=== PATIENT | female | born 1940 | race Caucasian/White ===

== ENCOUNTER 2017-05-03 16:12 | Emergency (ER) | payer MEDICARE, OTHER ==
--- NOTE | 2017-05-03 16:19 | ER Document Report ---
ED Fall - General Chief Complaint: Fall Stated Complaint: FALL FACE PAIN Time Seen by Provider: 05/03/17 16:17 Notes: The patient is a 76-year-old female, past medical history intermittent A. fib ( not on any blood thinners or rate-control agents), presents after she tripped over a [place] tree root and landed on her face. She has 2 lacerations on her forehead and above her nose with bleeding controlled. Her tetanus is up-to- date. On arrival to the ER, she is noticed to be in A. fib with RVR. She said that she did not drink any water today and that this happens when she becomes dehydrated. She denies LOC, neck pain, blurry vision, nausea, vomiting, palpitations, chest pain, shortness of breath or back pain. Past Medical History - General Information source: Patient - Social History Smoking Status: Unknown if Ever Smoked Family History: Reviewed & Not Pertinent Review of Systems - Review of Systems Notes: REVIEW OF SYSTEMS: CONSTITUTIONAL: -fevers, -chills EENT: +facial pain, -eye pain, -difficulty swallowing, -nasal congestion CARDIOVASCULAR: -chest pain, -syncope. RESPIRATORY: -cough, -SOB GASTROINTESTINAL: -abdominal pain, -nausea, -vomiting, -diarrhea GENITOURINARY: -dysuria, -hematuria MUSCULOSKELETAL: -back pain, -neck pain SKIN: +forehead lacerations HEMATOLOGIC: -easy bruising or bleeding. LYMPHATIC: -swollen, enlarged glands. NEUROLOGICAL: -altered mental status or loss of consciousness, -headache, - neurologic symptoms PSYCHIATRIC: -anxiety, -depression. ALL OTHER SYSTEMS REVIEWED AND NEGATIVE. Physical Exam - Vital signs Vitals: Resp BP Pulse Ox 20 111/88 H 95 05/03/17 16:27 05/03/17 16:27 05/03/17 16:27 - Notes Notes: PHYSICAL EXAMINATION: GENERAL: Well-appearing, well-nourished and in no acute distress EYES: Pupils equal round and reactive to light, extraocular movements intact, sclera anicteric, conjunctiva are normal. ENT: nares patent, oropharynx clear without exudates. Moist mucous membranes. NECK: Normal range of motion, supple without lymphadenopathy LUNGS: Breath sounds clear to auscultation bilaterally and equal. No wheezes rales or rhonchi. HEART: Irregularly irregular rhythm ABDOMEN: Soft, nontender, normoactive bowel sounds. No guarding, no rebound. No masses appreciated. EXTREMITIES: Normal range of motion, no pitting or edema. No cyanosis. NEUROLOGICAL: Cranial nerves grossly intact. Normal speech, normal gait. Normal sensory and motor exams. PSYCH: Normal mood, normal affect. SKIN: 6 cm linear laceration over forehead, 2 cm laceration above nose Course - Re-evaluation Re-evalutation: Patient appears well. Her head CT and facial CT did not show any bleeds or fractures. Wound sutured. Patient was found to be in A. fib with RVR on arrival to the ER. After 2 L normal saline and metoprolol, patient converted back to normal sinus rhythm. She is adamant that she does not want to be admitted for further evaluation and treatment. Instructed her that she must follow-up with the nutter up for further treatment. Gave her strict return precautions and instructions about laceration repair and she understands. - Vital Signs Vital signs: Temp Pulse Resp BP Pulse Ox 17 139/63 H 97 05/03/17 19:02 05/03/17 19:02 05/03/17 19:02 - EKG Interpretation by [place] EKG shows normal: Intervals, QRS Complexes, ST-T Waves Rate: Tachycardia Rhythm: A.Fib Procedures - Laceration/Wound Repair Upper Face Time completed: 19:51 Wound length (cm): 6 Wound's Depth, Shape: Flap Laceration pre-procedure: Sterile PPE donned, Betadine prep applied, Chloraprep applied Anesthetic type: 1% Lidocaine Volume Anesthetic (mLs): 6 Wound explored: Clean Wound Debrided: Extensive Wound Repaired With: Sutures Suture Size/Type: 5:0, Prolene Number of Sutures: 8 Layer Closure?: No Post-procedure wound care: Sterile dressing applied Post-procedure NV exam normal: Yes Complications: No Mid- Face Time completed: 19:52 Wound length (cm): 2 Wound's Depth, Shape: Linear Laceration pre-procedure: Chloraprep applied Anesthetic type: 1% Lidocaine Volume Anesthetic (mLs): 2 Wound explored: Clean Wound Debrided: Extensive Wound Repaired With: Sutures Suture Size/Type: 5:0, Prolene Number of Sutures: 4 Layer Closure?: No Post-procedure wound care: Sterile dressing applied Post-procedure NV exam normal: Yes Complications: No Discharge - Discharge Clinical Impression: Atrial fibrillation with RVR Facial laceration Qualifiers: Encounter type: initial encounter Qualified Code(s): S01.81XA - Laceration without foreign body of other part of head, initial encounter Condition: Stable Disposition: HOME, SELF-CARE Additional Instructions: You must follow-up with your primary care physician and nutter up for further evaluation of your A. fib and to see if medications need to be started. LACERATION CARE: Your laceration has been sutured to keep the skin edges aligned during healing. The time of suture removal depends on the nature and location of your cut. Please follow the care instructions the doctor has outlined for you and return for further care, according to the schedule you've been given. Keep the wound and dressing clean. Unless you were told otherwise, you may shower daily, blotting the wound dry with a clean, unused towel. At other times, If the dressing gets wet or blood soaked, remove it and blot the wound dry, then reapply a new dressing. Unless you were instructed otherwise, dressings should be changed at least daily. If any signs of infection occur (swelling, redness, drainage, increasing tenderness, red streaks, tender lumps in the armpit or groin above the laceration, or fever), see the doctor immediately. SOAP CLEANSING: Gently wash the wound daily using a mild soap (like Ivory, Phisoderm, Neutrogena). Use warm water, rubbing gently until all debris, ooze, and crusting have been washed from the wound. Allow to dry briefly (about 10 minutes) after cleaning. Repeat this cleansing at least three times a day for the first two days and then once or twice a day. ANTIBIOTIC OINTMENT PROTECTION: Your wounds are such that dressing them is not practical or optional. After cleansing, you should apply a thin coating of antibiotic ointment ( Bacitracin, not Neosporin) to the wounds at least three times daily. This lessens infection risk, and may decrease the amount of scarring. Use a q-tip or dull butter knife, not your finger, to apply this ointment. Any debris or ooze which builds up in the ointment should be gently rubbed off with a sterile gauze pad. Harder crusting may need to be gently scrubbed off with a clean wash cloth with soap and warm water, perhaps applying a warm, wet wash cloth to the wound for ten minutes first. Development of redness, severe itching, or blistering may mean allergy to the ointment. See the doctor. FOLLOW-UP CARE: Please return in 2 days for an infection check and dressing change. Your sutures should be removed in 5-7 days. To facilitate a timely removal of your sutures, you may return to the Emergency Department at [facility]. You do not need to call for an appointment, but the best time to come in for suture removal is early in the morning. If you have been referred to another physician for follow-up care, call that physicians office for an appointment as you were instructed. If you experience a significant change in your laceration, or if you are concerned there may be an infection (swelling, redness, drainage, increasing tenderness, red streaks, tender lumps in the armpit or groin above the laceration, or fever) , return to the Emergency Department immediately re-evaluation. Atrial Fibrillation Atrial fibrillation is an abnormal heart rhythm, caused by irregular electrical circuits in the upper heart chamber. It can be caused by heart valve disease, hardening of the arteries, or metabolic problems such as thyroid disease, or may occur without a clear cause. Atrial fibrillation may occur only occasionally, or may be chronic. Atrial fibrillation often results in a very fast heart rate, with palpitations, lightheadedness, and shortness of breath. Treatment is to slow the abnormally fast rate, and to convert the rhythm back to normal, if possible. Many patients stay in atrial fibrillation for years without symptoms or complications. Your doctor will decide whether you can be converted back to a normal heart rhythm. Contact the doctor or emergency medical system at once if you develop chest pain, shortness of breath, or severe lightheadedness, or if you develop any disturbance of consciousness, problems with speech, or localized weakness. Referrals: MONICA KAN MD [ACTIVE STAFF] - Follow up as needed
--- NOTE | 2017-05-03 16:42 | RADIOLOGY REPORT (SQ) ---
EXAM DESCRIPTION: CT HEAD WITHOUT COMPLETED DATE/TIME: 05/03/2017 4:22 pm REASON FOR STUDY: t2 fall COMPARISON: None. TECHNIQUE: Axial images acquired through the brain without intravenous contrast. Images reviewed wi th bone, brain and subdural windows. Images stored on PACS. All CT scanners at this facility use dose modulation, iterative reconstruction, and/or weight based d osing when appropriate to reduce radiation dose to as low as reasonably achievable (ALARA). [facility]: Dose Right [facility]: CareDose [facility]: Dose Right [facility]: Teradose 4D [facility]: [employer] RADIATION DOSE: mGy. LIMITATIONS: None. FINDINGS: VENTRICLES: Prominent. CEREBRUM: No masses. No hemorrhage. No midline shift. Areas of low density in the white matter mos t likely due to chronic micro-vascular ischemic change. No evidence for acute infarction. CEREBELLUM: No masses. No hemorrhage. No alteration of density. No evidence for acute infarction. EXTRAAXIAL SPACES: Mild age-related involutional change. No fluid collections. No masses. ORBITS AND GLOBE: No intra- or extraconal masses. Normal contour of globe without masses. CALVARIUM: No fracture. PARANASAL SINUSES: No fluid or mucosal thickening. SOFT TISSUES: No mass or hematoma. OTHER: No other significant finding. IMPRESSION: MILD CHRONIC CHANGES OF ATROPHY AND MICROVASCULAR ISCHEMIA. NO ACUTE PROCESS. TECHNICAL DOCUMENTATION: JOB ID: [id number] Quality ID # 436: Final reports with documentation of one or more dose reduction techniques (e.g., Au tomated exposure control, adjustment of the mA and/or kV according to patient size, use of iterative reconstruction technique) 2010 [employer]- All Rights Reserved
--- NOTE | 2017-05-03 16:48 | RADIOLOGY REPORT (SQ) ---
EXAM DESCRIPTION: CT FACIAL AREA WITHOUT COMPLETED DATE/TIME: 05/03/2017 4:22 pm REASON FOR STUDY: t2 fall COMPARISON: None. TECHNIQUE: Noncontrasted images through the facial bones and orbits windowed for bone and soft tissu e. Additional coronal and sagittal reconstructed images reviewed. All images stored on PACS. All CT scanners at this facility use dose modulation, iterative reconstruction, and/or weight based d osing when appropriate to reduce radiation dose to as low as reasonably achievable (ALARA). [facility]: Dose Right [facility]: CareDose [facility]: Dose Right [facility]: Teradose 4D [facility]: [employer] RADIATION DOSE: Up-to-date CT equipment and radiation dose reduction techniques were employed. CTDIv ol: 30.4 mGy. DLP: 502 mGy-cm. mGy. LIMITATIONS: None. FINDINGS: FACIAL BONES: No fracture or bone lesion. ORBITS: Intact. No fracture. Symmetric intact globes and retroorbital soft tissues. PARANASAL SINUSES: Mucosal thickening is identified in the right maxillary antra. Remaining paranasa l sinuses are well-aerated. No air-fluid levels are identified. No nasal polyps. Maxillary sinus ou tlets are patent. SOFT TISSUES: There is some minimal superficial soft tissue irregularity in the frontal region and br idge of the nose suggesting soft tissue injury. INFERIOR BRAIN: Limited view. No acute findings. OTHER: No other significant finding. IMPRESSION: No acute fracture dislocation. No air-fluid levels are identified in the paranasal sinu ses. Apparent soft tissue injury in the frontal region and bridge of the nose. Clinical correlation is recommended. Other findings as noted above TECHNICAL DOCUMENTATION: JOB ID: [id number] Quality ID # 436: Final reports with documentation of one or more dose reduction techniques (e.g., Au tomated exposure control, adjustment of the mA and/or kV according to patient size, use of iterative reconstruction technique) 2010 [employer]- All Rights Reserved
[2017-05-03] MEDS ORDERED: METOPROLOL TARTRATE PF/INJ 5 MG/5 ML SDV IV ONE (17:44)
[2017-05-03] MEDS ORDERED: METOPROLOL SUCCINATE 50 MG TAB.SR.24H PO ONE (17:44)
[2017-05-03] MEDS ORDERED: LIDOCAINE 1% INJ-PF (10 MG/ML) 30 ML SDV INJ ONE (18:28)
[2017-05-03 19:22] VITALS: BP 139/63
--- NOTE | 2017-05-03 20:35 | EKG REPORT ---
SEVERITY:- ABNORMAL ECG - SINUS RHYTHM NONSPECIFIC IVCD WITH LAD : Confirmed by: Casper Soto MD 03-May-2017 20:34:51
--- NOTE | 2017-05-03 20:36 | EKG REPORT ---
SEVERITY:- ABNORMAL ECG - ATRIAL FIBRILLATION LBBB AND OLD ANTERIOR MD REPOLARIZATION ABNORMALITY, PROB RATE RELATED BORDERLINE PROLONGED QT INTERVAL : Confirmed by: Casper Soto MD 03-May-2017 20:35:46
== END 2017-05-03 20:02 | disposition home or self-care (01) ==
LOC: ER 16:12
PROC: 0HQ1XZZ Repair Face Skin, External Approach (ICD-10-PCS; principal; 2017-05-03)
DX: I48.91 Unspecified atrial fibrillation (principal); S01.81XA Laceration without foreign body of other part of head, initial encounter; R51 Headache; W01.0XXA Fall on same level from slipping, tripping and stumbling without subsequent striking against object, initial encounter
CPT/HCPCS: 12015; 93005; 99284; 96374; 70450; 70486; 93010; J3490 ×2; A9270

== ENCOUNTER 2017-05-08 18:00 | Emergency (ER) | payer MEDICARE, OTHER ==
--- NOTE | 2017-05-08 18:21 | ER Document Report ---
ED Suture/Wound Recheck - General Chief Complaint: Suture Removal Stated Complaint: SUTURE REMOVAL/FACE Time Seen by Provider: 05/08/17 18:18 Notes: The patient is a 76-year-old female, past medical history A. fib, presents for a wound recheck and possible suture removal. She fell and hit a tree branch 5 days ago and had her forehead and nose lacerations sutured after negative CAT scans of her head and face. Patient denies fevers, discharge other wounds, epistaxis, altered mental status, confusion, neck pain, redness, chest pain or palpitations. TRAVEL OUTSIDE OF THE [place] IN LAST 30 DAYS: No Past Medical History - General Information source: Patient - Social History Smoking Status: Never Smoker Family History: Reviewed & Not Pertinent Patient has suicidal ideation: No Patient has homicidal ideation: No Renal/ Medical History: Denies: Hx Peritoneal Dialysis Review of Systems - Review of Systems Notes: REVIEW OF SYSTEMS: CONSTITUTIONAL: -fevers, -chills EENT: -eye pain, -difficulty swallowing, -nasal congestion CARDIOVASCULAR:-chest pain, -syncope. RESPIRATORY: -cough, -SOB GASTROINTESTINAL: -abdominal pain, - nausea, -vomiting, -diarrhea GENITOURINARY: -dysuria, -hematuria MUSCULOSKELETAL: -back pain, -neck pain SKIN: +facial lacerations, -rash or skin lesions. HEMATOLOGIC: -easy bruising or bleeding. LYMPHATIC: -swollen, enlarged glands. NEUROLOGICAL: -altered mental status or loss of consciousness, -headache, - neurologic symptoms PSYCHIATRIC: -anxiety, -depression. ALL OTHER SYSTEMS REVIEWED AND NEGATIVE. Physical Exam - Notes Notes: PHYSICAL EXAMINATION: GENERAL: Well-appearing, well-nourished and in no acute distress. EYES: Pupils equal round and reactive to light, extraocular movements intact, sclera anicteric, conjunctiva are normal. ENT: nares patent, oropharynx clear without exudates. Moist mucous membranes. NECK: Normal range of motion, supple without lymphadenopathy LUNGS: Breath sounds clear to auscultation bilaterally and equal. No wheezes rales or rhonchi. HEART: Regular rate and rhythm without murmurs ABDOMEN: Soft, nontender, normoactive bowel sounds. No guarding, no rebound. No masses appreciated. EXTREMITIES: Normal range of motion, no pitting or edema. No cyanosis. NEUROLOGICAL: Cranial nerves grossly intact. Normal speech, normal gait. Normal sensory and motor exams. PSYCH: Normal mood, normal affect. SKIN: Ecchymosis under both eyes, well-healed forehead laceration with a small amount of bloody discharge from wound, no surrounding erythema; well-healed nasal bridge laceration without any drainage Course - Re-evaluation Re-evalutation: 2 lacerations appear well-healed. Sutures removed. Small amount of serosanguineous discharge from forehead laceration. Will begin patient on doxycycline. Given strict return precautions and she understands. Discharge - Discharge Clinical Impression: Visit for suture removal Condition: Stable Disposition: HOME, SELF-CARE Additional Instructions: LACERATION CARE: Your laceration has been sutured to keep the skin edges aligned during healing. The time of suture removal depends on the nature and location of your cut. Please follow the care instructions the doctor has outlined for you and return for further care, according to the schedule you've been given. Keep the wound and dressing clean. Unless you were told otherwise, you may shower daily, blotting the wound dry with a clean, unused towel. At other times, If the dressing gets wet or blood soaked, remove it and blot the wound dry, then reapply a new dressing. Unless you were instructed otherwise, dressings should be changed at least daily. If any signs of infection occur (swelling, redness, drainage, increasing tenderness, red streaks, tender lumps in the armpit or groin above the laceration, or fever), see the doctor immediately. SOAP CLEANSING: Gently wash the wound daily using a mild soap (like Ivory, Phisoderm, Neutrogena). Use warm water, rubbing gently until all debris, ooze, and crusting have been washed from the wound. Allow to dry briefly (about 10 minutes) after cleaning. Repeat this cleansing at least three times a day for the first two days and then once or twice a day. ANTIBIOTIC OINTMENT PROTECTION: Your wounds are such that dressing them is not practical or optional. After cleansing, you should apply a thin coating of antibiotic ointment ( Bacitracin, not Neosporin) to the wounds at least three times daily. This lessens infection risk, and may decrease the amount of scarring. Use a q-tip or dull butter knife, not your finger, to apply this ointment. Any debris or ooze which builds up in the ointment should be gently rubbed off with a sterile gauze pad. Harder crusting may need to be gently scrubbed off with a clean wash cloth with soap and warm water, perhaps applying a warm, wet wash cloth to the wound for ten minutes first. Development of redness, severe itching, or blistering may mean allergy to the ointment. See the doctor. Prescriptions: Doxycycline Hyclate 100 mg PO BID #14 capsule
[2017-05-08] MEDS ORDERED: DOXYCYCLINE HYCLATE 100 MG TABLET PO ONE (19:01)
[2017-05-08 19:32] VITALS: BP 146/74
== END 2017-05-08 19:32 | disposition home or self-care (01) ==
LOC: ER 18:00
DX: Z48.02 Encounter for removal of sutures (principal); W19.XXXD Unspecified fall, subsequent encounter

== ENCOUNTER 2017-05-20 09:56 | Emergency (ER) | payer MEDICARE, OTHER ==
--- NOTE | 2017-05-20 10:33 | ER Document Report ---
HPI - HPI Pain Level: Denies Notes: Patient presents to the ED for suture removal or two sutures that did not get pulled out at her f/u on the 08 May. Pt states that she had a steri-strip there and was told to let it fall off on its own, which decided to fall off yesterday. Pt states that she then noticed 3 remaining sutures. Pt states that she did get one out on her own but did not want to do it wrong so came in to get the remaining 2 taken out. Patient states otherwise she has no new concerns or complaints. Patient states that the wounds have healed nicely and she has, streaking, or fever. - ROS Notes: REVIEW OF SYSTEMS: CONSTITUTIONAL : Denies fever, chills, or sweats. Denies recent illness. EENT: Denies eye, ear, throat, or mouth pain or symptoms. Denies nasal or sinus congestion or discharge. Denies throat, tongue, or mouth swelling or difficulty swallowing. CARDIOVASCULAR: Denies chest pain. Denies palpitations or racing or irregular heart beat. Denies ankle edema. RESPIRATORY: Denies cough, cold, or chest congestion. Denies shortness of breath, difficulty breathing, or wheezing. GASTROINTESTINAL: Denies abdominal pain or distention. Denies nausea, vomiting , or diarrhea. Denies blood in vomitus, stools, or per rectum. Denies black, tarry stools. Denies constipation. GENITOURINARY: Denies difficulty urinating, painful urination, burning, frequency, blood in urine, or discharge. MUSCULOSKELETAL: Denies back or neck pain or stiffness. Denies joint pain or swelling. SKIN: see hpi NEUROLOGICAL: Denies confusion or altered mental status. Denies passing out or loss of consciousness. Denies dizziness or lightheadedness. Denies headache. Denies weakness or paralysis or loss of use of either side. Denies problems with gait or speech. Denies sensory loss, numbness, or tingling. ALL OTHER SYSTEMS REVIEWED AND NEGATIVE. Dictation was performed using [employer] voice recognition software - CARDIOVASCULAR Cardiovascular: DENIES: Chest pain - DERM Skin Color: Normal Past Medical History - Social History Smoking Status: Former Smoker Chew tobacco use (# tins/day): No Frequency of alcohol use: Rare Drug Abuse: None Family History: Reviewed & Not Pertinent Patient has suicidal ideation: No Patient has homicidal ideation: No Renal/ Medical History: Denies: Hx Peritoneal Dialysis Vertical Provider Document - CONSTITUTIONAL Agree With Documented VS: Yes Notes: PHYSICAL EXAMINATION: GENERAL: Well-appearing, well-nourished and in no acute distress. EYES: Pupils equal round and reactive to light, extraocular movements intact, sclera anicteric, conjunctiva are normal. ENT: EAC clear b/l. TM's intact b/l without erythema, fluid, or perforation. Nares patent and without discharge. oropharynx clear without exudates. No tonsilar hypertrophy or erythema. Moist mucous membranes. No sinus tenderness. NECK: Normal range of motion, supple without lymphadenopathy LUNGS: Breath sounds clear to auscultation bilaterally and equal. No wheezes rales or rhonchi. HEART: Regular rate and rhythm without murmurs, rubs, gallops. NEUROLOGICAL: Normal speech, normal gait. Normal sensory, motor exams PSYCH: Normal mood, normal affect. SKIN: 2 sutures just superior to the nasal bone, mid face were removed successfully without complication. No signs of infection or wound dehiscence. - INFECTION CONTROL TRAVEL OUTSIDE OF THE [place] IN LAST 30 DAYS: No - RESPIRATORY O2 Sat by Pulse Oximetry: 94 Course - Re-evaluation Re-evalutation: 05/20/17 10:42 Patient is an afebrile, well-hydrated, 76-year-old female presents the ED for suture removal. Vitals are stable. PE otherwise unremarkable. Remaining 2 sutures were removed from the face successfully without complications. Wound instructions reviewed. Monitor for any wound dehiscence or signs of infection and seek medical attention so. Conservative measures otherwise. Recheck with your PCM as directed. Return to ED with any worsening/concerning symptoms otherwise as reviewed in discharge. Patient is in agreement. - Vital Signs Vital signs: Temp Pulse Resp BP Pulse Ox 97.6 F 97 16 145/81 H 94 05/20/17 09:56 05/20/17 09:56 05/20/17 09:56 05/20/17 09:56 05/20/17 09:56 Discharge - Discharge Clinical Impression: Visit for suture removal Condition: Stable Disposition: HOME, SELF-CARE Instructions: Soap Cleansing ([facility]) Additional Instructions: Keep wound clean and dry Soap and water rinses May apply an otc scar cream as needed Return to the ED with any fever, headache, worsening redness, purulent discharge , red streaks, chest pain, shortness of breath, abdominal pain, n/v/d, or any other worsening/concerning symptoms as needed. Forms: Elevated Blood Pressure
[2017-05-20 10:47] VITALS: BP 117/66
== END 2017-05-20 10:48 | disposition home or self-care (01) ==
LOC: ER 09:56
DX: Z48.02 Encounter for removal of sutures (principal); F17.200 Nicotine dependence, unspecified, uncomplicated; R03.0 Elevated blood-pressure reading, without diagnosis of hypertension

== ENCOUNTER 2017-08-18 11:54 | Inpatient (IN) | payer MEDICARE, OTHER ==
[2017-08-18] MEDS ORDERED: DILTIAZEM HCL INJ 25 MG/5 ML VIAL IV ONE (12:04)
[2017-08-18] MEDS ORDERED: NORMAL SALINE 1000 ML 1,000 ML IV ONE (12:41)
[2017-08-18] MEDS ORDERED: DILTIAZEM HCL/D5W 125 MG/125 ML RTUINJ IV PRN (12:41)
[2017-08-18 12:44] LABS: ABSOLUTE BASOPHILS # (AUTO) 0.1 10^3/uL (0.0-0.2); ABSOLUTE EOSINOPHILS # (AUTO) 0.2 10^3/uL (0.0-0.6); ABSOLUTE LYMPHOCYTES (AUTO) 0.9 10^3/uL (0.5-4.7); EOSINOPHILS % (AUTO) 0.9 % (0-6); SEGMENTED NEUTROPHILS % (AUTO) 88.5 % (42-78)
[2017-08-18 12:52] LABS: ABSOLUTE MONOCYTES (AUTO) 0.8 10^3/uL (0.1-1.4); ABSOLUTE NEUT (AUTO) 15.4 10^3/uL (1.7-8.2); BASOPHILS % (AUTO) 0.6 % (0-2); HEMATOCRIT 43.6 % (36.0-47.0); HEMOGLOBIN 14.9 g/dL (12.0-15.5); HGB HCT DIFFERENCE 1.1; LYMPHOCYTES % (AUTO) 5.2 % (13-45); MEAN CORPUSCULAR HEMOGLOBIN 28.2 pg (27.0-33.4); MEAN CORPUSCULAR HGB CONC 34.2 g/dL (32.0-36.0); MEAN CORPUSCULAR VOLUME 83 fl (80-97); MONOCYTES % (AUTO) 4.8 % (3-13); RED BLOOD COUNT 5.29 10^6/uL (3.72-5.28); WHITE BLOOD COUNT 17.4 10^3/uL (4.0-10.5)
[2017-08-18 13:12] LABS: ALANINE AMINOTRANSFERASE 17 U/L (9-52); ALKALINE PHOSPHATASE 119 U/L (38-126); ANION GAP 12 (5-19); ASPARTATE AMINO TRANSFERASE 52 U/L (14-36); BILIRUBIN,DIRECT 0.5 mg/dL (0.0-0.4); BLOOD UREA NITROGEN 12 mg/dL (7-20); CALCIUM 8.1 mg/dL (8.4-10.2); CARBON DIOXIDE 20 mmol/L (22-30); CHLORIDE 100 mmol/L (98-107); CREATININE RESULT 1.02 mg/dL (0.52-1.25); GLUCOSE 103 mg/dL (75-110); POTASSIUM 4.4 mmol/L (3.6-5.0); SODIUM 132.2 mmol/L (137-145); TOTAL PROTEIN 6.3 g/dL (6.3-8.2)
--- NOTE | 2017-08-18 13:53 | ER Document Report ---
ED General - General Chief Complaint: Arrhythmia Stated Complaint: HEART PALPITATIONS Time Seen by Provider: 08/18/17 11:57 Information source: Patient, Emergency Med Personnel Notes: 76-year-old female history of atrial fibrillation for which she is on Eliquis as well as a history of hypothyroidism but was taken off her Synthroid 1 month ago but states she actually took some Synthroid yesterday presents with complaints of rapid heart rate. 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 Swain, when he noted that she was in A. fib RVR and called EMS. Patient denies any complaints at all TRAVEL OUTSIDE OF THE [place] IN LAST 30 DAYS: No - HPI Onset: Just prior to arrival Onset/Duration: Sudden Quality of pain: No pain Severity: Moderate Pain Level: Denies Associated symptoms: Other Exacerbated by: Denies Relieved by: Denies Similar symptoms previously: Yes Recently seen / treated by doctor: Yes - Related Data Allergies/Adverse Reactions: Sulfa (Sulfonamide Antibiotics) Adverse Reaction (Mild, Verified 08/18/17 12:14) Hives Past Medical History - Social History Smoking Status: Never Smoker Cigarette use (# per day): No Chew tobacco use (# tins/day): No Smoking Education Provided: No Family History: Reviewed & Not Pertinent Renal/ Medical History: Denies: Hx Peritoneal Dialysis Review of Systems - Review of Systems Notes: REVIEW OF SYSTEMS: CONSTITUTIONAL : Denies fever, chills, or sweats. Denies recent illness. EENT: Denies eye, ear, throat, or mouth pain or symptoms. Denies nasal or sinus congestion or discharge. Denies throat, tongue, or mouth swelling or difficulty swallowing. CARDIOVASCULAR: Denies chest pain. Denies palpitations or racing or irregular heart beat. Denies ankle edema. RESPIRATORY: Denies cough, cold, or chest congestion. Denies shortness of breath, difficulty breathing, or wheezing. GASTROINTESTINAL: Denies abdominal pain or distention. Denies nausea, vomiting , or diarrhea. Denies blood in vomitus, stools, or per rectum. Denies black, tarry stools. Denies constipation. GENITOURINARY: Denies difficulty urinating, painful urination, burning, frequency, blood in urine, or discharge. FEMALE GENITOURINARY: Denies vaginal bleeding, heavy or abnormal periods, irregular periods. Denies vaginal discharge or odor. MUSCULOSKELETAL: Denies back or neck pain or stiffness. Denies joint pain or swelling. SKIN: Denies rash, lesions or sores. HEMATOLOGIC : Denies easy bruising or bleeding. LYMPHATIC: Denies swollen, enlarged glands. NEUROLOGICAL: Denies confusion or altered mental status. Denies passing out or loss of consciousness. Denies dizziness or lightheadedness. Denies headache. Denies weakness or paralysis or loss of use of either side. Denies problems with gait or speech. Denies sensory loss, numbness, or tingling. Denies seizures. PSYCHIATRIC: Denies anxiety or stress. Denies depression, suicidal ideation, or homicidal ideation. ALL OTHER SYSTEMS REVIEWED AND NEGATIVE. PHYSICAL EXAMINATION: GENERAL: Well-appearing, well-nourished and in no acute distress. HEAD: Atraumatic, normocephalic. EYES: Pupils equal round and reactive to light, extraocular movements intact, conjunctiva are normal. ENT: Nares patent, oropharynx clear without exudates. Moist mucous membranes. NECK: Normal range of motion, supple without lymphadenopathy LUNGS: Breath sounds clear to auscultation bilaterally and equal. No wheezes rales or rhonchi. HEART: A. fib RVR ABDOMEN: Soft, nontender, nondistended abdomen. No guarding, no rebound. No masses appreciated. Female : deferred Musculoskeletal: Normal range of motion, no pitting or edema. No cyanosis. NEUROLOGICAL: Cranial nerves grossly intact. Normal speech, normal gait. Normal sensory, motor exams PSYCH: Normal mood, normal affect. SKIN: Warm, Dry, normal turgor, no rashes or lesions noted. Dictation was performed using [employer] voice recognition software Course - Re-evaluation Re-evalutation: 08/18/17 14:16 Patient's initial heart rate was in the 180s-190s, she was immediately given Cardizem bolus and was placed on a drip. She was noted to be slightly hypotensive and was given IV fluids as well. Her heart rate did improve to the 120s-130s. It is noted that her TSH level is 0.02. Patient will be admitted to the [facility] on Cardizem drip - Laboratory Result Diagrams: 08/18/17 12:35 08/18/17 12:35 Laboratory results interpreted by me: 08/18/17 08/18/17 08/18/17 12:35 12:35 12:35 WBC 17.4 H RBC 5.29 H Plt Count 539 H Seg Neutrophils % 88.5 H Lymphocytes % 5.2 L Absolute Neutrophils 15.4 H Sodium 132.2 L Carbon Dioxide 20 L Est GFR (Non-Af Amer) 53 L Calcium 8.1 L Direct Bilirubin 0.5 H AST 52 H Albumin 3.0 L TSH 0.02 L - Diagnostic Test Radiology reviewed: Image reviewed, Reports reviewed - EKG Interpretation by Me EKG shows normal: Sinus rhythm, [place], Intervals, QRS Complexes Rate: Tachycardia Rhythm: A.Fib Critical Care Note - Critical Care Note Total time excluding time spent on procedures (mins): 34 Comments: 34 minutes of critical care time spent in direct contact evaluating and reevaluating the patient, treating symptoms, reviewing labs and studies and speaking with family and consultants excluding any procedures Discharge - Discharge Clinical Impression: Atrial fibrillation with RVR, Hyperthyroidism Condition: Stable Disposition: ADMITTED INPATIENT Admitting Provider: Hospitalist Unit Admitted: [facility]
[2017-08-18 15:03] LABS: CREATINE KINASE MB 0.83 ng/mL (<4.55); TROPONIN I 0.016 ng/mL
[2017-08-18 15:10] LABS: FREE T3 2.31 pg/mL (2.77-5.27)
[2017-08-18] MEDS ORDERED: ACETAMINOPHEN 325 MG TABLET PO PRN (15:15)
[2017-08-18] MEDS ORDERED: POTASSI CL 20 MEQ/1/2NS 1L 20 MEQ/1,000 ML RTUINJ IV PRN (15:15)
--- NOTE | 2017-08-18 16:39 | RADIOLOGY REPORT (SQ) ---
EXAM DESCRIPTION: CHEST SINGLE VIEW COMPLETED DATE/TIME: 08/18/2017 3:49 pm REASON FOR STUDY: elevated wbc COMPARISON: None. EXAM PARAMETERS: NUMBER OF VIEWS: One view. TECHNIQUE: Single frontal radiographic view of the chest acquired. RADIATION DOSE: NA LIMITATIONS: None. FINDINGS: LUNGS AND PLEURA: No opacities, masses or pneumothorax. No pleural effusion. MEDIASTINUM AND HILAR STRUCTURES: No masses. Contour normal. HEART AND VASCULAR STRUCTURES: Heart normal in size. Normal vasculature. BONES: No acute findings. HARDWARE: None in the chest. OTHER: No other significant finding. IMPRESSION: NO ACUTE RADIOGRAPHIC FINDING IN THE CHEST. TECHNICAL DOCUMENTATION: JOB ID: [id number]
[2017-08-18] MEDS ORDERED: DILTIAZEM HCL 30 MG TABLET PO ONE (16:45)
--- NOTE | 2017-08-18 19:26 | PDOC H&P ---
History of Present Illness Admission Date/PCP: 08/18/17 15:16 History of Present Illness: ALTAGRACIA OLIVIA is a 76 year old white female with a past medical history significant for newly diagnosed A. fib May 03, 2017. The patient is presenting from Dr. Swain's office. The patient was noted to have A. fib back in April and was referred to Dr. Cartagena. Dr. Cartagena had performed a two-week monitoring analyst and discovered arrhythmias according to the patient. She was referred to Dr. Swain's office. The patient states that Dr. Cartagena found 4 second pauses and that he did not believe that A. fib was part of the problem. The patient met with Dr. Swain today in the office and was discovered to have a heart rate of 190. She was sent directly to the emergency room. Of note the patient has a history of overactive thyroid disease. She states that she was not diagnosed with Graves' and that she was told specifically that she did not have Graves'. Nevertheless she had ablation of her thyroid 14 years ago. She has been on hormone replacement until her appointment with Dr. Cartagena back in April. At that time he told her that her levels was too high and that she needed to stop her medication. In the ED the patient received a bolus of fluid for blood pressure that was down in the 90s. Troponins were 0.02. Heart rate came down to 120-130s. Past Medical History Cardiac Medical History: Reports: Atrial Fibrillation Pulmonary Medical History: Reports: Bronchitis Endocrine Medical History: Reports: Hypothyroidism - Patient had her thyroid ablated is now hypothyroid. Musculoskeltal Medical History: Reports: Arthritis Past Surgical History Past Surgical History: Reports: Cholecystectomy, Orthopedic Surgery - right finger, Other - Irradiation of the thyroid. Social History Information Source: Patient Smoking Status: Former Smoker - The patient quit May 27, 2002. Frequency of Alcohol Use: Occasional - The patient drinks wine a few times a year. - Advance Directive Resuscitation Status: Full Code Family History Family History: Hypertension, Malignancy - It is unclear which malignancy her mother had. Parental Family History Reviewed: Yes Children Family History Reviewed: NA Sibling(s) Family History Reviewed.: Yes Medication/Allergy Home Medications: Apixaban [Eliquis 5 mg Tablet] 5 mg PO DAILY 08/18/17 Celecoxib [Celebrex 200 mg Capsule] 200 mg PO Q12HP PRN 08/18/17 Levothyroxine Sodium [Synthroid] 200 mcg PO DAILY 08/18/17 Magnesium Oxide [Magnesium] 400 mg PO DAILY 08/18/17 Potassium Gluconate [Potassium] 99 mg PO DAILY 08/18/17 Vitamin B Complex [B Complex] 1 cap PO DAILY 08/18/17 Allergies/Adverse Reactions: Sulfa (Sulfonamide Antibiotics) Adverse Reaction (Mild, Verified 08/18/17 12:14) Hives Review of Systems Review of Systems: As per the HPI. Otherwise patient denies any chest pain, shortness of breath, blood in the stool, blood in the urine, coughing up blood, throwing up blood, abdominal pain, visual changes. She does admit to arthritic type pains. She has lost 90 pounds intentionally. She expresses a decreased appetite but is able to get through all her meals during the day. She admits to occasional chills but no fevers, nausea, vomiting, constipation or diarrhea. Physical Exam Vital Signs: Temp Pulse Resp BP Pulse Ox 97.7 F 69 18 95/45 L 100 08/18/17 16:04 08/18/17 18:48 08/18/17 16:04 08/18/17 19:01 08/18/17 16:04 Intake & Output 08/17/17 08/18/17 08/19/17 06:59 06:59 06:59 Intake Total 250 Balance 250 Results Impressions: Chest X-Ray 08/18/17 00:00 IMPRESSION: NO ACUTE RADIOGRAPHIC FINDING IN THE CHEST. Assessment & Plan - Diagnosis (1) Atrial fibrillation with RVR Plan: Continue Cardizem drip for now. Patient is currently rate controlled on max dosage. Hopefully she will convert. Patient has a history of hyperthyroidism but is now hypothyroid after having ablation 14 years ago. Her current T3 and T4 are within normal limits. Likely this is not the issue. She does have an elevated white count she could be brewing an infection that may have thrown her into A. fib. Will check chest x-ray and urinalysis. (2) Arthritis Plan: As needed Tylenol. (4) Leukocytosis Plan: Check urinalysis and chest x-ray. At this point I do not have a good reason for an elevated white blood cell count the patient is afebrile. She is tachycardic but she is in A. fib with RVR currently rate controlled on Cardizem drip. She is not tachypneic. Antibiotics will not be started at this point. - Time Time Spent: 50 to 70 Minutes - Inpatient Certification Medical Necessity: Need Close Monitoring Due to Risk of Patient Decompensation
[2017-08-18 20:36] LABS: APPEARANCE,URINE CLEAR; BILIRUBIN,URINE NEGATIVE (NEGATIVE); GLUCOSE, URINE NEGATIVE (NEGATIVE); KETONES,URINE NEGATIVE (NEGATIVE); LEUKOCYTE ESTERASE,URINE NEGATIVE (NEGATIVE); NITRITE,URINE NEGATIVE (NEGATIVE); PROTEIN,URINE NEGATIVE (NEGATIVE); URINE SPECIFIC GRAVITY 1.004; UROBILINOGEN,URINE NEGATIVE mg/dL (<2.0)
[2017-08-18] MEDS: DILTIAZEM HCL 30 MG TABLET PO SCH (23:39)
[2017-08-19] MEDS: DILTIAZEM HCL 30 MG TABLET PO SCH ×2 (05:20→11:16)
[2017-08-19 05:52] LABS: ABSOLUTE BASOPHILS # (AUTO) 0.2 10^3/uL (0.0-0.2); ABSOLUTE EOSINOPHILS # (AUTO) 0.7 10^3/uL (0.0-0.6); ABSOLUTE LYMPHOCYTES (AUTO) 1.3 10^3/uL (0.5-4.7); ABSOLUTE MONOCYTES (AUTO) 0.7 10^3/uL (0.1-1.4); ABSOLUTE NEUT (AUTO) 13.9 10^3/uL (1.7-8.2); BASOPHILS % (AUTO) 1.2 % (0-2); EOSINOPHILS % (AUTO) 4.4 % (0-6); HEMATOCRIT 40.6 % (36.0-47.0); HEMOGLOBIN 13.9 g/dL (12.0-15.5); HGB HCT DIFFERENCE 1.1; LYMPHOCYTES % (AUTO) 7.6 % (13-45); MEAN CORPUSCULAR HEMOGLOBIN 28.6 pg (27.0-33.4); MEAN CORPUSCULAR HGB CONC 34.2 g/dL (32.0-36.0); MEAN CORPUSCULAR VOLUME 84 fl (80-97); RED BLOOD COUNT 4.86 10^6/uL (3.72-5.28); SEGMENTED NEUTROPHILS % (AUTO) 82.8 % (42-78); WHITE BLOOD COUNT 16.8 10^3/uL (4.0-10.5)
[2017-08-19 06:15] LABS: ANION GAP 14 (5-19); BLOOD UREA NITROGEN 11 mg/dL (7-20); CALCIUM 8.1 mg/dL (8.4-10.2); CARBON DIOXIDE 21 mmol/L (22-30); CHLORIDE 101 mmol/L (98-107); CREATININE RESULT 0.87 mg/dL (0.52-1.25); GLUCOSE 82 mg/dL (75-110); POTASSIUM 4.9 mmol/L (3.6-5.0); SODIUM 136.1 mmol/L (137-145)
[2017-08-19 09:17] VITALS: BP 129/68
[2017-08-19] MEDS ORDERED: (PENDING PHARMACY ID) (Magnesium Oxide [Magnesium] 400 MG) PO SCH (10:00)
[2017-08-19] MEDS ORDERED: APIXABAN 5 MG TABLET PO SCH (10:00)
[2017-08-19] MEDS ORDERED: (PENDING PHARMACY ID) (Potassium Gluconate [Potassium] 99 MG) PO SCH (10:00)
[2017-08-19] MEDS ORDERED: MAGNESIUM OXIDE 400 MG TABLET PO SCH (10:00)
--- NOTE | 2017-08-19 10:41 | EKG REPORT ---
SEVERITY:- ABNORMAL ECG - SUPRAVENTRICULAR TACHYCARDIA LEFT ANTERIOR FASCICULAR BLOCK REPOLARIZATION ABNORMALITY, PROB RATE RELATED : Confirmed by: Argenis Sommers MD 19-Aug-2017 10:40:34
[2017-08-19] MEDS ORDERED: DILTIAZEM HCL 120 MG CAP.SR.24H PO ONE (11:15)
--- NOTE | 2017-08-19 12:37 | DISCHARGE SUMMARY E ---
Discharge Summary NAME: ALTGARACIA OLIVIA : 1940 AGE: 76Y ADMITTED: 08/18/2017 DISCHARGED: 08/19/2017 CODE STATUS: FULL CODE. MILK HANDLER: Dr. Swain and Dr. Mcqueen PRIMARY CARE PROVIDER: [facility] DISCHARGE DIAGNOSES: 1. Atrial fibrillation with rapid ventricular response. 2. Osteoarthritis. 3. History of hypothyroidism. DISCHARGE MEDICATIONS: 1. Eliquis 5 mg p.o. daily. 2. Cardizem CD 180 mg p.o. b.i.d. 3. Magnesium 40 mg p.o. daily. 4. Potassium 99 mg p.o. daily. 5. Vitamin B complex 1 capsule p.o. daily. DIET: Heart healthy. ACTIVITY: As tolerated. DIAGNOSTICS: Lab values are as follows: Hematology obtained on 08/19/2017: WBCs are 16,000; hemoglobin is 13.9; hematocrit is 40.6; platelet count is 551,000. Chemistry obtained on 08/19/2017: Sodium is 136, potassium 4.9, chloride is 101, carbon dioxide 21, BUN 11, creatinine is 0.87, glucose 82, calcium is 8.1, magnesium is 2.0, bilirubin is 1, AST 52, ALT 17, alk phos 119, CK 65, CK-MB is 0.83, troponin is 0.016, total protein is 3.3, albumin 3.0, TSH is 0.02, T4 is 1.76. Urinalysis obtained on 08/18/2017: Color yellow, appearance clear, pH 6.0, specific gravity 1.004, protein negative, glucose negative, ketones negative, occult blood small, nitrate negative, bilirubin negative, urobilinogen negative, leukocyte esterase negative, WBC 1, RBC 1, bacteria 1, epithelial squamous cells 2, ascorbic acid negative. Chest x-ray obtained on 08/18/2017 reveals no acute radiographic finding of the chest. EKG obtained on 08/18/2017 reveals atrial fibrillation. HISTORY OF PRESENT ILLNESS: The patient is a 76-year-old female with a past medical history of previous arrhythmias. The patient presented to the emergency department from Dr. Swain's office due to a heart rate in the 160s. According to the patient, she was initially followed by Dr. Mcqueen of Cardiology but was found to have 4-second pauses and did not believe the patient had AFib, therefore, referred to Dr. Swain for further evaluation. However, when the patient went to her appointment, she was found to have a heart rate of 190 and was sent to the emergency department for evaluation. Upon presentation to the emergency department, the patient was found to have normal electrolytes and an EKG that was suggestive of atrial fibrillation. Of note, the patient does have a history of overactive thyroid disease. The patient stated she was not diagnosed officially with Graves and was specifically told she did not have Graves disease; however, she had ablation of her thyroid 14 years ago and has been on hormone replacement since that time. However, when patient saw Dr. Mcqueen back in October, it was found her levels were too high and she needed to stop her medication and therefore the patient has stopped her Synthroid. The patient received a fluid bolus in the emergency department and the patient was referred to the hospitalist for admission and management. HOSPITAL COURSE: The patient was admitted to [facility]. The patient was placed on Cardizem drip and the patient converted upon arrival to the floor. The patient's symptoms of palpitations completely resolved. The patient's T4 was found to be in an acceptable range. The patient was transitioned over to oral Cardizem for which she has tolerated well, especially with her blood pressures has tolerated this well and the patient feels that she is at her baseline. The patient has no evidence of overt failure and is ready for discharge. The patient can follow up with Dr. Swain upon her discharge. PHYSICAL EXAMINATION: GENERAL: On examination, the patient is a well-developed, well-nourished, 76-year-old female who is awake, alert, and oriented to person, place, time, and situation. She is verbal, conversational, ambulatory, and does not appear to be in any acute distress. VITAL SIGNS: Temperature 97.3, pulse 77, respirations 16, blood pressure 129/68, oxygen saturation is 97% on room air. SKIN: Warm and dry. No rash. Not diaphoretic. HEENT: Pupils equal, round, reactive to light and accommodation. Conjunctivae are pink. There is no JVP. CARDIOVASCULAR: Heart is regular with no murmur or rub. CHEST: Clear, symmetrical, unlabored. ABDOMEN: Soft, nontender, nondistended. BACK: No CVA tenderness or sacral edema. EXTREMITIES: No clubbing, cyanosis, or edema. PSYCHIATRIC: Appropriate affect. Pleasant mood. DISCHARGE PLANNIN. The patient is advised to followup with her primary care provider within 1-2 weeks for hospital followup. 2. The patient is advised to followup with Dr. Swain within 2 weeks for hospital followup. Time spent on this discharge including assessment, plan, physical examination, patient education, review of previous and current medical records is 25 minutes. DICTATING PHYSICIAN: BARBARA PELAYO NP [id number] PHY#: [id number] ID: [id number] JOB#: [id number] ACCT: [id number] cc:BARBARA PELAYO NP >
== END 2017-08-19 11:41 | disposition home or self-care (01) | DRG 310 ==
LOC: ER 11:54 → EH 14:27 → UNDOADMIN 14:27 → 3N 15:16 → EH 15:53
DX: I48.91 Unspecified atrial fibrillation (principal); E89.0 Postprocedural hypothyroidism; M19.90 Unspecified osteoarthritis, unspecified site; Z87.891 Personal history of nicotine dependence; Z79.02 Long term (current) use of antithrombotics/antiplatelets; Z88.2 Allergy status to sulfonamides; Z82.49 Family history of ischemic heart disease and other diseases of the circulatory system; Z79.899 Other long term (current) drug therapy; Z90.49 Acquired absence of other specified parts of digestive tract
CPT/HCPCS: 36415; 71010; 80048; 80053; 81001; 82550; 82553; 83735; 84439; 84443; 84481; 84484; 85025; 93005; 93010; 96365; 99291; J3480; J3490; J7030

== ENCOUNTER → 2017-10-06 | Outpatient (CLI) | payer MEDICARE, OTHER ==
--- NOTE | 2017-10-06 15:09 | RADIOLOGY REPORT (SQ) ---
EXAM DESCRIPTION: VENOUS UNILATERAL LOWER COMPLETED DATE/TIME: 10/06/2017 3:01 pm REASON FOR STUDY: PAIN M79.604 PAIN IN RIGHT LEG COMPARISON: None. TECHNIQUE: Dynamic and static bowden scale and color images acquired of the right leg venous system. S elected spectral images acquired with additional compression and augmentation maneuvers. The contrala teral common femoral vein and saphenofemoral junction were also imaged. Images stored on PACS. LIMITATIONS: None. FINDINGS: COMMON FEMORAL: Normal phasicity, compression and augmentation. No visualized echogenic ma terial on bowden scale. No defects on color images. FEMORAL: Normal compression and augmentation. No visualized echogenic material on bowden scale. No defe cts on color images. POPLITEAL: Normal compression, augmentation. No visualized echogenic material on bowden scale. No defec ts on color images. CALF VESSELS: Normal compression, augmentation. No visualized echogenic material on bowden scale. No de fects on color images. GSV and SSV: Normal compression, augmentation. No visualized echogenic material on bowden scale. No def ects on color images. ANY DEEP VENOUS INSUFFICIENCY: Not evaluated. ANY EVIDENCE OF POPLITEAL CYST: No. OTHER: No other significant finding. CONTRALATERAL COMMON FEMORAL VEIN AND SAPHENOFEMORAL JUNCTION: Normal phasicity, compression and augmentation. No visualized echogenic material on bowden scale. No de fects on color images. IMPRESSION: NO EVIDENCE DVT OR SVT IN THE RIGHT LEG. TECHNICAL DOCUMENTATION: JOB ID: [id number] [employer]- All Rights Reserved
== END ==
LOC: SP 14:14
PROVIDERS: ATTEND Internal Medicine Cardiovascular Disease
DX: M79.604 Pain in right leg (principal)
CPT/HCPCS: 93971

== ENCOUNTER → 2017-11-20 | Outpatient (CLI) | payer MEDICARE, OTHER ==
--- NOTE | 2017-11-20 18:12 | RADIOLOGY REPORT (SQ) ---
EXAM DESCRIPTION: ARTERIAL LOWER EXTREM BILAT COMPLETED DATE/TIME: 11/20/2017 3:58 pm REASON FOR STUDY: PAIN M79.604 PAIN IN RIGHT LEG COMPARISON: None. TECHNIQUE: Dynamic and static bowden scale and color images acquired of the lower extremity arteries. Additional selected spectral images recorded. ABIs recorded. LIMITATIONS: None. FINDINGS: RIGHT LEG: ABIS: Normal, over 1.0. INFLOW ARTERIES: Normal, no obstruction evident. FEMORAL ARTERIES:Multiphasic waveforms. Normal, no velocity elevation to suggest focal stenosis. Norm al color Doppler evaluation. No aneurysm. POPLITEAL ARTERY:Multiphasic waveforms. Normal, no velocity elevation to suggest focal stenosis. Norm al color Doppler evaluation. No aneurysm. PATENT TIBIOPERONEAL TRUNK AND 3 VESSEL RUNOFF: Yes, normal vessels. TBI: Not performed. OTHER: No other significant finding. LEFT LEG: ABIS: Normal, over 1.0. INFLOW ARTERIES: Normal, no obstruction evident. FEMORAL ARTERIES:Multiphasic waveforms. Normal, no velocity elevation to suggest focal stenosis. Norm al color Doppler evaluation. No aneurysm. POPLITEAL ARTERY:Multiphasic waveforms. Normal, no velocity elevation to suggest focal stenosis. Norm al color Doppler evaluation. No aneurysm. PATENT TIBIOPERONEAL TRUNK AND 3 VESSEL RUNOFF: Yes, normal vessels. TBI: Not performed. OTHER: No other significant finding. IMPRESSION: NORMAL BILATERAL LOWER EXTREMITY ARTERIAL DOPPLER WITH ABIs. COMMENT: [facility] NORMAL: Greater than 1.0 MINIMAL DISEASE: 0.9 to 1.0 CLAUDICATION: 0.5 to 0.9 SEVERE ARTERIAL DISEASE: Less than 0.5 [facility] NORMAL: Greater than 1.0 (1.2 If Heavy Calcifications) NORMAL TO MILD ISCHEMIA: 0.8 to 1.0 MODERATE ISCHEMIA: 0.4 to 0.8 SEVERE ISCHEMIA: Less than 0.4 TECHNICAL DOCUMENTATION: JOB ID: [id number] [employer]- All Rights Reserved
== END ==
LOC: SP 13:49
PROVIDERS: ATTEND Internal Medicine
DX: M79.604 Pain in right leg (principal)
CPT/HCPCS: 93925

== ENCOUNTER → 2018-04-17 | Outpatient (CLI) | payer MEDICARE, OTHER ==
--- NOTE | 2018-04-19 08:51 | XCELERA REPORT ---
[address] [address] Lower Extremity Venous Evaluation Name: ALTAGRACIA OLIVIA Age: 77 yrs Gender: Female : 1940 Patient Status: Outpatient Patient Location: Study Date: 04/17/2018 02:20 PM Procedure: Color flow and duplex imaging bilaterally of the veins of the lower extremities as well as the Common Femoral veins. Reason For Study: ULCER Ordering Physician: NICKOLAS NOE Performed By: Zak Coello Right Sided Venous Evaluation Common Femoral vein reflux: none. No other deep vein abnormality. Sapheno Femoral junction: no reflux. Femoral vein reflux: no reflux. Greater Saphenous vein, Proximal thigh: reflux: no reflux. Greater Saphenous vein, Distal thigh: reflux: no reflux. Greater Saphenous vein, Proximal below knee: reflux: no reflux. No significant Perforators identified. Left Sided Venous Evaluation Common Femoral vein reflux: none. No other deep vein abnormality. Sapheno Femoral junction: no reflux. Femoral vein reflux: no reflux. Greater Saphenous vein, Proximal thigh: reflux: no reflux. Greater Saphenous vein, Distal thigh: reflux: no reflux. Greater Saphenous vein, Proximal below knee: reflux: no reflux. No significant Perforators identified. Interpretation Summary No duplex evidence of DVT or obstruction in the bilateral lower extremities. No evidence of deep or superficial reflux. Study challenging due to patient movement and pain. : NICKOLAS NOE > Khanh Lora
== END ==
LOC: SP 13:37
PROVIDERS: ATTEND Preventive Medicine Undersea and Hyperbaric Medicine
DX: L97.522 Non-pressure chronic ulcer of other part of left foot with fat layer exposed (principal)
CPT/HCPCS: 93970

== ENCOUNTER 2018-04-24 11:39 | Inpatient (IN) | payer MEDICARE, OTHER ==
--- NOTE | 2018-04-24 12:27 | ER Document Report ---
ED Dizziness/Weakness - General Stated Complaint: WEAKNESS Time Seen by Provider: 04/24/18 12:26 Mode of Arrival: Medic Information source: Patient Notes: 77-year-old female who lives alone with no family available in the area EMS because she could not get up off the floor. She started getting dizzy since last night she states it is due to her heart. She has a history of atrial fib with no pacemaker. The monitor at the bedside shows a sinus bradycardia down into the 40s. She has no chest pain or shortness of breath. She also has chronic wounds on her feet. The home health nurse found her today on the floor. She did not hit her head although she feels like her head is going to explode. She has no abdominal pain. She has had diarrhea recently. EMS reported that her house was filled with cockroaches and she was covered and bedbugs. She states she goes to the wound care clinic every ., And has a home health nurse twice a week. PCP is Dr. Carvajal., Court Commissioner is Dr. Cartagena both of [facility] TRAVEL OUTSIDE OF THE [place] IN LAST 30 DAYS: No - Related Data Allergies/Adverse Reactions: Sulfa (Sulfonamide Antibiotics) Adverse Reaction (Mild, Verified 08/18/17 12:14) Hives Past Medical History - General Information source: Patient - Social History Smoking Status: Unknown if Ever Smoked Frequency of alcohol use: None Drug Abuse: None Lives with: Alone Family History: Hypertension, Malignancy - It is unclear which malignancy her mother had. - Past Medical History Cardiac Medical History: Reports: Hx Atrial Fibrillation Pulmonary Medical History: Reports: Hx Bronchitis Endocrine Medical History: Reports: Hx Hypothyroidism - Patient had her thyroid ablated is now hypothyroid. Renal/ Medical History: Denies: Hx Peritoneal Dialysis Musculoskeltal Medical History: Reports Hx Arthritis Past Surgical History: Reports: Hx Cholecystectomy, Hx Orthopedic Surgery - right finger, Other - Irradiation of the thyroid. Review of Systems - Review of Systems Constitutional: No symptoms reported EENT: No symptoms reported Cardiovascular: No symptoms reported Respiratory: No symptoms reported Gastrointestinal: No symptoms reported Genitourinary: No symptoms reported Female Genitourinary: No symptoms reported Musculoskeletal: No symptoms reported Skin: See HPI Hematologic/Lymphatic: No symptoms reported Neurological/Psychological: See HPI Physical Exam - Vital signs Vitals: Resp 13 04/24/18 12:11 Interpretation: Bradycardic - General General appearance: Alert Notes: chronically ill appearing and covered in scabs - HEENT Head: Normocephalic, Atraumatic Eyes: Normal Conjunctiva: Normal Pupils: PERRL Mucous membranes: Dry Neck: Supple. No: Lymphadenopathy - Respiratory Respiratory status: No respiratory distress Chest status: Nontender Breath sounds: Normal Chest palpation: Normal - Cardiovascular Rhythm: Bradycardia - pt states her normal is in 60's Heart sounds: Normal auscultation Murmur: No - Abdominal Inspection: Normal Distension: No distension Bowel sounds: Normal Tenderness: Nontender. No: Tender Organomegaly: No organomegaly - Rectal Hemorrhoids: None Notes: shallow ulcer left buttocks, dirt, scaps of paper and debris on the buttocks, stool on medial upper thighs - Back Back: Normal, Nontender. No: Tender - Extremities General upper extremity: Normal inspection, Nontender, Normal color, Normal ROM , Normal temperature General lower extremity: Normal inspection, Nontender, Normal color, Normal ROM , Normal temperature, Normal weight bearing. No: Lisandro's sign Foot: Edema - mild with ulcers on toe skin, crawling nypms all over feet after dressings were removed - Neurological Neuro grossly intact: Yes Cognition: Normal Orientation: AAOx4 [place] Coma Scale Eye Opening: Spontaneous Ehsan Coma Scale Verbal: Oriented [place] Coma Scale Motor: Obeys Commands [place] Coma Scale Total: 15 Speech: Normal Motor strength normal: LUE, RUE, LLE, RLE Sensory: Normal - Psychological Associated symptoms: Normal affect, Normal mood - Skin Skin Temperature: Warm Skin Moisture: Dry Skin Color: Normal Skin irregularity: Decubitus ulcer - left buttocks shallow 1.5 cm, Rash - scabs all over lower legs, some on arms Location of irregularity: Extremities Course - Re-evaluation Re-evalutation: 04/24/18 13:45 spoke with wound care clinic: seen at wound care on 04-19 and has hx of maggots and worms in the chronic foot wounds for serveral weeks. adult protective services has seen her in the home and discharges/closes the case. were at the home less than month ago. they sit outside and talk. the dressing changes are done in the neighbors home, not in her own home. Caitie Thornton [phone] 04/24/18 13:47 04/24/18 14:[address] galindo, change in V1,2 t wave inversion. troponin 0.91, cpk and cpk MB are negative. Call to dr Russell. he wants 2nd EKG with V1,2 wants them closer together. 04/24/18 14:56 04/24/18 16:19 Report made to Adult Protective Services at [facility] at this time about the status at the home. 04/24/18 16:42 dr russell called back, he wants the EKG lead V1.2 farther apart. 04/24/18 16:45 04/24/18 16:52 Pierce Mackenzie nurse practitioner will admit the patient to telemetry for inpatient. Rose from Adult Protective Services at [phone] called me back and explained further the situation and she is hoping to get into the house with a neighbor Norberto in the woodwork salvage inspector to come to the home while the patient is admitted to the hospital. Caitie stated that she was in the house last night and this morning to help get her up off the floor and stated that there is piles and piles of covered floor with garbage and bugs and it is an unsafe environment and thinks the house needs to be condemned. 04/24/18 19:12 Second troponin was 0.071, the EKG done with the V1 and V2 farther apart as requested by Dr. Sommers still showed a T-wave inversion. He will be reading the EKGs today. CT shows chronic microvascular changes nothing acute. 04/24/18 19:12 - Vital Signs Vital signs: Temp Pulse Resp BP Pulse Ox 13 121/71 99 04/24/18 16:01 04/24/18 16:01 04/24/18 16:01 - Laboratory Result Diagrams: 04/24/18 12:19 04/24/18 12:19 Laboratory results interpreted by me: 04/24/18 04/24/18 04/24/18 12:19 12:19 12:19 Hgb 11.0 L Hct 33.3 L RDW 15.4 H Plt Count 475 H Seg Neutrophils % 78.6 H Lymphocytes % 10.0 L PT APTT Sodium 135.4 L BUN 22 H Creatinine 1.85 H Est GFR ( Amer) 32 L Est GFR (Non-Af Amer) 27 L Calcium 7.9 L Albumin 2.7 L TSH 53.00 H Free T4 04/24/18 04/24/18 12:19 16:59 Hgb Hct RDW Plt Count Seg Neutrophils % Lymphocytes % PT 18.5 H APTT 39.4 H Sodium BUN Creatinine Est GFR ( Amer) Est GFR (Non-Af Amer) Calcium Albumin TSH Free T4 0.64 L Discharge - Discharge Clinical Impression: acute renal failure, chronic leg wounds, insect/worm infestation Hypothyroid Qualifiers: Hypothyroidism type: unspecified Qualified Code(s): E03.9 - Hypothyroidism, unspecified Condition: Stable Disposition: ADMITTED INPATIENT Admitting Provider: Hospitalist Unit Admitted: Telemetry
[2018-04-24 12:49] LABS: ABSOLUTE LYMPHOCYTES (AUTO) 0.8 10^3/uL (0.5-4.7); ABSOLUTE MONOCYTES (AUTO) 0.4 10^3/uL (0.1-1.4); BASOPHILS % (AUTO) 0.7 % (0-2); EOSINOPHILS % (AUTO) 5.4 % (0-6); HEMATOCRIT 33.3 % (36.0-47.0); MEAN CORPUSCULAR HEMOGLOBIN 27.4 pg (27.0-33.4); MEAN CORPUSCULAR HGB CONC 33.2 g/dL (32.0-36.0); MEAN CORPUSCULAR VOLUME 83 fl (80-97); MONOCYTES % (AUTO) 5.3 % (3-13); PLATELET COUNT 475 10^3/uL (150-450); RED BLOOD COUNT 4.03 10^6/uL (3.72-5.28); RED CELL DISTRIBUTION WIDTH 15.4 % (11.5-14.0); SEGMENTED NEUTROPHILS % (AUTO) 78.6 % (42-78); TOTAL CELLS COUNTED % (AUTO) 100 %; WHITE BLOOD COUNT 7.7 10^3/uL (4.0-10.5)
[2018-04-24 12:50] LABS: ABSOLUTE BASOPHILS # (AUTO) 0.1 10^3/uL (0.0-0.2); ABSOLUTE EOSINOPHILS # (AUTO) 0.4 10^3/uL (0.0-0.6)
[2018-04-24 13:10] LABS: ALANINE AMINOTRANSFERASE 25 U/L (9-52); ALBUMIN 2.7 g/dL (3.5-5.0); ALKALINE PHOSPHATASE 101 U/L (38-126); ANION GAP 7 (5-19); ASPARTATE AMINO TRANSFERASE 30 U/L (14-36); BILIRUBIN,DIRECT 0.4 mg/dL (0.0-0.4); BILIRUBIN,TOTAL 0.6 mg/dL (0.2-1.3); BLOOD UREA NITROGEN 22 mg/dL (7-20); CALCIUM 7.9 mg/dL (8.4-10.2); CARBON DIOXIDE 24 mmol/L (22-30); CHLORIDE 104 mmol/L (98-107); GLUCOSE 91 mg/dL (75-110); POTASSIUM 3.9 mmol/L (3.6-5.0); SODIUM 135.4 mmol/L (137-145); TOTAL PROTEIN 6.5 g/dL (6.3-8.2)
[2018-04-24 13:45] LABS: INTERNATIONAL RATION (INR) 1.46; PROTHROMBIN TIME 18.5 SEC (11.4-15.4)
[2018-04-24 13:55] LABS: PARTIAL THROMBOPLASTIN TIME 39.4 SEC (23.5-35.8)
[2018-04-24] MEDS ORDERED: CEFTRIAXONE 1 GM/D5W RTU 1 GM/50 ML RTUPB IV ONE (13:55)
[2018-04-24 14:50] LABS: APPEARANCE,URINE SLIGHTLY-CLOUDY; BILIRUBIN,URINE NEGATIVE (NEGATIVE); COLOR,URINE YELLOW; GLUCOSE, URINE NEGATIVE (NEGATIVE); KETONES,URINE NEGATIVE (NEGATIVE); LEUKOCYTE ESTERASE,URINE NEGATIVE (NEGATIVE); NITRITE,URINE NEGATIVE (NEGATIVE); PROTEIN,URINE NEGATIVE (NEGATIVE); URINE SPECIFIC GRAVITY 1.012; UROBILINOGEN,URINE NEGATIVE mg/dL (<2.0)
--- NOTE | 2018-04-24 15:04 | RADIOLOGY REPORT (SQ) ---
EXAM DESCRIPTION: CHEST SINGLE VIEW COMPLETED DATE/TIME: 04/24/2018 2:22 pm REASON FOR STUDY: dizzy COMPARISON: July 2017 EXAM PARAMETERS: NUMBER OF VIEWS: One view. TECHNIQUE: Single frontal radiographic view of the chest acquired. RADIATION DOSE: NA LIMITATIONS: None. FINDINGS: LUNGS AND PLEURA: No opacities, masses or pneumothorax. No pleural effusion. MEDIASTINUM AND HILAR STRUCTURES: No masses. Contour normal. HEART AND VASCULAR STRUCTURES: Heart normal in size. Normal vasculature. BONES: No acute findings. HARDWARE: None in the chest. OTHER: No other significant finding. IMPRESSION: NO ACUTE RADIOGRAPHIC FINDING IN THE CHEST. TECHNICAL DOCUMENTATION: JOB ID: [id number] [employer]- All Rights Reserved Reading location - IP/workstation name: [email or web address]
--- NOTE | 2018-04-24 16:58 | RADIOLOGY REPORT (SQ) ---
EXAM DESCRIPTION: CT HEAD WITHOUT COMPLETED DATE/TIME: 04/24/2018 4:37 pm REASON FOR STUDY: headache COMPARISON: April 2017 TECHNIQUE: Axial images acquired through the brain without intravenous contrast. Images reviewed wi th bone, brain and subdural windows. Additional sagittal and coronal reconstructions were generated. Images stored on PACS. All CT scanners at this facility use dose modulation, iterative reconstruction, and/or weight based d osing when appropriate to reduce radiation dose to as low as reasonably achievable (ALARA). [facility]: Dose Right [facility]: CareDose [facility]: Dose Right [facility]: Teradose 4D [facility]: BeneChill RADIATION DOSE: CT Rad equipment meets quality standard of care and radiation dose reduction techniq ues were employed. CTDIvol: 53.2 mGy. DLP: 964 mGy-cm. mGy. LIMITATIONS: None. FINDINGS: VENTRICLES: Prominent. CEREBRUM: No masses. No hemorrhage. No midline shift. Areas of low density in the white matter mos t likely due to chronic micro-vascular ischemic change. No evidence for acute infarction. CEREBELLUM: No masses. No hemorrhage. No alteration of density. No evidence for acute infarction. EXTRAAXIAL SPACES: Mild age-related involutional change. No fluid collections. No masses. ORBITS AND GLOBE: No intra- or extraconal masses. Normal contour of globe without masses. CALVARIUM: No fracture. PARANASAL SINUSES: No fluid or mucosal thickening. SOFT TISSUES: No mass or hematoma. OTHER: No other significant finding. IMPRESSION: MILD CHRONIC CHANGES OF ATROPHY AND MICROVASCULAR ISCHEMIA. NO ACUTE PROCESS. EVIDENCE OF ACUTE STROKE: NO. TECHNICAL DOCUMENTATION: JOB ID: [id number] Quality ID # [id number]: Final reports with documentation of one or more dose reduction techniques (e.g., Au tomated exposure control, adjustment of the mA and/or kV according to patient size, use of iterative reconstruction technique) 2010 [employer]- All Rights Reserved Reading location - IP/workstation name: [email or web address]
[2018-04-24] MEDS ORDERED: ACETAMINOPHEN 325 MG TABLET PO PRN (17:41)
[2018-04-24] MEDS: DOCUSATE SODIUM 100 MG CAPSULE PO SCH (18:28)
[2018-04-24] MEDS ORDERED: LEVOTHYROXINE SODIUM 0.1 MG TABLET PO ONE (18:30)
--- NOTE | 2018-04-24 19:15 | HISTORY AND PHYSICAL E ---
History and Physical NAME: ALTAGRACIA OLIVIA : 1940 AGE: 77Y ADMITTED: 04/24/2018 ROOM: ED05 OUTPATIENT DIRECTOR MBA: Dr. Cartagena OUTPATIENT MECHANICAL APPLICATIONS ENGINEER: Dr. Willams PRIMARY CARE PROVIDER: Dr. Hood CHIEF COMPLAINT: Generalized weakness. HISTORY OF PRESENT ILLNESS: The patient is a 77-year-old female with a past medical history of atrial fibrillation and bilateral lower extremity ulcers. The patient was brought into the Emergency Department via EMS given that the patient could not get off the floor. The patient lives alone. She does not have any family available. According to the patient, she had been having episodes intermittently of dizziness but no chest pain, no shortness of breath. The patient would not provide any more history to myself and was actually very limited in her answers to me, limiting to 1-word answers or avoiding the question altogether. According to ER documentation, the patient was found on the floor today by the home health nurse and the patient had denied hitting her head, denied any abdominal pain, no diarrhea. Apparently the patient's home was found to be full of roaches and insects and home was consistent with that of a hoarder and, therefore, home health nurse notified EMS and the patient was brought to the hospital to be evaluated. The patient does attend her appointments at the Wound Clinic every , which is followed by Dr. Willams. The patient has been making excellent progress with this. While in the Emergency Department these wounds were addressed by the ER provider and "larva of some kind" was found to be in these wounds, therefore, creating the very clean wound bed. The patient denied any pain to this area. Upon presentation to the Emergency Department the patient was found to be in atrial fibrillation but was bradycardic in the 40s to 50s. EKG did reveal a T-wave inversion in V1, V2. The patient also had a troponin of 0.91 with a negative CK MB. The ER provider discussed this with Dr. Sommers. The patient's troponin has since trended down. The patient denies any symptoms of chest pain. Interestingly enough, the patient states that she has not taken her medications, including her metoprolol, in days but has not taken her Synthroid either. The patient had a history of Graves disease and has had radioactive iodine and is supplement dependent. Please see the detailed ED report regarding APS, the patient's neighbor, and the history of maggots that have been in this chronic wound. Any numbers that need to be obtained are in this note. PAST MEDICAL HISTORY: Remarkable for: 1. Chronic atrial fibrillation. 2. Chronic anticoagulation. 3. Chronic venous stasis wounds of the lower extremities. 4. Graves disease with subsequent radioactive thyroid ablation. 5. Suspected congestive heart failure. There is no echo available as the patient is followed by [facility] and is chronically on Lasix. PAST SURGICAL HISTORY: Remarkable for: 1. Cholecystectomy. 2. Right finger repair. 3. Irradiation of the thyroid. ALLERGIES: Include SULFA. HOME MEDICATIONS: Include: 1. Eliquis 5 mg p.o. b.i.d. 2. Lasix 20 mg p.o. daily. 3. Synthroid 200 mcg p.o. every morning. 4. Toprol XL 12.5 mg p.o. daily. SOCIAL HISTORY: The patient currently resides at home. The patient's surrogate decision maker is difficult as the patient does not have a power of employee benefits attorney. The patient stated her care can be addressed with Caitie Thornton who can be reached at [phone]. Again, read the ER note for further insight into the patient's current social situation. The patient does have a history of tobacco use. The patient smoked for a number of years and quit smoking May 27, 2002. The patient admits to occasional alcohol use a few times a year but denies any illicit drug use. FAMILY MEDICAL HISTORY: The patient's mother is ; she did have some form of cancer. The patient's father had hypertension. The patient has outlived her siblings, uncertain of their source of ; however, the patient has no children. REVIEW OF SYSTEMS: The patient would not cooperate for a full review of systems, answering no or none of my business a number of times. PHYSICAL EXAMINATION: GENERAL: On examination, the patient is a frail-appearing 77-year-old female who is awake, alert. She is oriented to person, place, time, but does not appear to have full insight to situation. She is quite evasive. Does not appear to be distressed. VITAL SIGNS: As follows: Temperature is 97.3, pulse 58, respirations 13, blood pressure is 121/78, oxygen saturation is 98% on room air. SKIN: Warm and dry. The patient does appear quite pale. She has numerous areas of what appears to be insect bites over her bilateral lower extremities as well. HEENT: Pupils equal, round, reactive to light and accommodation. Conjunctivae pink. Sclerae are nonicteric. Tongue is midline. NECK: Supple. No JVD. CARDIOVASCULAR: Heart is irregularly irregular. No rub. CHEST: Clear, symmetrical, unlabored. ABDOMEN: Soft, nontender, nondistended. BACK: There is no evidence of CVA tenderness. There is no sacral edema. The patient's back actually does not appear to have a lot of bug bites on it. EXTREMITIES: Currently wrapped in the just applied dressing in the Emergency Department, Kerlix, with Endoform to wound bed. PSYCHIATRIC: The patient is completely paranoid. DIAGNOSTICS: Lab values are as follows. Hematology obtained on 04/24/2018: WBCs are 10.7, hemoglobin is 11.0, hematocrit is 33.3, platelet count is 475,000. Coagulation obtained on 04/24/2018: PT is 18.5, INR is 1.46. Chemistry obtained on 04/24/2018: Sodium is 135, potassium 3.9, chloride 104, carbon dioxide 24, BUN 22, creatinine 0.85, glucose 91, calcium is 7.9, magnesium is 1.8, bili is 0.6, AST 30, ALT is 25, alk phos 101. CK 45, CK MB is 0.071. Total protein 6.5, albumin 2.7. TSH is 53. Urinalysis obtained on 04/24/2018: Color yellow, appearance slightly cloudy, pH 5.0, specific gravity is 1.012, protein negative, glucose negative, ketones negative, occult blood negative, nitrite negative, bili negative, urobilinogen normal, leukocyte esterase is negative, WBCs 3, RBCs 10. Microbiology: Blood cultures obtained on 04/24/2018 are pending. Urine culture obtained on 04/24/[address] obtained on 04/24/2018 reveals mild chronic changes of atrophy and microvascular ischemia, no acute process. Chest x-ray obtained on 04/24/2018 reveals no acute radiographic finding of the chest. Lower extremity ultrasound obtained on 11/20/2017 reveals normal bilateral lower extremity arterial Dopplers with ABIs. IMPRESSION AND PLAN: 1. Acute kidney injury. Most likely the patient has become dehydrated. It appears that she does not have air conditioning in her house. Will gently hydrate the patient at a slow rate as I do feel the patient has underlying CHF, repeat chemistries in the a.m., and follow. 2. Atrial fibrillation with bradycardia. Interestingly, the patient has not had any of her meds in a couple of days. Will obtain T4 and T3 given the TSH is elevated. If this is significantly depressed will supplement IV, if not resume the patient's home medications. Patient's thyroid suppression may be causing this. ED did discuss the case with Dr. Sommers and will defer cardiology consult for now and see how the patient does overnight. 3. Chronic anticoagulation. Will resume the patient's home Eliquis. 4. Bilateral lower extremity wounds. By records from the Wound Care Center as well as ED provider that redressed them today, it appears the patient's wound beds are very clean given to the maggots that are there. Will continue dressing changes in the hospital as per recommendations from the Wound Center and follow. 5. Acute encephalopathy. The patient's behavior, especially paranoia, is not supposed to be her baseline. I did encounter the patient in August and do not remember her being so suspicious, and with this with the patient's excessive reported hoarding behaviors and so forth, will proceed with MRI given the patient does have some AFib. Will also do contrast as well with it given the personality change. Also, will add B12 and ammonia levels. Will also consult Mental Health as the patient will require competence evaluation with APS. DISPOSITION: THE PATIENT IS A FULL CODE. Pending the patient's symptomatology and diagnostic findings, will re-evaluate in the a.m. Will admit the patient to inpatient IMCU as the patient's expected length of stay should surpass 2 midnights. Time spent on this admission, including assessment/plan, physical examination, patient education, and review of previous records, is 60 minutes. DICTATING PHYSICIAN: BARBARA PELAYO NP [id number] PHY#: [id number] ID: [id number] JOB#: [id number] ACCT: [id number] cc:TOMASZ BLOCK M.D. > LEXUS
--- NOTE | 2018-04-24 19:45 | EKG REPORT ---
SEVERITY:- ABNORMAL ECG - NONSPECIFIC IVCD WITH LAD LVH WITH SECONDARY REPOLARIZATION ABNORMALITY CONSIDER ANTERIOR INFARCT BASELINE ARTIFACT.MOST LIKELY SINUS RHYTHM.NS IVCD.REPEAT EKG. : Confirmed by: Argenis Sommers MD 24-Apr-2018 19:45:20
--- NOTE | 2018-04-24 19:46 | EKG REPORT ---
SEVERITY:- ABNORMAL ECG - NONSPECIFIC IVCD WITH LAD LVH WITH SECONDARY REPOLARIZATION ABNORMALITY SINUS BRADYCARDIA NS IVCD : Confirmed by: Argenis Sommers MD 24-Apr-2018 19:46:08
--- NOTE | 2018-04-24 19:46 | EKG REPORT ---
SEVERITY:- ABNORMAL ECG - SINUS BRADYCARDIA NONSPECIFIC IVCD WITH LAD : Confirmed by: Argenis Sommers MD 24-Apr-2018 19:46:16
[2018-04-24] MEDS: APIXABAN 5 MG TABLET PO SCH (23:19)
[2018-04-24] MEDS: NORMAL SALINE 1000 ML 1,000 ML IV PRN (23:20)
[2018-04-25] MEDS: LEVOTHYROXINE SODIUM 0.1 MG TABLET PO SCH (05:17)
[2018-04-25 06:11] LABS: HEMATOCRIT 32.9 % (36.0-47.0); HEMOGLOBIN 10.8 g/dL (12.0-15.5); MEAN CORPUSCULAR HEMOGLOBIN 27.2 pg (27.0-33.4); MEAN CORPUSCULAR HGB CONC 32.9 g/dL (32.0-36.0); MEAN CORPUSCULAR VOLUME 83 fl (80-97); PLATELET COUNT 427 10^3/uL (150-450); RED BLOOD COUNT 3.98 10^6/uL (3.72-5.28); RED CELL DISTRIBUTION WIDTH 15.3 % (11.5-14.0); WHITE BLOOD COUNT 10.7 10^3/uL (4.0-10.5)
[2018-04-25 06:26] LABS: ANION GAP 10 (5-19); BLOOD UREA NITROGEN 24 mg/dL (7-20); CALCIUM 7.8 mg/dL (8.4-10.2); CARBON DIOXIDE 21 mmol/L (22-30); CHLORIDE 105 mmol/L (98-107); GLUCOSE 80 mg/dL (75-110); POTASSIUM 4.1 mmol/L (3.6-5.0); SODIUM 136.4 mmol/L (137-145)
[2018-04-25] MEDS: APIXABAN 5 MG TABLET PO SCH ×2 (09:10→21:32)
[2018-04-25] MEDS: DOCUSATE SODIUM 100 MG CAPSULE PO SCH ×2 (09:16→17:01)
--- NOTE | 2018-04-25 16:27 | PDOC PROGRESS REPORT ---
Subjective Progress Note for:: 04/25/18 Subjective:: No adverse events overnight. No new complaints. No chest pain or shortness of breath. Urine output has improved. No palpitations. Energy level improved. Reason For Visit: AFIB,HYPOTHYROIDISM Physical Exam Vital Signs: Temp Pulse Resp BP Pulse Ox 97.3 F 66 20 100/58 L 100 04/25/18 12:02 04/25/18 14:00 04/25/18 12:02 04/25/18 12:02 04/25/18 12:02 Intake & Output 04/24/18 04/25/18 04/26/18 06:59 06:59 06:59 Intake Total 300 Output Total 0 Balance 300 Weight 88.5 kg General appearance: PRESENT: no acute distress, disheveled, obese, well- developed Respiratory exam: PRESENT: clear to auscultation jayro. ABSENT: rales, rhonchi, wheezes Cardiovascular exam: PRESENT: RRR. ABSENT: diastolic murmur, rubs, systolic murmur GI/Abdominal exam: PRESENT: normal bowel sounds, soft. ABSENT: distended, guarding, mass, organolmegaly, rebound, tenderness Extremities exam: PRESENT: full ROM, other - She had numerous small scabs on the bottoms and tops of both feet. She had one larger area on the dorsum of the left foot just proximal to the tarsal phalangeal joints laterally that was covered with a mesh that had been placed at the wound clinic. There was scant erythema and no exudates.. ABSENT: clubbing, pedal edema Neurological exam: PRESENT: alert, awake, oriented to person, oriented to place , oriented to time Results Laboratory Results: 04/25/18 05:13 04/25/18 05:13 04/24/18 04/24/18 04/25/18 19:50 21:00 05:13 WBC 10.7 H RBC 3.98 Hgb 10.8 L Hct 32.9 L MCV 83 MCH 27.2 MCHC 32.9 RDW 15.3 H Plt Count 427 Sodium Potassium Chloride Carbon Dioxide Anion Gap BUN Creatinine Est GFR ( Amer) Est GFR (Non-Af Amer) Glucose Calcium Magnesium Ammonia Cancelled < 8.7 L 04/25/18 05:13 WBC RBC Hgb Hct MCV MCH MCHC RDW Plt Count Sodium 136.4 L Potassium 4.1 Chloride 105 Carbon Dioxide 21 L Anion Gap 10 BUN 24 H Creatinine 1.78 H Est GFR ( Amer) 34 L Est GFR (Non-Af Amer) 28 L Glucose 80 Calcium 7.8 L Magnesium 1.9 Ammonia Impressions: Chest X-Ray 04/24/18 13:31 IMPRESSION: NO ACUTE RADIOGRAPHIC FINDING IN THE CHEST. Head CT 04/24/18 13:43 IMPRESSION: MILD CHRONIC CHANGES OF ATROPHY AND MICROVASCULAR ISCHEMIA. NO ACUTE PROCESS. EVIDENCE OF ACUTE STROKE: NO. Assessment & Plan - Diagnosis (1) Hypothyroid Qualifiers: Hypothyroidism type: postoperative Qualified Code(s): E89.0 - Postprocedural hypothyroidism Is this a current diagnosis for this admission?: Yes Plan: She has been off of her Synthroid for several days, she says nearly 6 weeks because she says her primary care provider allegedly took her off of her medicine altogether to see what her baseline was. I have not confirmed that this is actually true. Whatever the case, we started her back on some Synthroid and she seems to be feeling better. (2) Paroxysmal atrial fibrillation Is this a current diagnosis for this admission?: Yes Plan: Currently in a sinus rhythm (3) Wound of left foot Is this a current diagnosis for this admission?: Yes Plan: Follow with the wound clinic and apparently has made excellent progress. We got some dressing change recommendations from the wound clinic and will implement those. She will follow up with the wound clinic as an outpatient. (4) Acute kidney injury Is this a current diagnosis for this admission?: Yes Plan: Improving with IV fluids - Time Time Spent with patient: 25-34 minutes Medications reviewed and adjusted accordingly: Yes
[2018-04-26] MEDS: NORMAL SALINE 1000 ML 1,000 ML IV PRN (02:48)
[2018-04-26] MEDS: LEVOTHYROXINE SODIUM 0.1 MG TABLET PO SCH (05:07)
[2018-04-26 08:58] LABS: ANION GAP 8 (5-19); BLOOD UREA NITROGEN 22 mg/dL (7-20); CALCIUM 7.6 mg/dL (8.4-10.2); CARBON DIOXIDE 21 mmol/L (22-30); CHLORIDE 109 mmol/L (98-107); GLUCOSE 88 mg/dL (75-110); POTASSIUM 4.3 mmol/L (3.6-5.0); SODIUM 138.1 mmol/L (137-145)
[2018-04-26] MEDS: APIXABAN 5 MG TABLET PO SCH ×2 (09:41→21:12)
[2018-04-26] MEDS: DOCUSATE SODIUM 100 MG CAPSULE PO SCH ×2 (09:45→17:09)
--- NOTE | 2018-04-26 16:25 | RADIOLOGY REPORT (SQ) ---
EXAM DESCRIPTION: MRI HEAD WITHOUT COMPLETED DATE/TIME: 04/26/2018 4:00 pm REASON FOR STUDY: syncope COMPARISON: Brain CT scan dated 04/26/2018 TECHNIQUE: Multiplanar imaging includes non-contrasted T1, T2, FLAIR, and Diffusion with ADC map seq uences. Images stored on PACS. LIMITATIONS: Study is limited somewhat due to motion artifact on several of the sequences. FINDINGS: ANATOMY: No anomalies. Normal vascular flow voids. Pituitary fossa normal. CSF SPACES: Normal in size and contour. No hemorrhage. CEREBRUM: A few high-signal intensity lesions scattered throughout the white matter on FLAIR imaging with distribution suggesting chronic micro-vascular ischemic change. Sulci and gyri normal in size a nd contour. No evidence of hemorrhage, mass or extraaxial fluid collection. POSTERIOR FOSSA: No signal alteration. No hemorrhage. No edema, masses or mass effect. Internal mabel tory canals, cerebello-pontine angles, mastoids normal. DIFFUSION: Negative for acute or sub-acute infarction. ORBITS: No masses. Globes normal. PARANASAL SINUSES: No fluid levels. Mucosa normal. OTHER: No other significant finding. IMPRESSION: MINIMAL MICROVASCULAR ISCHEMIC CHANGE. OTHERWISE NORMAL STUDY. EVIDENCE OF ACUTE STROKE: NO. TECHNICAL DOCUMENTATION: JOB ID: [id number] [employer]- All Rights Reserved Reading location - IP/workstation name: [email or web address]
--- NOTE | 2018-04-26 17:26 | PDOC PROGRESS REPORT ---
Subjective Progress Note for:: 04/26/18 Subjective:: No adverse events overnight. No new complaints. Vital signs been stable. Urine outputs been excellent. She is moving and drinking without difficulty. She still weak and not able to get out of bed without assistance. Physical therapy said that she is not safe for out of bed activities. Reason For Visit: AFIB,HYPOTHYROIDISM Physical Exam Vital Signs: Temp Pulse Resp BP Pulse Ox 97.1 F 58 L 14 114/57 L 97 04/26/18 16:04 04/26/18 16:04 04/26/18 16:04 04/26/18 16:04 04/26/18 16:04 Intake & Output 04/25/18 04/26/18 04/27/18 06:59 06:59 06:59 Intake Total 300 1722 200 Output Total 0 Balance 300 1722 200 Weight 88.5 kg 91 kg General appearance: PRESENT: no acute distress, disheveled, obese, well- developed Respiratory exam: PRESENT: clear to auscultation jayro. ABSENT: rales, rhonchi, wheezes Cardiovascular exam: PRESENT: RRR. ABSENT: diastolic murmur, rubs, systolic murmur GI/Abdominal exam: PRESENT: normal bowel sounds, soft. ABSENT: distended, guarding, mass, organolmegaly, rebound, tenderness Extremities exam: PRESENT: other - Multiple small healing scabbed areas on both feet, with a large area on the dorsum of the left covered in a clean sterile bandage. ABSENT: clubbing, pedal edema Musculoskeletal exam: PRESENT: normal inspection. ABSENT: deformity Neurological exam: PRESENT: alert, awake, oriented to person, oriented to place , oriented to time Results Laboratory Results: 04/25/18 05:13 04/26/18 08:05 04/26/18 08:05 Sodium 138.1 Potassium 4.3 Chloride 109 H Carbon Dioxide 21 L Anion Gap 8 BUN 22 H Creatinine 1.60 H Est GFR ( Amer) 38 L Est GFR (Non-Af Amer) 31 L Glucose 88 Calcium 7.6 L Impressions: Chest X-Ray 04/24/18 13:31 IMPRESSION: NO ACUTE RADIOGRAPHIC FINDING IN THE CHEST. Head CT 04/24/18 13:43 IMPRESSION: MILD CHRONIC CHANGES OF ATROPHY AND MICROVASCULAR ISCHEMIA. NO ACUTE PROCESS. EVIDENCE OF ACUTE STROKE: NO. Head MRI 04/26/18 00:00 IMPRESSION: MINIMAL MICROVASCULAR ISCHEMIC CHANGE. OTHERWISE NORMAL STUDY. EVIDENCE OF ACUTE STROKE: NO. Assessment & Plan - Diagnosis (1) Hypothyroid Qualifiers: Hypothyroidism type: postoperative Qualified Code(s): E89.0 - Postprocedural hypothyroidism Is this a current diagnosis for this admission?: Yes Plan: She has been off of her Synthroid for several days, she says nearly 6 weeks because she says her primary care provider allegedly took her off of her medicine altogether to see what her baseline was. I have not confirmed that this is actually true. Whatever the case, we started her back on some Synthroid and she seems to be feeling better. (2) Paroxysmal atrial fibrillation Is this a current diagnosis for this admission?: Yes Plan: Currently in a sinus rhythm (3) Wound of left foot Is this a current diagnosis for this admission?: Yes Plan: Follow with the wound clinic and apparently has made excellent progress. We got some dressing change recommendations from the wound clinic and will implement those. She will follow up with the wound clinic as an outpatient. (4) Acute kidney injury Is this a current diagnosis for this admission?: Yes Plan: Improving with IV fluids. Her BUN is down and her creatinine is a little bit elevated, so I think from a fluid standpoint she is euvolemic. She probably has a component of ATN which will just take some time to get better. (5) Ambulatory dysfunction Is this a current diagnosis for this admission?: Yes Plan: Is going to go home but since she is now safe for out of bed activities, we talked about going to a halfway facility for rehab, and she was agreeable to this. - Time Time Spent with patient: 25-34 minutes
[2018-04-27] MEDS: LEVOTHYROXINE SODIUM 0.1 MG TABLET PO SCH (05:23)
[2018-04-27] MEDS: APIXABAN 5 MG TABLET PO SCH ×2 (10:04→21:07)
[2018-04-27] MEDS: DOCUSATE SODIUM 100 MG CAPSULE PO SCH ×2 (10:06→17:23)
[2018-04-27 11:44] LABS: ANION GAP 10 (5-19); BLOOD UREA NITROGEN 20 mg/dL (7-20); CALCIUM 7.9 mg/dL (8.4-10.2); CARBON DIOXIDE 20 mmol/L (22-30); CHLORIDE 108 mmol/L (98-107); GLUCOSE 111 mg/dL (75-110); POTASSIUM 4.3 mmol/L (3.6-5.0); SODIUM 137.9 mmol/L (137-145)
--- NOTE | 2018-04-27 13:59 | PDOC TRANSFER SUMMARY ---
General - Admit/Disc Date/PCP Admission Date/Primary Care Provider: 04/24/18 17:17 NICKOLAS NOE DPM Discharge Date: 04/27/18 - Discharge Diagnosis (1) Hypothyroid Is this a current diagnosis for this admission?: Yes Summary: She said she had been taken off of her Synthroid for at least 6 weeks. She came in her TSH was 53. We put her back on her Synthroid she is feeling better. She will need to have a repeat TSH in 4-6 weeks. (2) Paroxysmal atrial fibrillation Is this a current diagnosis for this admission?: Yes Summary: Resolved. Back in sinus rhythm. On metoprolol and Eliquis. (3) Wound of left foot Is this a current diagnosis for this admission?: Yes Summary: The wound is healing very well. It was present on admission. She is followed at the wound clinic. She has dressing changes every 3 days at their direction. Every 3 days she supposed to remove the old dressing, wash it with saline, use Tona, cover it with a phone dressing and wrap and gauze and fastened with tape. (4) Acute kidney injury Is this a current diagnosis for this admission?: Yes Summary: She probably has a component of ATN. She received IV fluids for couple of days and her creatinine stabilized around 1.6. She will need more time to see if her creatinine normalizes, and in the meantime she should not receive any nephrotoxic medications. (5) Ambulatory dysfunction Is this a current diagnosis for this admission?: Yes Summary: Apparently she was down for her home and could not get up by herself. She was not considered to be safe for out of bed activities by her physical therapist. She is going to a snf facility for rehab. - Additional Information Resuscitation Status: Full Code Discharge Activity: Supervised Activity Home Medications: Apixaban [Eliquis 5 mg Tablet] 5 mg PO Q12 04/24/18 Furosemide [Lasix 20 mg Tablet] 20 mg PO DAILY 04/24/18 Levothyroxine Sodium [Synthroid] 200 mcg PO Q6AM 04/24/18 Metoprolol Succinate [Toprol Xl 25 mg Tab.sr] 12.5 mg PO DAILY 04/24/18 History of Present Illness Admission Date/PCP: 04/24/18 17:17 NICKOLAS NOE DPM History of Present Illness: ALTAGRACIA OLIVIA is a 77 year old female who was admitted after being found down on the floor. She was profoundly hypothyroid and showed signs of an acute kidney injury. Her atrial fibrillation was in RVR for a brief period and then settled down. Hospital Course Hospital Course: The foot wound needed very little from our standpoint as it was healing nicely. The wound clinic called us and gave us wound care recommendations and dressing change recommendations. She will follow-up with them as she is known to them. Her heart rate quickly settled back into a sinus rhythm on its own. She continues her metoprolol and Eliquis. Her TSH was found to be 53 on admission so we restarted her Synthroid which she said she had been taken off of about 6 weeks prior by her primary care doctor. I have not been able to verify that this was in fact case. Her physical therapist saw her and did not think that she was safe for out of bed activities and so bit was obtained at a local snf facility. Her labs and examination are reassuring and she discharged in good condition. Physical Exam Vital Signs: Temp Pulse Resp BP Pulse Ox 97.3 F 64 15 110/51 L 100 04/27/18 12:43 04/27/18 12:43 04/27/18 12:43 04/27/18 12:43 04/27/18 12:43 Intake & Output 04/26/18 04/27/18 04/28/18 06:59 06:59 06:59 Intake Total 1722 747 218 Balance 1722 747 218 Weight 91 kg 92.5 kg General appearance: PRESENT: no acute distress, disheveled, obese, well- developed Respiratory exam: PRESENT: clear to auscultation jayro. ABSENT: rales, rhonchi, wheezes Cardiovascular exam: PRESENT: RRR. ABSENT: diastolic murmur, rubs, systolic murmur Vascular exam: PRESENT: normal capillary refill GI/Abdominal exam: PRESENT: normal bowel sounds, soft. ABSENT: distended, guarding, mass, organolmegaly, rebound, tenderness Extremities exam: PRESENT: other - A wound on the dorsum of her left foot is covered in a bandage. She has several petechial and macular areas on the toes and the plantar surfaces of both feet that appear to have the appearance of a healing old bruise, but most are very small.. ABSENT: clubbing, pedal edema Musculoskeletal exam: PRESENT: normal inspection. ABSENT: deformity Neurological exam: PRESENT: alert, awake, oriented to person, oriented to place , oriented to time Results Laboratory Results: 04/25/18 05:13 04/27/18 10:47 04/27/18 10:47 Sodium 137.9 Potassium 4.3 Chloride 108 H Carbon Dioxide 20 L Anion Gap 10 BUN 20 Creatinine 1.53 H Est GFR ( Amer) 40 L Est GFR (Non-Af Amer) 33 L Glucose 111 H Calcium 7.9 L Impressions: Chest X-Ray 04/24/18 13:31 IMPRESSION: NO ACUTE RADIOGRAPHIC FINDING IN THE CHEST. Head CT 04/24/18 13:43 IMPRESSION: MILD CHRONIC CHANGES OF ATROPHY AND MICROVASCULAR ISCHEMIA. NO ACUTE PROCESS. EVIDENCE OF ACUTE STROKE: NO. Head MRI 04/26/18 00:00 IMPRESSION: MINIMAL MICROVASCULAR ISCHEMIC CHANGE. OTHERWISE NORMAL STUDY. EVIDENCE OF ACUTE STROKE: NO. Transfer Plan - Disposition Transfer Plan: Transfer to [facility] this afternoon. - Time Spent with Patient Time spent with patient: Greater than 30 Minutes Qualifiers - * PATIENT BEING DISCHARGED WITH ANY OF THE FOLLOWING DIAGNOSIS: No
--- NOTE | 2018-04-27 14:40 | PSYCHOLOGICAL NOTE ---
Psych Note - Psych Note Psych Note: Clinician completed a consultation. Patient was alert and orientated to person , place,time and circumstance. Her abstract reasoning was well intact and thought processes were organized and linear. There was no evidenced of delusions and there was no behaviors indicating that she is responding to internal stimuli. Safety awareness was intact. Insight,judgment and impulse control fair. Based on evaluation, capacity is clearly maintained.
[2018-04-28] MEDS ORDERED: METOPROLOL TARTRATE 25 MG TABLET PO ONE (04:45)
[2018-04-28] MEDS: LEVOTHYROXINE SODIUM 0.1 MG TABLET PO SCH (05:37)
[2018-04-28] MEDS: DOCUSATE SODIUM 100 MG CAPSULE PO SCH ×2 (09:48→17:54)
[2018-04-28] MEDS: APIXABAN 5 MG TABLET PO SCH ×2 (09:49→21:48)
[2018-04-28] MEDS ORDERED: METOPROLOL TARTRATE 25 MG TABLET PO SCH (10:00)
--- NOTE | 2018-04-28 10:48 | EKG REPORT ---
SEVERITY:- ABNORMAL ECG - A-FLUTTER W/ PREDOM 2:1 AV BLOCK, A-RATE 254 LEFT ANTERIOR FASCICULAR BLOCK CONSIDER ANTERIOR INFARCT : Confirmed by: Argenis Sommers MD 28-Apr-2018 10:47:05
--- NOTE | 2018-04-28 13:48 | PDOC PROGRESS REPORT ---
Subjective Progress Note for:: 04/28/18 Subjective:: No adverse events overnight. No new complaints. She had an episode this morning where her heart rate got a little fast but it spontaneously corrected. She has no chest pain or shortness of breath. [facility] said [facility] could not [facility] her until Monday. Reason For Visit: AFIB,HYPOTHYROIDISM Physical Exam Vital Signs: Temp Pulse Resp BP Pulse Ox 97.2 F 61 16 94/47 L 100 04/28/18 12:19 04/28/18 12:19 04/28/18 12:19 04/28/18 12:19 04/28/18 12:19 Intake & Output 04/27/18 04/28/18 04/29/18 06:59 06:59 06:59 Intake Total 747 608 Output Total 0 Balance 747 608 Weight 92.5 kg 90.5 kg General appearance: PRESENT: no acute distress, disheveled, obese, well- developed Respiratory exam: PRESENT: clear to auscultation jayro. ABSENT: rales, rhonchi, wheezes Cardiovascular exam: PRESENT: irregular rhythm. ABSENT: diastolic murmur, rubs , systolic murmur GI/Abdominal exam: PRESENT: normal bowel sounds, soft. ABSENT: distended, guarding, mass, organolmegaly, rebound, tenderness Neurological exam: PRESENT: altered - Sedated Skin exam: PRESENT: dry, warm - Left foot has some erythema not present on the right foot, but the skin feels about the same temperature as the left foot. Results Laboratory Results: 04/25/18 05:13 04/27/18 10:47 Impressions: Chest X-Ray 04/24/18 13:31 IMPRESSION: NO ACUTE RADIOGRAPHIC FINDING IN THE CHEST. Head CT 04/24/18 13:43 IMPRESSION: MILD CHRONIC CHANGES OF ATROPHY AND MICROVASCULAR ISCHEMIA. NO ACUTE PROCESS. EVIDENCE OF ACUTE STROKE: NO. Head MRI 04/26/18 00:00 IMPRESSION: MINIMAL MICROVASCULAR ISCHEMIC CHANGE. OTHERWISE NORMAL STUDY. EVIDENCE OF ACUTE STROKE: NO. Assessment & Plan - Diagnosis (1) Hypothyroid Qualifiers: Hypothyroidism type: postoperative Qualified Code(s): E89.0 - Postprocedural hypothyroidism Is this a current diagnosis for this admission?: Yes Plan: She has been off of her Synthroid for several days, she says nearly 6 weeks because she says her primary care provider allegedly took her off of her medicine altogether to see what her baseline was. I have not confirmed that this is actually true. Whatever the case, we started her back on some Synthroid and she seems to be feeling better. (2) Paroxysmal atrial fibrillation Is this a current diagnosis for this admission?: Yes Plan: Currently in a sinus rhythm. At it metoprolol to her regimen this morning. (3) Wound of left foot Is this a current diagnosis for this admission?: Yes Plan: Follow with the wound clinic and apparently has made excellent progress. We got some dressing change recommendations from the wound clinic and will implement those. She will follow up with the wound clinic as an outpatient. (4) Acute kidney injury Is this a current diagnosis for this admission?: Yes Plan: Improving with IV fluids. Her BUN is down and her creatinine is a little bit elevated, so I think from a fluid standpoint she is euvolemic. She probably has a component of ATN which will just take some time to get better. (5) Ambulatory dysfunction Is this a current diagnosis for this admission?: Yes Plan: Is going to go home but since she is now safe for out of bed activities, we talked about going to a jail facility for rehab, and she was agreeable to this.
[2018-04-29] MEDS: LEVOTHYROXINE SODIUM 0.1 MG TABLET PO SCH (06:13)
[2018-04-29] MEDS: DOCUSATE SODIUM 100 MG CAPSULE PO SCH ×2 (09:50→16:55)
[2018-04-29] MEDS: METOPROLOL SUCCINATE 25 MG TAB.SR.24H PO SCH (09:50)
[2018-04-29] MEDS: APIXABAN 5 MG TABLET PO SCH ×2 (09:50→21:12)
--- NOTE | 2018-04-29 16:03 | PDOC PROGRESS REPORT ---
Subjective Progress Note for:: 04/29/18 Subjective:: No adverse events overnight. No new complaints. No change in her clinical condition. No palpitations. Reason For Visit: AFIB,HYPOTHYROIDISM Physical Exam Vital Signs: Temp Pulse Resp BP Pulse Ox 97.5 F 91 14 108/50 L 98 04/29/18 12:29 04/29/18 14:00 04/29/18 12:29 04/29/18 12:29 04/29/18 12:29 Intake & Output 04/28/18 04/29/18 04/30/18 06:59 06:59 06:59 Intake Total 608 879 567 Output Total 0 350 550 Balance 608 529 17 Weight 90.5 kg 80.9 kg General appearance: PRESENT: no acute distress, well-developed, well-nourished Neurological exam: PRESENT: alert, awake, oriented to person, oriented to place , oriented to time, oriented to situation. ABSENT: motor sensory deficit Results Laboratory Results: 04/25/18 05:13 04/27/18 10:47 Impressions: Chest X-Ray 04/24/18 13:31 IMPRESSION: NO ACUTE RADIOGRAPHIC FINDING IN THE CHEST. Head CT 04/24/18 13:43 IMPRESSION: MILD CHRONIC CHANGES OF ATROPHY AND MICROVASCULAR ISCHEMIA. NO ACUTE PROCESS. EVIDENCE OF ACUTE STROKE: NO. Head MRI 04/26/18 00:00 IMPRESSION: MINIMAL MICROVASCULAR ISCHEMIC CHANGE. OTHERWISE NORMAL STUDY. EVIDENCE OF ACUTE STROKE: NO. Assessment & Plan - Diagnosis (1) Hypothyroid Qualifiers: Hypothyroidism type: postoperative Qualified Code(s): E89.0 - Postprocedural hypothyroidism Is this a current diagnosis for this admission?: Yes Plan: She has been off of her Synthroid for several days, she says nearly 6 weeks because she says her primary care provider allegedly took her off of her medicine altogether to see what her baseline was. I have not confirmed that this is actually true. Whatever the case, we started her back on some Synthroid and she seems to be feeling better. (2) Paroxysmal atrial fibrillation Is this a current diagnosis for this admission?: Yes Plan: Currently in a sinus rhythm. At it metoprolol to her regimen this morning. (3) Wound of left foot Is this a current diagnosis for this admission?: Yes Plan: Follow with the wound clinic and apparently has made excellent progress. We got some dressing change recommendations from the wound clinic and will implement those. She will follow up with the wound clinic as an outpatient. (4) Acute kidney injury Is this a current diagnosis for this admission?: Yes Plan: Improving with IV fluids. Her BUN is down and her creatinine is a little bit elevated, so I think from a fluid standpoint she is euvolemic. She probably has a component of ATN which will just take some time to get better. (5) Ambulatory dysfunction Is this a current diagnosis for this admission?: Yes Plan: Is going to go home but since she is now safe for out of bed activities, we talked about going to a correction facility for rehab, and she was agreeable to this. - Time Time Spent with patient: Less than 15 minutes Medications reviewed and adjusted accordingly: Yes
[2018-04-30] MEDS: LEVOTHYROXINE SODIUM 0.1 MG TABLET PO SCH (05:30)
[2018-04-30] MEDS: APIXABAN 5 MG TABLET PO SCH (11:14)
[2018-04-30] MEDS: METOPROLOL SUCCINATE 25 MG TAB.SR.24H PO SCH (11:14)
[2018-04-30] MEDS: DOCUSATE SODIUM 100 MG CAPSULE PO SCH (11:15)
--- NOTE | 2018-04-30 15:03 | Progress Note ---
Provider Note Provider Note: This is an addendum to the discharge summary dated 04/27/2018. There is been no change in this patient's clinical condition since her last discharge summary. There has been no change in her plan. She is stable for transfer to long term facility today.
[2018-04-30 17:09] VITALS: BP 100/67
== END 2018-04-30 17:42 | DRG 308 ==
LOC: ER 11:39 → EH 17:17 → 3W 21:28
PROVIDERS: ADMIT Internal Medicine; ATTEND Internal Medicine
DX: I48.0 Paroxysmal atrial fibrillation (principal); N17.0 Acute kidney failure with tubular necrosis; E86.0 Dehydration; E89.0 Postprocedural hypothyroidism; S90.922A Unspecified superficial injury of left foot, initial encounter; X58.XXXA Exposure to other specified factors, initial encounter; Z60.2 Problems related to living alone; R00.1 Bradycardia, unspecified; M19.90 Unspecified osteoarthritis, unspecified site; L89.329 Pressure ulcer of left buttock, unspecified stage; B83.9 Helminthiasis, unspecified; B88.8 Other specified infestations; I50.9 Heart failure, unspecified; Z79.01 Long term (current) use of anticoagulants; Z90.49 Acquired absence of other specified parts of digestive tract; Z88.2 Allergy status to sulfonamides; Z80.9 Family history of malignant neoplasm, unspecified; Z82.49 Family history of ischemic heart disease and other diseases of the circulatory system
CPT/HCPCS: 36415; 70450; 70551; 71045; 80048; 80053; 81001; 82140; 82550; 82553; 82607; 83735; 84439; 84443; 84484; 85025; 85027; 85610; 85730; 87040; 87086; 93005; 93010; 96365; 99285; G8978-GP; G8979-GP; J0696; J3490; J7030

== ENCOUNTER 2018-05-20 18:17 | Inpatient (IN) | payer MEDICARE, OTHER ==
[2018-05-20] MEDS: NORMAL SALINE 1000 ML 1,000 ML IV PRN (00:12)
[2018-05-20] MEDS ORDERED: PIPERACILLIN/TAZOBACTAM 4.5 GM VIAL IV ONE (18:27)
[2018-05-20] MEDS ORDERED: ACETAMINOPHEN 325 MG TABLET PO ONE ×2 (18:27→19:10)
[2018-05-20 19:04] LABS: INTERNATIONAL RATION (INR) 1.19; PROTHROMBIN TIME 15.7 SEC (11.4-15.4)
[2018-05-20 19:07] LABS: ABSOLUTE BASOPHILS # (AUTO) 0.1 10^3/uL (0.0-0.2); ABSOLUTE EOSINOPHILS # (AUTO) 0.3 10^3/uL (0.0-0.6); ABSOLUTE MONOCYTES (AUTO) 0.7 10^3/uL (0.1-1.4); ABSOLUTE NEUT (AUTO) 11.4 10^3/uL (1.7-8.2); BASOPHILS % (AUTO) 0.6 % (0-2); HEMATOCRIT 33.2 % (36.0-47.0); HEMOGLOBIN 10.9 g/dL (12.0-15.5); LYMPHOCYTES % (AUTO) 7.1 % (13-45); MEAN CORPUSCULAR HEMOGLOBIN 26.9 pg (27.0-33.4); MEAN CORPUSCULAR HGB CONC 32.9 g/dL (32.0-36.0); MEAN CORPUSCULAR VOLUME 82 fl (80-97); MONOCYTES % (AUTO) 5.4 % (3-13); PLATELET COUNT 542 10^3/uL (150-450); RED BLOOD COUNT 4.06 10^6/uL (3.72-5.28); RED CELL DISTRIBUTION WIDTH 16.4 % (11.5-14.0); SEGMENTED NEUTROPHILS % (AUTO) 84.9 % (42-78); TOTAL CELLS COUNTED % (AUTO) 100 %; WHITE BLOOD COUNT 13.5 10^3/uL (4.0-10.5)
[2018-05-20 19:08] LABS: VENOUS BLOOD BASE EXCESS -0.5 mmol/L; VENOUS BLOOD HCO3 24.8 mmol/L (20-32); VENOUS BLOOD PCO2 43.6 mmHg (35-63); VENOUS BLOOD PH 7.37 (7.30-7.42)
[2018-05-20 19:29] LABS: AMORPHOUS SEDIMENT,URINE TRACE /HPF; APPEARANCE,URINE CLOUDY; BILIRUBIN,URINE NEGATIVE (NEGATIVE); COLOR,URINE YELLOW; GLUCOSE, URINE NEGATIVE (NEGATIVE); KETONES,URINE NEGATIVE (NEGATIVE); LEUKOCYTE ESTERASE,URINE LARGE (NEGATIVE); NITRITE,URINE POSITIVE (NEGATIVE); PROTEIN,URINE 30 mg/dL (NEGATIVE); URINE SPECIFIC GRAVITY 1.014
--- NOTE | 2018-05-20 19:34 | ER Document Report ---
ED General - General Chief Complaint: Fever Stated Complaint: FEVER Time Seen by Provider: 05/20/18 18:27 Information source: Emergency Med Personnel Cannot obtain history due to: Dementia Notes: 77-year-old female presents emergency department via EMS from [place] for a fever onset today. They also state that she has a large amount of serous fluid discharging from her left foot for which she is followed by Dr. Keith Willams DPM, they gave 650 of Tylenol at 1750 today otherwise no history is provided and patient cannot provide any history. TRAVEL OUTSIDE OF THE [place] IN LAST 30 DAYS: No - Related Data Allergies/Adverse Reactions: Sulfa (Sulfonamide Antibiotics) Adverse Reaction (Mild, Verified 08/18/17 12:14) Hives Past Medical History - General Information source: Emergency Med Personnel, Outside Facility Records Cannot obtain history due to: Dementia - Social History Smoking Status: Unknown if Ever Smoked Lives with: Prison Family History: Hypertension, Malignancy - It is unclear which malignancy her mother had. - Past Medical History Cardiac Medical History: Reports: Hx Atrial Fibrillation Pulmonary Medical History: Reports: Hx Bronchitis Endocrine Medical History: Reports: Hx Hypothyroidism - Patient had her thyroid ablated is now hypothyroid. Renal/ Medical History: Denies: Hx Peritoneal Dialysis Musculoskeletal Medical History: Reports Hx Arthritis Psychiatric Medical History: Reports: Hx Depression Past Surgical History: Reports: Hx Cholecystectomy, Hx Orthopedic Surgery - right finger, Other - Irradiation of the thyroid. Review of Systems - Review of Systems -: Yes ROS unobtainable due to patient's medical condition Physical Exam - Vital signs Vitals: Temp Resp 103.7 F H 24 H 05/20/18 18:35 05/20/18 18:35 Interpretation: Tachycardic, Tachypneic, Febrile - Notes Notes: GENERAL: Confused, lying in bed, mildly agitated, picking at the blankets. HEAD: Normocephalic, atraumatic EYES: Pupils equal, round and reactive to light, extraocular movements intact. ENT: Oral mucosa moist, tongue midline. NECK: Full range of motion, supple, trachea midline. LUNGS: Clear to auscultation bilaterally, no wheezes, rales or rhonchi, no respiratory distress. HEART: tachycardic rate and regular rhythm, no murmurs, gallops, rubs. ABDOMEN: Soft, nontender, nondistended, bowel sounds present in all 4 quadrants. EXTREMITIES: Moves all 4 extremities spontaneously, no edema, radial and dorsalis pedis pulses 2/4 bilaterally. No cyanosis. NEUROLOGICAL: Moves all 4 extremities equally, does not answer questions, picks at the blanket and picks at her IV, consistent with her baseline of dementia. patellar DTRs 2+ bilaterally. PSYCH: Demented at baseline. SKIN: Hot, flushed, breakdown of the skin to the dorsal aspect of her bilateral feet worse on the left than on the right, serous discharge seeping from the left foot. Feet are erythematous. Course - Re-evaluation Re-evalutation: 05/20/18 21:11 CBC shows leukocytosis of 13.5, hemoglobin is low with anemia 10.9, platelets slightly elevated at 542, INR prolonged at 1.19, chemistries show renal failure with a BUN of 25 and creatinine 1.66, this is very close to her baseline, lactic acid elevated at 3.2 this will be repeated, urinalysis shows small blood , positive nitrates, large leukocyte esterase, this has been sent for culture it was catheterized. Chest x-ray shows no acute process. EKG shows A. fib RVR , rate is quite labile. Patient is not hypotensive, she is being given Rocephin , blood cultures have been obtained, patient is intermittently hypoxic, when a good waveform is obtained she is between 89 and 92% on room air, she was placed on 2 L via nasal cannula and she improved. - Vital Signs Vital signs: Temp Pulse Resp BP Pulse Ox 103.7 F H 23 H 119/82 05/20/18 18:35 05/20/18 19:03 05/20/18 19:03 - Laboratory Result Diagrams: 05/20/18 18:36 05/20/18 19:31 Laboratory results interpreted by me: 05/20/18 05/20/18 05/20/18 18:36 18:36 18:36 WBC 13.5 H Hgb 10.9 L Hct 33.2 L MCH 26.9 L RDW 16.4 H Plt Count 542 H Seg Neutrophils % 84.9 H Lymphocytes % 7.1 L Absolute Neutrophils 11.4 H PT 15.7 H Carbon Dioxide BUN Creatinine Est GFR ( Amer) Est GFR (Non-Af Amer) Lactic Acid 3.2 H AST Alkaline Phosphatase Albumin Urine Protein Urine Blood Urine Nitrite Urine Urobilinogen Ur Leukocyte Esterase 05/20/18 05/20/18 19:00 19:31 WBC Hgb Hct MCH RDW Plt Count Seg Neutrophils % Lymphocytes % Absolute Neutrophils PT Carbon Dioxide 20 L BUN 25 H Creatinine 1.66 H Est GFR ( Amer) 36 L Est GFR (Non-Af Amer) 30 L Lactic Acid AST 39 H Alkaline Phosphatase 171 H Albumin 3.0 L Urine Protein 30 H Urine Blood SMALL H Urine Nitrite POSITIVE H Urine Urobilinogen 2.0 H Ur Leukocyte Esterase LARGE H - EKG Interpretation by Me Additional EKG results interpreted by me: 05/20/18 21:11 EKG shows A. fib RVR at a rate of 113, left bundle branch, ST segment elevations in V2 appear more consistent with the LBBB and the motion artifact then to actual ischemia or infarction, there are no reciprocal changes per my interpretation. Discharge - Discharge Clinical Impression: Atrial fibrillation with RVR, Wound of left foot Sepsis Qualifiers: Sepsis type: sepsis due to unspecified organism Qualified Code(s): A41.9 - Sepsis, unspecified organism Urinary tract infection Qualifiers: Urinary tract infection type: acute cystitis Hematuria presence: with hematuria Qualified Code(s): N30.01 - Acute cystitis with hematuria Condition: Serious Disposition: ADMITTED INPATIENT Admitting Provider: Hospitalist - [facility] Admitted: [facility] Referrals: EVELIO CLAUDIO DO [Primary Care Provider] - Follow up as needed
--- NOTE | 2018-05-20 19:45 | RADIOLOGY REPORT (SQ) ---
EXAM DESCRIPTION: CHEST SINGLE VIEW COMPLETED DATE/TIME: 05/20/2018 7:20 pm REASON FOR STUDY: fever, sepsis COMPARISON: 04/24/2018. EXAM PARAMETERS: NUMBER OF VIEWS: One view. TECHNIQUE: Single frontal radiographic view of the chest acquired. RADIATION DOSE: NA LIMITATIONS: None. FINDINGS: LUNGS AND PLEURA: No opacities, masses or pneumothorax. No pleural effusion. MEDIASTINUM AND HILAR STRUCTURES: No masses. Contour normal. HEART AND VASCULAR STRUCTURES: Heart normal in size. Normal vasculature. BONES: No acute findings. HARDWARE: None in the chest. OTHER: No other significant finding. IMPRESSION: NO ACUTE RADIOGRAPHIC FINDING IN THE CHEST. TECHNICAL DOCUMENTATION: JOB ID: [id number] [employer]- All Rights Reserved Reading location - IP/workstation name: [email or web address]
[2018-05-20 20:05] LABS: ALANINE AMINOTRANSFERASE 20 U/L (9-52); ALKALINE PHOSPHATASE 171 U/L (38-126); ANION GAP 14 (5-19); ASPARTATE AMINO TRANSFERASE 39 U/L (14-36); BILIRUBIN,DIRECT 0.4 mg/dL (0.0-0.4); BILIRUBIN,TOTAL 0.4 mg/dL (0.2-1.3); BLOOD UREA NITROGEN 25 mg/dL (7-20); CALCIUM 8.5 mg/dL (8.4-10.2); CARBON DIOXIDE 20 mmol/L (22-30); CHLORIDE 106 mmol/L (98-107); GLUCOSE 109 mg/dL (75-110); POTASSIUM 4.4 mmol/L (3.6-5.0); SODIUM 140.2 mmol/L (137-145); TOTAL PROTEIN 7.3 g/dL (6.3-8.2)
[2018-05-20] MEDS ORDERED: ALBUTEROL SULFATE 0.083% NEB 2.5 MG/3 ML AMPUL NEB ONE (21:19)
[2018-05-20] MEDS ORDERED: GLUCAGON,HUMAN RECOMB 1 MG INJ SUBCUT PRN (21:45)
[2018-05-20] MEDS ORDERED: PROMETHAZINE HCL INJ 25 MG/1 ML VIAL IV PRN (21:45)
[2018-05-20] MEDS ORDERED: MAG HYDROX/AL HYDROX/SIMETH SUSP 30 ML UDCUP PO PRN (21:45)
[2018-05-20] MEDS ORDERED: DEXTROSE 50%-WATER 25 GM/50 ML DISP.SYRIN IV PRN ×2 (21:45)
[2018-05-20] MEDS ORDERED: LEVALBUTEROL HCL NEB 0.63 MG/3 ML AMPUL NEB PRN (21:45)
[2018-05-20] MEDS ORDERED: DEXTROSE 40% GEL 15 GM TUBE PO PRN ×2 (21:45)
[2018-05-20] MEDS ORDERED: VANCOMYCIN HCL 0 MG in DEXTROSE 5%-WATER 250 ML IV NR (22:00)
[2018-05-20] MEDS ORDERED: ACETAMINOPHEN 325 MG TABLET PO PRN (22:00)
[2018-05-20] MEDS ORDERED: VANCOMYCIN HCL INJ 1000 MG VIAL IV PRN (22:27)
[2018-05-20] MEDS ORDERED: VANCOMYCIN HCL INJ 500 MG VIAL IV PRN (22:27)
--- NOTE | 2018-05-20 22:35 | PDOC H&P ---
History of Present Illness Admission Date/PCP: 05/20/18 21:36 Patient complains of: Altered Mental status History of Present Illness: ALTAGRACIA OLIVIA is a 77 year old female from [facility] after caregivers found her acting different. In the halfway facility in [facility] a large amount of serous fluid discharging from her left foot, patient has chronic bilateral lower extremities ulcers and she follows with Dr. Keith Willams patient is unable to provide any information at this point she is nonverbal. In the emergency department with the patient was noted hypoxic and was essentially nebulizer treatments. T 103.7 WBC 13.5 LA 3.2. Patient tachycardic in the ED between 110 and 114, the patient has history of chronic atrial fibrillation on anticoagulation with Eliquis. Laboratory came back positive for UTI. Patient meets criteria for sepsis. Chest x-ray negative. Patient was discharged from our facility last month to permit a halfway facility for rehabilitation, I suspect the patient is bedbound. Unfortunately no further information could be obtained at this time. Past Medical History Cardiac Medical History: Reports: Atrial Fibrillation - Chronic on Eliquis, Congestive Heart Failure - Possible CHF as she is on Lasix Pulmonary Medical History: Reports: Bronchitis Endocrine Medical History: Reports: Hypothyroidism - Patient had her thyroid ablated is now hypothyroid. 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 Social History Information Source: Emergency Med Personnel Lives with: Assisted Smoking Status: Unknown if Ever Smoked Frequency of Alcohol Use: Rare Past Social History Note: Patient transferred from [facility], nonverbal at this time. Family History Family History: Hypertension, Malignancy - It is unclear which malignancy her mother had. Parental Family History Reviewed: Yes - Mother from cancer, 5 with history of hypertension as per records Children Family History Reviewed: NA Sibling(s) Family History Reviewed.: NA Medication/Allergy Home Medications: Apixaban [Eliquis 5 mg Tablet] 5 mg PO Q12 04/24/18 Furosemide [Lasix 20 mg Tablet] 20 mg PO DAILY 04/24/18 Levothyroxine Sodium [Synthroid] 200 mcg PO Q6AM 04/24/18 Metoprolol Succinate [Toprol Xl 25 mg Tab.sr] 12.5 mg PO DAILY 04/24/18 Allergies/Adverse Reactions: Sulfa (Sulfonamide Antibiotics) Adverse Reaction (Mild, Verified 08/18/17 12:14) Hives Review of Systems Review of Systems: Unable to obtain as the patient is nonverbal Physical Exam Vital Signs: Temp Pulse Resp BP Pulse Ox 103.7 F H 28 H 112/67 93 05/20/18 18:35 05/20/18 21:01 05/20/18 21:01 05/20/18 21:01 Additional comments: General appearance: Appears to be in acute distress illness, wearing a nebulize mask, looks very ill. Head: Normocephalic Eyes: PEERL, rest unable to evaluate, patient with close eyes ears: External auditory canal and tympanic membranes clear, hearing unknown, does not follow commands. Nose: No nasal discharge. Throat: Oral cavity and pharynx normal. No inflammation, swelling, exudate or lesions. Dry oral mucosa Neck: Neck supple, nontender without lymphadenopathy, masses or thyromegaly. Cardiac: Normal S1 and S2. No S3, S4 or murmurs. Rhythm is irregular and tachycardic. There is 3+ peripheral edema, pallor. Extremities are warm and well perfused. Capillary refill is less than 2 seconds. No carotid bruits. Lungs: Very poor inspiratory effort, mild expiratory wheezing, diffused fine crackles. D not appreciate rhonchi. Not using accessory muscles at the time of my evaluation. Abdomen: Positive bowel sounds. Soft. Nondistended, nontender. No guarding or rebound. No masses. No hepatosplenomegaly Extremities: Very edematous, with erythema below knees and multiple ulcerations , malodorous, clear secretion from the left lower extremity. Neurological: Unable to evaluate Skin: Lower extremities as per above, warm and dry. Psychiatric: Unable to evaluate Results Laboratory Results: 05/20/18 05/20/18 05/20/18 18:36 18:36 18:36 WBC 13.5 H RBC 4.06 Hgb 10.9 L Hct 33.2 L MCV 82 MCH 26.9 L MCHC 32.9 RDW 16.4 H Plt Count 542 H Seg Neutrophils % 84.9 H Lymphocytes % 7.1 L Monocytes % 5.4 Eosinophils % 2.0 Basophils % 0.6 Absolute Neutrophils 11.4 H Absolute Lymphocytes 1.0 Absolute Monocytes 0.7 Absolute Eosinophils 0.3 Absolute Basophils 0.1 PT 15.7 H INR 1.19 VBG pH 7.37 VBG pCO2 43.6 VBG HCO3 24.8 Sodium Potassium Chloride Carbon Dioxide Anion Gap BUN Creatinine Est GFR ( Amer) Est GFR (Non-Af Amer) Glucose Calcium Total Bilirubin Direct Bilirubin AST ALT Alkaline Phosphatase Total Protein Albumin Urine Color Urine Appearance Urine pH Ur Specific [place] Urine Protein Urine Glucose (UA) Urine Ketones Urine Blood Urine Nitrite Urine Bilirubin Urine Urobilinogen Ur Leukocyte Esterase Urine WBC (Auto) Urine RBC (Auto) U Hyaline Cast (Auto) Urine WBC Clumps Squamous Epi Cells Auto Amorphous Sediment Auto Urine Mucus (Auto) Urine Ascorbic Acid 05/20/18 05/20/18 19:00 19:31 WBC RBC Hgb Hct MCV MCH MCHC RDW Plt Count Seg Neutrophils % Lymphocytes % Monocytes % Eosinophils % Basophils % Absolute Neutrophils Absolute Lymphocytes Absolute Monocytes Absolute Eosinophils Absolute Basophils PT INR VBG pH VBG pCO2 VBG HCO3 Sodium 140.2 Potassium 4.4 Chloride 106 Carbon Dioxide 20 L Anion Gap 14 BUN 25 H Creatinine 1.66 H Est GFR ( Amer) 36 L Est GFR (Non-Af Amer) 30 L Glucose 109 Calcium 8.5 Total Bilirubin 0.4 Direct Bilirubin 0.4 AST 39 H ALT 20 Alkaline Phosphatase 171 H Total Protein 7.3 Albumin 3.0 L Urine Color YELLOW Urine Appearance CLOUDY Urine pH 6.0 Ur Specific [place] 1.014 Urine Protein 30 H Urine Glucose (UA) NEGATIVE Urine Ketones NEGATIVE Urine Blood SMALL H Urine Nitrite POSITIVE H Urine Bilirubin NEGATIVE Urine Urobilinogen 2.0 H Ur Leukocyte Esterase LARGE H Urine WBC (Auto) >182 Urine RBC (Auto) 3 U Hyaline Cast (Auto) 4 Urine WBC Clumps OCC Squamous Epi Cells Auto 2 Amorphous Sediment Auto TRACE Urine Mucus (Auto) RARE Urine Ascorbic Acid NEGATIVE Impressions: Chest X-Ray 05/20/18 18:28 IMPRESSION: NO ACUTE RADIOGRAPHIC FINDING IN THE CHEST. Assessment & Plan - Diagnosis (1) Sepsis Qualifiers: Sepsis type: sepsis due to unspecified organism Qualified Code(s): A41.9 - Sepsis, unspecified organism Is this a current diagnosis for this admission?: Yes Plan: Sepsis likely secondary to urinary tract infection, I cannot rule out pneumonia as per patient has respiratory symptoms, probably dehydration do not let us see that in the chest x-ray. Criteria with fever, leukocytosis, focus of infection (2) Urinary tract infection Qualifiers: Urinary tract infection type: acute cystitis Hematuria presence: with hematuria Qualified Code(s): N30.01 - Acute cystitis with hematuria Is this a current diagnosis for this admission?: Yes Plan: Septic with urinary tract infection, however I cannot rule out other focus of infection as pneumonia or lower extremities source. I will give the patient on broad-spectrum antibiotics with IV Zosyn, IV Levaquin and IV vancomycin. Please follow blood cultures and urine cultures. I am also requesting a sputum culture if positive bowel. IV fluids. (3) Atrial fibrillation with RVR Is this a current diagnosis for this admission?: Yes Plan: As per because chronic atrial fibrillation, patient is on Eliquis. Heart rate has been up to the 115, likely secondary to her sepsis. Resume her home medications, on Eliquis and Toprol, if blood pressure allow us. (4) Wound of left foot Is this a current diagnosis for this admission?: Yes Plan: Patient has chronic lower extremities venous hesitancies with multiple ulcerations, apparently worsening on the left lower extremity with clear secretions, malodorous. Suspect another focus of infection. I will place a culture from that secretion and she is already covered with broad-spectrum antibiotics. Wound care consult when available, unfortunately we don't have it tomorrow. (5) Lactic acidosis Is this a current diagnosis for this admission?: Yes Plan: Lactic acid 2.2. I will place an order for every 4 hours until normalized. (6) CKD (chronic kidney disease), stage III Is this a current diagnosis for this admission?: Yes Plan: Stable, BUN 25 and creatinine 1.66 (7) Reactive airway disease Is this a current diagnosis for this admission?: Yes Plan: Patient noted hypoxic with high expiratory wheezing in the ED, given 1 dose of albuterol, due to her tachycardia I will switch it for levalbuterol as needed. Will continue closely monitoring her respiratory status. Improvement will initiate her on CPAP. VBG 7.37/43.6 hco3 24.8 - Time Time Spent: 50 to 70 Minutes Critical Time spent with patient: 35 or more minutes - Inpatient Certification Based on my medical assessment, after consideration of the patient's comorbidities, presenting symptoms, or acuity I expect that the services needed warrant INPATIENT care.: Yes I certify that my determination is in accordance with my understanding of Medicare's requirements for reasonable and necessary INPATIENT services [42 CFR 412.3e].: Yes Medical Necessity: Need For IV Fluids, Need For Continuous Telemetry Monitoring , Risk of Complication if Not Cared For in Hospital
[2018-05-20] MEDS ORDERED: VANCOMYCIN HCL 1,500 MG in DEXTROSE 5%-WATER 250 ML IV ONE (23:00)
--- NOTE | 2018-05-20 23:16 | EKG REPORT ---
SEVERITY:- ABNORMAL ECG - SINUS TACHYCARDIA LEFT AXIS DEVIATION CONSIDER ANTEROSEPTAL INFARCT NONSPECIFIC T ABNORMALITIES, LATERAL LEADS : Confirmed by: Marivel Sainz 20-May-2018 23:16:20
[2018-05-21] MEDS ORDERED: PIPERACILLIN SODIUM/TAZOBACTAM 3.375 GM in NORMAL SALINE 100 ML IV SCH ×2
[2018-05-21] MEDS ORDERED: NORMAL SALINE 1000 ML 1,000 ML IV ONE (00:11)
[2018-05-21] MEDS ORDERED: AMIODARONE HCL 150 MG in DEXTROSE 5%-WATER 100 ML IV ONE ×2 (00:37→03:06)
[2018-05-21] MEDS ORDERED: AMIODARONE HCL INJ 150 MG/3 ML VIAL IV ONE ×2 (00:46→03:21)
[2018-05-21] MEDS ORDERED: NORMAL SALINE 1000 ML 1,000 ML IV PRN (02:11)
[2018-05-21] MEDS ORDERED: DEXTROSE 5%-WATER 500 ML with AMIODARONE HCL 900 MG IV PRN ×2 (03:06)
[2018-05-21 03:46] LABS: HEMATOCRIT 27.8 % (36.0-47.0); HEMOGLOBIN 9.1 g/dL (12.0-15.5); MEAN CORPUSCULAR HEMOGLOBIN 26.8 pg (27.0-33.4); MEAN CORPUSCULAR HGB CONC 32.8 g/dL (32.0-36.0); MEAN CORPUSCULAR VOLUME 82 fl (80-97); PLATELET COUNT 420 10^3/uL (150-450); RED BLOOD COUNT 3.41 10^6/uL (3.72-5.28); RED CELL DISTRIBUTION WIDTH 16.2 % (11.5-14.0)
[2018-05-21 03:47] LABS: INTERNATIONAL RATION (INR) 1.42; PROTHROMBIN TIME 18.1 SEC (11.4-15.4)
[2018-05-21 04:08] LABS: ABSOLUTE LYMPHOCYTES# (MANUAL) 0.6 10^3/uL (0.5-4.7); ABSOLUTE MONOCYTES # (MANUAL) 0.6 10^3/uL (0.1-1.4); ABSOLUTE NEUTROPHILS# (MANUAL) 27.6 10^3/uL (1.7-8.2); BAND NEUTROPHILS % (MANUAL) 5 % (3-5); BASOPHILS % (MANUAL) 0 % (0-2); EOSINOPHILS % (MANUAL) 0 % (0-6); LYMPHOCYTES % (MANUAL) 2 % (13-45); MONOCYTES % (MANUAL) 2 % (3-13); SEGMENTED NEUTROPHILS % (MAN) 91 % (42-78); TOTAL CELLS COUNTED 100
[2018-05-21 04:12] LABS: ANISOCYTOSIS 1+; HYPOCHROMASIA 1+; POLYCHROMASIA 1+
[2018-05-21 04:13] LABS: PLATELET COMMENT ADEQUATE
[2018-05-21 04:55] LABS: WHITE BLOOD COUNT 28.8 10^3/uL (4.0-10.5)
[2018-05-21 05:05] LABS: ALANINE AMINOTRANSFERASE 30 U/L (9-52); ALBUMIN 2.3 g/dL (3.5-5.0); ALKALINE PHOSPHATASE 145 U/L (38-126); ANION GAP 14 (5-19); ASPARTATE AMINO TRANSFERASE 78 U/L (14-36); BILIRUBIN,DIRECT 0.6 mg/dL (0.0-0.4); BILIRUBIN,TOTAL 0.7 mg/dL (0.2-1.3); BLOOD UREA NITROGEN 27 mg/dL (7-20); CALCIUM 7.8 mg/dL (8.4-10.2); CARBON DIOXIDE 16 mmol/L (22-30); CHLORIDE 111 mmol/L (98-107); GLUCOSE 123 mg/dL (75-110); PHOSPHORUS 4.1 mg/dL (2.5-4.5); POTASSIUM 3.7 mmol/L (3.6-5.0); SODIUM 140.6 mmol/L (137-145); TOTAL PROTEIN 5.9 g/dL (6.3-8.2)
[2018-05-21] MEDS ORDERED: PIPERACILLIN/TAZOBACTAM 3.375 GM VIAL IV PRN (05:22)
[2018-05-21] MEDS: PIPERACILLIN SODIUM/TAZOBACTAM 3.375 GM in NORMAL SALINE 100 ML IV SCH ×3 (05:38→20:19)
[2018-05-21 06:09] LABS: ARTERIAL BLOOD BASE EXCESS -7.2 mmol/L; ARTERIAL BLOOD H2CO3 0.79 mmol/L (1.05-1.35); ARTERIAL BLOOD HCO3 16.2 mmol/L (20-26); ARTERIAL BLOOD PCO2 26.1 mmHg (35-45); ARTERIAL BLOOD PH 7.41 (7.35-7.45); ARTERIAL BLOOD PO2 88.5 mmHg (80-100)
[2018-05-21 06:13] LABS: ARTERIAL BLOOD FIO2 3L
--- NOTE | 2018-05-21 06:52 | EKG REPORT ---
SEVERITY:- ABNORMAL ECG - A FIB RVR VENTRICULAR PREMATURE COMPLEX IVCD WITH LAD PROBABLE INFERIOR INFARCT, OLD ANTERIOR INFARCT, OLD : Confirmed by: Marivel Sainz 21-May-2018 06:52:11
[2018-05-21] MEDS: LEVOFLOXACIN 500 MG/D5W RTU 500 MG/100 ML RTUPB IV SCH (09:20)
[2018-05-21 19:33] LABS: HEMATOCRIT 33.8 % (36.0-47.0); HEMOGLOBIN 10.8 g/dL (12.0-15.5); MEAN CORPUSCULAR HEMOGLOBIN 26.1 pg (27.0-33.4); MEAN CORPUSCULAR HGB CONC 31.8 g/dL (32.0-36.0); MEAN CORPUSCULAR VOLUME 82 fl (80-97); PLATELET COUNT 439 10^3/uL (150-450); RED BLOOD COUNT 4.12 10^6/uL (3.72-5.28); WHITE BLOOD COUNT 17.9 10^3/uL (4.0-10.5)
--- NOTE | 2018-05-21 19:33 | Progress Note ---
Provider Note Provider Note: This is 77 years old female patient transferred from [facility] for altered mental status. At ER patient found to be in A. fib with RVR. Patient has been started on Cardizem drip and later put on amiodarone. Patient also found to have fever of 103 and has been started on triple antibiotics. The first set of troponin which is markedly elevated at 8.43 which is not reported as panic result to on-call physician at night. This afternoon I reconsulted Dr. Sainz about the case. Patient has been started on Lovenox, metoprolol, aspirin and Plavix. Accept this patient will be her primary attending.
[2018-05-21 19:55] LABS: ABSOLUTE LYMPHOCYTES# (MANUAL) 1.1 10^3/uL (0.5-4.7); ABSOLUTE MONOCYTES # (MANUAL) 0.7 10^3/uL (0.1-1.4); ABSOLUTE NEUTROPHILS# (MANUAL) 15.9 10^3/uL (1.7-8.2); BASOPHILS % (MANUAL) 1 % (0-2); EOSINOPHILS % (MANUAL) 0 % (0-6); LYMPHOCYTES % (MANUAL) 6 % (13-45); MONOCYTES % (MANUAL) 4 % (3-13); SEGMENTED NEUTROPHILS % (MAN) 89 % (42-78); TOTAL CELLS COUNTED 100
[2018-05-21 19:56] LABS: ANISOCYTOSIS 1+; OVALOCYTES 1+; POIKILOCYTOSIS 1+; TOXIC VACUOLATION PRESENT
[2018-05-21 19:57] LABS: HYPOCHROMASIA SLIGHT; PLATELET COMMENT ADEQUATE
[2018-05-21 20:08] LABS: ANION GAP 12 (5-19); BLOOD UREA NITROGEN 30 mg/dL (7-20); CALCIUM 8.5 mg/dL (8.4-10.2); CARBON DIOXIDE 18 mmol/L (22-30); CHLORIDE 110 mmol/L (98-107); CREATINE KINASE 1053 U/L (30-135); GLUCOSE 95 mg/dL (75-110); POTASSIUM 3.9 mmol/L (3.6-5.0); SODIUM 139.6 mmol/L (137-145)
--- NOTE | 2018-05-21 20:18 | PDOC CONSULTATION ---
Consultation Consult Date: 05/21/18 Attending physician:: LAKESHA BOONE Consult reason:: Atrial fibrillation with RVR and elevated troponin I History of Present Illness Admission Date/PCP: 05/20/18 21:36 Patient complains of: Shortness of breath, fever and chills History of Present Illness: ALTAGRACIA OLIVIA is a 77 year old female from [facility] after caregivers found her acting different. In the detention facility in [facility] a large amount of serous fluid discharging from her left foot, patient has chronic bilateral lower extremities ulcers and she follows with Dr. Keith Willams patient is unable to provide any information at this point she is nonverbal. In the emergency department with the patient was noted hypoxic and was essentially nebulizer treatments. T 103.7 WBC 13.5 LA 3.2. Patient tachycardic in the ED between 110 and 114, the patient has history of chronic atrial fibrillation on anticoagulation with Eliquis. Laboratory came back positive for UTI. Patient meets criteria for sepsis. Chest x-ray negative. Patient was discharged from our facility last month to permit a detention facility for rehabilitation, I suspect the patient is bedbound. Unfortunately no further information could be obtained at this time. This afternoon, patient was noted to have significant elevation in troponin I. It was also later on reported by the nurse that amiodarone had to infiltrate to some extent in her right forearm. Patient also noted to be short of breath. Patient cannot elaborate much on the history. Patient lab work was reviewed. EKGs were reviewed. Past Medical History Cardiac Medical History: Reports: Atrial Fibrillation - Chronic on Eliquis, Congestive Heart Failure - Possible CHF as she is on Lasix Pulmonary Medical History: Reports: Bronchitis Endocrine Medical History: Reports: Hypothyroidism - Patient had her thyroid ablated is now hypothyroid. 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 Social History Information Source: [facility] Records Lives with: [facility] Smoking Status: Unknown if Ever Smoked Frequency of Alcohol Use: Rare - Advance Directive Resuscitation Status: Full Code Surrogate healthcare decision maker:: Currently in process of being deciding. doorperson or luggage porter is Caitie Thornton, phone number is [phone] Family History Family History: Hypertension, Malignancy - It is unclear which malignancy her mother had. Parental Family History Reviewed: Yes Children Family History Reviewed: Yes Sibling(s) Family History Reviewed.: Yes Medication/Allergy Home Medications: Apixaban [Eliquis] 5 mg PO Q12 05/21/18 Celecoxib [Celebrex 200 mg Capsule] 200 mg PO Q12HP PRN 05/21/18 Levothyroxine Sodium [Synthroid] 200 mcg PO Q6AM 05/21/18 Metoprolol Succinate [Toprol Xl 25 mg Tab.sr] 12.5 mg PO DAILY 05/21/18 Allergies/Adverse Reactions: Sulfa (Sulfonamide Antibiotics) Adverse Reaction (Mild, Verified 08/18/17 12:14) Hives Review of Systems ROS unobtainable: Due to mental status Physical Exam Vital Signs: Temp Pulse Resp BP Pulse Ox 97.5 F 22 H 107/73 99 05/21/18 09:24 05/21/18 17:41 05/21/18 17:41 05/21/18 17:41 Intake & Output 05/20/18 05/21/18 05/22/18 06:59 06:59 06:59 Intake Total 1000 Balance 1000 Weight 90.8 kg Exam: GENERAL: well-nourished and in no acute distress. Patient is alert but not oriented to place time or person. HEAD: Atraumatic, normocephalic. EYES: Pupils equal round and reactive to light, extraocular movements intact, sclera anicteric, conjunctiva are normal. ENT: TMs normal, nares patent, oropharynx clear without exudates. Moist mucous membranes. No oral ulcerations or bleeding gums noted NECK: supple without lymphadenopathy or JVD. Trachea is central. No cervical or axillary lymphadenopathy noted. Carotids are 2+ LUNGS: Breath sounds bibasilar fine crackles at bases. No significant dullness noted. CHEST: Palpation of chest wall shows no significant chest wall tenderness. HEART: [employer], No PSH, 2/6 TITA aortic area, 1/6 gonzalez systolic murmur mitral area, rubs or gallops. ABDOMEN: Soft, no significant tenderness appreciated, normoactive bowel sounds. No guarding, no rebound. No rigidity noted . No masses appreciated. EXTREMITIES: Pedal pulses are 1-2+, no calf tenderness noted, 1-2+ pedal edema noted. No clubbing or cyanosis. oozing of fluid noted from the left feet especially NEUROLOGICAL: Patient is alert but is not able to participate in neurological exam because of patient's current mental status PSYCH: Patient cannot participate in a neurologic and psych exam because of the patient's current mental status SKIN: No significant ecchymosis, rash, ulcerations or signs of pruritus noted. MUSCULOSKELETAL EXAM: No significant joint swelling noted. Results Laboratory Results: 05/20/18 05/21/18 05/21/18 23:11 03:15 03:15 WBC 28.8 H D RBC 3.41 L Hgb 9.1 L Hct 27.8 L MCV 82 MCH 26.8 L MCHC 32.8 RDW 16.2 H Plt Count 420 Seg Neutrophils % Not Reportable Lymphocytes % Not Reportable Monocytes % Not Reportable Eosinophils % Not Reportable Basophils % Not Reportable Absolute Neutrophils Not Reportable Absolute Lymphocytes Not Reportable Absolute Monocytes Not Reportable Absolute Eosinophils Not Reportable Absolute Basophils Not Reportable Carbonic Acid HCO3/H2CO3 Ratio ABG pH ABG pCO2 ABG pO2 ABG HCO3 ABG O2 Saturation ABG Base Excess FiO2 Sodium 140.6 Potassium 3.7 Chloride 111 H Carbon Dioxide 16 L Anion Gap 14 BUN 27 H Creatinine 1.90 H Est GFR ( Amer) 31 L Est GFR (Non-Af Amer) 26 L Glucose 123 H Lactic Acid 3.5 H Calcium 7.8 L Phosphorus 4.1 Magnesium 1.5 L Total Bilirubin 0.7 AST 78 H ALT 30 Alkaline Phosphatase 145 H Total Protein 5.9 L Albumin 2.3 L TSH 05/21/18 05/21/18 05/21/18 03:15 03:15 05:45 WBC RBC Hgb Hct MCV MCH MCHC RDW Plt Count Seg Neutrophils % Lymphocytes % Monocytes % Eosinophils % Basophils % Absolute Neutrophils Absolute Lymphocytes Absolute Monocytes Absolute Eosinophils Absolute Basophils Carbonic Acid 0.79 L HCO3/H2CO3 Ratio 20:1 ABG pH 7.41 ABG pCO2 26.1 L ABG pO2 88.5 ABG HCO3 16.2 L ABG O2 Saturation 97.0 ABG Base Excess -7.2 FiO2 3L Sodium Potassium Chloride Carbon Dioxide Anion Gap BUN Creatinine Est GFR ( Amer) Est GFR (Non-Af Amer) Glucose Lactic Acid 3.0 H Calcium Phosphorus Magnesium Total Bilirubin AST ALT Alkaline Phosphatase Total Protein Albumin TSH 5.93 H 05/21/18 05/21/18 05/21/18 07:15 11:49 16:00 WBC RBC Hgb Hct MCV MCH MCHC RDW Plt Count Seg Neutrophils % Lymphocytes % Monocytes % Eosinophils % Basophils % Absolute Neutrophils Absolute Lymphocytes Absolute Monocytes Absolute Eosinophils Absolute Basophils Carbonic Acid HCO3/H2CO3 Ratio ABG pH ABG pCO2 ABG pO2 ABG HCO3 ABG O2 Saturation ABG Base Excess FiO2 Sodium Potassium Chloride Carbon Dioxide Anion Gap BUN Creatinine Est GFR ( Amer) Est GFR (Non-Af Amer) Glucose Lactic Acid 2.6 H 2.6 H 2.5 H Calcium Phosphorus Magnesium Total Bilirubin AST ALT Alkaline Phosphatase Total Protein Albumin TSH 05/21/18 18:58 WBC RBC Hgb Hct MCV MCH MCHC RDW Plt Count Seg Neutrophils % Not Reportable Lymphocytes % Not Reportable Monocytes % Not Reportable Eosinophils % Not Reportable Basophils % Not Reportable Absolute Neutrophils Not Reportable Absolute Lymphocytes Not Reportable Absolute Monocytes Not Reportable Absolute Eosinophils Not Reportable Absolute Basophils Not Reportable Carbonic Acid HCO3/H2CO3 Ratio ABG pH ABG pCO2 ABG pO2 ABG HCO3 ABG O2 Saturation ABG Base Excess FiO2 Sodium Potassium Chloride Carbon Dioxide Anion Gap BUN Creatinine Est GFR ( Amer) Est GFR (Non-Af Amer) Glucose Lactic Acid Calcium Phosphorus Magnesium Total Bilirubin AST ALT Alkaline Phosphatase Total Protein Albumin TSH 05/21/18 03:15 Troponin I 8.470 EKG Comments: Admission EKG shows sinus tachycardia but subsequent EKG shows atrial fibrillation. There is now incomplete left bundle branch block pattern. Could be rate related. Impressions: Chest X-Ray 05/20/18 18:28 IMPRESSION: NO ACUTE RADIOGRAPHIC FINDING IN THE CHEST. Assessment & Plan - Diagnosis (1) Atrial fibrillation with RVR Is this a current diagnosis for this admission?: Yes (2) CKD (chronic kidney disease), stage III Is this a current diagnosis for this admission?: Yes (3) Complicated UTI (urinary tract infection) Is this a current diagnosis for this admission?: Yes (4) Lactic acidosis Is this a current diagnosis for this admission?: Yes (5) Non-STEMI (non-ST elevated myocardial infarction) Is this a current diagnosis for this admission?: Yes (6) Ambulatory dysfunction Is this a current diagnosis for this admission?: Yes (7) CKD (chronic kidney disease) Qualifiers: Chronic kidney disease stage: unspecified stage Qualified Code(s): N18.9 - Chronic kidney disease, unspecified Is this a current diagnosis for this admission?: Yes - Notes Notes: Non-STEMI: Treat with anticoagulation, aspirin, Plavix, beta-blockers, statins, Ranexa. Will obtain 2D echo. Patient has poor baseline status and also noted to have significant renal dysfunction therefore a suboptimal candidate for heart catheterization. Further risk stratification with a 2D echo will be important. Atrial fibrillation with RVR: Continue with amiodarone therapy. Chronic kidney disease: May have been aggravated by UTI. Chronic UTI, complicated per hospitalist. Continue antibiotic therapy. Ambulatory dysfunction and general debility: Patient currently in a correction /rehab facility. Have asked nurse to obtain previous cardiac evaluation. Discussed with hospitalist. Case discussed with hospitalist. - Time Time Spent: 50 to 70 Minutes - CODE STATUS was discussed, patient remains full code. Surrogate decision-maker unchanged. Multiple medical problems were addressed. More than 50% of the time spent coordinating care, discussing management plans with involved caregivers. Management plans discussed with involved personnels. Medical decision making was of moderate to high complexity , patient's has multiple comorbidities. Medications reviewed and adjusted accordingly: Yes
[2018-05-21] MEDS: NORMAL SALINE 1000 ML 1,000 ML IV PRN (20:19)
[2018-05-21 20:20] LABS: CREATINE KINASE MB 13.7 ng/mL (<4.55)
[2018-05-21 20:23] LABS: TROPONIN I 5.02 ng/mL
[2018-05-21] MEDS ORDERED: VANCOMYCIN HCL 750 MG in DEXTROSE 5%-WATER 250 ML IV SCH (22:00)
[2018-05-21] MEDS ORDERED: ATORVASTATIN CALCIUM 40 MG TABLET PO SCH (22:00)
[2018-05-21] MEDS: RANOLAZINE 500 MG TAB.SR.12H PO SCH (22:36)
[2018-05-21] MEDS: METOPROLOL TARTRATE 25 MG TABLET PO SCH (22:36)
[2018-05-21] MEDS: CLOPIDOGREL BISULFATE 75 MG TABLET PO SCH (22:36)
[2018-05-21] MEDS: ASPIRIN 325 MG TABLET PO SCH (22:36)
[2018-05-21] MEDS: ATORVASTATIN CALCIUM 80 MG TABLET PO SCH (22:36)
[2018-05-21] MEDS: ENOXAPARIN SODIUM INJ 100 MG/1 ML DISP.SYRIN SUBCUT SCH (22:37)
[2018-05-22] MEDS: PIPERACILLIN SODIUM/TAZOBACTAM 3.375 GM in NORMAL SALINE 100 ML IV SCH ×4 (01:44→17:31)
[2018-05-22 01:52] LABS: CREATINE KINASE MB 9.78 ng/mL (<4.55)
[2018-05-22 02:05] LABS: TROPONIN I 4.72 ng/mL
[2018-05-22] MEDS ORDERED: AMIODARONE HCL INJ 150 MG/3 ML VIAL IV ONE (04:40)
[2018-05-22 07:46] LABS: CREATINE KINASE MB 8.25 ng/mL (<4.55); TROPONIN I 3.35 ng/mL
[2018-05-22 08:28] LABS: ARTERIAL BLOOD H2CO3 0.75 mmol/L (1.05-1.35); ARTERIAL BLOOD HCO3 16.1 mmol/L (20-26); ARTERIAL BLOOD O2 SATURATION 98.7 % (94-98); ARTERIAL BLOOD PCO2 24.8 mmHg (35-45); ARTERIAL BLOOD PH 7.43 (7.35-7.45); ARTERIAL BLOOD PO2 128.3 mmHg (80-100); ARTERIAL BLOOD TOTAL CO2 16.9 mmol/L (21-25)
[2018-05-22 08:29] LABS: ARTERIAL BLOOD FIO2 5L
[2018-05-22] MEDS: CLOPIDOGREL BISULFATE 75 MG TABLET PO SCH (10:33)
[2018-05-22] MEDS: ASPIRIN 325 MG TABLET PO SCH (10:33)
[2018-05-22] MEDS: ENOXAPARIN SODIUM INJ 100 MG/1 ML DISP.SYRIN SUBCUT SCH ×2 (10:33→22:38)
[2018-05-22] MEDS: METOPROLOL TARTRATE 25 MG TABLET PO SCH ×2 (10:33→22:36)
[2018-05-22] MEDS: LEVOFLOXACIN 500 MG/D5W RTU 500 MG/100 ML RTUPB IV SCH (10:37)
[2018-05-22] MEDS: NORMAL SALINE 1000 ML 1,000 ML IV PRN ×2 (10:46→17:31)
[2018-05-22] MEDS: RANOLAZINE 500 MG TAB.SR.12H PO SCH ×2 (11:40→22:37)
[2018-05-22] MEDS ORDERED: NITROGLYCERIN 0.4 MG/TAB 25 TAB/BOTTLE ONE (12:11)
[2018-05-22] MEDS ORDERED: NITROGLYCERIN 0.4 MG/TAB 25 TAB/BOTTLE SL PRN (12:18)
--- NOTE | 2018-05-22 13:18 | PDOC PROGRESS REPORT ---
Subjective Progress Note for:: 05/22/18 Subjective:: This is 77 years old female patient transferred from [facility] for altered mental status. At ER patient found to be in A. fib with RVR, febrile with T-max of 103 and markedly leukocytosis. Currently patient is in ICU her A. fib is rate controlled. By admitting physician patient was started on triple anti-antibiotics including vancomycin Zosyn and Levaquin. Her white cell count is trending down and her lactic acid has normalized. Her urine culture grew Proteus mirabilis which is pansensitive. This morning she has ABG and it is relatively normal. Reason For Visit: SEPSIS/UTI Physical Exam Vital Signs: Temp Pulse Resp BP Pulse Ox 96.5 F L 60 14 88/60 L 100 05/22/18 12:00 05/22/18 12:00 05/22/18 12:00 05/22/18 12:00 05/22/18 12:00 Intake & Output 05/21/18 05/22/18 05/23/18 06:59 06:59 06:59 Intake Total 2550 Output Total 100 Balance 2450 Weight 90.8 kg 95.2 kg Results Laboratory Results: 05/21/18 18:58 05/21/18 18:58 05/21/18 05/21/18 05/21/18 16:00 18:58 18:58 WBC 17.9 H RBC 4.12 Hgb 10.8 L Hct 33.8 L MCV 82 MCH 26.1 L MCHC 31.8 L RDW 16.0 H Plt Count 439 Seg Neutrophils % Not Reportable Lymphocytes % Not Reportable Monocytes % Not Reportable Eosinophils % Not Reportable Basophils % Not Reportable Absolute Neutrophils Not Reportable Absolute Lymphocytes Not Reportable Absolute Monocytes Not Reportable Absolute Eosinophils Not Reportable Absolute Basophils Not Reportable Carbonic Acid HCO3/H2CO3 Ratio ABG pH ABG pCO2 ABG pO2 ABG HCO3 ABG O2 Saturation ABG Base Excess FiO2 Sodium Potassium Chloride Carbon Dioxide Anion Gap BUN Creatinine Est GFR ( Amer) Est GFR (Non-Af Amer) Glucose Lactic Acid 2.5 H 2.3 H Calcium 05/21/18 05/21/18 05/22/18 18:58 23:21 08:10 WBC RBC Hgb Hct MCV MCH MCHC RDW Plt Count Seg Neutrophils % Lymphocytes % Monocytes % Eosinophils % Basophils % Absolute Neutrophils Absolute Lymphocytes Absolute Monocytes Absolute Eosinophils Absolute Basophils Carbonic Acid 0.75 L HCO3/H2CO3 Ratio 21:1 ABG pH 7.43 ABG pCO2 24.8 L ABG pO2 128.3 H ABG HCO3 16.1 L ABG O2 Saturation 98.7 H ABG Base Excess -7.0 FiO2 5L Sodium 139.6 Potassium 3.9 Chloride 110 H Carbon Dioxide 18 L Anion Gap 12 BUN 30 H Creatinine 1.90 H Est GFR ( Amer) 31 L Est GFR (Non-Af Amer) 26 L Glucose 95 Lactic Acid 1.7 Calcium 8.5 05/21/18 05/21/18 05/21/18 03:15 18:58 18:58 Creatine Kinase 1053 H CK-MB (CK-2) 13.70 H Troponin I 8.470 5.020 05/22/18 05/22/18 05/22/18 01:00 01:00 07:00 Creatine Kinase 758 H 656 H CK-MB (CK-2) 9.78 H Troponin I 4.720 05/22/18 07:00 Creatine Kinase CK-MB (CK-2) 8.25 H Troponin I 3.350 Impressions: Chest X-Ray 05/20/18 18:28 IMPRESSION: NO ACUTE RADIOGRAPHIC FINDING IN THE CHEST. Assessment & Plan - Diagnosis (1) Sepsis Is this a current diagnosis for this admission?: Yes Plan: Sepsis as evidenced by leukocytosis, lactic acidosis, high-grade fever, source of infection her left foot or urinary tract. Urine culture positive for Proteus mirabilis which is pansensitive Patient has been on Levaquin. (2) Complicated UTI (urinary tract infection) Is this a current diagnosis for this admission?: Yes Plan: Urine culture positive for Proteus mirabilis. Continue Levaquin (3) Non-STEMI (non-ST elevated myocardial infarction) Is this a current diagnosis for this admission?: Yes Plan: Her initial troponin was 8.547 which is trending down. CK-MB was also 9.7. Dr. Sainz consulted on this patient and he evaluated the patient he states she is not a candidate for cardiac catheterization so he recommended medical management. Patient has been on Lovenox, aspirin, Plavix, statin, beta-pb. (4) Atrial fibrillation with RVR Is this a current diagnosis for this admission?: Yes Plan: Currently rate is controlled. (5) Hypothyroidism Qualifiers: Hypothyroidism type: acquired Qualified Code(s): E03.9 - Hypothyroidism, unspecified Is this a current diagnosis for this admission?: Yes Plan: Continue Synthroid - Time Time Spent with patient: 35 or more minutes
[2018-05-22] MEDS: ISOSORBIDE MONONITRATE 30 MG TAB.ER.24H PO SCH (14:01)
[2018-05-22] MEDS ORDERED: NORMAL SALINE 500 ML IV ONE (16:15)
--- NOTE | 2018-05-22 17:19 | XCELERA REPORT ---
[address] [address] Transthoracic Echocardiogram Report Name: ALTAGRACIA OLIVIA Age: 77 yrs Gender: Female : 1940 Patient Status: Inpatient Patient Location: ICU^605^A Study Date: 05/22/2018 09:07 AM Procedure: A complete two-dimensional transthoracic echocardiogram was performed (2D, M-mode, spectral and color flow Doppler). The study was technically difficult with many images being suboptimal in quality. Reason For Study: NSVT Ordering Physician: MARIVEL CARLSON Performed By: Quynh Lagos Interpretation Summary LV EF is 45-50% Left ventricular systolic function is mild to moderately reduced. There is borderline concentric left ventricular hypertrophy. The left ventricle is borderline dilated. Doppler measurements suggest pseudonormalized left ventricular relaxation, which is associated with grade II/IV or mild to moderate diastolic dysfunction There is distal septal wall mild hypokinesis There is distal anterior wall mild hypokinesis Borderline right ventricular enlargement. The right ventricular systolic function is normal. The right atrium is normal in size The left atrium is mildly dilated. There is a trace amount of mitral regurgitation There is no mitral valve stenosis. There is no aortic valve stenosis No aortic regurgitation is present. There is a trace or physiologic amount of tricuspid regurgitation Tricuspid regurgitation jet envelope not well defined to measure RV systolic pressure accurately. The aortic root is not well visualized. The inferior vena cava appeared normal and decreased > 50% with respiration (RAP 5-10 mmHg) There is no pericardial effusion. MMode/2D Measurements & Calculations RVDd: 3.2 cm LVIDd: 5.5 cmFS: 28.1 % Ao root diam: 2.9 cm IVSd: 1.0 cm LVIDs: 4.0 cmEDV(Teich): 148.3 ml Ao root area: 6.5 cm2 LVPWd: 1.0 cmESV(Teich): 68.5 ml EF(Teich): 53.8 % LVOT diam: 1.6 cm LVOT area: 2.0 cm2 Doppler Measurements & Calculations MV E max belinda: MV dec slope: Ao V2 max: LV V1 max P.6 cm/sec 100.8 cm/sec 1.9 mmHg MV A max belinda: 152.0 cm/sec2 Ao max P.4 mmHgLV V1 mean P.8 cm/sec MV dec time: Ao V2 mean: 0.96 mmHg MV E/A: 0.62 0.25 sec 88.8 cm/sec LV V1 max: Ao mean P.8 cm/sec 3.6 mmHg LV V1 mean: Ao V2 VTI: 25.0 cm 44.9 cm/sec LV V1 VTI: ANNA(I,D): 1.1 cm2 13.8 cm ANNA(V,D): 1.4 cm2 SV(LVOT): 28.2 ml PA V2 max: PI max belinda: TR max belinda: 105.8 cm/sec 158.5 cm/sec 209.3 cm/sec PA max P.5 mmHg PI max PG: TR max P.0 mmHg 17.5 mmHg PI dec slope: 109.3 cm/sec2 Left Ventricle The left ventricle is borderline dilated. There is borderline concentric left ventricular hypertrophy. Left ventricular systolic function is mild to moderately reduced. LV EF is 45-50%. Doppler measurements suggest pseudonormalized left ventricular relaxation, which is associated with grade II/IV or mild to moderate diastolic dysfunction. There is distal septal wall mild hypokinesis. There is distal anterior wall mild hypokinesis. Right Ventricle Borderline right ventricular enlargement. There is normal right ventricular wall thickness. The right ventricular systolic function is normal. Atria The right atrium is normal in size. The left atrium is mildly dilated. Interarterial septum not well visualized and not well dopplered. Cannot comment on ASD/PFO presence. Mitral Valve There is mild mitral annular calcification. There is no mitral valve stenosis. There is a trace amount of mitral regurgitation. Aortic Valve The aortic valve is mildly calcified. There is no aortic valve stenosis. No aortic regurgitation is present. Tricuspid Valve There is no tricuspid stenosis. There is a trace or physiologic amount of tricuspid regurgitation. Tricuspid regurgitation jet envelope not well defined to measure RV systolic pressure accurately. Pulmonic Valve The pulmonic valve is not well visualized. Great Vessels The aortic root is not well visualized. The inferior vena cava appeared normal and decreased > 50% with respiration (RAP 5-10 mmHg). Effusions There is no pericardial effusion. : MARIVEL CARLSON > Marivel Carlson
[2018-05-22] MEDS: PANTOPRAZOLE SODIUM 40 MG VIAL IV SCH (17:31)
--- NOTE | 2018-05-22 17:37 | PDOC PROGRESS REPORT ---
Subjective Progress Note for:: 05/22/18 Subjective:: Patient seen on morning rounds. Seems to be doing well. She had converted to sinus rhythm and was noted to be maintaining sinus rhythm. Patient was admitted with possible sepsis with fever, chills. She is also noted to have significant renal dysfunction. Troponin I were noted to be positive and trended down. Reason For Visit: SEPSIS/UTI Physical Exam Vital Signs: Temp Pulse Resp BP Pulse Ox 96.2 F L 59 L 13 84/60 L 100 05/22/18 16:00 05/22/18 16:00 05/22/18 16:00 05/22/18 16:00 05/22/18 16:00 Intake & Output 05/21/18 05/22/18 05/23/18 06:59 06:59 06:59 Intake Total 2550 200 Output Total 100 Balance 2450 200 Weight 90.8 kg 95.2 kg 95.2 kg Exam: GENERAL: well-nourished and in no acute distress. Alert and oriented x2 HEAD: Atraumatic, normocephalic. EYES: Pupils equal round and reactive to light, extraocular movements intact, sclera anicteric, conjunctiva are normal. ENT: TMs normal, nares patent, oropharynx clear without exudates. Moist mucous membranes. No oral ulcerations or bleeding gums noted NECK: supple without lymphadenopathy. Trachea is central. No cervical or axillary lymphadenopathy noted. Carotids are 2+, JVD WNL LUNGS: Respiration seems nonlabored, no significant accessory muscle action noted. Breath sounds clear to auscultation bilaterally and equal noted. No wheezes rales or rhonchi noted. No significant dullness noted on percussion. CHEST: Palpation of the chest wall shows no significant chest wall tenderness. 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 ABDOMEN: Soft, no significant tenderness appreciated, normoactive bowel sounds. No guarding, no rebound. No rigidity noted . No masses appreciated. EXTREMITIES: Pedal pulses are 1-2+, no calf tenderness noted. No clubbing or cyanosis. 1-2+ pedal edema noted, with some oozing from the feet especially left side. NEUROLOGICAL: Focused neurological exam showed no significant neurologic deficit. Normal speech, no focal weakness appreciated. PSYCH: Normal mood, normal affect. Judgment and insight not checked today. SKIN: No significant ecchymosis, skin is noted to be warm. MUSCULOSKELETAL EXAM: No significant acute joint swelling noted. Results Laboratory Results: 05/21/18 18:58 05/21/18 18:58 05/21/18 05/21/18 05/21/18 18:58 18:58 18:58 WBC 17.9 H RBC 4.12 Hgb 10.8 L Hct 33.8 L MCV 82 MCH 26.1 L MCHC 31.8 L RDW 16.0 H Plt Count 439 Seg Neutrophils % Not Reportable Lymphocytes % Not Reportable Monocytes % Not Reportable Eosinophils % Not Reportable Basophils % Not Reportable Absolute Neutrophils Not Reportable Absolute Lymphocytes Not Reportable Absolute Monocytes Not Reportable Absolute Eosinophils Not Reportable Absolute Basophils Not Reportable Carbonic Acid HCO3/H2CO3 Ratio ABG pH ABG pCO2 ABG pO2 ABG HCO3 ABG O2 Saturation ABG Base Excess FiO2 Sodium 139.6 Potassium 3.9 Chloride 110 H Carbon Dioxide 18 L Anion Gap 12 BUN 30 H Creatinine 1.90 H Est GFR ( Amer) 31 L Est GFR (Non-Af Amer) 26 L Glucose 95 Lactic Acid 2.3 H Calcium 8.5 05/21/18 05/22/18 23:21 08:10 WBC RBC Hgb Hct MCV MCH MCHC RDW Plt Count Seg Neutrophils % Lymphocytes % Monocytes % Eosinophils % Basophils % Absolute Neutrophils Absolute Lymphocytes Absolute Monocytes Absolute Eosinophils Absolute Basophils Carbonic Acid 0.75 L HCO3/H2CO3 Ratio 21:1 ABG pH 7.43 ABG pCO2 24.8 L ABG pO2 128.3 H ABG HCO3 16.1 L ABG O2 Saturation 98.7 H ABG Base Excess -7.0 FiO2 5L Sodium Potassium Chloride Carbon Dioxide Anion Gap BUN Creatinine Est GFR ( Amer) Est GFR (Non-Af Amer) Glucose Lactic Acid 1.7 Calcium 05/21/18 05/21/18 05/21/18 03:15 18:58 18:58 Creatine Kinase 1053 H CK-MB (CK-2) 13.70 H Troponin I 8.470 5.020 05/22/18 05/22/18 05/22/18 01:00 01:00 07:00 Creatine Kinase 758 H 656 H CK-MB (CK-2) 9.78 H Troponin I 4.720 05/22/18 07:00 Creatine Kinase CK-MB (CK-2) 8.25 H Troponin I 3.350 EKG Comments: Telemetry shows patient in sinus rhythm. Impressions: Chest X-Ray 05/20/18 18:28 IMPRESSION: NO ACUTE RADIOGRAPHIC FINDING IN THE CHEST. Assessment & Plan - Diagnosis (1) Non-STEMI (non-ST elevated myocardial infarction) Is this a current diagnosis for this admission?: Yes (2) Atrial fibrillation with RVR Is this a current diagnosis for this admission?: Yes (3) CKD (chronic kidney disease), stage III Is this a current diagnosis for this admission?: Yes (4) Complicated UTI (urinary tract infection) Is this a current diagnosis for this admission?: Yes (5) Ambulatory dysfunction Is this a current diagnosis for this admission?: Yes - Notes Notes: Non-STEMI: Exact etiology not clear, possible supply demand mismatch since patient came in tachycardic and secondarily had atrial fibrillation with RVR and also fever up to 103. Patient being treated with Lovenox aspirin Plavix, statins, beta blockers. Patient had some transient chest pain. Patient has significant comorbid diagnosis and that has been gradual deterioration in her general status over the last several weeks. Feel that patient not an optimal candidate at this point for heart catheterization but this could change. It seems also that patient had a heart catheterization in October of this year. But she could not give us in detail. This was performed in . Atrial fibrillation with RVR: Continue with amiodarone therapy. Chronic kidney disease: May have been aggravated by UTI. Chronic UTI, complicated per hospitalist. Continue antibiotic therapy. Ambulatory dysfunction and general debility: Patient currently in a rehab facility. I am told by patient's friend that there has been deterioration, gradual in her general status. Have asked nurse to obtain previous cardiac evaluation. Discussed with hospitalist. - Time Time with patient: Greater than 35 minutes - CODE STATUS was discussed, patient remains full code. Surrogate decision-maker unchanged. Multiple medical problems were addressed. More than 50% of the time spent coordinating care, discussing management plans with involved caregivers. Management plans discussed with involved personnels. Medical decision making was of moderate to high complexity, patient's has multiple comorbidities. Medications reviewed and adjusted accordingly: Yes
[2018-05-22] MEDS: ATORVASTATIN CALCIUM 80 MG TABLET PO SCH (22:36)
[2018-05-23 05:07] LABS: HEMATOCRIT 26.7 % (36.0-47.0); HEMOGLOBIN 9.1 g/dL (12.0-15.5); MEAN CORPUSCULAR HEMOGLOBIN 27.4 pg (27.0-33.4); MEAN CORPUSCULAR VOLUME 80 fl (80-97); PLATELET COUNT 324 10^3/uL (150-450); RED BLOOD COUNT 3.32 10^6/uL (3.72-5.28); RED CELL DISTRIBUTION WIDTH 16.2 % (11.5-14.0); WHITE BLOOD COUNT 7.9 10^3/uL (4.0-10.5)
[2018-05-23 05:33] LABS: ALANINE AMINOTRANSFERASE 40 U/L (9-52); ALBUMIN 2.1 g/dL (3.5-5.0); ALKALINE PHOSPHATASE 99 U/L (38-126); ANION GAP 9 (5-19); ASPARTATE AMINO TRANSFERASE 83 U/L (14-36); BILIRUBIN,DIRECT 0.3 mg/dL (0.0-0.4); BILIRUBIN,TOTAL 0.3 mg/dL (0.2-1.3); BLOOD UREA NITROGEN 30 mg/dL (7-20); CALCIUM 7.7 mg/dL (8.4-10.2); CARBON DIOXIDE 15 mmol/L (22-30); CHLORIDE 115 mmol/L (98-107); GLUCOSE 76 mg/dL (75-110); POTASSIUM 3.8 mmol/L (3.6-5.0); SODIUM 138.7 mmol/L (137-145); TOTAL PROTEIN 5.4 g/dL (6.3-8.2)
[2018-05-23 05:43] LABS: FREE T4 (FREE THYROXINE) 1.51 ng/dL (0.78-2.19)
[2018-05-23 05:57] LABS: THYROID STIMULATING HORMONE 7.04 uIU/mL (0.47-4.68)
[2018-05-23] MEDS: PIPERACILLIN SODIUM/TAZOBACTAM 3.375 GM in NORMAL SALINE 100 ML IV SCH ×2 (06:07→06:11)
[2018-05-23] MEDS: NORMAL SALINE 1000 ML 1,000 ML IV PRN ×2 (06:08→21:24)
[2018-05-23] MEDS: PANTOPRAZOLE SODIUM 40 MG VIAL IV SCH ×2 (06:08→18:37)
[2018-05-23] MEDS: LEVOFLOXACIN 500 MG/D5W RTU 500 MG/100 ML RTUPB IV SCH (10:16)
[2018-05-23] MEDS: ASPIRIN 325 MG TABLET PO SCH (10:16)
[2018-05-23] MEDS: ISOSORBIDE MONONITRATE 30 MG TAB.ER.24H PO SCH (10:16)
[2018-05-23] MEDS: RANOLAZINE 500 MG TAB.SR.12H PO SCH ×2 (10:17→21:23)
[2018-05-23] MEDS: CLOPIDOGREL BISULFATE 75 MG TABLET PO SCH (10:17)
[2018-05-23] MEDS: METOPROLOL TARTRATE 25 MG TABLET PO SCH ×2 (10:17→21:23)
[2018-05-23] MEDS: ENOXAPARIN SODIUM INJ 100 MG/1 ML DISP.SYRIN SUBCUT SCH (10:19)
[2018-05-23] MEDS ORDERED: ASPIRIN 325 MG TABLET PO SCH (11:09)
[2018-05-23] MEDS: PIPERACILLIN SODIUM/TAZOBACTAM 2.25 GM in NORMAL SALINE 50 ML IV SCH ×3 (12:42→23:57)
[2018-05-23] MEDS: HEPARIN SOD (PORCINE) 5,000 UNIT/ML 1 ML SYRINGE SUBCUT SCH ×2 (14:38→21:22)
--- NOTE | 2018-05-23 15:22 | PDOC PROGRESS REPORT ---
Subjective Progress Note for:: 05/23/18 Subjective:: No significant change overnight. Patient is resting in bed comfortably. She is awake alert not in pain or distress. Her white cell count has been normalized at at that admission it was 28,000 now 7.9. Her kidney function is also improving from creatinine of 1.9-1.63. As per Dr. Sainz patient does not appropriate candidate for heart catheterization. Reason For Visit: SEPSIS/UTI Physical Exam Vital Signs: Temp Pulse Resp BP Pulse Ox 96.2 F L 56 L 14 95/67 L 100 05/23/18 14:00 05/23/18 14:00 05/23/18 14:00 05/23/18 14:00 05/23/18 14:00 Intake & Output 05/22/18 05/23/18 05/24/18 06:59 06:59 06:59 Intake Total 2550 2675 250 Output Total 100 500 Balance 2450 2175 250 Weight 95.2 kg 99.1 kg General appearance: PRESENT: no acute distress Head exam: PRESENT: atraumatic Eye exam: PRESENT: conjunctiva pink Mouth exam: PRESENT: moist Neck exam: ABSENT: carotid bruit, JVD, lymphadenopathy, thyromegaly Respiratory exam: PRESENT: clear to auscultation jayro. ABSENT: rales, rhonchi, wheezes Cardiovascular exam: PRESENT: RRR. ABSENT: diastolic murmur, rubs, systolic murmur GI/Abdominal exam: PRESENT: normal bowel sounds, soft. ABSENT: distended, guarding, mass, organolmegaly, rebound, tenderness Neurological exam: PRESENT: alert, awake Results Laboratory Results: 05/23/18 04:40 05/23/18 04:40 05/23/18 05/23/18 05/23/18 04:40 04:40 04:40 WBC 7.9 RBC 3.32 L Hgb 9.1 L Hct 26.7 L MCV 80 MCH 27.4 MCHC 34.0 RDW 16.2 H Plt Count 324 Sodium 138.7 Potassium 3.8 Chloride 115 H Carbon Dioxide 15 L Anion Gap 9 BUN 30 H Creatinine 1.63 H Est GFR ( Amer) 37 L Est GFR (Non-Af Amer) 31 L Glucose 76 Calcium 7.7 L Total Bilirubin 0.3 AST 83 H ALT 40 Alkaline Phosphatase 99 Total Protein 5.4 L Albumin 2.1 L TSH 7.04 H Free T4 1.51 05/21/18 05/21/18 05/21/18 03:15 18:58 18:58 Creatine Kinase 1053 H CK-MB (CK-2) 13.70 H Troponin I 8.470 5.020 05/22/18 05/22/18 05/22/18 01:00 01:00 07:00 Creatine Kinase 758 H 656 H CK-MB (CK-2) 9.78 H Troponin I 4.720 05/22/18 07:00 Creatine Kinase CK-MB (CK-2) 8.25 H Troponin I 3.350 Impressions: Chest X-Ray 05/20/18 18:28 IMPRESSION: NO ACUTE RADIOGRAPHIC FINDING IN THE CHEST. Assessment & Plan - Diagnosis (1) Sepsis Is this a current diagnosis for this admission?: Yes Plan: Has been improving (2) Complicated UTI (urinary tract infection) Is this a current diagnosis for this admission?: Yes Plan: Continue current regimen (3) Non-STEMI (non-ST elevated myocardial infarction) Is this a current diagnosis for this admission?: Yes Plan: Not appropriate candidate for cardiac catheterization. We will continue aspirin , Plavix, Lipitor and beta-pb. DC Lovenox (4) Atrial fibrillation with RVR Is this a current diagnosis for this admission?: Yes Plan: Now patient is in sinus and the rate is controlled. (5) Hypothyroidism Qualifiers: Hypothyroidism type: acquired Qualified Code(s): E03.9 - Hypothyroidism, unspecified Is this a current diagnosis for this admission?: Yes Plan: Continue Synthroid
[2018-05-23] MEDS: ATORVASTATIN CALCIUM 80 MG TABLET PO SCH (21:22)
[2018-05-23 22:30] LABS: APPEARANCE,URINE SLIGHTLY-CLOUDY; BILIRUBIN,URINE NEGATIVE (NEGATIVE); COLOR,URINE YELLOW; GLUCOSE, URINE NEGATIVE (NEGATIVE); KETONES,URINE NEGATIVE (NEGATIVE); LEUKOCYTE ESTERASE,URINE NEGATIVE (NEGATIVE); NITRITE,URINE NEGATIVE (NEGATIVE); PROTEIN,URINE NEGATIVE (NEGATIVE); URINE SPECIFIC GRAVITY 1.017; UROBILINOGEN,URINE NEGATIVE mg/dL (<2.0)
[2018-05-24] MEDS: HEPARIN SOD (PORCINE) 5,000 UNIT/ML 1 ML SYRINGE SUBCUT SCH ×3 (05:32→21:59)
[2018-05-24] MEDS: PANTOPRAZOLE SODIUM 40 MG VIAL IV SCH ×2 (05:33→17:30)
[2018-05-24] MEDS: PIPERACILLIN SODIUM/TAZOBACTAM 2.25 GM in NORMAL SALINE 50 ML IV SCH ×3 (05:34→17:30)
[2018-05-24] MEDS: ASPIRIN 81 MG TABLET, CHEWABLE PO SCH (10:20)
[2018-05-24] MEDS: LEVOFLOXACIN 500 MG/D5W RTU 500 MG/100 ML RTUPB IV SCH (10:21)
[2018-05-24] MEDS: ISOSORBIDE MONONITRATE 30 MG TAB.ER.24H PO SCH (10:21)
[2018-05-24] MEDS: METOPROLOL TARTRATE 25 MG TABLET PO SCH ×2 (10:23→21:58)
[2018-05-24] MEDS: CLOPIDOGREL BISULFATE 75 MG TABLET PO SCH (10:24)
[2018-05-24] MEDS: RANOLAZINE 500 MG TAB.SR.12H PO SCH ×2 (10:24→21:58)
--- NOTE | 2018-05-24 15:04 | PDOC PROGRESS REPORT ---
Subjective Subjective:: I seen patient propped up in bed. She she is awake alert and oriented. Except mild shortness of breath patient is doing clinically well. Her wound culture grew garden-variety organisms including Serratia pseudomonas enterococcus and group C beta-hemolytic Streptococcus. Patient has been on IV Levaquin and ceftriaxone Reason For Visit: SEPSIS/UTI Physical Exam Vital Signs: Temp Pulse Resp BP Pulse Ox 97.4 F 63 18 104/58 L 99 05/24/18 11:28 05/24/18 14:00 05/24/18 11:28 05/24/18 11:28 05/24/18 11:28 Intake & Output 05/23/18 05/24/18 05/25/18 06:59 06:59 06:59 Intake Total 2675 1078 268 Output Total 500 900 Balance 2175 178 268 Weight 99.1 kg 100.5 kg General appearance: PRESENT: no acute distress Head exam: PRESENT: atraumatic Eye exam: PRESENT: conjunctiva pink Mouth exam: PRESENT: moist Neck exam: ABSENT: carotid bruit, JVD, lymphadenopathy, thyromegaly Respiratory exam: PRESENT: decreased breath sounds Cardiovascular exam: PRESENT: RRR. ABSENT: diastolic murmur, rubs, systolic murmur GI/Abdominal exam: PRESENT: normal bowel sounds, soft. ABSENT: distended, guarding, mass, organolmegaly, rebound, tenderness Extremities exam: PRESENT: other - 0 wound on the dorsum of her left foot is healing Neurological exam: PRESENT: alert, awake, oriented to time, oriented to situation Psychiatric exam: PRESENT: normal mood Results Laboratory Results: 05/23/18 04:40 05/23/18 04:40 05/23/18 22:05 Urine Color YELLOW Urine Appearance SLIGHTLY-CLOUDY Urine pH 5.0 Ur Specific [place] 1.017 Urine Protein NEGATIVE Urine Glucose (UA) NEGATIVE Urine Ketones NEGATIVE Urine Blood NEGATIVE Urine Nitrite NEGATIVE Ur Leukocyte Esterase NEGATIVE Urine WBC (Auto) 5 Urine RBC (Auto) 3 05/21/18 14:00 Foot - Left Gram Stain - Final 05/21/18 14:00 Foot - Left Wound Culture - Final Serratia Marcescens Pseudomonas Aeruginosa Enterococcus Faecalis(Group D) Group C Beta Streptococcus 05/21/18 05/21/18 05/21/18 03:15 18:58 18:58 Creatine Kinase 1053 H CK-MB (CK-2) 13.70 H Troponin I 8.470 5.020 05/22/18 05/22/18 05/22/18 01:00 01:00 07:00 Creatine Kinase 758 H 656 H CK-MB (CK-2) 9.78 H Troponin I 4.720 05/22/18 07:00 Creatine Kinase CK-MB (CK-2) 8.25 H Troponin I 3.350 Impressions: Chest X-Ray 05/20/18 18:28 IMPRESSION: NO ACUTE RADIOGRAPHIC FINDING IN THE CHEST. Assessment & Plan - Diagnosis (1) Sepsis Is this a current diagnosis for this admission?: Yes Plan: Continue current regimen (2) Complicated UTI (urinary tract infection) Is this a current diagnosis for this admission?: Yes Plan: Continue current regimen (3) Non-STEMI (non-ST elevated myocardial infarction) Is this a current diagnosis for this admission?: Yes Plan: Her troponin has been trending down. (4) Atrial fibrillation with RVR Is this a current diagnosis for this admission?: Yes Plan: Rate controlled. (5) Hypothyroidism Qualifiers: Hypothyroidism type: acquired Qualified Code(s): E03.9 - Hypothyroidism, unspecified Is this a current diagnosis for this admission?: Yes Plan: Continue Synthroid (6) Debility and deconditioning Is this a current diagnosis for this admission?: Yes Plan: Physical and Occupational Therapy
[2018-05-24] MEDS: NORMAL SALINE 1000 ML 1,000 ML IV PRN (18:30)
--- NOTE | 2018-05-24 20:14 | PDOC PROGRESS REPORT ---
Subjective Progress Note for:: 05/23/18 Subjective:: Patient was seen on May 23 but somehow progress report got missed. She was seen on morning rounds still while in the ICU. Patient's friend in the room. Patient seen on morning rounds. Seems to be doing well. She had converted to sinus rhythm and was noted to be maintaining sinus rhythm. Patient was admitted with possible sepsis with fever, chills. She is also noted to have significant renal dysfunction. Troponin I were noted to be positive and trended down. Reason For Visit: SEPSIS/UTI Physical Exam Vital Signs: Temp Pulse Resp BP Pulse Ox 97.3 F 66 18 107/69 100 05/24/18 15:37 05/24/18 15:37 05/24/18 15:37 05/24/18 15:37 05/24/18 15:37 Intake & Output 05/23/18 05/24/18 05/25/18 06:59 06:59 06:59 Intake Total 2675 1078 1318 Output Total 500 900 Balance 2175 178 1318 Weight 99.1 kg 100.5 kg Exam: GENERAL: well-nourished and in no acute distress. Alert and oriented x 2 HEAD: Atraumatic, normocephalic. EYES: Pupils equal round and reactive to light, extraocular movements intact, sclera anicteric, conjunctiva are normal. ENT: TMs normal, nares patent, oropharynx clear without exudates. Moist mucous membranes. No oral ulcerations or bleeding gums noted NECK: supple without lymphadenopathy. Trachea is central. No cervical or axillary lymphadenopathy noted. Carotids are 2+, JVD WNL LUNGS: Respiration seems nonlabored, no significant accessory muscle action noted. Breath sounds clear to auscultation bilaterally and equal noted. No wheezes rales or rhonchi noted. No significant dullness noted on percussion. CHEST: Palpation of the chest wall shows no significant chest wall tenderness. 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 ABDOMEN: Soft, no significant tenderness appreciated, normoactive bowel sounds. No guarding, no rebound. No rigidity noted . No masses appreciated. EXTREMITIES: Pedal pulses are 1-2+, no calf tenderness noted. No clubbing or cyanosis. 1+ pedal edema noted NEUROLOGICAL: Focused neurological exam showed no significant neurologic deficit. Normal speech, no focal weakness appreciated. PSYCH: Normal mood, normal affect. Judgment and insight within normal limits. SKIN: No significant ecchymosis, skin is noted to be warm. MUSCULOSKELETAL EXAM: No significant acute joint swelling noted. Results Laboratory Results: 05/23/18 04:40 05/23/18 04:40 05/23/18 22:05 Urine Color YELLOW Urine Appearance SLIGHTLY-CLOUDY Urine pH 5.0 Ur Specific [place] 1.017 Urine Protein NEGATIVE Urine Glucose (UA) NEGATIVE Urine Ketones NEGATIVE Urine Blood NEGATIVE Urine Nitrite NEGATIVE Ur Leukocyte Esterase NEGATIVE Urine WBC (Auto) 5 Urine RBC (Auto) 3 05/21/18 14:00 Foot - Left Gram Stain - Final 05/21/18 14:00 Foot - Left Wound Culture - Final Serratia Marcescens Pseudomonas Aeruginosa Enterococcus Faecalis(Group D) Group C Beta Streptococcus 05/21/18 05/21/18 05/21/18 03:15 18:58 18:58 Creatine Kinase 1053 H CK-MB (CK-2) 13.70 H Troponin I 8.470 5.020 05/22/18 05/22/18 05/22/18 01:00 01:00 07:00 Creatine Kinase 758 H 656 H CK-MB (CK-2) 9.78 H Troponin I 4.720 05/22/18 07:00 Creatine Kinase CK-MB (CK-2) 8.25 H Troponin I 3.350 EKG Comments: Telemetry shows patient maintaining sinus rhythm. Impressions: Chest X-Ray 05/20/18 18:28 IMPRESSION: NO ACUTE RADIOGRAPHIC FINDING IN THE CHEST. Assessment & Plan - Diagnosis (1) Atrial fibrillation with RVR Is this a current diagnosis for this admission?: Yes (2) CKD (chronic kidney disease), stage III Is this a current diagnosis for this admission?: Yes (3) Complicated UTI (urinary tract infection) Is this a current diagnosis for this admission?: Yes (4) Lactic acidosis Is this a current diagnosis for this admission?: Yes (5) Non-STEMI (non-ST elevated myocardial infarction) Is this a current diagnosis for this admission?: Yes (6) Ambulatory dysfunction Is this a current diagnosis for this admission?: Yes (7) CKD (chronic kidney disease) Qualifiers: Chronic kidney disease stage: unspecified stage Qualified Code(s): N18.9 - Chronic kidney disease, unspecified Is this a current diagnosis for this admission?: Yes - Notes Notes: Patient generally stable from cardiac standpoint. There has been no recurrence of chest pain. Patient prefers medical management of first CAD and non-STEMI. Patient medical regimen reviewed. Continue with current medical regimen. Patient safe for transfer to floor. This was related to the nurses. No no medication changes were performed. - Time Time with patient: 15-25 minutes - CODE STATUS was discussed, patient remains full code. Surrogate decision-maker unchanged. Multiple medical problems were addressed. More than 50% of the time spent coordinating care, discussing management plans with involved caregivers. Management plans discussed with involved personnels. Medical decision making was of moderate to high complexity , patient's has multiple comorbidities. Medications reviewed and adjusted accordingly: Yes
--- NOTE | 2018-05-24 20:18 | PDOC PROGRESS REPORT ---
Subjective Progress Note for:: 05/24/18 Subjective:: Patient seen on morning rounds. Patient has made significant improvement and seems to be doing well. She had converted to sinus rhythm and was noted to be maintaining sinus rhythm for last several days. Patient was admitted with possible sepsis with fever, chills. She is also noted to have significant renal dysfunction. Troponin I were noted to be positive and trended down. Patient was noted to have chest pain few days ago but none yesterday or today. Reason For Visit: SEPSIS/UTI Physical Exam Vital Signs: Temp Pulse Resp BP Pulse Ox 97.3 F 66 18 107/69 100 05/24/18 15:37 05/24/18 15:37 05/24/18 15:37 05/24/18 15:37 05/24/18 15:37 Intake & Output 05/23/18 05/24/18 05/25/18 06:59 06:59 06:59 Intake Total 2675 1078 1318 Output Total 500 900 Balance 2175 178 1318 Weight 99.1 kg 100.5 kg Exam: GENERAL: well-nourished and in no acute distress. Alert and oriented x2. Patient describes memory problem. HEAD: Atraumatic, normocephalic. EYES: Pupils equal round and reactive to light, extraocular movements intact, sclera anicteric, conjunctiva are normal. ENT: TMs normal, nares patent, oropharynx clear without exudates. Moist mucous membranes. No oral ulcerations or bleeding gums noted NECK: supple without lymphadenopathy. Trachea is central. No cervical or axillary lymphadenopathy noted. Carotids are 2+, JVD WNL LUNGS: Respiration seems nonlabored, no significant accessory muscle action noted. Breath sounds clear to auscultation bilaterally and equal noted. No wheezes rales or rhonchi noted. No significant dullness noted on percussion. CHEST: Palpation of the chest wall shows no significant chest wall tenderness. 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 ABDOMEN: Soft, no significant tenderness appreciated, normoactive bowel sounds. No guarding, no rebound. No rigidity noted . No masses appreciated. EXTREMITIES: Pedal pulses are 1-2+, no calf tenderness noted. No clubbing or cyanosis. 1+ pedal edema noted NEUROLOGICAL: Focused neurological exam showed no significant neurologic deficit. Normal speech, no focal weakness appreciated. PSYCH: Normal mood, normal affect. Judgment and insight not checked. SKIN: No significant ecchymosis, skin is noted to be warm. MUSCULOSKELETAL EXAM: No significant acute joint swelling noted. Results Laboratory Results: 05/23/18 04:40 05/23/18 04:40 05/23/18 22:05 Urine Color YELLOW Urine Appearance SLIGHTLY-CLOUDY Urine pH 5.0 Ur Specific [place] 1.017 Urine Protein NEGATIVE Urine Glucose (UA) NEGATIVE Urine Ketones NEGATIVE Urine Blood NEGATIVE Urine Nitrite NEGATIVE Ur Leukocyte Esterase NEGATIVE Urine WBC (Auto) 5 Urine RBC (Auto) 3 05/21/18 14:00 Foot - Left Gram Stain - Final 05/21/18 14:00 Foot - Left Wound Culture - Final Serratia Marcescens Pseudomonas Aeruginosa Enterococcus Faecalis(Group D) Group C Beta Streptococcus 05/21/18 05/21/18 05/21/18 03:15 18:58 18:58 Creatine Kinase 1053 H CK-MB (CK-2) 13.70 H Troponin I 8.470 5.020 05/22/18 05/22/18 05/22/18 01:00 01:00 07:00 Creatine Kinase 758 H 656 H CK-MB (CK-2) 9.78 H Troponin I 4.720 05/22/18 07:00 Creatine Kinase CK-MB (CK-2) 8.25 H Troponin I 3.350 EKG Comments: Telemetry shows sinus rhythm. No sustained tachycardia or bradycardia noted. Impressions: Chest X-Ray 05/20/18 18:28 IMPRESSION: NO ACUTE RADIOGRAPHIC FINDING IN THE CHEST. Assessment & Plan - Diagnosis (1) Atrial fibrillation with RVR Is this a current diagnosis for this admission?: Yes (2) CKD (chronic kidney disease), stage III Is this a current diagnosis for this admission?: Yes (3) Complicated UTI (urinary tract infection) Is this a current diagnosis for this admission?: Yes (4) Lactic acidosis Is this a current diagnosis for this admission?: Yes (5) Non-STEMI (non-ST elevated myocardial infarction) Is this a current diagnosis for this admission?: Yes (6) Ambulatory dysfunction Is this a current diagnosis for this admission?: Yes (7) CKD (chronic kidney disease) Qualifiers: Chronic kidney disease stage: unspecified stage Qualified Code(s): N18.9 - Chronic kidney disease, unspecified Is this a current diagnosis for this admission?: Yes - Notes Notes: Non-STEMI: Exact etiology not clear, possible supply demand mismatch since patient came in tachycardic and secondarily had atrial fibrillation with RVR and also fever up to 103. Patient being treated with Lovenox aspirin Plavix, statins, beta blockers. Has been chest pain-free for last 48 hours. Patient has significant comorbid diagnosis and that has been gradual deterioration in her general status over the last several months. Feel that patient not an optimal candidate at this point for heart catheterization but this could change. Atrial fibrillation with RVR: Continue with amiodarone therapy. Recommend p.o. amiodarone at 200 mg p.o. twice daily for at least a month if not long-term. Chronic kidney disease: May have been aggravated by UTI. Chronic UTI, complicated per hospitalist. Continue antibiotic therapy. Ambulatory dysfunction and general debility: Patient currently in a rehab facility. I am told by patient's friend that there has been deterioration, gradual in her general status. Patient will benefit from institution of physical therapy. - Time Time with patient: Greater than 35 minutes - CODE STATUS was discussed, patient remains full code. Surrogate decision-maker unchanged. Multiple medical problems were addressed. More than 50% of the time spent coordinating care, discussing management plans with involved caregivers. Management plans discussed with involved personnels. Medical decision making was of moderate to high complexity, patient's has multiple comorbidities. Medications reviewed and adjusted accordingly: Yes
[2018-05-24] MEDS: ATORVASTATIN CALCIUM 80 MG TABLET PO SCH (21:58)
[2018-05-25] MEDS: PIPERACILLIN SODIUM/TAZOBACTAM 2.25 GM in NORMAL SALINE 50 ML IV SCH ×4 (00:55→17:04)
[2018-05-25] MEDS: PANTOPRAZOLE SODIUM 40 MG VIAL IV SCH (05:40)
[2018-05-25] MEDS: HEPARIN SOD (PORCINE) 5,000 UNIT/ML 1 ML SYRINGE SUBCUT SCH ×3 (05:40→21:55)
[2018-05-25 05:53] LABS: MEAN CORPUSCULAR HGB CONC 33.2 g/dL (32.0-36.0); MEAN CORPUSCULAR VOLUME 82 fl (80-97); PLATELET COUNT 320 10^3/uL (150-450); RED BLOOD COUNT 3.32 10^6/uL (3.72-5.28); RED CELL DISTRIBUTION WIDTH 16.3 % (11.5-14.0); WHITE BLOOD COUNT 6.4 10^3/uL (4.0-10.5)
[2018-05-25] MEDS: CLOPIDOGREL BISULFATE 75 MG TABLET PO SCH (10:40)
[2018-05-25] MEDS: RANOLAZINE 500 MG TAB.SR.12H PO SCH ×2 (10:40→21:55)
[2018-05-25] MEDS: ISOSORBIDE MONONITRATE 30 MG TAB.ER.24H PO SCH (10:41)
[2018-05-25] MEDS: LEVOFLOXACIN 500 MG/D5W RTU 500 MG/100 ML RTUPB IV SCH (10:41)
[2018-05-25] MEDS: METOPROLOL TARTRATE 25 MG TABLET PO SCH ×3 (10:41→21:57)
[2018-05-25] MEDS: ASPIRIN 81 MG TABLET, CHEWABLE PO SCH (10:41)
[2018-05-25] MEDS: CHOLECALCIFEROL (D3) 1,000 UNIT TABLET PO SCH (12:41)
--- NOTE | 2018-05-25 15:30 | PDOC PROGRESS REPORT ---
Subjective Progress Note for:: 05/25/18 Subjective:: No significant change overnight. No new complaints. Reason For Visit: SEPSIS/UTI Physical Exam Vital Signs: Temp Pulse Resp BP Pulse Ox 97.4 F 64 18 100/60 100 05/25/18 07:40 05/25/18 13:01 05/25/18 13:01 05/25/18 11:14 05/25/18 13:01 Intake & Output 05/24/18 05/25/18 05/26/18 06:59 06:59 06:59 Intake Total 1078 1840 218 Output Total 900 Balance 178 1840 218 Weight 100.5 kg 101.7 kg General appearance: PRESENT: no acute distress Eye exam: PRESENT: conjunctiva pink Mouth exam: PRESENT: moist Neck exam: ABSENT: carotid bruit, JVD, lymphadenopathy, thyromegaly Respiratory exam: PRESENT: clear to auscultation jayro. ABSENT: rales, rhonchi, wheezes Cardiovascular exam: PRESENT: RRR. ABSENT: diastolic murmur, rubs, systolic murmur Neurological exam: PRESENT: alert, awake Results Laboratory Results: 05/25/18 05:14 05/23/18 04:40 05/25/18 05:14 WBC 6.4 RBC 3.32 L Hgb 9.0 L Hct 27.0 L MCV 82 MCH 27.0 MCHC 33.2 RDW 16.3 H Plt Count 320 05/21/18 14:00 Foot - Left Gram Stain - Final 05/21/18 14:00 Foot - Left Wound Culture - Final Serratia Marcescens Pseudomonas Aeruginosa Enterococcus Faecalis(Group D) Group C Beta Streptococcus 05/21/18 05/21/18 05/21/18 03:15 18:58 18:58 Creatine Kinase 1053 H CK-MB (CK-2) 13.70 H Troponin I 8.470 5.020 05/22/18 05/22/18 05/22/18 01:00 01:00 07:00 Creatine Kinase 758 H 656 H CK-MB (CK-2) 9.78 H Troponin I 4.720 05/22/18 07:00 Creatine Kinase CK-MB (CK-2) 8.25 H Troponin I 3.350 Impressions: Chest X-Ray 05/20/18 18:28 IMPRESSION: NO ACUTE RADIOGRAPHIC FINDING IN THE CHEST. Assessment & Plan - Diagnosis (1) Sepsis Is this a current diagnosis for this admission?: Yes Plan: Continue current regimen (2) Complicated UTI (urinary tract infection) Is this a current diagnosis for this admission?: Yes Plan: Continue current regimen (3) Non-STEMI (non-ST elevated myocardial infarction) Is this a current diagnosis for this admission?: Yes Plan: Her troponin has been trending down. (4) Atrial fibrillation with RVR Is this a current diagnosis for this admission?: Yes Plan: Rate controlled. (5) Hypothyroidism Qualifiers: Hypothyroidism type: acquired Qualified Code(s): E03.9 - Hypothyroidism, unspecified Is this a current diagnosis for this admission?: Yes Plan: Continue Synthroid (6) Debility and deconditioning Is this a current diagnosis for this admission?: Yes Plan: Physical and Occupational Therapy
[2018-05-25] MEDS: NORMAL SALINE 1000 ML 1,000 ML IV PRN (17:04)
--- NOTE | 2018-05-25 19:43 | PDOC PROGRESS REPORT ---
Subjective Progress Note for:: 05/25/18 Subjective:: Patient seen on morning rounds. She is being helped by the nurses to sit on the bedpan while in bed. Patient seems quite debilitated. Patient has been noted to have some memory loss. Patient noted to be maintaining sinus rhythm. No recent recurrence of atrial flutter fibrillation. Patient was admitted with possible sepsis with fever, chills. Sustained a non- STEMI but being managed medically due to other significant comorbid diagnosis. Reason For Visit: SEPSIS/UTI Physical Exam Vital Signs: Temp Pulse Resp BP Pulse Ox 97.4 F 72 17 97/64 L 98 05/25/18 15:41 05/25/18 19:00 05/25/18 15:41 05/25/18 15:41 05/25/18 15:41 Intake & Output 05/24/18 05/25/18 05/26/18 06:59 06:59 06:59 Intake Total 1078 1840 1618 Output Total 900 Balance 178 1840 1618 Weight 100.5 kg 101.7 kg Exam: GENERAL: well-nourished and in no acute distress. Alert and oriented x2 HEAD: Atraumatic, normocephalic. EYES: Pupils equal round and reactive to light, extraocular movements intact, sclera anicteric, conjunctiva are normal. ENT: TMs normal, nares patent, oropharynx clear without exudates. Moist mucous membranes. No oral ulcerations or bleeding gums noted NECK: supple without lymphadenopathy. Trachea is central. No cervical or axillary lymphadenopathy noted. Carotids are 2+, JVD WNL LUNGS: Respiration seems nonlabored, no significant accessory muscle action noted. Breath sounds clear to auscultation bilaterally and equal noted. No wheezes rales or rhonchi noted. No significant dullness noted on percussion. CHEST: Palpation of the chest wall shows no significant chest wall tenderness. 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 ABDOMEN: Soft, no significant tenderness appreciated, normoactive bowel sounds. No guarding, no rebound. No rigidity noted . No masses appreciated. EXTREMITIES: Pedal pulses are 1-2+, no calf tenderness noted. No clubbing or cyanosis. 1+ pedal edema noted NEUROLOGICAL: Focused neurological exam showed no significant neurologic deficit. Normal speech, no focal weakness appreciated. PSYCH: Normal mood, normal affect. Judgment and insight not checked. SKIN: No significant ecchymosis, skin is noted to be warm. MUSCULOSKELETAL EXAM: No significant acute joint swelling noted. Results Laboratory Results: 05/25/18 05:14 05/23/18 04:40 05/25/18 05:14 WBC 6.4 RBC 3.32 L Hgb 9.0 L Hct 27.0 L MCV 82 MCH 27.0 MCHC 33.2 RDW 16.3 H Plt Count 320 05/21/18 05/21/18 05/21/18 03:15 18:58 18:58 Creatine Kinase 1053 H CK-MB (CK-2) 13.70 H Troponin I 8.470 5.020 05/22/18 05/22/18 05/22/18 01:00 01:00 07:00 Creatine Kinase 758 H 656 H CK-MB (CK-2) 9.78 H Troponin I 4.720 05/22/18 07:00 Creatine Kinase CK-MB (CK-2) 8.25 H Troponin I 3.350 Impressions: Chest X-Ray 05/20/18 18:28 IMPRESSION: NO ACUTE RADIOGRAPHIC FINDING IN THE CHEST. Assessment & Plan - Diagnosis (1) Atrial fibrillation with RVR Is this a current diagnosis for this admission?: Yes (2) CKD (chronic kidney disease), stage III Is this a current diagnosis for this admission?: Yes (3) Complicated UTI (urinary tract infection) Is this a current diagnosis for this admission?: Yes (4) Non-STEMI (non-ST elevated myocardial infarction) Is this a current diagnosis for this admission?: Yes (5) Ambulatory dysfunction Is this a current diagnosis for this admission?: Yes (6) CKD (chronic kidney disease) Qualifiers: Chronic kidney disease stage: unspecified stage Qualified Code(s): N18.9 - Chronic kidney disease, unspecified Is this a current diagnosis for this admission?: Yes - Notes Notes: Non-STEMI: Continue to treat with anticoagulation, aspirin, Plavix, beta- blockers, statins, Ranexa. 2D echo results showed mildly depressed LVEF. Patient has poor baseline status and also noted to have significant renal dysfunction therefore a suboptimal candidate for heart catheterization. Atrial fibrillation with RVR: Continue with amiodarone therapy. Patient has been maintaining sinus rhythm since conversion to it. Recommend continuing amiodarone for at least one month if not longer. Chronic kidney disease: May have been aggravated by UTI. Patient now felt to have chronic kidney disease stage III. Chronic UTI/sepsis, complicated per hospitalist. Continue antibiotic therapy. Ambulatory dysfunction and general debility: Patient currently in a [facility] /rehab facility. Patient's friends tell me that patient has also lost some memory and is having some ongoing memory problems. Overall prognosis is guarded due to multiple ongoing medical issues. - Time Time with patient: 15-25 minutes - CODE STATUS was discussed, patient remains full code. Surrogate decision-maker unchanged. Multiple medical problems were addressed. More than 50% of the time spent coordinating care, discussing management plans with involved caregivers. Management plans discussed with involved personnels. Medical decision making was of moderate to high complexity , patient's has multiple comorbidities. Medications reviewed and adjusted accordingly: Yes
[2018-05-25] MEDS: ATORVASTATIN CALCIUM 80 MG TABLET PO SCH (21:55)
[2018-05-25] MEDS ORDERED: HYDROMORPHONE HCL INJ/PF 2 MG/ML AMPULE ONE (22:33)
[2018-05-25] MEDS ORDERED: AMIODARONE HCL INJ 150 MG/3 ML VIAL IV ONE ×2 (22:43→23:00)
[2018-05-25] MEDS ORDERED: HYDROMORPHONE HCL INJ/PF 2 MG/ML AMPULE IV ONE (22:45)
[2018-05-25] MEDS ORDERED: HYDROMORPHONE HCL INJ 2 MG/ML 20 ML MDV IV ONE (23:00)
[2018-05-25] MEDS ORDERED: NORMAL SALINE 500 ML IV ONE (23:45)
[2018-05-26] MEDS: PIPERACILLIN SODIUM/TAZOBACTAM 2.25 GM in NORMAL SALINE 50 ML IV SCH ×2 (00:56→05:14)
[2018-05-26] MEDS: NORMAL SALINE 1000 ML 1,000 ML IV PRN ×2 (00:59→21:58)
[2018-05-26] MEDS: HEPARIN SOD (PORCINE) 5,000 UNIT/ML 1 ML SYRINGE SUBCUT SCH ×3 (05:15→21:58)
[2018-05-26] MEDS: CHOLECALCIFEROL (D3) 1,000 UNIT TABLET PO SCH (10:05)
[2018-05-26] MEDS: RANOLAZINE 500 MG TAB.SR.12H PO SCH ×2 (10:05→21:58)
[2018-05-26] MEDS: ISOSORBIDE MONONITRATE 30 MG TAB.ER.24H PO SCH (10:06)
[2018-05-26] MEDS: METOPROLOL TARTRATE 25 MG TABLET PO SCH (10:06)
[2018-05-26] MEDS: CLOPIDOGREL BISULFATE 75 MG TABLET PO SCH (10:06)
[2018-05-26] MEDS: ASPIRIN 81 MG TABLET, CHEWABLE PO SCH (10:06)
[2018-05-26] MEDS: LEVOFLOXACIN 500 MG/D5W RTU 500 MG/100 ML RTUPB IV SCH (10:06)
--- NOTE | 2018-05-26 10:54 | PDOC PROGRESS REPORT ---
Subjective Progress Note for:: 05/26/18 Subjective:: I seen the patient propped up in bed and sleeping quietly. Reportedly patient had no sustained V. tach yesterday night. This morning also patient complains of chest pain stat EKG and troponin requested. Reason For Visit: SEPSIS/UTI Physical Exam Vital Signs: Temp Pulse Resp BP Pulse Ox 97.9 F 71 21 H 93/60 L 100 05/26/18 07:37 05/26/18 10:28 05/26/18 10:28 05/26/18 07:37 05/26/18 10:28 Intake & Output 05/25/18 05/26/18 05/27/18 06:59 06:59 06:59 Intake Total 1840 2612 Output Total 0 Balance 1840 2612 Weight 101.7 kg 101.7 kg General appearance: PRESENT: no acute distress Head exam: PRESENT: atraumatic Mouth exam: PRESENT: moist Neck exam: ABSENT: carotid bruit, JVD, lymphadenopathy, thyromegaly Cardiovascular exam: PRESENT: irregular rhythm GI/Abdominal exam: PRESENT: normal bowel sounds, soft. ABSENT: distended, guarding, mass, organolmegaly, rebound, tenderness Results Laboratory Results: 05/25/18 05:14 05/23/18 04:40 05/21/18 05/21/18 05/21/18 03:15 18:58 18:58 Creatine Kinase 1053 H CK-MB (CK-2) 13.70 H Troponin I 8.470 5.020 05/22/18 05/22/18 05/22/18 01:00 01:00 07:00 Creatine Kinase 758 H 656 H CK-MB (CK-2) 9.78 H Troponin I 4.720 05/22/18 07:00 Creatine Kinase CK-MB (CK-2) 8.25 H Troponin I 3.350 Impressions: Chest X-Ray 05/20/18 18:28 IMPRESSION: NO ACUTE RADIOGRAPHIC FINDING IN THE CHEST. Assessment & Plan - Diagnosis (1) Sepsis Is this a current diagnosis for this admission?: Yes Plan: I discontinued Zosyn and will continue Levaquin and added ampicillin which is appropriate antibiotic for Enterococcus faecalis based on the culture and sensitivity results (2) Complicated UTI (urinary tract infection) Is this a current diagnosis for this admission?: Yes Plan: Continue Levaquin (3) Non-STEMI (non-ST elevated myocardial infarction) Is this a current diagnosis for this admission?: Yes Plan: Patient has no associated chest pain. She has been on Imdur and Ranexa. Stat EKG and troponin requested. Currently patient is being treated as an STEMI medically as recommended by Dr. Sainz. (4) Atrial fibrillation with RVR Is this a current diagnosis for this admission?: Yes Plan: Rate controlled. (5) Hypothyroidism Qualifiers: Hypothyroidism type: acquired Qualified Code(s): E03.9 - Hypothyroidism, unspecified Is this a current diagnosis for this admission?: Yes Plan: Continue Synthroid (6) Debility and deconditioning Is this a current diagnosis for this admission?: Yes Plan: Physical and Occupational Therapy
[2018-05-26] MEDS: AMPICILLIN TRIHYD 500 MG CAPSULE PO SCH ×3 (12:56→23:16)
--- NOTE | 2018-05-26 18:50 | PDOC PROGRESS REPORT ---
Subjective Progress Note for:: 05/26/18 Subjective:: Patient seen on morning rounds. 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 Review of medicines shows that beta-blockers are being held. Also amiodarone has not been continued. Patient was admitted with possible sepsis with fever, chills. Sustained a non- STEMI but being managed medically due to other significant comorbid diagnosis. Reason For Visit: SEPSIS/UTI Physical Exam Vital Signs: Temp Pulse Resp BP Pulse Ox 97.7 F 75 22 H 94/58 L 100 05/26/18 11:52 05/26/18 14:00 05/26/18 11:52 05/26/18 11:52 05/26/18 11:52 Intake & Output 05/25/18 05/26/18 05/27/18 06:59 06:59 06:59 Intake Total 1840 2612 240 Output Total 0 Balance 1840 2612 240 Weight 101.7 kg 101.7 kg Exam: GENERAL: well-nourished and in no acute distress. Alert and oriented x3, patient however has noted recent memory loss. Remains quite debilitated. HEAD: Atraumatic, normocephalic. EYES: Pupils equal round and reactive to light, extraocular movements intact, sclera anicteric, conjunctiva are normal. ENT: TMs normal, nares patent, oropharynx clear without exudates. Moist mucous membranes. No oral ulcerations or bleeding gums noted NECK: supple without lymphadenopathy. Trachea is central. No cervical or axillary lymphadenopathy noted. Carotids are 2+, JVD WNL LUNGS: Respiration seems nonlabored, no significant accessory muscle action noted. Bibasilar fine crackles are noted.. No wheezes rales or rhonchi noted. No significant dullness noted on percussion. CHEST: Palpation of the chest wall shows no significant chest wall tenderness. HEART: [employer], No PSH, 1/6 TITA aortic area, 1/6 gonzalez systolic murmur mitral area, no rubs, no gallops. ABDOMEN: Soft, no significant tenderness appreciated, normoactive bowel sounds. No guarding, no rebound. No rigidity noted . No masses appreciated. EXTREMITIES: Pedal pulses are 1-2+, no calf tenderness noted. No clubbing or cyanosis. 1-2+ pedal edema noted, with mild excoriation. NEUROLOGICAL: Focused neurological exam showed no significant neurologic deficit. Normal speech, no focal weakness appreciated. PSYCH: Normal mood, normal affect. Judgment and insight within normal limits. SKIN: No significant ecchymosis, skin is noted to be warm. MUSCULOSKELETAL EXAM: No significant acute joint swelling noted. Results Laboratory Results: 05/25/18 05:14 05/23/18 04:40 05/21/18 05/21/18 05/21/18 03:15 18:58 18:58 Creatine Kinase 1053 H CK-MB (CK-2) 13.70 H Troponin I 8.470 5.020 05/22/18 05/22/18 05/22/18 01:00 01:00 07:00 Creatine Kinase 758 H 656 H CK-MB (CK-2) 9.78 H Troponin I 4.720 05/22/18 05/26/18 05/26/18 07:00 10:36 16:01 Creatine Kinase CK-MB (CK-2) 8.25 H Troponin I 3.350 0.270 0.230 EKG Comments: Twelve-lead EKG obtained is relatively unchanged. Cardiac enzymes noted to be showing downward trend. Impressions: Chest X-Ray 05/20/18 18:28 IMPRESSION: NO ACUTE RADIOGRAPHIC FINDING IN THE CHEST. Assessment & Plan - Diagnosis (1) Atrial fibrillation with RVR Is this a current diagnosis for this admission?: Yes (2) CKD (chronic kidney disease), stage III Is this a current diagnosis for this admission?: Yes (3) Complicated UTI (urinary tract infection) Is this a current diagnosis for this admission?: Yes (4) Non-STEMI (non-ST elevated myocardial infarction) Is this a current diagnosis for this admission?: Yes (5) Ambulatory dysfunction Is this a current diagnosis for this admission?: Yes (6) CKD (chronic kidney disease) Qualifiers: Chronic kidney disease stage: unspecified stage Qualified Code(s): N18.9 - Chronic kidney disease, unspecified Is this a current diagnosis for this admission?: Yes - Notes Notes: Non-STEMI: Continue to treat with anticoagulation, aspirin, Plavix, beta- blockers, statins, Ranexa. 2D echo results showed mildly depressed LVEF. Patient has poor baseline status and also noted to have significant renal dysfunction therefore a suboptimal candidate for heart catheterization. Atrial fibrillation with RVR: Continue with amiodarone therapy. Patient has been maintaining sinus rhythm since conversion to it. Recommend continuing amiodarone for at least one month if not longer. However he has started patient on amiodarone. Have also switched patient to metoprolol succinate for longer and more prolonged action. Have increased Imdur to 60 mg a day. If patient cannot be managed on medical management, then cardiac catheterization with the view for revascularization with percutaneous technique should be considered. Chronic kidney disease: May have been aggravated by UTI. Patient now felt to have chronic kidney disease stage III. Chronic UTI/sepsis, complicated per hospitalist. Continue antibiotic therapy. Ambulatory dysfunction and general debility: Patient currently in a [place] [facility]hab facility. Patient's friends had told me me that patient has also lost some memory and is having some ongoing memory problems. Overall prognosis is guarded due to multiple ongoing medical issues. - Time Time with patient: Greater than 35 minutes - CODE STATUS was discussed, patient remains full code. Surrogate decision-maker unchanged. Multiple medical problems were addressed. More than 50% of the time spent coordinating care, discussing management plans with involved caregivers. Management plans discussed with involved personnels. Medical decision making was of moderate to high complexity, patient's has multiple comorbidities. Medications reviewed and adjusted accordingly: Yes
[2018-05-26] MEDS ORDERED: ISOSORBIDE MONONITRATE 30 MG TAB.ER.24H PO ONE (19:30)
[2018-05-26] MEDS ORDERED: AMIODARONE HCL 200 MG TABLET PO ONE (19:30)
[2018-05-26] MEDS: ATORVASTATIN CALCIUM 80 MG TABLET PO SCH (21:58)
[2018-05-26] MEDS: METOPROLOL SUCCINATE 25 MG TAB.SR.24H PO SCH (21:58)
[2018-05-27] MEDS ORDERED: NORMAL SALINE 250 ML IV PRN (00:03)
[2018-05-27 01:31] LABS: ANION GAP 9 (5-19); BLOOD UREA NITROGEN 15 mg/dL (7-20); CALCIUM 7.7 mg/dL (8.4-10.2); CARBON DIOXIDE 17 mmol/L (22-30); CHLORIDE 111 mmol/L (98-107); GLUCOSE 85 mg/dL (75-110); POTASSIUM 3.4 mmol/L (3.6-5.0); SODIUM 137.2 mmol/L (137-145)
[2018-05-27] MEDS: POTASSI CL 20 MEQ/50 ML RIDER 20 MEQ/50 ML RTUPB IV SCH ×2 (02:33→04:43)
[2018-05-27] MEDS: MAGNESIUM SULFATE/D5W 1 GM/100 ML RTUPB IV SCH ×2 (02:34→03:29)
--- NOTE | 2018-05-27 03:08 | EKG REPORT ---
SEVERITY:- ABNORMAL ECG - SINUS RHYTHM NONSPECIFIC IVCD WITH LAD LEFT VENTRICULAR HYPERTROPHY : Confirmed by: Argenis Sommers MD 27-May-2018 03:07:47
--- NOTE | 2018-05-27 03:08 | EKG REPORT ---
SEVERITY:- ABNORMAL ECG - SINUS RHYTHM NONSPECIFIC IVCD WITH LAD ABNRM R PROG, CONSIDER ASMI OR LEAD PLACEMENT : Confirmed by: Argenis Sommers MD 27-May-2018 03:07:41
[2018-05-27 05:29] LABS: CREATINE KINASE MB 1.66 ng/mL (<4.55); TROPONIN I 0.21 ng/mL
[2018-05-27] MEDS: AMPICILLIN TRIHYD 500 MG CAPSULE PO SCH ×4 (05:30→23:05)
[2018-05-27] MEDS: HEPARIN SOD (PORCINE) 5,000 UNIT/ML 1 ML SYRINGE SUBCUT SCH ×3 (05:30→22:06)
[2018-05-27] MEDS: NORMAL SALINE 1000 ML 1,000 ML IV PRN (07:02)
[2018-05-27] MEDS ORDERED: POTASSIUM CHLORIDE 10 MEQ CAPSULE.ER PO ONE (08:33)
[2018-05-27] MEDS ORDERED: ISOSORBIDE MONONITRATE 30 MG TAB.ER.24H PO SCH (10:00)
[2018-05-27 10:45] LABS: ANION GAP 11 (5-19); BLOOD UREA NITROGEN 13 mg/dL (7-20); CALCIUM 7.7 mg/dL (8.4-10.2); CARBON DIOXIDE 15 mmol/L (22-30); CHLORIDE 112 mmol/L (98-107); CREATINE KINASE 49 U/L (30-135); GLUCOSE 81 mg/dL (75-110); SODIUM 137.7 mmol/L (137-145)
[2018-05-27] MEDS: ASPIRIN 81 MG TABLET, CHEWABLE PO SCH (10:58)
[2018-05-27] MEDS: CLOPIDOGREL BISULFATE 75 MG TABLET PO SCH (10:58)
[2018-05-27] MEDS: RANOLAZINE 500 MG TAB.SR.12H PO SCH ×2 (10:58→22:05)
[2018-05-27] MEDS: AMIODARONE HCL 200 MG TABLET PO SCH ×2 (10:58→22:06)
[2018-05-27] MEDS: METOPROLOL SUCCINATE 25 MG TAB.SR.24H PO SCH ×2 (10:59→22:05)
[2018-05-27] MEDS: CHOLECALCIFEROL (D3) 1,000 UNIT TABLET PO SCH (10:59)
[2018-05-27] MEDS: ISOSORBIDE MONONITRATE 30 MG TAB.ER.24H PO SCH (10:59)
[2018-05-27] MEDS: LEVOFLOXACIN 500 MG/D5W RTU 500 MG/100 ML RTUPB IV SCH (11:00)
[2018-05-27 11:01] LABS: CREATINE KINASE MB 1.93 ng/mL (<4.55); TROPONIN I 0.166 ng/mL
--- NOTE | 2018-05-27 17:10 | PDOC PROGRESS REPORT ---
Subjective Progress Note for:: 05/27/18 Subjective:: Patient seen on morning rounds. Troponin I are trending down. EKG yesterday was relatively unchanged. Review of medicines shows that beta-blockers are being given on a consistent basis. Also amiodarone had not been continued. Orders for metoprolol succinate and p.o. amiodarone was written last night. Patient has been chest pain-free since yesterday. Patient was admitted with possible sepsis with fever, chills. Sustained a non- STEMI but being managed medically due to other significant comorbid diagnosis. Reason For Visit: SEPSIS/UTI Physical Exam Vital Signs: Temp Pulse Resp BP Pulse Ox 97.6 F 70 20 91/61 L 99 05/27/18 07:39 05/27/18 07:39 05/27/18 07:39 05/27/18 07:39 05/27/18 07:39 Intake & Output 05/26/18 05/27/18 05/28/18 06:59 06:59 06:59 Intake Total 2612 1832 503 Output Total 0 500 Balance 2612 1332 503 Weight 101.7 kg 104.9 kg Exam: GENERAL: well-nourished and in no acute distress. Alert and oriented x 2 HEAD: Atraumatic, normocephalic. EYES: Pupils equal round and reactive to light, extraocular movements intact, sclera anicteric, conjunctiva are normal. ENT: TMs normal, nares patent, oropharynx clear without exudates. Moist mucous membranes. No oral ulcerations or bleeding gums noted NECK: supple without lymphadenopathy. Trachea is central. No cervical or axillary lymphadenopathy noted. Carotids are 2+, JVD WNL LUNGS: Respiration seems nonlabored, no significant accessory muscle action noted. Few bibasilar crackles are noted. No wheezes rales or rhonchi noted. No significant dullness noted on percussion. CHEST: Palpation of the chest wall shows no significant chest wall tenderness. HEART: [employer], No PSH, 1/6 TITA aortic area, 1/6 gonzalez systolic murmur mitral area, no rubs, no gallops. ABDOMEN: Soft, no significant tenderness appreciated, normoactive bowel sounds. No guarding, no rebound. No rigidity noted . No masses appreciated. EXTREMITIES: Pedal pulses are 1-2+, no calf tenderness noted. No clubbing or cyanosis. 1+ pedal edema noted, superficial excoriation noted on both foot area. NEUROLOGICAL: Focused neurological exam showed no significant neurologic deficit. Normal speech, no focal weakness appreciated. PSYCH: Normal mood, normal affect. Judgment and insight not checked. SKIN: No significant ecchymosis, skin is noted to be warm. MUSCULOSKELETAL EXAM: No significant acute joint swelling noted. Results Laboratory Results: 05/25/18 05:14 05/27/18 00:55 Sodium 137.2 Potassium 3.4 L Chloride 111 H Carbon Dioxide 17 L Anion Gap 9 BUN 15 Creatinine 1.28 H Est GFR ( Amer) 49 L Est GFR (Non-Af Amer) 41 L Glucose 85 Calcium 7.7 L Magnesium 1.7 05/21/18 05/21/18 05/21/18 03:15 18:58 18:58 Creatine Kinase 1053 H CK-MB (CK-2) 13.70 H Troponin I 8.470 5.020 05/22/18 05/22/18 05/22/18 01:00 01:00 07:00 Creatine Kinase 758 H 656 H CK-MB (CK-2) 9.78 H Troponin I 4.720 05/22/18 05/26/18 05/26/18 07:00 10:36 16:01 Creatine Kinase CK-MB (CK-2) 8.25 H Troponin I 3.350 0.270 0.230 05/26/18 05/26/18 05/26/18 22:40 22:40 22:40 Creatine Kinase 60 CK-MB (CK-2) 1.90 Troponin I 0.231 Cancelled 05/27/18 05/27/18 04:32 04:32 Creatine Kinase 47 CK-MB (CK-2) 1.66 Troponin I 0.210 EKG Comments: Telemetry shows patient in sinus rhythm. No sustained tachyarrhythmia or bradyarrhythmias noted Impressions: Chest X-Ray 05/20/18 18:28 IMPRESSION: NO ACUTE RADIOGRAPHIC FINDING IN THE CHEST. Assessment & Plan - Diagnosis (1) Atrial fibrillation with RVR Is this a current diagnosis for this admission?: Yes (2) CKD (chronic kidney disease), stage III Is this a current diagnosis for this admission?: Yes (3) Complicated UTI (urinary tract infection) Is this a current diagnosis for this admission?: Yes (4) Non-STEMI (non-ST elevated myocardial infarction) Is this a current diagnosis for this admission?: Yes (5) Ambulatory dysfunction Is this a current diagnosis for this admission?: Yes (6) CKD (chronic kidney disease) Qualifiers: Chronic kidney disease stage: unspecified stage Qualified Code(s): N18.9 - Chronic kidney disease, unspecified Is this a current diagnosis for this admission?: Yes - Notes Notes: Will order an EKG for tomorrow morning for look for any evolving changes. Non-STEMI: Continue to treat with anticoagulation, aspirin, Plavix, beta- blockers, statins, Ranexa. 2D echo results showed mildly depressed LVEF. Nurses advised try not to hold medications especially beta-pb and amiodarone. Patient has poor baseline status and also noted to have significant renal dysfunction therefore a suboptimal candidate for heart catheterization. However this condition might change. If patient fails medical management then heart catheterization may become ultimately necessary. Atrial fibrillation with RVR: Patient maintaining sinus rhythm. Continue with amiodarone therapy. Patient has been maintaining sinus rhythm since conversion to it. Recommend continuing amiodarone for at least one month if not longer. However he has started patient on amiodarone. Have also switched patient to metoprolol succinate for longer and more prolonged action. Have increased Imdur to 60 mg a day. If patient cannot be managed on medical management, then cardiac catheterization with the view for revascularization with percutaneous technique should be considered. Chronic kidney disease: May have been aggravated by UTI. Patient now felt to have chronic kidney disease stage III. Chronic UTI/sepsis, complicated per hospitalist. Continue antibiotic therapy. Ambulatory dysfunction and general debility: Patient currently in a custodial /rehab facility. Patient's friends had told me me that patient has also lost some memory and is having some ongoing memory problems. Overall prognosis is guarded due to multiple ongoing medical issues. - Time Time with patient: 15-25 minutes - CODE STATUS was discussed, patient remains full code. Surrogate decision-maker unchanged. Multiple medical problems were addressed. More than 50% of the time spent coordinating care, discussing management plans with involved caregivers. Management plans discussed with involved personnels. Medical decision making was of moderate to high complexity , patient's has multiple comorbidities. Medications reviewed and adjusted accordingly: Yes
[2018-05-27] MEDS: ATORVASTATIN CALCIUM 80 MG TABLET PO SCH (22:05)
[2018-05-28] MEDS: HEPARIN SOD (PORCINE) 5,000 UNIT/ML 1 ML SYRINGE SUBCUT SCH ×3 (06:09→22:02)
[2018-05-28] MEDS: AMPICILLIN TRIHYD 500 MG CAPSULE PO SCH ×3 (06:10→17:29)
[2018-05-28 06:34] LABS: HEMATOCRIT 27.5 % (36.0-47.0); HEMOGLOBIN 9.2 g/dL (12.0-15.5); MEAN CORPUSCULAR HEMOGLOBIN 27.4 pg (27.0-33.4); MEAN CORPUSCULAR HGB CONC 33.5 g/dL (32.0-36.0); MEAN CORPUSCULAR VOLUME 82 fl (80-97); PLATELET COUNT 299 10^3/uL (150-450); RED BLOOD COUNT 3.35 10^6/uL (3.72-5.28); RED CELL DISTRIBUTION WIDTH 16.5 % (11.5-14.0); WHITE BLOOD COUNT 7.9 10^3/uL (4.0-10.5)
[2018-05-28 06:54] LABS: ANION GAP 8 (5-19); BLOOD UREA NITROGEN 13 mg/dL (7-20); CALCIUM 7.9 mg/dL (8.4-10.2); CARBON DIOXIDE 19 mmol/L (22-30); CHLORIDE 113 mmol/L (98-107); GLUCOSE 75 mg/dL (75-110); POTASSIUM 4.1 mmol/L (3.6-5.0); SODIUM 139.8 mmol/L (137-145)
--- NOTE | 2018-05-28 09:07 | EKG REPORT ---
SEVERITY:- ABNORMAL ECG - SINUS RHYTHM NONSPECIFIC INTRAVENTRICULAR CONDUCTION DELAY BORDERLINE R WAVE PROGRESSION, ANTERIOR LEADS : Confirmed by: Marivel Sainz 28-May-2018 09:06:25
[2018-05-28] MEDS: CLOPIDOGREL BISULFATE 75 MG TABLET PO SCH (11:39)
[2018-05-28] MEDS: AMIODARONE HCL 200 MG TABLET PO SCH ×2 (11:40→22:02)
[2018-05-28] MEDS: ASPIRIN 81 MG TABLET, CHEWABLE PO SCH (11:40)
[2018-05-28] MEDS: CHOLECALCIFEROL (D3) 1,000 UNIT TABLET PO SCH (11:40)
[2018-05-28] MEDS: ISOSORBIDE MONONITRATE 30 MG TAB.ER.24H PO SCH (11:41)
[2018-05-28] MEDS: RANOLAZINE 500 MG TAB.SR.12H PO SCH ×2 (11:41→22:01)
[2018-05-28] MEDS: METOPROLOL SUCCINATE 25 MG TAB.SR.24H PO SCH ×2 (11:41→22:01)
--- NOTE | 2018-05-28 12:36 | PDOC PROGRESS REPORT ---
Subjective Progress Note for:: 05/28/18 Subjective:: No significant event overnight. Patient is eating well and she tolerates well. Her blood pressure remained low but stable she has been on Lopressor 25 mg twice a day and amiodarone 200 mg twice daily. This morning I discussed the case with Dr. Sommers will plan to stress her in the coming 2 days. Reason For Visit: SEPSIS/UTI Physical Exam Vital Signs: Temp Pulse Resp BP Pulse Ox 97.6 F 62 10 L 101/63 100 05/28/18 07:49 05/28/18 07:49 05/28/18 07:49 05/28/18 07:49 05/28/18 07:49 Intake & Output 05/27/18 05/28/18 05/29/18 06:59 06:59 06:59 Intake Total 1832 1538 Output Total 500 200 Balance 1332 1338 Weight 104.9 kg 103.4 kg Results Laboratory Results: 05/28/18 05:08 05/28/18 05:08 05/28/18 05/28/18 05:08 05:08 WBC 7.9 RBC 3.35 L Hgb 9.2 L Hct 27.5 L MCV 82 MCH 27.4 MCHC 33.5 RDW 16.5 H Plt Count 299 Sodium 139.8 Potassium 4.1 Chloride 113 H Carbon Dioxide 19 L Anion Gap 8 BUN 13 Creatinine 1.34 H Est GFR ( Amer) 47 L Est GFR (Non-Af Amer) 39 L Glucose 75 Calcium 7.9 L Magnesium 2.1 05/21/18 05/21/18 05/21/18 03:15 18:58 18:58 Creatine Kinase 1053 H CK-MB (CK-2) 13.70 H Troponin I 8.470 5.020 05/22/18 05/22/18 05/22/18 01:00 01:00 07:00 Creatine Kinase 758 H 656 H CK-MB (CK-2) 9.78 H Troponin I 4.720 05/22/18 05/26/18 05/26/18 07:00 10:36 16:01 Creatine Kinase CK-MB (CK-2) 8.25 H Troponin I 3.350 0.270 0.230 05/26/18 05/26/18 05/26/18 22:40 22:40 22:40 Creatine Kinase 60 CK-MB (CK-2) 1.90 Troponin I 0.231 Cancelled 05/27/18 05/27/18 05/27/18 04:32 04:32 09:55 Creatine Kinase 47 49 CK-MB (CK-2) 1.66 Troponin I 0.210 05/27/18 09:55 Creatine Kinase CK-MB (CK-2) 1.93 Troponin I 0.166 Impressions: Chest X-Ray 05/20/18 18:28 IMPRESSION: NO ACUTE RADIOGRAPHIC FINDING IN THE CHEST. Assessment & Plan - Diagnosis (1) Sepsis Is this a current diagnosis for this admission?: Yes Plan: Has resolved (2) Complicated UTI (urinary tract infection) Is this a current diagnosis for this admission?: Yes Plan: Continue Levaquin (3) Non-STEMI (non-ST elevated myocardial infarction) Is this a current diagnosis for this admission?: Yes Plan: Is going to have stress test in the coming [address] Sommers (4) Atrial fibrillation with RVR Is this a current diagnosis for this admission?: Yes Plan: Continue amiodarone (5) Hypothyroidism Qualifiers: Hypothyroidism type: acquired Qualified Code(s): E03.9 - Hypothyroidism, unspecified Is this a current diagnosis for this admission?: Yes Plan: Continue Synthroid (6) Debility and deconditioning Is this a current diagnosis for this admission?: Yes Plan: Physical and Occupational Therapy
--- NOTE | 2018-05-28 13:09 | Progress Note ---
Provider Note Provider Note: PROGRESS NOTE by Dr. Argenis Sommers for 05/28/2018. SUBJECTIVE: The patient denies any chest pain or discomfort, she remains in sinus rhythm. There is no PND orthopnea or shortness of breath. There is no palpitations. There is no leg edema. There is no dizziness syncope or near syncope. There are no TIA or CVA symptoms. Her medications have been reviewed. Selected Entries 05/28/18 05/28/18 07:49 11:40 Temperature 97.6 F 97.4 F Pulse Rate 62 66 Respiratory 10 L 12 Rate Blood Pressure 101/63 105/66 Blood Pressure 79 Mean O2 Sat by Pulse 100 100 Oximetry Oxygen Flow 3.00 3.00 Rate Oxygen Delivery Nasal Cannula Nasal Cannula Method 05/27/18 05/28/18 05/28/18 09:55 05:08 05:08 WBC 7.9 Hgb 9.2 L Hct 27.5 L Plt Count 299 Sodium 139.8 Potassium 4.1 Chloride 113 H Carbon Dioxide 19 L BUN 13 Creatinine 1.34 H Est GFR (Non-Af Amer) 39 L Glucose 75 Calcium 7.9 L Magnesium 2.1 CK-MB (CK-2) 1.93 Troponin I 0.166 The patient is a frail build, although well-groomed she looks chronically ill. HEAD: Head is atraumatic and normocephalic. EYES: Pupils are equal round regular reactive to light accommodation. Extraocular movements are normal, there is no conjunctival pallor, and no scleral icterus. EARS: Tympanic membranes are intact external auditory canals are clear. NOSE: There is no inflammation of the nasal mucous membrane there is no deviated nasal septum. MOUTH: Mucous membranes of mouth and tongue are moist, there is no ulcers in the mouth or tongue, and no bleeding from the gums. THROAT: There is no redness of the oropharynx, no exudate seen. SKIN: There is no petechia or ecchymosis. There is no rashes or lesions. NECK: Supple. There is no JVD. Carotids are equal there is no bruit. There is no lymphadenopathy. There is no goiter. Trachea central LUNGS: Clear to auscultation bilaterally, no wheezes, rales or rhonchi. There is no chest wall tenderness HEART: S1 and S2 are normal. There is no S3 or S4 gallops. There is a systolic murmur the left sternal border and the apex. There is no rub. ABDOMEN: Normoactive bowel sounds, soft, nontender, no masses, no rebound, no guarding. There is no hepatosplenomegaly. EXTREMITIES: Femorals are slightly diminished. There is no femoral bruits. Leg pulses are diminished. There is no pedal edema. There is no DVT or cellulitis. There is no cyanosis or clubbing. There is no calf tenderness. NEUROLOGICAL the patient is awake alert oriented 3 with no focal deficits. PSYCHIATRIC: The patient judgment and insight are intact his affect is normal. IMPRESSION :1. Paroxysmal atrial fibrillation: Remains in sinus rhythm on amiodarone and beta-pb. Note that the patient is high risk for anti-coagulation chronically. 2. NON-ST elevation PA [NON-STEMI]; the patient has no chest pain, and the troponins are trending down. The patient is not very anxious to have a stress test or any aggressive cardiac workup. We will talk to the patient about this again and discuss again in detail. 3. Coronary artery disease: The patient is free of angina, and the patient is on beta blockers Plavix and statin, and nitrates. Continue Ranexa 4. Chronic kidney disease stage III: Remained stable 5. Complicated urinary tract infection. Patient was on antibiotics, seems to have resolved. 6. AMBULATORY DYSFUNCTION: We will see if rehab can help remedy this situation. Note 40 minutes spent on the patient with more than 50% of the time spent on direct patient care. Medical decision making is of moderate complexity in view of the multiple comorbidities. Her medications have been reviewed. We will rediscuss with the patient regarding a stress test. Discussed with the hospitalist attending the patient. Will follow with you.
[2018-05-28] MEDS: ATORVASTATIN CALCIUM 80 MG TABLET PO SCH (22:01)
[2018-05-29] MEDS: AMPICILLIN TRIHYD 500 MG CAPSULE PO SCH ×3 (00:19→12:47)
[2018-05-29] MEDS: HEPARIN SOD (PORCINE) 5,000 UNIT/ML 1 ML SYRINGE SUBCUT SCH ×2 (05:21→16:37)
[2018-05-29 06:03] LABS: APPEARANCE,URINE CLEAR; BILIRUBIN,URINE NEGATIVE (NEGATIVE); COLOR,URINE YELLOW; GLUCOSE, URINE NEGATIVE (NEGATIVE); KETONES,URINE NEGATIVE (NEGATIVE); LEUKOCYTE ESTERASE,URINE NEGATIVE (NEGATIVE); NITRITE,URINE NEGATIVE (NEGATIVE); PROTEIN,URINE NEGATIVE (NEGATIVE); URINE SPECIFIC GRAVITY 1.011; UROBILINOGEN,URINE NEGATIVE mg/dL (<2.0)
[2018-05-29 08:54] VITALS: BP 104/64
[2018-05-29] MEDS: RANOLAZINE 500 MG TAB.SR.12H PO SCH (09:13)
[2018-05-29] MEDS: ISOSORBIDE MONONITRATE 30 MG TAB.ER.24H PO SCH (09:13)
[2018-05-29] MEDS: CLOPIDOGREL BISULFATE 75 MG TABLET PO SCH (09:13)
[2018-05-29] MEDS: CHOLECALCIFEROL (D3) 1,000 UNIT TABLET PO SCH (09:13)
[2018-05-29] MEDS: AMIODARONE HCL 200 MG TABLET PO SCH (09:14)
[2018-05-29] MEDS: ASPIRIN 81 MG TABLET, CHEWABLE PO SCH (09:14)
[2018-05-29] MEDS: METOPROLOL SUCCINATE 25 MG TAB.SR.24H PO SCH (09:14)
--- NOTE | 2018-05-29 13:29 | PDOC TRANSFER SUMMARY ---
General - Admit/Disc Date/PCP Admission Date/Primary Care Provider: 05/20/18 21:36 Discharge Date: 05/29/18 - Discharge Diagnosis (1) Sepsis Is this a current diagnosis for this admission?: Yes (2) Complicated UTI (urinary tract infection) Is this a current diagnosis for this admission?: Yes (3) Non-STEMI (non-ST elevated myocardial infarction) Is this a current diagnosis for this admission?: Yes (4) Atrial fibrillation with RVR Is this a current diagnosis for this admission?: Yes (5) Hypothyroidism Is this a current diagnosis for this admission?: Yes (6) Debility and deconditioning Is this a current diagnosis for this admission?: Yes - Additional Information Resuscitation Status: Full Code Prescriptions: Amiodarone HCl [Cordarone 200 mg Tablet] 200 mg PO Q12 #60 tablet Atorvastatin Calcium [Lipitor 80 mg Tablet] 40 mg PO QHS #30 tablet Cholecalciferol (Vitamin D3) [Vitamin D3 1000 Unit Tablet] 2,000 unit PO DAILY # 30 tablet Isosorbide Mononitrate [Imdur 30 mg Tablet.er] 30 mg PO DAILY #30 tab.er.24h Ranolazine [Ranexa 500 mg Tab.sr] 500 mg PO Q12 #60 tab.sr.12h Home Medications: Apixaban [Eliquis] 5 mg PO Q12 05/21/18 Celecoxib [Celebrex 200 mg Capsule] 200 mg PO Q12HP PRN 05/21/18 Levothyroxine Sodium [Synthroid] 200 mcg PO Q6AM 05/21/18 Metoprolol Succinate [Toprol Xl 25 mg Tab.sr] 12.5 mg PO DAILY 05/21/18 Amiodarone HCl [Cordarone 200 mg Tablet] 200 mg PO Q12 #60 tablet 05/29/18 Atorvastatin Calcium [Lipitor 80 mg Tablet] 40 mg PO QHS #30 tablet 05/29/18 Cholecalciferol (Vitamin D3) [Vitamin D3 1000 Unit Tablet] 2,000 unit PO DAILY # 30 tablet 05/29/18 Isosorbide Mononitrate [Imdur 30 mg Tablet.er] 30 mg PO DAILY #30 tab.er.24h Ranolazine [Ranexa 500 mg Tab.sr] 500 mg PO Q12 #60 tab.sr.12h 05/29/18 History of Present Illness Admission Date/PCP: 05/20/18 21:36 History of Present Illness: ALTAGRACIA OLIVIA is a 77 year old female from [facility] after caregivers found her acting different. In the prison facility in [facility] a large amount of serous fluid discharging from her left foot, patient has chronic bilateral lower extremities ulcers and she follows with Dr. Keith Willams patient is unable to provide any information at this point she is nonverbal. In the emergency department with the patient was noted hypoxic and was essentially nebulizer treatments. T 103.7 WBC 13.5 LA 3.2. Patient tachycardic in the ED between 110 and 114, the patient has history of chronic atrial fibrillation on anticoagulation with Eliquis. Laboratory came back positive for UTI. Patient meets criteria for sepsis. Chest x-ray negative. Patient was discharged from our facility last month to permit a prison facility for rehabilitation, I suspect the patient is bedbound. Unfortunately no further information could be obtained at this time. Hospital Course Hospital Course: This is 77 years old female patient transferred from [facility] for altered mental status. At ER patient found to be in A. fib with RVR. Patient has been started on Cardizem drip and later put on amiodarone. Patient found to have fever of 103 and has been started on triple antibiotics. On the second day of admission patient become severe respiratory distress and A. fib with RVR so for this reason patient transferred from [facility] to ICU. The first set of troponin which is markedly elevated at 8.43 which has trended down. This afternoon I reconsulted Dr. Sainz who felt patient is poor candidate for cardiac cath so he recommended to optimize her medical management. Patient has been managed with aspirin, Plavix, Lipitor, and metoprolol. For her chest pain patient has been treated with with Nitrostat, Imdur, Ranexa and amiodarone for her A. fib with RVR. Patient noticed to have sepsis evidenced by leukocytosis, fever, tachycardia, hypotension, dyspnea and source of infection, most probably the urinary tract or left foot ulcer. Her urine culture grew Proteus mirabilis. Patient has been managed with Levaquin and Zosyn. The wound on the dorsum of her left foot also agree with multiple organisms including Enterococcus faecalis, Pseudomonas aeruginosa and Serratia marcescens. Patient also treated with ampicillin since the effect that he is sensitive to it. patient evaluated by Dr. Sommers who offered her cardiac catheterization but the patient declined. This morning I seen patient resting in bed comfortably she is not in pain or any form of distress her vital signs are relatively stable patient's also awake and alert. Patient is ready for discharge. I will continue all her home medication and I will send her with Ranexa 500 mg twice daily, Imdur 30 mg p.o. daily, cholecalciferol 2000 units per day, Lipitor 40 mg p.o. nightly. Physical Exam Vital Signs: Temp Pulse Resp BP Pulse Ox 97.4 F 67 16 104/64 100 05/29/18 08:08 05/29/18 08:08 05/29/18 08:08 05/29/18 08:08 05/29/18 08:08 Intake & Output 05/28/18 05/29/18 05/30/18 06:59 06:59 06:59 Intake Total 1538 636 Output Total 200 100 Balance 1338 536 Weight 103.4 kg 103.1 kg General appearance: PRESENT: no acute distress Head exam: PRESENT: atraumatic Mouth exam: PRESENT: moist Respiratory exam: PRESENT: clear to auscultation jayro. ABSENT: rales, rhonchi, wheezes Cardiovascular exam: PRESENT: RRR. ABSENT: diastolic murmur, rubs, systolic murmur GI/Abdominal exam: PRESENT: normal bowel sounds, soft. ABSENT: distended, guarding, mass, organolmegaly, rebound, tenderness Neurological exam: PRESENT: alert, awake Results Laboratory Results: 05/28/18 05:08 05/28/18 05:08 05/28/18 05:21 Urine Color YELLOW Urine Appearance CLEAR Urine pH 6.0 Ur Specific [place] 1.011 Urine Protein NEGATIVE Urine Glucose (UA) NEGATIVE Urine Ketones NEGATIVE Urine Blood NEGATIVE Urine Nitrite NEGATIVE Ur Leukocyte Esterase NEGATIVE Urine WBC (Auto) 16 Urine RBC (Auto) 1 05/21/18 05/21/18 05/21/18 03:15 18:58 18:58 Creatine Kinase 1053 H CK-MB (CK-2) 13.70 H Troponin I 8.470 5.020 05/22/18 05/22/18 05/22/18 01:00 01:00 07:00 Creatine Kinase 758 H 656 H CK-MB (CK-2) 9.78 H Troponin I 4.720 05/22/18 05/26/18 05/26/18 07:00 10:36 16:01 Creatine Kinase CK-MB (CK-2) 8.25 H Troponin I 3.350 0.270 0.230 05/26/18 05/26/18 05/26/18 22:40 22:40 22:40 Creatine Kinase 60 CK-MB (CK-2) 1.90 Troponin I 0.231 Cancelled 05/27/18 05/27/18 05/27/18 04:32 04:32 09:55 Creatine Kinase 47 49 CK-MB (CK-2) 1.66 Troponin I 0.210 05/27/18 09:55 Creatine Kinase CK-MB (CK-2) 1.93 Troponin I 0.166 Impressions: Chest X-Ray 05/20/18 18:28 IMPRESSION: NO ACUTE RADIOGRAPHIC FINDING IN THE CHEST. Qualifiers - * PATIENT BEING DISCHARGED WITH ANY OF THE FOLLOWING DIAGNOSIS: DE VTE patient discharged on overlapping Therapy?: No Reason(s) for not prescribing Overlap Therapy:: Not indicated Stroke Pt being discharged on Anti-thrombolytic therapy?: No Reason(s) for not prescribing Anti-thrombolytic therapy:: Not indicated Stroke Pt being discharged on Anti-coagulation therapy?: No Reason(s) for not prescribing Anti-coagulation therapy:: Not indicated Stroke Pt being discharged on Statins?: No Reason(s) for not prescribing Statins therapy:: Not indicated DE Pt being discharged on Aspirin therapy?: Yes DE Pt being discharged on Statins?: Yes DE Pt discharged ACEI/ARBS?: Yes HF Pt being discharged on ACEI for LVEF less than 40%?: No Reason(s) for not prescribing ACEI:: Not indicated HF Pt being discharged on ARBS for LVEF less than 40%?: No Reason(s) for not prescribing ARBS:: Not indicated HF Pt with Afib discharged with Warfarin?: No Reason(s) for not prescribing Warfarin:: Not indicated HF Pt discharged on evidence-based Beta Frandy:: No Reason(s) for not prescribing evidence-based Beta Frandy:: Not indicated
--- NOTE | 2018-05-30 20:50 | Progress Note ---
Provider Note Provider Note: PROGRESS NOTE by Dr. rAgenis Sommers for 05/29/2018 05/29/18 12:42 Troponin I 0.084 05/29/2018. SUBJECTIVE: The patient denies any chest pain or discomfort, she remains in sinus rhythm. There is no PND orthopnea or shortness of breath. There is no palpitations. There is no leg edema. There is no dizziness syncope or near syncope. There are no TIA or CVA symptoms. Her medications have been reviewed. Selected Entries 05/29/18 08:08 Temperature 97.4 F Pulse Rate 67 Respiratory 16 Rate Blood Pressure 104/64 Blood Pressure 77 Mean O2 Sat by Pulse 100 Oximetry Oxygen Flow 3.00 Rate The patient is a frail build, although well-groomed she looks chronically ill. HEAD: Head is atraumatic and normocephalic. EYES: Pupils are equal round regular reactive to light accommodation. Extraocular movements are normal, there is no conjunctival pallor, and no scleral icterus. EARS: Tympanic membranes are intact external auditory canals are clear. NOSE: There is no inflammation of the nasal mucous membrane there is no deviated nasal septum. MOUTH: Mucous membranes of mouth and tongue are moist, there is no ulcers in the mouth or tongue, and no bleeding from the gums. THROAT: There is no redness of the oropharynx, no exudate seen. SKIN: There is no petechia or ecchymosis. There is no rashes or lesions. NECK: Supple. There is no JVD. Carotids are equal there is no bruit. There is no lymphadenopathy. There is no goiter. Trachea central LUNGS: Clear to auscultation bilaterally, no wheezes, rales or rhonchi. There is no chest wall tenderness HEART: S1 and S2 are normal. There is no S3 or S4 gallops. There is a systolic murmur the left sternal border and the apex. There is no rub. ABDOMEN: Normoactive bowel sounds, soft, nontender, no masses, no rebound, no guarding. There is no hepatosplenomegaly. EXTREMITIES: Femorals are slightly diminished. There is no femoral bruits. Leg pulses are diminished. There is no pedal edema. There is no DVT or cellulitis. There is no cyanosis or clubbing. There is no calf tenderness. NEUROLOGICAL the patient is awake alert oriented 3 with no focal deficits. PSYCHIATRIC: The patient judgment and insight are intact his affect is normal. IMPRESSION :1. Paroxysmal atrial fibrillation: Remains in sinus rhythm on amiodarone and beta-pb. Note that the patient is high risk for anti-coagulation chronically. 2. NON-ST elevation NC [NON-STEMI]; the patient has no chest pain, and the troponins are trending down. The patient is not very anxious to have a stress test or any aggressive cardiac workup. We will talk to the patient about this again and discuss again in detail. 3. Coronary artery disease: The patient is free of angina, and the patient is on beta blockers Plavix and statin, and nitrates. Continue Ranexa 4. Chronic kidney disease stage III: Remained stable 5. Complicated urinary tract infection. Patient was on antibiotics, seems to have resolved. 6. AMBULATORY DYSFUNCTION: We will see if rehab can help remedy this situation. Note 40 minutes spent on the patient with more than 50% of the time spent on direct patient care. Medical decision making is of moderate complexity in view of the multiple comorbidities. Her medications have been reviewed. I did rediscuss with the patient regarding a stress test. She does not want a stress test, and does not want any aggressive treatment of her coronary artery disease. She wants to be treated medically. Discussed with the hospitalist attending the patient. Will sign off. Patient states she would like to follow-up with me in the office. My cell phone number given to the patient to call me if she continues to hold the notion to follow-up with me in the office, in which case I will make arrangements for him to be seen by me. At present the patient is being transferred to detention facility.
== END 2018-05-29 17:55 | DRG 871 ==
LOC: ER 18:17 → EH 21:36 → 3W 05-21 18:38 → ICU 05-21 23:04 → 3W 05-24 01:11
PROVIDERS: ADMIT Internal Medicine; ATTEND Internal Medicine
DX: A41.9 Sepsis, unspecified organism (principal); I21.4 Non-ST elevation (NSTEMI) myocardial infarction; N30.01 Acute cystitis with hematuria; L97.529 Non-pressure chronic ulcer of other part of left foot with unspecified severity; I48.0 Paroxysmal atrial fibrillation; E89.0 Postprocedural hypothyroidism; M19.90 Unspecified osteoarthritis, unspecified site; F32.9 Major depressive disorder, single episode, unspecified; N18.3 Chronic kidney disease, stage 3 (moderate); B96.4 Proteus (mirabilis) (morganii) as the cause of diseases classified elsewhere; B95.2 Enterococcus as the cause of diseases classified elsewhere; B96.5 Pseudomonas (aeruginosa) (mallei) (pseudomallei) as the cause of diseases classified elsewhere; B95.4 Other streptococcus as the cause of diseases classified elsewhere; Z79.02 Long term (current) use of antithrombotics/antiplatelets; Z90.49 Acquired absence of other specified parts of digestive tract; Z80.9 Family history of malignant neoplasm, unspecified; Z82.49 Family history of ischemic heart disease and other diseases of the circulatory system; Z88.2 Allergy status to sulfonamides; Z79.899 Other long term (current) drug therapy
CPT/HCPCS: 36415; 71045; 80048; 80053; 81001; 82550; 82553; 82803; 82962; 83605; 83735; 84100; 84439; 84443; 84484; 85025; 85027; 85610; 87040; 87070; 87077; 87086; 87088; 87186; 87205; 93005; 93010; 93306; 94640; 94660; 96365; 99285; G8978-GP; G8979-GP; J0282; J1170; J1644; J1650; J1956; J2543; J3370; J3475; J3480; J3490; J7030; J7040; J7050; J7060; S0164

== ENCOUNTER 2018-06-08 20:59 | Emergency (ER) | payer MEDICARE, OTHER ==
--- NOTE | 2018-06-08 22:01 | ER Document Report ---
ED General - General Mode of Arrival: Medic Information source: Patient, Emergency Med Personnel, [facility] Records TRAVEL OUTSIDE OF THE [place] IN LAST 30 DAYS: No <ANDERS QUACH - Last Filed: 06/08/18 22:50> <MYFARIHA - Last Filed: 06/09/18 04:25> <JEFFADOLFO Goodwin - Last Filed: 06/15/18 14:38> - General Chief Complaint: Other Stated Complaint: ALTERED MENTAL STATUS Time Seen by Provider: 06/08/18 21:45 Notes: Patient is a 77-year-old female with a history of dementia was sent to the emergency department from [facility] via EMS complaining of altered mental status. According to nursing staff at [place], patient was behaving abnormally and was attempting to eat her nasal cannula. They state the patient is normally alert and oriented x4, although it is waxing and waning with her history of dementia. At bedside patient does appear somewhat confused, patient does not complain of any pain. Patient is currently on Eliquis and nursing staff reports patient recently had pneumonia and finished her last dose of Levaquin today. (ANDERS QUACH) - Related Data Allergies/Adverse Reactions: Sulfa (Sulfonamide Antibiotics) Adverse Reaction (Mild, Verified 08/18/17 12:14) Hives Past Medical History - General Information source: Patient, Emergency Med Personnel, [facility] Records - Social History Smoking Status: Unknown if Ever Smoked Family History: Hypertension, Malignancy - It is unclear which malignancy her mother had. Patient has suicidal ideation: No Patient has homicidal ideation: No - Past Medical History Cardiac Medical History: Reports: Hx Atrial Fibrillation - Chronic on Eliquis, Hx Congestive Heart Failure - Possible CHF as she is on Lasix Pulmonary Medical History: Reports: Hx Bronchitis Endocrine Medical History: Reports: Hx Hypothyroidism - Patient had her thyroid ablated is now hypothyroid. Musculoskeletal Medical History: Reports Hx Arthritis Psychiatric Medical History: Reports: Hx Depression Past Surgical History: Reports: Hx Cholecystectomy, Hx Orthopedic Surgery - right finger repair, Other - Irradiation of the thyroid. <ANDERS QUACH - Last Filed: 06/08/18 22:50> Review of Systems - Review of Systems Constitutional: No symptoms reported EENT: No symptoms reported Cardiovascular: No symptoms reported Respiratory: No symptoms reported Gastrointestinal: No symptoms reported Genitourinary: No symptoms reported Female Genitourinary: No symptoms reported Musculoskeletal: No symptoms reported Skin: No symptoms reported Hematologic/Lymphatic: No symptoms reported Neurological/Psychological: See HPI -: Yes All other systems reviewed and negative <ANDERS QUACH - Last Filed: 06/08/18 22:50> Physical Exam <ANDERS QUACH - Last Filed: 06/08/18 22:50> <MYFARIHA - Last Filed: 06/09/18 04:25> <ADOLFO AGUILAR - Last Filed: 06/15/18 14:38> - Vital signs Vitals: Resp Pulse Ox 12 97 06/08/18 22:15 06/08/18 22:15 - Notes Notes: GENERAL: Confused, pleasant, follows commands. HEAD: Normocephalic, atraumatic EYES: Pupils equal, round and reactive to light, extraocular movements intact. ENT: Oral mucosa moist, tongue midline. NECK: Full range of motion, supple, trachea midline. LUNGS: Clear to auscultation bilaterally, no wheezes, rales or rhonchi, no respiratory distress. HEART: Tachycardic. No murmurs, gallops, rubs. ABDOMEN: Soft, nontender, nondistended, bowel sounds present in all 4 quadrants. EXTREMITIES: Moves all 4 extremities spontaneously, No cyanosis. Left foot is covered in bandages. 2+ pitting edema bilaterally. NEUROLOGICAL: Moves all 4 extremities equally, alert to person, states she is confused. Does not answer other questions. PSYCH: Demented at baseline. SKIN: Stasis dermatitis over BLE. (ANDERS QUACH) Course <ANDERS QUACH - Last Filed: 06/08/18 22:50> - Laboratory Result Diagrams: 06/08/18 23:19 06/08/18 23:19 <MYFARIHA - Last Filed: 06/09/18 04:25> - Laboratory Result Diagrams: 06/08/18 23:19 06/08/18 23:19 - Diagnostic Test Radiology reviewed: Reports reviewed - Transfer of Care Care transferred to following provider: My <ADOLFO AGUILAR - Last Filed: 06/15/18 14:38> - Re-evaluation Re-evalutation: 06/09/18 05:19 Patient was seen and evaluated here in the ER for possible altered mental status. Patient's vital signs have been normal. Patient's laboratory studies did not show any signs of significant infection no leukocytosis no signs of sepsis. Patient does have significant elevation of her TSH. Please make sure the patient is taking her thyroid medication appropriately. Patient examination is revealed redness of the legs however there is no warmth this could be possibly healing cellulitis venous stasis changes or early cellulitis. Urinalysis does show leukocyte esterase positive with a few WBCs we will send this for culture and will start the patient on Keflex this should cover any early cellulitis and urinary tract infection. Patient otherwise has been stable here to discuss with the hospitalist does not think patient requires admission at this time. I agree with this assessment and plan to send patient back to nursing care facility. Please make sure that the patient follows up with her primary care physician in the next 24-48 hours. Return to the ER if any symptoms worsen. (FARIHA PRESTON) 06/08/18 23:22 Patient chest x-ray and CT scan showed no acute abnormalities per radiologist. Pending lab work at this time and urine. (ADOLFO AGUILAR) - Vital Signs Vital signs: Temp Pulse Resp BP Pulse Ox 98.9 F 16 99/58 L 95 06/09/18 08:04 06/09/18 08:09 06/09/18 08:09 06/09/18 08:09 - Laboratory Laboratory results interpreted by me: 06/08/18 06/08/18 06/08/18 23:19 23:19 23:19 RBC 3.64 L Hgb 9.7 L Hct 29.6 L MCH 26.7 L RDW 18.5 H Lymphocytes % 11.2 L Eosinophils % 6.9 H Creatinine 1.65 H Est GFR ( Amer) 37 L Est GFR (Non-Af Amer) 30 L Calcium 8.3 L AST 48 H Alkaline Phosphatase 147 H Ammonia < 8.7 L Albumin 2.9 L TSH Ur Leukocyte Esterase 06/08/18 06/09/18 23:19 00:06 RBC Hgb Hct MCH RDW Lymphocytes % Eosinophils % Creatinine Est GFR ( Amer) Est GFR (Non-Af Amer) Calcium AST Alkaline Phosphatase Ammonia Albumin TSH 45.70 H Ur Leukocyte Esterase TRACE H Discharge <ANDERS QUACH - Last Filed: 06/08/18 22:50> <FARIHA PRESTON - Last Filed: 06/09/18 04:25> <ADOLFO AGUILAR - Last Filed: 06/15/18 14:38> - Discharge Clinical Impression: Bilateral leg swelling and edema, Possible early cellulitis Dementia Qualifiers: Dementia type: unspecified type Dementia behavioral disturbance: without behavioral disturbance Qualified Code(s): F03.90 - Unspecified dementia without behavioral disturbance Hypothyroidism Qualifiers: Hypothyroidism type: unspecified Qualified Code(s): E03.9 - Hypothyroidism, unspecified UTI (urinary tract infection) Qualifiers: Urinary tract infection type: site unspecified Hematuria presence: without hematuria Qualified Code(s): N39.0 - Urinary tract infection, site not specified Disposition: HOME-SNF (ED ONLY) Additional Instructions: Patient was seen and evaluated here in the ER for possible altered mental status. Patient's vital signs have been normal. Patient's laboratory studies did not show any signs of significant infection no leukocytosis no signs of sepsis. Patient does have significant elevation of her TSH. Please make sure the patient is taking her thyroid medication appropriately. Patient examination is revealed redness of the legs however there is no warmth this could be possibly healing cellulitis venous stasis changes or early cellulitis. Urinalysis does show leukocyte esterase positive with a few WBCs we will send this for culture and will start the patient on Keflex this should cover any early cellulitis and urinary tract infection. Patient otherwise has been stable here to discuss with the hospitalist does not think patient requires admission at this time. I agree with this assessment and plan to send patient back to nursing care facility. Please make sure that the patient follows up with her primary care physician in the next 24-48 hours. Return to the ER if any symptoms worsen. Prescriptions: Cephalexin Monohydrate [Keflex 500 mg Capsule] 500 mg PO Q6H 7 Days capsule Forms: Return to Work Scribe Attestation: 06/15/18 14:38 I personally performed the services described in the documentation, reviewed and edited the documentation which was dictated to the scribe in my presence, and it accurately records my words and actions. (ADOLFO AGUILAR) Scribe Documentation - Scribe Written by King:: King Lynch, 06/08/2018 22:06 acting as scribe for :: Jeff <ANDERS QUACH - Last Filed: 06/08/18 22:50>
--- NOTE | 2018-06-08 23:12 | RADIOLOGY REPORT (SQ) ---
EXAM DESCRIPTION: XR CHEST 1 VIEW COMPLETED DATE/TME: 06/08/2018 22:06 CLINICAL HISTORY: 77 years Female, hx of PNA COMPARISON: None. NUMBER OF VIEWS/TECHNIQUE: 1/AP FINDINGS: Adequate lung volume, prominent interstitium, normal cardiac silhouette, atherosclerosis, and grossly intact bony thorax. IMPRESSION: No acute cardiopulmonary findings.
--- NOTE | 2018-06-08 23:17 | RADIOLOGY REPORT (SQ) ---
EXAM DESCRIPTION: CT HEAD WITHOUT IV CONTRAST COMPLETED DATE/TME: 06/08/2018 22:05 CLINICAL HISTORY: 77 years, Female, AMS COMPARISON: 04/24/2018 TECHNIQUE: Contiguous axial images of the brain were obtained without the administration of intravenous contrast. This exam was performed according to our departmental dose-optimization program which includes use of Automated Exposure Control, adjustment of the mA and/or kV according to patient size and/or use of iterative reconstruction technique. Images stored on PACS. All CT scanners at this facility use dose modulation, iterative reconstruction, and/or weight based dosing when appropriate to reduce radiation dose to as low as reasonably achievable (ALARA). [facility]: Dose Right [facility]: CareDose [facility]: Dose Right [facility]: Teradose 4D [facility]: [employer] LIMITATIONS: None. Findings: Brain: No acute intracranial hemorrhage. No territorial infarct. No mass effect. Mild cerebral atrophy. Mild periventricular and subcortical white matter hypodensities most suggestive of small vessel disease. Ventricles: Accounting for underlying cerebral atrophy, ventricular size appears within normal limits. Bones: No acute osseous finding. Paranasal sinuses: Well aerated. Mastoid air cells: Well aerated. Soft tissues: Within normal limits [employer] Supervisor view shows no additional significant finding. IMPRESSION: Stable intracranial appearance without acute intracranial finding TECHNICAL DOCUMENTATION: Quality ID # [id number]: Final reports with documentation of one or more dose reduction techniques (e.g., Automated exposure control, adjustment of the mA and/or kV according to patient size, use of iterative reconstruction technique) 2010 [employer]- All Rights Reserved
[2018-06-08 23:32] LABS: ABSOLUTE EOSINOPHILS # (AUTO) 0.4 10^3/uL (0.0-0.6); ABSOLUTE LYMPHOCYTES (AUTO) 0.6 10^3/uL (0.5-4.7); ABSOLUTE MONOCYTES (AUTO) 0.4 10^3/uL (0.1-1.4); ABSOLUTE NEUT (AUTO) 4.2 10^3/uL (1.7-8.2); BASOPHILS % (AUTO) 0.4 % (0-2); EOSINOPHILS % (AUTO) 6.9 % (0-6); HEMATOCRIT 29.6 % (36.0-47.0); HEMOGLOBIN 9.7 g/dL (12.0-15.5); LYMPHOCYTES % (AUTO) 11.2 % (13-45); MEAN CORPUSCULAR HEMOGLOBIN 26.7 pg (27.0-33.4); MEAN CORPUSCULAR HGB CONC 32.8 g/dL (32.0-36.0); MEAN CORPUSCULAR VOLUME 81 fl (80-97); MONOCYTES % (AUTO) 7.1 % (3-13); PLATELET COUNT 301 10^3/uL (150-450); RED BLOOD COUNT 3.64 10^6/uL (3.72-5.28); RED CELL DISTRIBUTION WIDTH 18.5 % (11.5-14.0); SEGMENTED NEUTROPHILS % (AUTO) 74.4 % (42-78); TOTAL CELLS COUNTED % (AUTO) 100 %; WHITE BLOOD COUNT 5.6 10^3/uL (4.0-10.5)
[2018-06-08 23:49] LABS: ALANINE AMINOTRANSFERASE 29 U/L (9-52); ALBUMIN 2.9 g/dL (3.5-5.0); ALKALINE PHOSPHATASE 147 U/L (38-126); ANION GAP 13 (5-19); ASPARTATE AMINO TRANSFERASE 48 U/L (14-36); BILIRUBIN,DIRECT 0.3 mg/dL (0.0-0.4); BILIRUBIN,TOTAL 0.5 mg/dL (0.2-1.3); BLOOD UREA NITROGEN 18 mg/dL (7-20); CALCIUM 8.3 mg/dL (8.4-10.2); CARBON DIOXIDE 26 mmol/L (22-30); CHLORIDE 100 mmol/L (98-107); GLUCOSE 85 mg/dL (75-110); POTASSIUM 3.6 mmol/L (3.6-5.0); SODIUM 139.1 mmol/L (137-145); TOTAL PROTEIN 6.7 g/dL (6.3-8.2)
--- NOTE | 2018-06-09 00:10 | EKG REPORT ---
SEVERITY:- ABNORMAL ECG - SINUS RHYTHM IVCD, CONSIDER ATYPICAL LBBB : Confirmed by: Argenis Sommers MD 09-Jun-2018 00:09:47
[2018-06-09 00:28] LABS: APPEARANCE,URINE CLEAR; BILIRUBIN,URINE NEGATIVE (NEGATIVE); COLOR,URINE YELLOW; GLUCOSE, URINE NEGATIVE (NEGATIVE); KETONES,URINE NEGATIVE (NEGATIVE); LEUKOCYTE ESTERASE,URINE TRACE (NEGATIVE); NITRITE,URINE NEGATIVE (NEGATIVE); PROTEIN,URINE NEGATIVE (NEGATIVE); URINE SPECIFIC GRAVITY 1.009; UROBILINOGEN,URINE NEGATIVE mg/dL (<2.0)
[2018-06-09] MEDS ORDERED: CEPHALEXIN 500 MG CAPSULE PO ONE (04:02)
[2018-06-09 08:16] VITALS: BP 99/58
== END 2018-06-09 08:15 ==
LOC: ER 20:59
DX: F03.90 Unspecified dementia, unspecified severity, without behavioral disturbance, psychotic disturbance, mood disturbance, and anxiety (principal); N39.0 Urinary tract infection, site not specified; I87.2 Venous insufficiency (chronic) (peripheral); R60.0 Localized edema; E89.0 Postprocedural hypothyroidism; Z92.3 Personal history of irradiation; R00.0 Tachycardia, unspecified; I48.2 Chronic atrial fibrillation; Z79.01 Long term (current) use of anticoagulants; Z87.01 Personal history of pneumonia (recurrent); Z88.2 Allergy status to sulfonamides
CPT/HCPCS: 93005; 99285; 51701; 36415; 82140; 83735; 84443; 85025; 80053; 81001; 71045; 70450; 93010; A9270

== ENCOUNTER 2018-06-15 09:59 | Emergency (ER) | payer MEDICARE, OTHER ==
--- NOTE | 2018-06-15 10:24 | ER Document Report ---
ED Fall - General Chief Complaint: Fall Injury Stated Complaint: HEAD INJURY Time Seen by Provider: 06/15/18 10:11 Mode of Arrival: Medic Information source: Patient, Outside Facility Records TRAVEL OUTSIDE OF THE [place] IN LAST 30 DAYS: No - HPI Patient complains to provider of: 77-year-old female Occurred: Just prior to arrival - 77-year-old female presents for evaluation of a fall out of her wheelchair today while at her rehab facility. Notes that she does stop subsequently fell out of her wheelchair bumping the top of her head. Workup had bleeding. Was unable to get to her feet normally as she is wheelchair bound at baseline. Since that time she is continued to feel normally , denies any focal numbness or weakness denies any palpitations shortness of breath recent illnesses. Notes that she is trying to learn to walk again does have a little bit more swelling in her legs and previously. She is currently taking Eliquis for atrial fibrillation and is on a rate controller medication. - Related data Allergies/Adverse Reactions: Sulfa (Sulfonamide Antibiotics) Adverse Reaction (Mild, Verified 08/18/17 12:14) Augustin Past Medical History - General Information source: Patient - Social History Smoking Status: Unknown if Ever Smoked Family History: Hypertension, Malignancy - It is unclear which malignancy her mother had. Patient has suicidal ideation: No Patient has homicidal ideation: No - Past Medical History Cardiac Medical History: Reports: Hx Atrial Fibrillation - Chronic on Eliquis, Hx Congestive Heart Failure - Possible CHF as she is on Lasix Pulmonary Medical History: Reports: Hx Bronchitis Endocrine Medical History: Reports: Hx Hypothyroidism - Patient had her thyroid ablated is now hypothyroid. Renal/ Medical History: Denies: Hx Peritoneal Dialysis Musculoskeletal Medical History: Reports Hx Arthritis Psychiatric Medical History: Reports: Hx Depression Past Surgical History: Reports: Hx Cholecystectomy, Hx Orthopedic Surgery - right finger repair, Other - Irradiation of the thyroid. Review of Systems - Review of Systems -: Yes All other systems reviewed and negative Physical Exam - Vital signs Vitals: Temp Pulse Resp BP Pulse Ox 97.4 F 64 16 105/61 93 06/15/18 10:06 06/15/18 10:06 06/15/18 10:06 06/15/18 10:06 06/15/18 10:06 - General General appearance: Appears well In distress: None - HEENT Head: Other - Small 2 cm laceration on the scalp just superior to the occiput Eyes: Normal Conjunctiva: Normal Cornea: Normal Extraocular movements intact: Yes - Respiratory Respiratory status: No respiratory distress Chest status: Nontender Breath sounds: Normal Chest palpation: Normal - Cardiovascular Heart sounds: Normal auscultation Murmur: No - Abdominal Inspection: Normal Distension: No distension Bowel sounds: Normal - Back Back: Normal - Extremities General upper extremity: Normal inspection General lower extremity: Normal inspection Shoulder: Normal Arm: Normal Elbow: Normal Forearm: Normal Wrist: Normal Hand: Normal Hip: Normal Thigh: Normal Knee: Normal Calf: Normal Ankle: Normal Foot: Normal - Neurological Neuro grossly intact: Yes Orientation: AAOx4 Ehsan Coma Scale Eye Opening: Spontaneous Norman Coma Scale Verbal: Oriented Norman Coma Scale Motor: Obeys Commands Norman Coma Scale Total: 15 Speech: Normal Cranial nerves: Normal Course - Re-evaluation Re-evalutation: 06/15/18 20:01 This 77-year-old female presents for evaluation after a mechanical fall out of a wheelchair while falling asleep and bumping her head. She denies any loss of consciousness, any focal numbness or weakness or other symptoms. On examination she is neurologically intact, she is a stable chest wall stable pelvis strong pulses in all extremities. GCS of 15. She is anticoagulated on Eliquis at this time for atrial fibrillation. As she is anticoagulated will proceed with CT imaging of the head and cervical spine. Also plan for repair utilizing Dermabond this patient's scalp. Repaired patient's scalp wound, good hemostasis was achieved, tetanus was updated, she had negative CT of her head and cervical spine she remained neurologically intact as such I believe she is safe for discharge to her assisted living facility. We will plan for return precautions. - Vital Signs Vital signs: Temp Pulse Resp BP Pulse Ox 97.4 F 64 16 105/61 93 06/15/18 10:06 06/15/18 10:06 06/15/18 10:06 06/15/18 10:06 06/15/18 10:06 - Laboratory Result Diagrams: 06/15/18 10:13 Laboratory results interpreted by me: 06/15/18 06/15/18 10:13 10:13 Hgb 10.2 L Hct 30.4 L RDW 19.2 H Eosinophils % 8.4 H PT 18.3 H Procedures - Laceration/Wound Repair Head Time completed: 11:15 Wound length (cm): 2 Wound's Depth, Shape: Superficial Laceration pre-procedure: Chloraprep applied Wound explored: Clean Wound Debrided: Minimal Wound Repaired With: Dermabond Post-procedure wound care: Other Adult Head Front/Back picture: 1 - scalp laceration Discharge - Discharge Clinical Impression: Fall Qualifiers: Encounter type: initial encounter Qualified Code(s): W19.XXXA - Unspecified fall, initial encounter Scalp laceration Qualifiers: Encounter type: initial encounter Qualified Code(s): S01.01XA - Laceration without foreign body of scalp, initial encounter Condition: Good Disposition: HOME, SELF-CARE Instructions: Contusion ([facility]) Additional Instructions: You were seen today in the emergency department for your fall. You had an evaluation including a physical exam and CT scans of your head and neck. There is no obvious bleeding inside of your brain. If you have worsening weakness, chills, new numbness or inability to move like he previously have returned to the emergency room. Referrals: EVELIO CLAUDIO, DO [Primary Care Provider] - Follow up as needed
[2018-06-15 10:29] VITALS: BP 105/61
[2018-06-15 10:37] LABS: ABSOLUTE BASOPHILS # (AUTO) 0.1 10^3/uL (0.0-0.2); ABSOLUTE EOSINOPHILS # (AUTO) 0.4 10^3/uL (0.0-0.6); ABSOLUTE LYMPHOCYTES (AUTO) 0.7 10^3/uL (0.5-4.7); ABSOLUTE MONOCYTES (AUTO) 0.5 10^3/uL (0.1-1.4); ABSOLUTE NEUT (AUTO) 3.3 10^3/uL (1.7-8.2); BASOPHILS % (AUTO) 1.3 % (0-2); EOSINOPHILS % (AUTO) 8.4 % (0-6); HEMATOCRIT 30.4 % (36.0-47.0); HEMOGLOBIN 10.2 g/dL (12.0-15.5); LYMPHOCYTES % (AUTO) 13.5 % (13-45); MEAN CORPUSCULAR HEMOGLOBIN 27.2 pg (27.0-33.4); MEAN CORPUSCULAR HGB CONC 33.4 g/dL (32.0-36.0); MEAN CORPUSCULAR VOLUME 81 fl (80-97); MONOCYTES % (AUTO) 10.4 % (3-13); PLATELET COUNT 250 10^3/uL (150-450); RED BLOOD COUNT 3.74 10^6/uL (3.72-5.28); RED CELL DISTRIBUTION WIDTH 19.2 % (11.5-14.0); SEGMENTED NEUTROPHILS % (AUTO) 66.4 % (42-78); TOTAL CELLS COUNTED % (AUTO) 100 %
[2018-06-15 10:42] LABS: INTERNATIONAL RATION (INR) 1.44; PROTHROMBIN TIME 18.3 SEC (11.4-15.4)
[2018-06-15] MEDS ORDERED: DIPH/PERTUSS(ACELL)/TETANUS VAC/PF 0.5 ML SYR (>=10YO) IM ONE (10:42)
--- NOTE | 2018-06-15 10:48 | RADIOLOGY REPORT (SQ) ---
EXAM DESCRIPTION: CT HEAD WITHOUT COMPLETED DATE/TIME: 06/15/2018 10:36 am REASON FOR STUDY: fall and contusion on eliquis COMPARISON: CT brain 06/08/2018, 04/24/2018, 05/03/2017 MRI brain 04/26/2018 TECHNIQUE: Axial images acquired through the brain without intravenous contrast. Images reviewed wi th bone, brain and subdural windows. Additional sagittal and coronal reconstructions were generated. Images stored on PACS. All CT scanners at this facility use dose modulation, iterative reconstruction, and/or weight based d osing when appropriate to reduce radiation dose to as low as reasonably achievable (ALARA). [facility]: Dose Right [facility]: CareDose [facility]: Dose Right [facility]: Teradose 4D [facility]: Alerts RADIATION DOSE: CT Rad equipment meets quality standard of care and radiation dose reduction techniq ues were employed. CTDIvol: 53.2 mGy. DLP: 1097 mGy-cm. mGy. LIMITATIONS: None. FINDINGS: VENTRICLES: Normal size and contour. CEREBRUM: No masses. No hemorrhage. No midline shift. No evidence for acute infarction. Minimal sm all vessel ischemic change in the hemispheric white matter, chronic CEREBELLUM: No masses. No hemorrhage. No alteration of density. No evidence for acute infarction. EXTRAAXIAL SPACES: No fluid collections. No masses. ORBITS AND GLOBE: No intra- or extraconal masses. Normal contour of globe without masses. CALVARIUM: No fracture. PARANASAL SINUSES: No fluid or mucosal thickening. SOFT TISSUES: No mass or hematoma. OTHER: No other significant finding. IMPRESSION: No acute findings EVIDENCE OF ACUTE STROKE: NO. COMMENT: Quality ID # [id number]: Final reports with documentation of one or more dose reduction techniques (e.g., Automated exposure control, adjustment of the mA and/or kV according to patient size, use of iterative reconstruction technique) TECHNICAL DOCUMENTATION: JOB ID: [id number] [email or web address]- All Rights Reserved Reading location - IP/workstation name: [email or web address]
--- NOTE | 2018-06-15 10:54 | RADIOLOGY REPORT (SQ) ---
EXAM DESCRIPTION: CT CERVICAL SPINE WITHOUT COMPLETED DATE/TIME: 06/15/2018 10:36 am REASON FOR STUDY: jasmin darshan neck post fall COMPARISON: None. TECHNIQUE: Axial images acquired through the cervical spine without intravenous contrast. Images re viewed with lung, soft tissue and bone windows. Reconstructed coronal and sagittal MPR images review ed. Images stored on PACS. All CT scanners at this facility use dose modulation, iterative reconstruction, and/or weight based d osing when appropriate to reduce radiation dose to as low as reasonably achievable (ALARA). [facility]: Dose Right [facility]: CareDose [facility]: Dose Right [facility]: Teradose 4D [facility]: TiqIQ RADIATION DOSE: CT Rad equipment meets quality standard of care and radiation dose reduction techniq ues were employed. CTDIvol: 20.9 mGy. DLP: 401 mGy-cm. mGy. LIMITATIONS: None. FINDINGS: ALIGNMENT: No worrisome malalignment. There is bilateral facet arthropathy at C4-5 with m inimal anterolisthesis of C4 over C5, degenerative in nature. MINERALIZATION: Normal. VERTEBRAL BODIES: No fractures or dislocation. DISCS: At C4-5, there is bulky bilateral facet hypertrophy without significant central or foraminal e ncroachment. FACETS, LATERAL MASSES, POSTERIOR ELEMENTS: No fractures. No dislocation. No acute findings. HARDWARE: None in the spine. VISUALIZED RIBS: No fractures. LUNG APICES AND SOFT TISSUES: No significant or acute findings. OTHER: No other significant finding. IMPRESSION: No acute fracture or malalignment TECHNICAL DOCUMENTATION: JOB ID: [id number] Quality ID # [id number]: Final reports with documentation of one or more dose reduction techniques (e.g., Au tomated exposure control, adjustment of the mA and/or kV according to patient size, use of iterative reconstruction technique) 2010 [employer]- All Rights Reserved Reading location - IP/workstation name: [email or web address]
[2018-06-15 11:26] LABS: APPEARANCE,URINE CLEAR; BILIRUBIN,URINE NEGATIVE (NEGATIVE); COLOR,URINE YELLOW; GLUCOSE, URINE NEGATIVE (NEGATIVE); KETONES,URINE NEGATIVE (NEGATIVE); LEUKOCYTE ESTERASE,URINE NEGATIVE (NEGATIVE); NITRITE,URINE NEGATIVE (NEGATIVE); PROTEIN,URINE NEGATIVE (NEGATIVE); URINE SPECIFIC GRAVITY 1.011; UROBILINOGEN,URINE NEGATIVE mg/dL (<2.0)
== END 2018-06-15 13:06 | disposition home or self-care (01) ==
LOC: ER 09:59
DX: S01.01XA Laceration without foreign body of scalp, initial encounter (principal); W05.0XXA Fall from non-moving wheelchair, initial encounter; Y93.84 Activity, sleeping; Y92.199 Unspecified place in other specified residential institution as the place of occurrence of the external cause; I48.2 Chronic atrial fibrillation; Z79.01 Long term (current) use of anticoagulants; Z79.899 Other long term (current) drug therapy; Z99.3 Dependence on wheelchair; Z88.2 Allergy status to sulfonamides
CPT/HCPCS: 36415; 70450; 72125; 81001; 85025; 85610; 90471; 90715; 99284

== ENCOUNTER → 2018-12-04 | Outpatient (CLI) | payer MEDICARE, OTHER ==
--- NOTE | 2018-12-04 15:58 | RADIOLOGY REPORT (SQ) ---
EXAM DESCRIPTION: SMALL BOWEL SERIES COMPLETED DATE/TIME: 12/04/2018 1:01 pm REASON FOR STUDY: ANEMIA (D64.9) D64.9 ANEMIA, UNSPECIFIED COMPARISON: None. FLUOROSCOPY TIME: 10 seconds of fluoroscopy was used. 6 images saved to PACS. LIMITATIONS: None. 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 Se rial radiographic images acquired. Fluoroscopic images recorded of the terminal ileum and other mickie cated areas. All images stored on PACS. FINDINGS: STORE LEAD KUB: Non-obstructive bowel pattern. Large amount of fecal material throughout the c olon. Surgical clips are seen in the right upper quadrant. STOMACH: No significant reflux. Normal distention without abnormality. DUODENUM: Large duodenal diverticulum projecting medially off the 2nd portion of the duodenum. JEJUNUM: Normal mucosal pattern. No dilatation, segmentation, strictures or masses. ILEUM: Normal mucosal pattern. No dilatation, segmentation, strictures or masses. TERMINAL ILEUM AND ILEO-CECAL VALVE: Normal mucosal pattern without "cobble-stoning" or stricture. N ormal compression. PROXIMAL COLON: Incompletely imaged. No abnormality. OTHER: Transit time is normal with filling of the colon seen 2.5 hours. IMPRESSION: LARGE DUODENAL DIVERTICULUM OTHERWISE NORMAL SMALL BOWEL EXAM. COMMENT: Quality ID [id number]: Final reports for procedures using fluoroscopy that document radiation exp osure indices, or exposure time and number of fluorographic images (if radiation exposure indices are not available) TECHNICAL DOCUMENTATION: JOB ID: [id number] [employer]- All Rights Reserved Reading location - IP/workstation name: [email or web address] [id number]
== END ==
LOC: RAD 09:15
PROVIDERS: ATTEND Internal Medicine Gastroenterology
DX: D64.9 Anemia, unspecified (principal); K57.10 Diverticulosis of small intestine without perforation or abscess without bleeding
CPT/HCPCS: 74250

== ENCOUNTER 2018-12-12 12:35 | Inpatient (IN) | payer MEDICARE, OTHER ==
--- NOTE | 2018-12-12 12:52 | ER Document Report ---
ED Neuro Symptoms/Deficit - General Stated Complaint: POSSIBLE STROKE Time Seen by Provider: 12/12/18 12:46 Primary Care Provider: FLORECITA ARGUELLO MD [Primary Care Provider] - Follow up as needed TRAVEL OUTSIDE OF THE [place] IN LAST 30 DAYS: No - HPI Notes: Patient is a 78-year-old female that presents to the emergency department for chief complaint of stroke symptoms. Patient reportedly has a normal mentation at baseline. At 1140 she made a phone call and was normal. Patient was talking to her physician at around noon and had acute change in mental status. Patient was not responsive to verbal or painful stimuli. When she woke up she had slurred speech and was not moving her left side as well. She was transferred to the ED for concern of strokelike symptoms. Patient denies any current complaints other than pelvic pain. She had reportedly 2 unwitnessed falls at her senior care facility on Monday. They told EMS that she did not hit her head but the falls were not witnessed. She is on Eliquis for atrial fibrillation. EMS states her initial blood pressure was 70/50 for them and [id number]-[id number] glucose was normal. Past Medical History: A. fib, CKD Past Surgical History: Reviewed in chart Social History: Reviewed in chart Family History: Reviewed and noncontributory for presenting illness Allergies: Reviewed, see documented allergy list. REVIEW OF SYSTEMS: CONSTITUTIONAL : No fever No chills No diaphoresis No recent illness EENT: No vision changes No congestion No sore throat CARDIOVASCULAR: No chest pain No palpitations RESPIRATORY: No shortness of breath No cough No difficulty breathing GASTROINTESTINAL: abdominal pain No nausea No vomiting No diarrhea GENITOURINARY: No dysuria No hematuria No difficulty urinating MUSCULOSKELETAL: No back pain No leg pain No arm pain SKIN: No rashes No lesions LYMPHATIC: No swollen, enlarged glands. NEUROLOGICAL: No lightheadedness No headache No weakness No paresthesias PSYCHIATRIC: No anxiety No depression PHYSICAL EXAMINATION: Vital signs reviewed, nursing noted reviewed. GENERAL: Well-appearing, well-nourished and in no acute distress. HEAD: Atraumatic, normocephalic. EYES: Eyes appear normal, extraocular movements intact, sclera anicteric, conjunctiva are normal. ENT: nares patent, oropharynx clear without exudates. Dry mucous membranes. NECK: Normal range of motion, supple without lymphadenopathy LUNGS: Breath sounds clear to auscultation bilaterally and equal. No wheezes rales or rhonchi. HEART: Regular rate and rhythm without murmurs ABDOMEN: Soft, nontender, normoactive bowel sounds. No rebound, guarding, or rigidity. No masses appreciated. EXTREMITIES: Right hip and lateral thigh tenderness. Pain with range of motion of right hip, decreased range of motion of right hip. Abrasion over anterior right knee with good granulation tissue. Normal range of motion of right knee with no tenderness or effusion. NEUROLOGICAL: NIH equals 9, no effort against gravity of movement of either lower extremity, subjective paresthesias to left upper and lower extremity, mildly slurred speech, mildly somnolent, disoriented to place and situation PSYCH: Normal mood, normal affect. SKIN: Warm, Dry, normal turgor. Petechial nonblanching erythematous rash to bilateral lower extremities with no [place] or induration, nontender. - Related Data Allergies/Adverse Reactions: Sulfa (Sulfonamide Antibiotics) Adverse Reaction (Mild, Verified 08/18/17 12:14) Hives Past Medical History - Social History Smoking Status: Unknown if Ever Smoked Family History: Hypertension, Malignancy - Past Medical History Cardiac Medical History: Reports: Hx Atrial Fibrillation - Chronic on Eliquis, Hx Congestive Heart Failure - Possible CHF as she is on Lasix Pulmonary Medical History: Reports: Hx Bronchitis Endocrine Medical History: Reports: Hx Hypothyroidism - Patient had her thyroid ablated is now hypothyroid. Renal/ Medical History: Denies: Hx Peritoneal Dialysis Musculoskeletal Medical History: Reports Hx Arthritis Psychiatric Medical History: Reports: Hx Depression Past Surgical History: Reports: Hx Cholecystectomy, Hx Orthopedic Surgery - right finger repair, Other - Irradiation of the thyroid. Course - Re-evaluation Re-evalutation: 12/12/18 13:27 Vitals reviewed. Nursing notes reviewed. Patient presented to the ER with an NIH of 9. Her initial CT brain without contrast showed no acute intracranial process. CTA of the head and neck were ordered to evaluate for acute thrombosis. Patient was hypotensive at presentation and started on IV hydration. On reevaluation after CT her NIH has improved to 6. She is receiving a 6 because of bilateral lower extremity weakness which is chronic in nature for her. The left-sided numbness, disorientation, and slurred speech have completely resolved. Since patient's acute symptoms are resolving and she currently does not have focal neurologic deficit that is new she is not a candidate for TPA. Patient is also hypotensive which was likely a cause of her altered mentation. Patient also had recent falls and is on anticoagulation and it is not clear whether or not she had a head injury. I am not pushing TPA for these reasons. 1325: NIH=6 12/12/18 14:47 Patient reevaluated. She has continued to improve with her mentation. She is now very conversational and laughing in the room. She does not appear to be in any acute distress. She did get some pain relief with fentanyl for her right hip pain. X-ray shows no acute fracture however she does have a lot of osteoporosis and arthritis of the right hip and knee. Because of the reports of recent trauma and her difficulty moving her right lower extremity CT scan will be ordered to evaluate for occult right hip fracture. Patient's lab work shows no leukocytosis or lactic acidosis. Her blood pressure has continued to improve with IV hydration. She does have a slight increase in her creatinine to suggest she may be dehydrated likely from poor oral intake. Straight catheter was performed and there was not enough urine produced to obtain a urine sample. Randall catheter will be placed to evaluate strict I's and O's in the setting of her hypotension and poor urine output. Patient given a dose of Rocephin for suspected urinary tract infection. Patient's NIH is now 5 bilateral lower extremity weakness, her left leg is now able to be held briefly against gravity. She is still not moving the right leg possibly related to her hip injury and pain. She is still not a TPA candidate because her symptoms are improving, her NIH is low, she has history of possible recent head injury and is on anticoagulation. Also I do not clinically suspect ischemic stroke as a cause of her symptoms currently. Laboratory 12/12/18 12/12/18 12/12/18 12:58 13:05 13:05 WBC 5.1 RBC 3.93 Hgb 10.7 L Hct 31.8 L MCV 81 MCH 27.3 MCHC 33.8 RDW 16.3 H Plt Count 237 Seg Neutrophils % 74.1 Lymphocytes % 10.4 L Monocytes % 12.0 Eosinophils % 2.9 Basophils % 0.6 Absolute Neutrophils 3.7 Absolute Lymphocytes 0.5 Absolute Monocytes 0.6 Absolute Eosinophils 0.1 Absolute Basophils 0.0 PT 16.8 H INR 1.30 APTT 37.2 H Sodium Potassium Chloride Carbon Dioxide Anion Gap BUN Creatinine Est GFR ( Amer) Est GFR (Non-Af Amer) Glucose POC Glucose 107 Lactic Acid Calcium Total Bilirubin Direct Bilirubin Neonat Total Bilirubin Neonat Direct Bilirubin Neonat Indirect Bili AST ALT Alkaline Phosphatase Troponin I Total Protein Albumin Urine Color Urine Appearance Urine pH Ur Specific Nettie Urine Protein Urine Glucose (UA) Urine Ketones Urine Blood Urine Nitrite Urine Bilirubin Urine Urobilinogen Ur Leukocyte Esterase Urine WBC (Auto) Urine RBC (Auto) U Hyaline Cast (Auto) Urine Bacteria (Auto) Urine Red Cell Clumps Urine WBC Clumps Squamous Epi Cells Auto U Non-Squamous Epis Auto Calcium Carbonate Cryst Calcium Phosphate Cryst Calcium Oxalate Cr Auto Leucine Crystals Cystine Crystals Uric Acid Cryst (Auto) Triple Phos Cryst (Auto) Tyrosine Crystals Amorphous Sediment Auto Cellular Casts Epithelial Casts (Auto) Fatty Casts Granular Casts (Auto) Waxy Casts (Auto) Broad Casts RBC Casts (Auto) WBC Casts (Auto) Urine Mucus (Auto) U Trichomonas (Auto) Ur Yeast w Hyphae Urine Yeast (Budding) Urine Ascorbic Acid 12/12/18 12/12/18 12/12/18 13:05 13:05 13:05 WBC RBC Hgb Hct MCV MCH MCHC RDW Plt Count Seg Neutrophils % Lymphocytes % Monocytes % Eosinophils % Basophils % Absolute Neutrophils Absolute Lymphocytes Absolute Monocytes Absolute Eosinophils Absolute Basophils PT INR APTT Sodium 131.1 L Potassium 4.8 Chloride 99 Carbon Dioxide 23 Anion Gap 9 BUN 36 H Creatinine 1.46 H Est GFR ( Amer) 42 L Est GFR (Non-Af Amer) 35 L Glucose 96 POC Glucose Lactic Acid 1.4 Calcium 8.6 Total Bilirubin 0.5 Direct Bilirubin 0.4 Neonat Total Bilirubin Not Reportable Neonat Direct Bilirubin Not Reportable Neonat Indirect Bili Not Reportable AST 100 H ALT 36 Alkaline Phosphatase 103 Troponin I 0.014 Total Protein 6.5 Albumin 3.3 L Urine Color Urine Appearance Urine pH Ur Specific Nettie Urine Protein Urine Glucose (UA) Urine Ketones Urine Blood Urine Nitrite Urine Bilirubin Urine Urobilinogen Ur Leukocyte Esterase Urine WBC (Auto) Urine RBC (Auto) U Hyaline Cast (Auto) Urine Bacteria (Auto) Urine Red Cell Clumps Urine WBC Clumps Squamous Epi Cells Auto U Non-Squamous Epis Auto Calcium Carbonate Cryst Calcium Phosphate Cryst Calcium Oxalate Cr Auto Leucine Crystals Cystine Crystals Uric Acid Cryst (Auto) Triple Phos Cryst (Auto) Tyrosine Crystals Amorphous Sediment Auto Cellular Casts Epithelial Casts (Auto) Fatty Casts Granular Casts (Auto) Waxy Casts (Auto) Broad Casts RBC Casts (Auto) WBC Casts (Auto) Urine Mucus (Auto) U Trichomonas (Auto) Ur Yeast w Hyphae Urine Yeast (Budding) Urine Ascorbic Acid 12/12/18 13:30 WBC RBC Hgb Hct MCV MCH MCHC RDW Plt Count Seg Neutrophils % Lymphocytes % Monocytes % Eosinophils % Basophils % Absolute Neutrophils Absolute Lymphocytes Absolute Monocytes Absolute Eosinophils Absolute Basophils PT INR APTT Sodium Potassium Chloride Carbon Dioxide Anion Gap BUN Creatinine Est GFR ( Amer) Est GFR (Non-Af Amer) Glucose POC Glucose Lactic Acid Calcium Total Bilirubin Direct Bilirubin Neonat Total Bilirubin Neonat Direct Bilirubin Neonat Indirect Bili AST ALT Alkaline Phosphatase Troponin I Total Protein Albumin Urine Color Cancelled Urine Appearance Cancelled Urine pH Cancelled Ur Specific Nettie Cancelled Urine Protein Cancelled Urine Glucose (UA) Cancelled Urine Ketones Cancelled Urine Blood Cancelled Urine Nitrite Cancelled Urine Bilirubin Cancelled Urine Urobilinogen Cancelled Ur Leukocyte Esterase Cancelled Urine WBC (Auto) Cancelled Urine RBC (Auto) Cancelled U Hyaline Cast (Auto) Cancelled Urine Bacteria (Auto) Cancelled Urine Red Cell Clumps Cancelled Urine WBC Clumps Cancelled Squamous Epi Cells Auto Cancelled U Non-Squamous Epis Auto Cancelled Calcium Carbonate Cryst Cancelled Calcium Phosphate Cryst Cancelled Calcium Oxalate Cr Auto Cancelled Leucine Crystals Cancelled Cystine Crystals Cancelled Uric Acid Cryst (Auto) Cancelled Triple Phos Cryst (Auto) Cancelled Tyrosine Crystals Cancelled Amorphous Sediment Auto Cancelled Cellular Casts Cancelled Epithelial Casts (Auto) Cancelled Fatty Casts Cancelled Granular Casts (Auto) Cancelled Waxy Casts (Auto) Cancelled Broad Casts Cancelled RBC Casts (Auto) Cancelled WBC Casts (Auto) Cancelled Urine Mucus (Auto) Cancelled U Trichomonas (Auto) Cancelled Ur Yeast w Hyphae Cancelled Urine Yeast (Budding) Cancelled Urine Ascorbic Acid Cancelled Chest X-Ray 12/12/18 12:37 IMPRESSION: Rotated AP examination without acute abnormality of the lungs. Head CT 12/12/18 12:37 IMPRESSION: No acute findings. 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 EVIDENCE OF ACUTE STROKE: NO. Head CTA 12/12/18 12:46 IMPRESSION: No intracranial CTA evidence of focal large vessel occlusion, high- grade stenosis or aneurysm. Neck CTA 12/12/18 12:46 IMPRESSION: The internal carotid arteries are tortuous. There is no significant stenosis. Femur X-Ray 12/12/18 13:29 IMPRESSION: 1. No displaced fracture or dislocation of the right hip or right femur. Please note that plain radiographs may be insensitive for hip or pelvic fracture, particular in the setting of osteopenia. Consider CT or MRI to more sensitively evaluate for fracture if suspected. 2. Severe arthrosis of the right hip with medial joint space loss, markedly asymmetric to the left. 3. Very severe tricompartmental arthrosis of the right knee, evaluation limited by flexion on these non dedicated radiographs. Hip/Pelvis X-Ray 12/12/18 13:29 IMPRESSION: 1. No displaced fracture or dislocation of the right hip or right femur. Please note that plain radiographs may be insensitive for hip or pelvic fracture, particular in the setting of osteopenia. Consider CT or MRI to more sensitively evaluate for fracture if suspected. 2. Severe arthrosis of the right hip with medial joint space loss, markedly asymmetric to the left. 3. Very severe tricompartmental arthrosis of the right knee, evaluation limited by flexion on these non dedicated radiographs. 12/12/18 14:51 Patient has continued to improve. After 2 L of IV hydration she is no longer hypotensive. Patient will be admitted to the hospital for further management. Case discussed with admitting physician Dr. Brown. Patient in agreement with plan of care. - Laboratory Result Diagrams: 12/12/18 13:05 12/12/18 13:05 - EKG Interpretation by Me Additional EKG results interpreted by me: 12/12/18 13:30 Interpreted by myself 1300: Normal sinus rhythm, rate 62, normal axis, left bundle branch block Critical Care Note - Critical Care Note Total time excluding time spent on procedures (mins): 35 Comments: 35 Minutes of critical care time spent in direct contact evaluating and reevalua ting the patient, treating symptoms, reviewing labs and studies and speaking with family and consultants excluding any procedures ED NIH Stroke Scale - NIH Stroke Scale When completed:: Before Alteplase - 1245 *: 1. NIH scale should be completed with appropriate accompanying assessment tools. *: 2. The NIH should reflect what the patient is capable of doing and should not be coached by the clinician. 1a. Level of Consciousness: 0=Alert;keenly responsive -: 1=Drowsy -: 2=Obtunded -: 3=Coma/unresponsive or reflex to noxious stimuli. 1a. Responses: 1 1b. Orientation Questions: a. What month is it? -: b. How old are you? -: 0=Answers both questions correctly. -: 1=Answers one question correctly or patient is intubated or has orotracheal trauma. -: 2=Answers neither question correctly. 1b. Responses: 1 1c. Response to commands: a. Open and close eyes? -: b. Herbarium Worker and release hand? -: Credit is given despite weakness. Demonstration of task is permitted. Substitute command if hands cannot be used. -: 0=Performs both tasks correctly -: 1=Performs one task correctly -: 2=Performs neither task correctly 1c. Responses: 0 2. Gaze: Establish eye contact and instruct patient to "Follow my finger" -: 0=Normal -: 1=Partial gaze palsy. Gaze is abnormal in one or both eyes, but where forced deviation or total gaze paresis is not present. -: 2=Forced deviation or total gaze paresis. 2. Responses: 0 3. Visual Shipman: Sees fingers in all four quadrants. -: 0=No visual loss. -: 1=Partial hemianopsia. -: 2=Complete hemianopsia. -: 3=Bilateral hemianopsia (including Cortical blindness) 3. Responses: 0 4. Facial Movement: Instruct patient to: -: a. Show me your teeth -: b. Raise your eyebrows -: c. Close your eyes -: d. Smile -: 0=Normal symmetrical movement -: 1=Minor paralysis (flattened nasolabial fold, asymmetry on smiling). -: 2=Partial paralysis (total or near total paralysis of lower face). -: 3=Complete paralysis of upper and lower face 4. Responses: 0 5. Motor functions (left arm): Alternate sides and extend each arm with palms down (90 degrees if sitting or 45 degrees for supine). -: 0=No drift;limb holds for full 10 seconds. -: 1=Drift; limb holds but drifts down before full 10 seconds, but does not hit bed. -: 2=Some effort against gravity; limb cannot get to or maintain position. -: 3=No effort against gravity; limb falls. -: 4=No movement. -: UN=Amputation, joint fusion, explain in comments. 5. Responses (left arm): 0 5. Motor Functions (right arm): Alternate sides and extend each arm with palms down (90 degrees if sitting or 45 degrees for supine). -: 0=No drift;limb holds for full 10 seconds. -: 1=Drift; limb holds but drifts down before full 10 seconds, but does not hit bed. -: 2=Some effort against gravity; limb cannot get to or maintain position. -: 3=No effort against gravity; limb falls. -: 4=No movement. -: UN=Amputation, joint fusion, explain in comments. 5. Responses (right arm): 0 6. Motor Functions (left leg): With patient lying supine, alternate sides and extend each leg (30 degrees always while supine). -: 0=No drift, leg holds position for full 5 seconds -: 1=Drift; leg falls before full 5 seconds but does not hit bed. -: 2=Some effort against gravity, leg falls to bed but some effort against gravity. -: 3=No effort against gravity, leg falls to bed immediately. -: 4=No movement. -: UN=Amputation, joint fusion; explain in comments. 6. Responses (left leg): 3 6. Motor Functions (right leg): With patient lying supine, alternate sides and extend each leg (30 degrees always while supine). -: 0=No drift, leg holds position for full 5 seconds -: 1=Drift; leg falls before full 5 seconds but does not hit bed. -: 2=Some effort against gravity, leg falls to bed but some effort against gravity. -: 3=No effort against gravity, leg falls to bed immediately. -: 4=No movement. -: UN=Amputation, joint fusion; explain in comments. 6. Responses (right leg): 3 7. Limb Ataxia: With eyes open instruct patient to: -: a. "Touch your finger to your nose". -: b. "Touch your heel to your milelr" -: 0=Absent -: 1=Present in one limb. -: 2=Present in two limbs. -: UN=Amputation or joint fusion; explain in comments. 7. Responses: 0 8. Sensory: Test sensation using pinprick or noxious stimuli. Test as many body parts as possible. -: 0=Normal;no sensory loss -: 1=Mile to moderate sensory loss (patient feels pin prick but is less sharp on affected side). -: 2=Severe or total sensory loss. 8. Responses: 0 9. Best Language: Instruct patient to: -: a. "Describe what you see in this picture." -: b. "Name the items in this picture." -: c. "Read these sentences." -: 0=No aphasia, normal -: 1=Mild to moderate aphasia. -: 2=Severe aphasia -: 3=Mute, global aphasia, no usable speech or auditory comprehension. 9. Responses: 0 10. Articulation, Dysarthia: Instruct patient to: -: "Read these words" or "Repeat these words" -: 0=Normal -: 1=Mild to moderate; patient may slur some words but can be understood without difficulty. -: 2=Severe; patients speech so slurred as to be unintelligible in the absence of dysphasia. -: UN=Intubated or other physical barrier, explain in comments. 10. Responses: 1 11. Extinction or inattention: 0=No abnormality -: 1= Visual, tactile, auditory, spatial, or personal inattention or extinction to bilateral simulation in one or the sensory modalities. -: 2=Profound qi-inattention or qi-inattention to more than one modality; does not recognize own hand. 11. Responses: 0 Total Score: 9 Discharge - Discharge Clinical Impression: Dehydration, Anuria, Hyponatremia Hypotension Qualifiers: Hypotension type: unspecified hypotension type Qualified Code(s): I95.9 - Hypotension, unspecified Altered mental status Qualifiers: Altered mental status type: unspecified Qualified Code(s): R41.82 - Altered mental status, unspecified Condition: Stable Disposition: ADMITTED INPATIENT Admitting Provider: Hospitalist Unit Admitted: [facility] Referrals: FLORECITA ARGUELLO MD [Primary Care Provider] - Follow up as needed
--- NOTE | 2018-12-12 12:58 | RADIOLOGY REPORT (SQ) ---
EXAM DESCRIPTION: CT HEAD WITHOUT COMPLETED DATE/TIME: 12/12/2018 12:47 pm REASON FOR STUDY: t1 stroke alert left-sided weakness, numbness, slurred speech, NIH stroke scale 9 COMPARISON: 06/15/2018, 05/03/2017 MRI brain 04/26/2018 TECHNIQUE: Axial images acquired through the brain without intravenous contrast. Images reviewed wi th bone, brain and subdural windows. Additional sagittal and coronal reconstructions were generated. Images stored on PACS. All CT scanners at this facility use dose modulation, iterative reconstruction, and/or weight based d osing when appropriate to reduce radiation dose to as low as reasonably achievable (ALARA). [facility]: Dose Right [facility]: CareDose [facility]: Dose Right [facility]: Teradose 4D [facility]: Let's Jock RADIATION DOSE: CT Rad equipment meets quality standard of care and radiation dose reduction techniq ues were employed. CTDIvol: 53.2 mGy. DLP: 1044 mGy-cm. mGy. LIMITATIONS: Mild motion artifact FINDINGS: VENTRICLES: Normal size and contour. CEREBRUM: No masses. No hemorrhage. No midline shift. No evidence for acute infarction. Minimal sp otty low attenuation in the right basal ganglia and left posterior limb internal capsule from small v essel ischemic change CEREBELLUM: No masses. No hemorrhage. No alteration of density. No evidence for acute infarction. EXTRAAXIAL SPACES: No fluid collections. No masses. ORBITS AND GLOBE: No intra- or extraconal masses. Normal contour of globe without masses. CALVARIUM: No fracture. PARANASAL SINUSES: No fluid or mucosal thickening. SOFT TISSUES: No mass or hematoma. OTHER: No other significant finding. IMPRESSION: No acute findings. 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 EVIDENCE OF ACUTE STROKE: NO. COMMENT: Pertinent findings on the imaging study reported as a CRITICAL RESULT to JEFFREY CARD DO at1 2:45 on 12/12/2018. Category of Critical Result: CT code stroke Quality ID # [id number]: Final reports with documentation of one or more dose reduction techniques (e.g., Au tomated exposure control, adjustment of the mA and/or kV according to patient size, use of iterative reconstruction technique) TECHNICAL DOCUMENTATION: JOB ID: [id number] [employer]- All Rights Reserved Reading location - IP/workstation name: [email or web address]
[2018-12-12 13:25] LABS: PROTHROMBIN TIME 16.8 SEC (11.4-15.4)
[2018-12-12 13:26] LABS: PARTIAL THROMBOPLASTIN TIME 37.2 SEC (23.5-35.8)
--- NOTE | 2018-12-12 13:26 | RADIOLOGY REPORT (SQ) ---
EXAM DESCRIPTION: CTA HEAD COMPLETED DATE/TIME: 12/12/2018 1:01 pm REASON FOR STUDY: stroke COMPARISON: None. TECHNIQUE: Post IV contrast scanning, thin section axial imaging through the brain to evaluate the a rterial structures. Source and MIP images are saved and reviewed on PACS. Advanced 3D imaging as volume-rendering, MIPs, SSD performed? yes All CT scanners at this facility use dose modulation, iterative reconstruction, and/or weight based d osing when appropriate to reduce radiation dose to as low as reasonably achievable (ALARA). [facility]: Dose Right [facility]: CareDose [facility]: Dose Right [facility]: Teradose 4D [facility]: [employer] CONTRAST TYPE AND DOSE: contrast/concentration: Isovue 350.00 mg/ml; Total Contrast Delivered: 70.0 ml; Total Saline Delivered: 70.0 ml RENAL FUNCTION: Not performed secondary to urgent status. LIMITATIONS: None. FINDINGS: VENETIE IRA OF CASTRO: The anterior, middle, posterior cerebral arteries are all patent. No ev idence of aneurysm or focal occlusion or high-grade stenosis stenosis. POSTERIOR CIRCULATION: The distal vertebral arteries are patent as is the basilar artery. No aneurysm . BRAIN: No gross enhancing lesions as visualized. BONES: Intact as visualized. SINUSES: Mucosal thickening within the ethmoid air cells. Fluid within sphenoid sinus. The remainin g visualized paranasal sinuses and mastoid air cells are clear. OTHER: Small amount of gas within venous branches at that the level of the left mandible, likely iatr ogenic. IMPRESSION: No intracranial CTA evidence of focal large vessel occlusion, high-grade stenosis or ane urysm. TECHNICAL DOCUMENTATION: JOB ID: [id number] Quality ID # [id number]: Final reports with documentation of one or more dose reduction techniques (e.g., Au tomated exposure control, adjustment of the mA and/or kV according to patient size, use of iterative reconstruction technique) 2010 [employer]- All Rights Reserved Reading location - IP/workstation name: [email or web address]
[2018-12-12] MEDS ORDERED: FENTANYL CITRATE INJ/PF 100 MCG/2 ML AMPUL IV ONE (13:29)
--- NOTE | 2018-12-12 13:29 | RADIOLOGY REPORT (SQ) ---
EXAM DESCRIPTION: CTA NECK COMPLETED DATE/TIME: 12/12/2018 1:01 pm REASON FOR STUDY: stroke COMPARISON: None. TECHNIQUE: Axial dynamic scanning technique with dynamic contrast enhancement through the extra-aircraft technician nial carotid and vertebral arteries. Multiplanar reconstruction. 3-D MIPS and Volume-rendered imag es acquired at the workstation and saved to PACS. Images are reviewed in soft tissue, bone, lung w indows. All CT scanners at this facility use dose modulation, iterative reconstruction, and/or weight based d osing when appropriate to reduce radiation dose to as low as reasonably achievable (ALARA). [facility]: Dose Right [facility]: CareDose [facility]: Dose Right [facility]: Teradose 4D [facility]: [employer] CONTRAST TYPE AND DOSE: 70 mL Omnipaque 350- low osmolar. RENAL FUNCTION: Testing waived by the emergency room physician. LIMITATIONS: None. FINDINGS: AORTIC ARCH: Normal three-vessel origin. Bilateral subclavian arteries are patent. No d issection. RIGHT CAROTIDS: Patent common, internal and external carotid arteries without suggestion of significa nt stenosis or irregular plaque. Tortuous ICA. No dissection. RIGHT VERTEBRAL: Patent. No dissection. LEFT CAROTIDS: Patent common, internal and external carotid arteries without suggestion of significan t stenosis or irregular plaque. Tortuous ICA. No dissection. LEFT VERTEBRAL: Patent. No dissection. OTHER: No other significant finding. OTHER: 3-D reconstructions confirm findings. IMPRESSION: The internal carotid arteries are tortuous. There is no significant stenosis. COMMENT: Quality ID #[id number]: Measurements of distal internal carotid diameter were used as the denomina tor for stenosis measurement. TECHNICAL DOCUMENTATION: JOB ID: [id number] Quality ID # 436: Final reports with documentation of one or more dose reduction techniques (e.g., Au tomated exposure control, adjustment of the mA and/or kV according to patient size, use of iterative reconstruction technique) 2010 [employer]- All Rights Reserved Reading location - IP/workstation name: [email or web address]
[2018-12-12 13:37] LABS: ABSOLUTE EOSINOPHILS # (AUTO) 0.1 10^3/uL (0.0-0.6); ABSOLUTE LYMPHOCYTES (AUTO) 0.5 10^3/uL (0.5-4.7); ABSOLUTE MONOCYTES (AUTO) 0.6 10^3/uL (0.1-1.4); ABSOLUTE NEUT (AUTO) 3.7 10^3/uL (1.7-8.2); BASOPHILS % (AUTO) 0.6 % (0-2); EOSINOPHILS % (AUTO) 2.9 % (0-6); HEMATOCRIT 31.8 % (36.0-47.0); HEMOGLOBIN 10.7 g/dL (12.0-15.5); LYMPHOCYTES % (AUTO) 10.4 % (13-45); MEAN CORPUSCULAR HEMOGLOBIN 27.3 pg (27.0-33.4); MEAN CORPUSCULAR HGB CONC 33.8 g/dL (32.0-36.0); MEAN CORPUSCULAR VOLUME 81 fl (80-97); PLATELET COUNT 237 10^3/uL (150-450); RED BLOOD COUNT 3.93 10^6/uL (3.72-5.28); RED CELL DISTRIBUTION WIDTH 16.3 % (11.5-14.0); SEGMENTED NEUTROPHILS % (AUTO) 74.1 % (42-78); TOTAL CELLS COUNTED % (AUTO) 100 %; WHITE BLOOD COUNT 5.1 10^3/uL (4.0-10.5)
[2018-12-12] MEDS ORDERED: NORMAL SALINE 1000 ML 1,000 ML IV ONE (13:41)
[2018-12-12 14:02] LABS: ALANINE AMINOTRANSFERASE 36 U/L (9-52); ALBUMIN 3.3 g/dL (3.5-5.0); ALKALINE PHOSPHATASE 103 U/L (38-126); ANION GAP 9 (5-19); ASPARTATE AMINO TRANSFERASE 100 U/L (14-36); BILIRUBIN,DIRECT 0.4 mg/dL (0.0-0.4); BILIRUBIN,TOTAL 0.5 mg/dL (0.2-1.3); BLOOD UREA NITROGEN 36 mg/dL (7-20); CALCIUM 8.6 mg/dL (8.4-10.2); CARBON DIOXIDE 23 mmol/L (22-30); CHLORIDE 99 mmol/L (98-107); GLUCOSE 96 mg/dL (75-110); POTASSIUM 4.8 mmol/L (3.6-5.0); SODIUM 131.1 mmol/L (137-145); TOTAL PROTEIN 6.5 g/dL (6.3-8.2)
[2018-12-12] MEDS ORDERED: CEFTRIAXONE INJ 1000 MG VIAL IV ONE (14:18)
--- NOTE | 2018-12-12 14:18 | RADIOLOGY REPORT (SQ) ---
EXAM DESCRIPTION: CHEST SINGLE VIEW COMPLETED DATE/TIME: 12/12/2018 2:08 pm REASON FOR STUDY: t1 stroke alert COMPARISON: None. EXAM PARAMETERS: NUMBER OF VIEWS: One view. TECHNIQUE: Single frontal radiographic view of the chest acquired. RADIATION DOSE: NA LIMITATIONS: Rotated examination. FINDINGS: LUNGS AND PLEURA: No opacities, masses or pneumothorax. No pleural effusion. MEDIASTINUM AND HILAR STRUCTURES: No masses. Contour normal. HEART AND VASCULAR STRUCTURES: Heart normal in size. Normal vasculature. BONES: No acute findings. HARDWARE: None in the chest. OTHER: No other significant finding. IMPRESSION: Rotated AP examination without acute abnormality of the lungs. TECHNICAL DOCUMENTATION: JOB ID: [id number] [employer]- All Rights Reserved Reading location - IP/workstation name: [email or web address]
--- NOTE | 2018-12-12 14:23 | RADIOLOGY REPORT (SQ) ---
EXAM DESCRIPTION: FEMUR RIGHT; HIP RIGHT AP/LATERAL COMPLETED DATE/TIME: 12/12/2018 2:08 pm REASON FOR STUDY: trauma COMPARISON: None. NUMBER OF VIEWS: Two views. TECHNIQUE: Two radiographic images acquired of the right hip and right femur to include hip and knee in at least one projection. LIMITATIONS: None. FINDINGS: MINERALIZATION: Osteopenia. BONES: No acute fracture. No worrisome bone lesions. There is severe arthrosis of the right hip wit h medial joint space loss. Very severe tricompartmental arthrosis of the right knee, evaluation limi danyell by flexion. SOFT TISSUES: No obvious swelling or foreign body. OTHER: Ingested contrast in the distal colon and rectum, with evidence of diverticulosis. IMPRESSION: 1. No displaced fracture or dislocation of the right hip or right femur. Please note t hat plain radiographs may be insensitive for hip or pelvic fracture, particular in the setting of ost eopenia. Consider CT or MRI to more sensitively evaluate for fracture if suspected. 2. Severe arthrosis of the right hip with medial joint space loss, markedly asymmetric to the left. 3. Very severe tricompartmental arthrosis of the right knee, evaluation limited by flexion on these non dedicated radiographs. TECHNICAL DOCUMENTATION: JOB ID: [id number] [employer]- All Rights Reserved Reading location - IP/workstation name: [email or web address]
--- NOTE | 2018-12-12 14:23 | RADIOLOGY REPORT (SQ) ---
EXAM DESCRIPTION: FEMUR RIGHT; HIP RIGHT AP/LATERAL COMPLETED DATE/TIME: 12/12/2018 2:08 pm REASON FOR STUDY: trauma COMPARISON: None. NUMBER OF VIEWS: Two views. TECHNIQUE: Two radiographic images acquired of the right hip and right femur to include hip and knee in at least one projection. LIMITATIONS: None. FINDINGS: MINERALIZATION: Osteopenia. BONES: No acute fracture. No worrisome bone lesions. There is severe arthrosis of the right hip wit h medial joint space loss. Very severe tricompartmental arthrosis of the right knee, evaluation limi danyell by flexion. SOFT TISSUES: No obvious swelling or foreign body. OTHER: Ingested contrast in the distal colon and rectum, with evidence of diverticulosis. IMPRESSION: 1. No displaced fracture or dislocation of the right hip or right femur. Please note t hat plain radiographs may be insensitive for hip or pelvic fracture, particular in the setting of ost eopenia. Consider CT or MRI to more sensitively evaluate for fracture if suspected. 2. Severe arthrosis of the right hip with medial joint space loss, markedly asymmetric to the left. 3. Very severe tricompartmental arthrosis of the right knee, evaluation limited by flexion on these non dedicated radiographs. TECHNICAL DOCUMENTATION: JOB ID: [id number] [employer]- All Rights Reserved Reading location - IP/workstation name: [email or web address]
[2018-12-12 15:41] LABS: APPEARANCE,URINE CLEAR; BILIRUBIN,URINE NEGATIVE (NEGATIVE); COLOR,URINE YELLOW; GLUCOSE, URINE NEGATIVE (NEGATIVE); KETONES,URINE NEGATIVE (NEGATIVE); LEUKOCYTE ESTERASE,URINE NEGATIVE (NEGATIVE); NITRITE,URINE NEGATIVE (NEGATIVE); PROTEIN,URINE NEGATIVE (NEGATIVE); UROBILINOGEN,URINE NEGATIVE mg/dL (<2.0)
--- NOTE | 2018-12-12 16:01 | RADIOLOGY REPORT (SQ) ---
EXAM DESCRIPTION: CT RT LOWER EXTREMITY WITHOUT COMPLETED DATE/TIME: 12/12/2018 3:45 pm REASON FOR STUDY: right hip pain COMPARISON: Right hip radiographs 12/12/2018 TECHNIQUE: CT scan of the right hip performed without intravenous contrast. There is small amount o f residual oral contrast in the sigmoid and rectum. Images reviewed with soft tissue and bone window s. Reconstructed coronal and sagittal MPR images reviewed. All images stored on PACS. All CT scanners at this facility use dose modulation, iterative reconstruction, and/or weight based d osing when appropriate to reduce radiation dose to as low as reasonably achievable (ALARA). [facility]: Dose Right [facility]: CareDose [facility]: Dose Right [facility]: Teradose 4D [facility]: [employer] RADIATION DOSE: CT Rad equipment meets quality standard of care and radiation dose reduction techniq ues were employed. CTDIvol: 4.1 mGy. DLP: 138 mGy-cm. mGy. LIMITATIONS: None. FINDINGS: PELVIC BONES: No acute fracture. No worrisome bone lesions. VISUALIZED SPINE: Not included. SYMPTOMATIC HIP: Joint space narrowing with subchondral cysts in the acetabulum and femoral head. Ma rginal osteophytes on the femoral head. No fracture. No dislocation. OPPOSITE HIP: Not included. PELVIC SOFT TISSUES: Diverticulosis coli. Detail in the pelvis is poor. EXTRAPELVIC SOFT TISSUES: No significant findings. OTHER: No other significant finding. IMPRESSION: Degenerative joint disease in the right hip. TECHNICAL DOCUMENTATION: JOB ID: [id number] Quality ID # [id number]: Final reports with documentation of one or more dose reduction techniques (e.g., Au tomated exposure control, adjustment of the mA and/or kV according to patient size, use of iterative reconstruction technique) 2010 [employer]- All Rights Reserved Reading location - IP/workstation name: [email or web address]
[2018-12-12] MEDS ORDERED: NORMAL SALINE 1000 ML 1,000 ML IV PRN (16:58)
[2018-12-12] MEDS ORDERED: ACETAMINOPHEN 325 MG TABLET PO PRN (17:19)
--- NOTE | 2018-12-12 18:08 | RADIOLOGY REPORT (SQ) ---
EXAM DESCRIPTION: CT ABD/PELVIS NO ORAL OR IV COMPLETED DATE/TIME: 12/12/2018 5:44 pm REASON FOR STUDY: left lower abdominal tenderness COMPARISON: None. TECHNIQUE: CT scan of the abdomen and pelvis performed without intravenous or oral contrast. Images reviewed with lung, soft tissue, and bone windows. Reconstructed coronal and sagittal MPR images revi ewed. All images stored on PACS. All CT scanners at this facility use dose modulation, iterative reconstruction, and/or weight based d osing when appropriate to reduce radiation dose to as low as reasonably achievable (ALARA). [facility]: Dose Right [facility]: CareDose [facility]: Dose Right [facility]: Teradose 4D [facility]: Smart [employer] RADIATION DOSE: CT Rad equipment meets quality standard of care and radiation dose reduction techniq ues were employed. CTDIvol: 26.4 mGy. DLP: 1449 mGy-cm.mGy. LIMITATIONS: None. FINDINGS: LOWER CHEST: No significant findings. No nodules or infiltrates. NON-CONTRASTED LIVER, SPLEEN, ADRENALS: Evaluation limited by lack of IV contrast. No identified sign ificant masses. PANCREAS: No masses. No peripancreatic inflammatory changes. GALLBLADDER: Surgically absent. RIGHT KIDNEY AND URETER: No suspicious masses. Assessment limited by lack of IV contrast. No signif icant calcifications. No hydronephrosis or hydroureter. LEFT KIDNEY AND URETER: No suspicious masses. Assessment limited by lack of IV contrast. No signifi cant calcifications. No hydronephrosis or hydroureter. AORTA AND RETROPERITONEUM: There is mild aneurysmal dilatation of the distal abdominal aorta with a m aximum diameter of 31 mm. BOWEL AND PERITONEAL CAVITY: Mild diverticulosis. Mild stranding around the upper sigmoid colon. APPENDIX: Not identified. PELVIS, BLADDER, AND ABDOMINAL WALL:No abnormal masses. No free fluid. Bladder normal. BONES: No significant findings. OTHER: No other significant finding. IMPRESSION: 1. Mild sigmoid diverticulitis. 2. Mild aneurysmal dilatation of the distal abdominal aorta. COMMENT: Quality ID # [id number]: Final reports with documentation of one or more dose reduction techniques (e.g., Automated exposure control, adjustment of the mA and/or kV according to patient size, use of iterative reconstruction technique) TECHNICAL DOCUMENTATION: JOB ID: [id number]- All Rights Reserved Reading location - IP/workstation name: [email or web address]
--- NOTE | 2018-12-12 19:49 | PDOC H&P ---
History of Present Illness Admission Date/PCP: 12/12/18 15:25 FLORECITA ARGUELLO MD Patient complains of: confusion, aphasia History of Present Illness: ALTAGRACIA OLIVIA is a 78 year old female with a PMH of atrial fibrillation on Eliquis, history of prior CVAs (patient and DPOA denies prior hx of CVA, CT does show old CVAs, CHF (last known Ef of 45%), severe multiple joint arthritis and debility who was brought in from [facility] due to altered mental status. DPOA is on bedside. Patient reportedly had mild episodes of confusion starting the other day when DPOA was called by patient. Patient reportedly was confused and did not think she is staying at [facility] and was living somewhere else. Patient that time also reported of having some chills with no reported fever. She denies dysuria but says she has urinary frequency. No documented fever. She also has been having poor oral intake at the SNF. This morning, around 11 AM, patient was seen by her PCP and was not responsive. She finally woke up and was noted to have slurred speech and reportedly had left sided weakness. She had a reported BP initially of 70/50 by EMS. In the ER, BP was 79/41. She was given 2L of fluid bolus which resolved the hypotension. Patient also had resolution of symptoms in the ER and was back to being AO x 4 after a few minutes when she got back form the CT scan. She was not a TPA candidate due to rapid resolution of neurologic symptoms and the fact that she is on Eliquis. Past Medical History Cardiac Medical History: Reports: Atrial Fibrillation - Chronic on Eliquis, Congestive Heart Failure - Possible CHF as she is on Lasix, Hypertension Pulmonary Medical History: Reports: Bronchitis Endocrine Medical History: Reports: Hypothyroidism - Patient had her thyroid ablated is now hypothyroid. Musculoskeltal Medical History: Reports: Arthritis Psychiatric Medical History: Reports: Depression Past Surgical History Past Surgical History: Reports: Cholecystectomy, Orthopedic Surgery - right finger repair, Other - Irradiation of the thyroid. Social History Smoking Status: Unknown if Ever Smoked Frequency of Alcohol Use: Rare Hx Recreational Drug Use: No Drugs: None Hx Prescription Drug Abuse: No Family History Family History: Hypertension, Malignancy Parental Family History Reviewed: Yes - no premature CAD Children Family History Reviewed: No Sibling(s) Family History Reviewed.: No Medication/Allergy Home Medications: Apixaban [Eliquis] 5 mg PO Q12 05/21/18 Levothyroxine Sodium [Synthroid] 200 mcg PO Q6AM 05/21/18 Metoprolol Succinate [Toprol Xl 25 mg Tab.sr] 12.5 mg PO DAILY 05/21/18 Amiodarone HCl [Cordarone 200 mg Tablet] 200 mg PO Q12 #60 tablet 05/29/18 Cholecalciferol (Vitamin D3) [Vitamin D3 1000 Unit Tablet] 2,000 unit PO DAILY #30 tablet 05/29/18 Isosorbide Mononitrate [Imdur 30 mg Tablet.er] 30 mg PO DAILY #30 tab.er.24h 05/29/18 Lisinopril [Prinivil 2.5 mg Tablet] 2.5 mg PO DAILY #30 tablet 05/29/18 Ranolazine [Ranexa 500 mg Tab.sr] 500 mg PO Q12 #60 tab.sr.12h 05/29/18 Ascorbic Acid [Vitamin C] 500 mg PO DAILY 12/12/18 Atorvastatin Calcium [Lipitor 40 mg Tablet] 40 mg PO DAILY 12/12/18 Calcium Carbonate/Vitamin D3 [Calcium 600-Vit D3 400 Tablet] 1 tab PO DAILY 12/12/18 Ferrous Sulfate [Feosol] 325 mg PO DAILY 12/12/18 Furosemide [Lasix 20 mg Tablet] 20 mg PO DAILY 12/12/18 Levothyroxine Sodium 25 mcg PO DAILY 12/12/18 Multivitamin/Iron/Folic Acid [Centrum Adults Tablet] 1 tab PO DAILY 12/12/18 Potassium Chloride 20 meq PO DAILY 12/12/18 Allergies/Adverse Reactions: Sulfa (Sulfonamide Antibiotics) Adverse Reaction (Mild, Verified 08/18/17 12:14) Hives Review of Systems All systems: reviewed and no additional remarkable complaints except as stated - as mentioned above Physical Exam Vital Signs: Temp Pulse Resp BP Pulse Ox 97.3 F 62 14 104/51 L 99 12/12/18 13:12 12/12/18 12:40 12/12/18 15:01 12/12/18 15:01 12/12/18 15:01 Intake & Output 12/11/18 12/12/18 12/13/18 06:59 06:59 06:59 Intake Total 1000 Balance 1000 Weight 222 lb 14.197 oz General appearance: PRESENT: no acute distress, well-developed, well-nourished Head exam: PRESENT: atraumatic, normocephalic Eye exam: PRESENT: conjunctiva pink, EOMI, PERRLA. ABSENT: scleral icterus Ear exam: PRESENT: normal external ear exam Mouth exam: PRESENT: moist, tongue midline Neck exam: ABSENT: carotid bruit, JVD, lymphadenopathy, thyromegaly Respiratory exam: PRESENT: clear to auscultation jayro. ABSENT: rales, rhonchi, wheezes Cardiovascular exam: PRESENT: RRR. ABSENT: diastolic murmur, rubs, systolic murmur GI/Abdominal exam: PRESENT: normal bowel sounds, soft, tenderness - mild direct tenderness on the LLQ, negative rebound. ABSENT: distended, guarding, mass, organolmegaly, rebound Rectal exam: PRESENT: deferred Neurological exam: PRESENT: alert, awake, oriented to person, oriented to place, oriented to time, oriented to situation, CN II-XII grossly intact, motor sensory deficit - chronic reduced sensation on both legs (60-70%) from neuropathy refuse to cooperate with motor testing due to pain on knees and hips Results Laboratory Results: 12/12/18 13:05 12/12/18 13:05 12/12/18 12/12/18 12/12/18 13:05 13:05 13:05 WBC 5.1 RBC 3.93 Hgb 10.7 L Hct 31.8 L MCV 81 MCH 27.3 MCHC 33.8 RDW 16.3 H Plt Count 237 Seg Neutrophils % 74.1 Lymphocytes % 10.4 L Monocytes % 12.0 Eosinophils % 2.9 Basophils % 0.6 Absolute Neutrophils 3.7 Absolute Lymphocytes 0.5 Absolute Monocytes 0.6 Absolute Eosinophils 0.1 Absolute Basophils 0.0 Sodium 131.1 L Potassium 4.8 Chloride 99 Carbon Dioxide 23 Anion Gap 9 BUN 36 H Creatinine 1.46 H Est GFR ( Amer) 42 L Est GFR (Non-Af Amer) 35 L Glucose 96 Lactic Acid 1.4 Calcium 8.6 Total Bilirubin 0.5 AST 100 H ALT 36 Alkaline Phosphatase 103 Total Protein 6.5 Albumin 3.3 L Urine Color Urine Appearance Urine pH Ur Specific Sterling Urine Protein Urine Glucose (UA) Urine Ketones Urine Blood Urine Nitrite Ur Leukocyte Esterase Urine WBC (Auto) Urine RBC (Auto) 12/12/18 12/12/18 13:30 15:08 WBC RBC Hgb Hct MCV MCH MCHC RDW Plt Count Seg Neutrophils % Lymphocytes % Monocytes % Eosinophils % Basophils % Absolute Neutrophils Absolute Lymphocytes Absolute Monocytes Absolute Eosinophils Absolute Basophils Sodium Potassium Chloride Carbon Dioxide Anion Gap BUN Creatinine Est GFR ( Amer) Est GFR (Non-Af Amer) Glucose Lactic Acid Calcium Total Bilirubin AST ALT Alkaline Phosphatase Total Protein Albumin Urine Color Cancelled YELLOW Urine Appearance Cancelled CLEAR Urine pH Cancelled 6.0 Ur Specific Sterling Cancelled 1.010 Urine Protein Cancelled NEGATIVE Urine Glucose (UA) Cancelled NEGATIVE Urine Ketones Cancelled NEGATIVE Urine Blood Cancelled MODERATE H Urine Nitrite Cancelled NEGATIVE Ur Leukocyte Esterase Cancelled NEGATIVE Urine WBC (Auto) Cancelled 5 Urine RBC (Auto) Cancelled 21 12/12/18 13:05 Troponin I 0.014 Impressions: Chest X-Ray 12/12/18 12:37 IMPRESSION: Rotated AP examination without acute abnormality of the lungs. Head CT 12/12/18 12:37 IMPRESSION: No acute findings. 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 EVIDENCE OF ACUTE STROKE: NO. Head CTA 12/12/18 12:46 IMPRESSION: No intracranial CTA evidence of focal large vessel occlusion, high- grade stenosis or aneurysm. Neck CTA 12/12/18 12:46 IMPRESSION: The internal carotid arteries are tortuous. There is no significant stenosis. Femur X-Ray 12/12/18 13:29 IMPRESSION: 1. No displaced fracture or dislocation of the right hip or right femur. Please note that plain radiographs may be insensitive for hip or pelvic fracture, particular in the setting of osteopenia. Consider CT or MRI to more sensitively evaluate for fracture if suspected. 2. Severe arthrosis of the right hip with medial joint space loss, markedly asymmetric to the left. 3. Very severe tricompartmental arthrosis of the right knee, evaluation limited by flexion on these non dedicated radiographs. Hip/Pelvis X-Ray 12/12/18 13:29 IMPRESSION: 1. No displaced fracture or dislocation of the right hip or right femur. Please note that plain radiographs may be insensitive for hip or pelvic fracture, particular in the setting of osteopenia. Consider CT or MRI to more sensitively evaluate for fracture if suspected. 2. Severe arthrosis of the right hip with medial joint space loss, markedly asymmetric to the left. 3. Very severe tricompartmental arthrosis of the right knee, evaluation limited by flexion on these non dedicated radiographs. Lower Extremity CT 12/12/18 14:56 IMPRESSION: Degenerative joint disease in the right hip. Assessment & Plan - Diagnosis (1) Hypotension Qualifiers: Hypotension type: unspecified hypotension type Qualified Code(s): I95.9 - Hypotension, unspecified Is this a current diagnosis for this admission?: Yes Plan: Possible secondary to a combination of volume depletion from poor oral intake vs possible sepsis. Readily resolved with 2L of fluid bolus. Continue IV at 50 cc/hr. (2) Altered mental status Qualifiers: Altered mental status type: unspecified Qualified Code(s): R41.82 - Altered mental status, unspecified Is this a current diagnosis for this admission?: Yes Plan: Transient confusion possible from acute hypotension vs possible TIA. She is now back to her baseline mental status. (3) TIA (transient ischemic attack) Is this a current diagnosis for this admission?: Yes Plan: TIA work up including CT head, CTA head and neck in the ER was negative so far. Will add Plavix. Resume atorvastatin. (4) Paroxysmal atrial fibrillation Is this a current diagnosis for this admission?: Yes Plan: Resume Eliquis. Hold lopressor for now due to low blood pressures. - Time Time Spent: 30 to 50 Minutes
[2018-12-12] MEDS: APIXABAN 5 MG TABLET PO SCH (22:04)
[2018-12-12] MEDS: ATORVASTATIN CALCIUM 40 MG TABLET PO SCH (22:05)
--- NOTE | 2018-12-13 00:33 | EKG REPORT ---
SEVERITY:- ABNORMAL ECG - SINUS RHYTHM LEFT BUNDLE BRANCH BLOCK : Confirmed by: Argenis Sommers MD 13-Dec-2018 00:32:27
[2018-12-13 05:18] LABS: HEMATOCRIT 33.3 % (36.0-47.0); HEMOGLOBIN 11.2 g/dL (12.0-15.5); MEAN CORPUSCULAR HEMOGLOBIN 27.4 pg (27.0-33.4); MEAN CORPUSCULAR HGB CONC 33.7 g/dL (32.0-36.0); MEAN CORPUSCULAR VOLUME 81 fl (80-97); PLATELET COUNT 233 10^3/uL (150-450); RED CELL DISTRIBUTION WIDTH 16.6 % (11.5-14.0)
[2018-12-13 05:27] LABS: WHITE BLOOD COUNT 12.2 10^3/uL (4.0-10.5)
[2018-12-13 05:33] LABS: ANION GAP 10 (5-19); BLOOD UREA NITROGEN 41 mg/dL (7-20); CALCIUM 8.1 mg/dL (8.4-10.2); CARBON DIOXIDE 21 mmol/L (22-30); CHLORIDE 104 mmol/L (98-107); GLUCOSE 84 mg/dL (75-110); POTASSIUM 4.3 mmol/L (3.6-5.0); SODIUM 134.5 mmol/L (137-145)
[2018-12-13 06:23] LABS: ABSOLUTE LYMPHOCYTES# (MANUAL) 0.5 10^3/uL (0.5-4.7); ABSOLUTE MONOCYTES # (MANUAL) 0.9 10^3/uL (0.1-1.4); ABSOLUTE NEUTROPHILS# (MANUAL) 10.7 10^3/uL (1.7-8.2); BAND NEUTROPHILS % (MANUAL) 3 % (3-5); BASOPHILS % (MANUAL) 0 % (0-2); EOSINOPHILS % (MANUAL) 1 % (0-6); LYMPHOCYTES % (MANUAL) 4 % (13-45); MONOCYTES % (MANUAL) 7 % (3-13); SEGMENTED NEUTROPHILS % (MAN) 85 % (42-78); TOTAL CELLS COUNTED 100
[2018-12-13 06:24] LABS: HYPOCHROMASIA SLIGHT; PLATELET COMMENT ADEQUATE; PLATELET LARGE PRESENT
[2018-12-13] MEDS: LEVOTHYROXINE SODIUM 0.025 MG TABLET PO SCH (08:29)
[2018-12-13] MEDS ORDERED: CEFTRIAXONE 1 GM/D5W RTU 1 GM/50 ML RTUPB IV SCH (10:00)
[2018-12-13] MEDS: APIXABAN 5 MG TABLET PO SCH ×2 (11:55→21:22)
[2018-12-13] MEDS: FERROUS SULFATE 325 MG TABLET PO SCH (11:56)
[2018-12-13] MEDS: CLOPIDOGREL BISULFATE 75 MG TABLET PO SCH (11:56)
[2018-12-13] MEDS: ISOSORBIDE MONONITRATE 30 MG TAB.ER.24H PO SCH (12:52)
[2018-12-13] MEDS: LIDOCAINE 5% (700 MG) TRANSDERMAL ADH..PATCH TP SCH (13:45)
[2018-12-13] MEDS ORDERED: VANCOMYCIN HCL 0 MG in DEXTROSE 5%-WATER 250 ML IV NR (15:00)
--- NOTE | 2018-12-13 15:04 | PDOC PROGRESS REPORT ---
Subjective Progress Note for:: 12/13/18 Subjective:: ALTAGRACIA OLIVIA is a 78 year old female with a PMH of atrial fibrillation on Eliquis, history of prior CVAs (patient and DPOA denies prior hx of CVA, CT does show old CVAs, CHF (last known Ef of 45%), severe multiple joint arthritis and debility who was brought in from [facility] due to altered mental status. She had transient slurred speech and was initially hypotensive at 70/50. She was admitted for hypotension and possible TIA. In the ER, she was back to her baseline and was AO x 4. No acute event overnight. She had BP in the 80s systolic overnight but this gra dually improved to the 100s systolic. She appears more comfortable today. She still complains of joint pains. She does have notable left knee effusion and appears to have pain on that area. Left abdominal pain has also improved. She is able to tell me her name today but thinks she is a fdc. Reason For Visit: HYPOTENSION, POSSIBLE SEPSIS, TIA Physical Exam Vital Signs: Temp Pulse Resp BP Pulse Ox 98.2 F 71 16 102/44 L 100 12/13/18 11:16 12/13/18 11:16 12/13/18 11:16 12/13/18 11:16 12/13/18 11:16 Intake & Output 12/12/18 12/13/18 12/14/18 06:59 06:59 06:59 Intake Total 1600 Output Total 725 Balance 875 Weight 197 lb 1.492 oz General appearance: PRESENT: no acute distress, well-developed, well-nourished Head exam: PRESENT: atraumatic, normocephalic Eye exam: PRESENT: conjunctiva pink, EOMI, PERRLA. ABSENT: scleral icterus Ear exam: PRESENT: normal external ear exam Mouth exam: PRESENT: moist, tongue midline Respiratory exam: PRESENT: clear to auscultation jayro. ABSENT: rales, rhonchi, wheezes Cardiovascular exam: PRESENT: RRR. ABSENT: diastolic murmur, rubs, systolic murmur Pulses: PRESENT: normal dorsalis pedis pul GI/Abdominal exam: PRESENT: normal bowel sounds, soft. ABSENT: distended, guarding, mass, organolmegaly, rebound, tenderness Rectal exam: PRESENT: deferred Musculoskeletal exam: PRESENT: other - left knee effusion Neurological exam: PRESENT: alert, awake, oriented to person. ABSENT: oriented to place, oriented to time Results Laboratory Results: 12/13/18 04:28 12/13/18 04:28 12/12/18 12/12/18 12/13/18 13:05 15:08 04:28 WBC 12.2 H D RBC 4.10 Hgb 11.2 L Hct 33.3 L MCV 81 MCH 27.4 MCHC 33.7 RDW 16.6 H Plt Count 233 Seg Neutrophils % Not Reportable Lymphocytes % Not Reportable Monocytes % Not Reportable Eosinophils % Not Reportable Basophils % Not Reportable Absolute Neutrophils Not Reportable Absolute Lymphocytes Not Reportable Absolute Monocytes Not Reportable Absolute Eosinophils Not Reportable Absolute Basophils Not Reportable Sodium Potassium Chloride Carbon Dioxide Anion Gap BUN Creatinine Est GFR ( Amer) Est GFR (Non-Af Amer) Glucose Calcium Magnesium 2.0 Urine Color YELLOW Urine Appearance CLEAR Urine pH 6.0 Ur Specific [place] 1.010 Urine Protein NEGATIVE Urine Glucose (UA) NEGATIVE Urine Ketones NEGATIVE Urine Blood MODERATE H Urine Nitrite NEGATIVE Ur Leukocyte Esterase NEGATIVE Urine WBC (Auto) 5 Urine RBC (Auto) 21 12/13/18 04:28 WBC RBC Hgb Hct MCV MCH MCHC RDW Plt Count Seg Neutrophils % Lymphocytes % Monocytes % Eosinophils % Basophils % Absolute Neutrophils Absolute Lymphocytes Absolute Monocytes Absolute Eosinophils Absolute Basophils Sodium 134.5 L Potassium 4.3 Chloride 104 Carbon Dioxide 21 L Anion Gap 10 BUN 41 H Creatinine 1.71 H Est GFR ( Amer) 35 L Est GFR (Non-Af Amer) 29 L Glucose 84 Calcium 8.1 L Magnesium Urine Color Urine Appearance Urine pH Ur Specific [place] Urine Protein Urine Glucose (UA) Urine Ketones Urine Blood Urine Nitrite Ur Leukocyte Esterase Urine WBC (Auto) Urine RBC (Auto) 12/12/18 13:30 Catheterized Urine Urine Culture - Final Lactobacillus (Vaginal Lety) 12/12/18 13:05 Troponin I 0.014 Impressions: Chest X-Ray 12/12/18 12:37 IMPRESSION: Rotated AP examination without acute abnormality of the lungs. Head CT 12/12/18 12:37 IMPRESSION: No acute findings. 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 EVIDENCE OF ACUTE STROKE: NO. Head CTA 12/12/18 12:46 IMPRESSION: No intracranial CTA evidence of focal large vessel occlusion, high- grade stenosis or aneurysm. Neck CTA 12/12/18 12:46 IMPRESSION: The internal carotid arteries are tortuous. There is no significant stenosis. Femur X-Ray 12/12/18 13:29 IMPRESSION: 1. No displaced fracture or dislocation of the right hip or right femur. Please note that plain radiographs may be insensitive for hip or pelvic fracture, particular in the setting of osteopenia. Consider CT or MRI to more sensitively evaluate for fracture if suspected. 2. Severe arthrosis of the right hip with medial joint space loss, markedly asymmetric to the left. 3. Very severe tricompartmental arthrosis of the right knee, evaluation limited by flexion on these non dedicated radiographs. Hip/Pelvis X-Ray 12/12/18 13:29 IMPRESSION: 1. No displaced fracture or dislocation of the right hip or right femur. Please note that plain radiographs may be insensitive for hip or pelvic fracture, particular in the setting of osteopenia. Consider CT or MRI to more sensitively evaluate for fracture if suspected. 2. Severe arthrosis of the right hip with medial joint space loss, markedly asymmetric to the left. 3. Very severe tricompartmental arthrosis of the right knee, evaluation limited by flexion on these non dedicated radiographs. Lower Extremity CT 12/12/18 14:56 IMPRESSION: Degenerative joint disease in the right hip. Abdomen/Pelvis CT 12/12/18 16:55 IMPRESSION: 1. Mild sigmoid diverticulitis. 2. Mild aneurysmal dilatation of the distal abdominal aorta. Assessment & Plan - Diagnosis (1) Hypotension Qualifiers: Hypotension type: unspecified hypotension type Qualified Code(s): I95.9 - Hypotension, unspecified Is this a current diagnosis for this admission?: Yes Plan: Possible secondary to a combination of volume depletion from poor oral intake vs possible sepsis. Resolved with 2L of fluid bolus in the ER. blood culture is growing GPC 1/. Will switch Rocephin to vancomycin for now pending final report. She had 80 systolic BP readings overnight per staff. This has improved to 100 systolic. Will increase IV fluids to 125 cc/hr today. She has CHF but does appear clinically dry at this time. (2) Altered mental status Qualifiers: Altered mental status type: unspecified Qualified Code(s): R41.82 - Altered mental status, unspecified Is this a current diagnosis for this admission?: Yes Plan: Transient confusion possible from acute hypotension vs possible TIA. This resolved in the ER. This morning, she is oriented to person. She is able to recognize me from last night but thinks she is in a fdc. (3) TIA (transient ischemic attack) Is this a current diagnosis for this admission?: Yes Plan: TIA work up including CT head, CTA head and neck in the ER was negative so far. Added Plavix. Continue atorvastatin. (4) Paroxysmal atrial fibrillation Is this a current diagnosis for this admission?: Yes Plan: Continue Eliquis. Hold lopressor for now due to low blood pressures. (5) Effusion, left knee Is this a current diagnosis for this admission?: Yes Plan: She does have history of multiple joint arthritis. Concern for ?septic arthritis. Unable to do further assessment of joint as patient refused to have the knee moved. Will consult orthopedics. Will order a left knee US as well. (6) Acute kidney injury Is this a current diagnosis for this admission?: Yes Plan: Creatinine has trended up to 1.7. Will increase IV fluids today to 125 cc/hr. - Time Time Spent with patient: 25-34 minutes
[2018-12-13] MEDS: VANCOMYCIN HCL 1,000 MG in DEXTROSE 5%-WATER 250 ML IV SCH (18:38)
[2018-12-13] MEDS: NORMAL SALINE 1000 ML 1,000 ML IV PRN (20:41)
[2018-12-13] MEDS: PHARMACY COMMUNICATION ORDER MC SCH (21:07)
[2018-12-13] MEDS: ATORVASTATIN CALCIUM 40 MG TABLET PO SCH (21:22)
[2018-12-14] MEDS: NORMAL SALINE 1000 ML 1,000 ML IV PRN ×3 (03:38→21:25)
[2018-12-14 08:08] LABS: ABSOLUTE EOSINOPHILS # (AUTO) 0.2 10^3/uL (0.0-0.6); ABSOLUTE LYMPHOCYTES (AUTO) 0.5 10^3/uL (0.5-4.7); ABSOLUTE MONOCYTES (AUTO) 0.6 10^3/uL (0.1-1.4); ABSOLUTE NEUT (AUTO) 7.5 10^3/uL (1.7-8.2); BASOPHILS % (AUTO) 0.3 % (0-2); EOSINOPHILS % (AUTO) 2.1 % (0-6); HEMATOCRIT 29.7 % (36.0-47.0); HEMOGLOBIN 10.1 g/dL (12.0-15.5); LYMPHOCYTES % (AUTO) 5.9 % (13-45); MEAN CORPUSCULAR HEMOGLOBIN 27.3 pg (27.0-33.4); MEAN CORPUSCULAR HGB CONC 33.8 g/dL (32.0-36.0); MEAN CORPUSCULAR VOLUME 81 fl (80-97); MONOCYTES % (AUTO) 7.3 % (3-13); PLATELET COUNT 214 10^3/uL (150-450); RED BLOOD COUNT 3.69 10^6/uL (3.72-5.28); RED CELL DISTRIBUTION WIDTH 15.9 % (11.5-14.0); SEGMENTED NEUTROPHILS % (AUTO) 84.4 % (42-78); TOTAL CELLS COUNTED % (AUTO) 100 %; WHITE BLOOD COUNT 8.9 10^3/uL (4.0-10.5)
[2018-12-14] MEDS: LEVOTHYROXINE SODIUM 0.025 MG TABLET PO SCH (08:13)
[2018-12-14 08:26] LABS: ANION GAP 8 (5-19); BLOOD UREA NITROGEN 39 mg/dL (7-20); CALCIUM 8.3 mg/dL (8.4-10.2); CARBON DIOXIDE 18 mmol/L (22-30); CHLORIDE 107 mmol/L (98-107); GLUCOSE 81 mg/dL (75-110); SODIUM 133.3 mmol/L (137-145)
--- NOTE | 2018-12-14 09:42 | RADIOLOGY REPORT (SQ) ---
EXAM DESCRIPTION: U/S EXTREMITY NONVASCULAR LTD COMPLETED DATE/TIME: 12/13/2018 9:51 pm REASON FOR STUDY: left knee swelling and pain COMPARISON: None. TECHNIQUE: Static and real time bowden scale ultrasound images were acquired of the medial left knee. Additional images acquired of the right need for contralateral comparison. LIMITATIONS: None. FINDINGS: Left: There is a complex fluid pocket within the medial aspect of the left knee measuring approximately 6.2 x 0.8 x 3.4 cm. No evidence of internal vascularity. Wall demonstrates irregular thickened appearance with some internal septations. Right: Limited contralateral view of the right knee demonstrate more simple appearing collection verónica suring approximately 5.4 x 0.4 x 3.6 cm along the medial right knee. Other: Bilateral subcutaneous edema. IMPRESSION: 6.2 x 0.8 x 3.4 cm mildly complex collection along the medial left knee most compatible with knee joint effusion. Limited contralateral views of the right knee demonstrates more simple effusion measuring approximate ly 5.4 x 0.4 x 3.6 cm. TECHNICAL DOCUMENTATION: JOB ID: [id number] [employer]- All Rights Reserved Reading location - IP/workstation name: [email or web address]
[2018-12-14] MEDS: APIXABAN 5 MG TABLET PO SCH ×2 (10:32→21:27)
[2018-12-14] MEDS: FERROUS SULFATE 325 MG TABLET PO SCH (10:32)
[2018-12-14] MEDS: CLOPIDOGREL BISULFATE 75 MG TABLET PO SCH (10:33)
[2018-12-14] MEDS: LIDOCAINE 5% (700 MG) TRANSDERMAL ADH..PATCH TP SCH (10:33)
--- NOTE | 2018-12-14 10:36 | RADIOLOGY REPORT (SQ) ---
EXAM DESCRIPTION: KNEE LEFT 3 VIEWS COMPLETED DATE/TIME: 12/14/2018 10:23 am REASON FOR STUDY: swelling COMPARISON: None. NUMBER OF VIEWS: Three views. TECHNIQUE: AP lateral and sunrise radiographic images acquired of the left knee. LIMITATIONS: None. FINDINGS: MINERALIZATION: Normal. BONES: No acute fracture or dislocation. No suspicious osseous lesions. Extensive degenerative aparicio ges with severe joint space loss, subchondral sclerosis and osteophytosis, greatest within the medial compartment. There is bone on bone contact within the medial compartment. Heterotopic ossification about the patella. JOINT: Moderate joint effusion. SOFT TISSUES: No radiopaque foreign body. OTHER: No other significant finding. IMPRESSION: 1. Severe 3 compartment osteoarthritic change, greatest within the medial compartment. There is associated bone on bone contact. 2. No acute bony abnormality. 3. Moderate joint effusion. TECHNICAL DOCUMENTATION: JOB ID: [id number] [employer]- All Rights Reserved Reading location - IP/workstation name: [email or web address]
[2018-12-14] MEDS: ISOSORBIDE MONONITRATE 30 MG TAB.ER.24H PO SCH (10:41)
--- NOTE | 2018-12-14 12:00 | PDOC PROGRESS REPORT ---
Subjective Progress Note for:: 12/14/18 Subjective:: ALTAGRACIA OLIVIA is a 78 year old female with a PMH of atrial fibrillation on Eliquis, history of prior CVAs (patient and DPOA denies prior hx of CVA, CT does show old CVAs, CHF (last known Ef of 45%), severe multiple joint arthritis and debility who was brought in from [facility] due to altered mental status. She had transient slurred speech and was initially hypotensive at 70/50. She was admitted for hypotension and possible TIA. In the ER, she was back to her baseline and was AO x 4. 12/13: She had BP in the 80s systolic overnight but this gradually improved to t he 100s systolic. She appears more comfortable today. She still complains of joint pains. She does have notable left knee effusion and appears to have pain on that area. Left abdominal pain has also improved. She is able to tell me her name today but thinks she is a penitentiary. 12/14: Blood pressures have improved. She is oriented to person, place and time this morning. She still complains of severe left knee swelling. She has known arthritis but says the swelling only developed a few days before admission. Her blood culture is initially growing gram positive cocci 10/31. Pain has slightly improved today and she has allowed me to flex the left knee now to some extent with no noticeable warmth. Ortho has been consulted for further evaluation. She is able to move her feet today with no apparent weakness. Reason For Visit: HYPOTENSION, POSSIBLE SEPSIS, TIA Physical Exam Vital Signs: Temp Pulse Resp BP Pulse Ox 98.0 F 69 16 101/46 L 100 12/14/18 08:08 12/14/18 08:08 12/14/18 08:08 12/14/18 08:08 12/14/18 08:08 Intake & Output 12/13/18 12/14/18 12/15/18 06:59 06:59 06:59 Intake Total 1600 2205 567 Output Total 725 1175 Balance 875 1030 567 Weight 197 lb 1.492 oz 219 lb 12.814 oz General appearance: PRESENT: no acute distress, well-developed, well-nourished Head exam: PRESENT: atraumatic, normocephalic Eye exam: PRESENT: conjunctiva pink, EOMI, PERRLA. ABSENT: scleral icterus Ear exam: PRESENT: normal external ear exam Mouth exam: PRESENT: moist, tongue midline Neck exam: ABSENT: carotid bruit, JVD, lymphadenopathy, thyromegaly Respiratory exam: PRESENT: clear to auscultation jayro. ABSENT: rales, rhonchi, wheezes Cardiovascular exam: PRESENT: RRR. ABSENT: diastolic murmur, rubs, systolic murmur Pulses: PRESENT: normal dorsalis pedis pul GI/Abdominal exam: PRESENT: normal bowel sounds, soft. ABSENT: distended, guarding, mass, organolmegaly, rebound, tenderness Rectal exam: PRESENT: deferred Musculoskeletal exam: PRESENT: other - left knee effusion Neurological exam: PRESENT: alert, awake, oriented to person, oriented to place, oriented to time, oriented to situation, CN II-XII grossly intact, motor sensory deficit - chronic numbness on the legs Results Laboratory Results: 12/14/18 08:00 12/14/18 08:00 12/14/18 12/14/18 08:00 08:00 WBC 8.9 RBC 3.69 L Hgb 10.1 L Hct 29.7 L MCV 81 MCH 27.3 MCHC 33.8 RDW 15.9 H Plt Count 214 Seg Neutrophils % 84.4 H Lymphocytes % 5.9 L Monocytes % 7.3 Eosinophils % 2.1 Basophils % 0.3 Absolute Neutrophils 7.5 Absolute Lymphocytes 0.5 Absolute Monocytes 0.6 Absolute Eosinophils 0.2 Absolute Basophils 0.0 Sodium 133.3 L Potassium 4.0 Chloride 107 Carbon Dioxide 18 L Anion Gap 8 BUN 39 H Creatinine 1.40 H Est GFR ( Amer) 44 L Est GFR (Non-Af Amer) 37 L Glucose 81 Calcium 8.3 L 12/12/18 13:30 Catheterized Urine Urine Culture - Final Lactobacillus (Vaginal Lety) 12/12/18 13:05 Troponin I 0.014 Impressions: Chest X-Ray 12/12/18 12:37 IMPRESSION: Rotated AP examination without acute abnormality of the lungs. Head CT 12/12/18 12:37 IMPRESSION: No acute findings. 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 EVIDENCE OF ACUTE STROKE: NO. Head CTA 12/12/18 12:46 IMPRESSION: No intracranial CTA evidence of focal large vessel occlusion, high- grade stenosis or aneurysm. Neck CTA 12/12/18 12:46 IMPRESSION: The internal carotid arteries are tortuous. There is no significant stenosis. Femur X-Ray 12/12/18 13:29 IMPRESSION: 1. No displaced fracture or dislocation of the right hip or right femur. Please note that plain radiographs may be insensitive for hip or pelvic fracture, particular in the setting of osteopenia. Consider CT or MRI to more sensitively evaluate for fracture if suspected. 2. Severe arthrosis of the right hip with medial joint space loss, markedly asymmetric to the left. 3. Very severe tricompartmental arthrosis of the right knee, evaluation limited by flexion on these non dedicated radiographs. Hip/Pelvis X-Ray 12/12/18 13:29 IMPRESSION: 1. No displaced fracture or dislocation of the right hip or right femur. Please note that plain radiographs may be insensitive for hip or pelvic fracture, particular in the setting of osteopenia. Consider CT or MRI to more sensitively evaluate for fracture if suspected. 2. Severe arthrosis of the right hip with medial joint space loss, markedly asymmetric to the left. 3. Very severe tricompartmental arthrosis of the right knee, evaluation limited by flexion on these non dedicated radiographs. Lower Extremity CT 12/12/18 14:56 IMPRESSION: Degenerative joint disease in the right hip. Abdomen/Pelvis CT 12/12/18 16:55 IMPRESSION: 1. Mild sigmoid diverticulitis. 2. Mild aneurysmal dilatation of the distal abdominal aorta. Extremity Ultrasound 12/13/18 15:05 IMPRESSION: 6.2 x 0.8 x 3.4 cm mildly complex collection along the medial left knee most compatible with knee joint effusion. Limited contralateral views of the right knee demonstrates more simple effusion measuring approximately 5.4 x 0.4 x 3.6 cm. Knee X-Ray 12/14/18 00:00 IMPRESSION: 1. Severe 3 compartment osteoarthritic change, greatest within the medial compartment. There is associated bone on bone contact. 2. No acute bony abnormality. 3. Moderate joint effusion. Assessment & Plan - Diagnosis (1) Hypotension Qualifiers: Hypotension type: unspecified hypotension type Qualified Code(s): I95.9 - Hypotension, unspecified Is this a current diagnosis for this admission?: Yes Plan: Possible secondary to a combination of volume depletion from poor oral intake vs possible sepsis. Resolved with 2L of fluid bolus in the ER. 12/13: Blood culture is growing GPC 10/31. Will switch Rocephin to vancomycin for now pending final report. She had 80 systolic BP readings overnight per staff. This has improved to 100 systolic. Will increase IV fluids to 125 cc/hr today. She has CHF but does appear clinically dry at this time. 12/14: Blood pressures have improved. Decrease IV fluids to 75 cc/hr today. (2) Acute encephalopathy Is this a current diagnosis for this admission?: Yes Plan: Transient confusion possible from acute hypotension vs possible TIA. This resolved in the ER. 12/13: This morning, she is oriented to person. She is able to recognize me from last night but thinks she is in a penitentiary. 12/14: Resolved. She is AO x 4 today. (3) TIA (transient ischemic attack) Is this a current diagnosis for this admission?: Yes Plan: TIA work up including CT head, CTA head and neck in the ER was negative so far. Added Plavix. Continue atorvastatin. (4) Paroxysmal atrial fibrillation Is this a current diagnosis for this admission?: Yes Plan: Continue Eliquis. Hold lopressor for now due to low blood pressures. (5) Effusion, left knee Is this a current diagnosis for this admission?: Yes Plan: 12/13: She does have history of multiple joint arthritis. Concern for ?septic arthritis. Unable to do further assessment of joint as patient refused to have the knee moved. Will consult orthopedics. Will order a left knee US as well. 12/14: She still complains of severe left knee swelling. She has known arthritis but says the swelling only developed a few days before admission. Her blood culture is initially growing gram positive cocci 10/31. Pain has slightly improved today and she has allowed me to flex the left knee now to some extent with no noticeable warmth. Ortho has been consulted for further evaluation. She is able to move her feet today with no apparent weakness. Knee x-ray shows severe arthritic changes. Knee US done with pending report. Await further ortho eval. (6) Acute kidney injury Is this a current diagnosis for this admission?: Yes Plan: Creatinine has trended up to 1.7. Will increase IV fluids today to 125 cc/hr. 12/14: Improving. Creatinine trending down to 1.4. Reduce IV rate to 75 cc/hr. - Time Time Spent with patient: 25-34 minutes
--- NOTE | 2018-12-14 15:20 | PDOC CONSULTATION ---
Consultation Consult Date: 12/14/18 Consult reason:: right knee osteoarthrtis History of Present Illness Admission Date/PCP: 12/12/18 15:25 FLORECITA ARGUELLO MD History of Present Illness: ALTAGRACIA OLIVIA is a 78 year old female with right knee pain status post fall. Patient states she knows she has arthritis in that knee before but has not seen anything in any recent visits. Denies any numbness or tingling or paresthesias just complains of lack of range of motion and pain with weightbearing on the right knee and complains of swelling. Denies any fevers chills or any other symptom Past Medical History Cardiac Medical History: Reports: Atrial Fibrillation - Chronic on Eliquis, C ongestive Heart Failure - Possible CHF as she is on Lasix, Hypertension Pulmonary Medical History: Reports: Bronchitis Endocrine Medical History: Reports: Hypothyroidism - Patient had her thyroid ablated is now hypothyroid. Musculoskeltal Medical History: Reports: Arthritis Psychiatric Medical History: Reports: Depression Past Surgical History Past Surgical History: Reports: Cholecystectomy, Orthopedic Surgery - right finger repair, Other - Irradiation of the thyroid. Social History Smoking Status: Unknown if Ever Smoked Frequency of Alcohol Use: Rare Hx Recreational Drug Use: No Drugs: None Hx Prescription Drug Abuse: No - Advance Directive Resuscitation Status: Do Not Resuscitate Family History Family History: Hypertension, Malignancy Parental Family History Reviewed: No Children Family History Reviewed: No Sibling(s) Family History Reviewed.: No Medication/Allergy Home Medications: Apixaban [Eliquis] 5 mg PO Q12 05/21/18 Levothyroxine Sodium [Synthroid] 200 mcg PO Q6AM 05/21/18 Metoprolol Succinate [Toprol Xl 25 mg Tab.sr] 12.5 mg PO DAILY 05/21/18 Amiodarone HCl [Cordarone 200 mg Tablet] 200 mg PO Q12 #60 tablet 05/29/18 Cholecalciferol (Vitamin D3) [Vitamin D3 1000 Unit Tablet] 2,000 unit PO DAILY #30 tablet 05/29/18 Isosorbide Mononitrate [Imdur 30 mg Tablet.er] 30 mg PO DAILY #30 tab.er.24h 05/29/18 Lisinopril [Prinivil 2.5 mg Tablet] 2.5 mg PO DAILY #30 tablet 05/29/18 Ranolazine [Ranexa 500 mg Tab.sr] 500 mg PO Q12 #60 tab.sr.12h 05/29/18 Ascorbic Acid [Vitamin C] 500 mg PO DAILY 12/12/18 Atorvastatin Calcium [Lipitor 40 mg Tablet] 40 mg PO DAILY 12/12/18 Calcium Carbonate/Vitamin D3 [Calcium 600-Vit D3 400 Tablet] 1 tab PO DAILY 12/12/18 Ferrous Sulfate [Feosol] 325 mg PO DAILY 12/12/18 Furosemide [Lasix 20 mg Tablet] 20 mg PO DAILY 12/12/18 Levothyroxine Sodium 25 mcg PO DAILY 12/12/18 Multivitamin/Iron/Folic Acid [Centrum Adults Tablet] 1 tab PO DAILY 12/12/18 Potassium Chloride 20 meq PO DAILY 12/12/18 Allergies/Adverse Reactions: Sulfa (Sulfonamide Antibiotics) Adverse Reaction (Mild, Verified 08/18/17 12:14) Hardeepes Review of Systems Review of Systems: Constitutional: [PRESENT: as per HPI. ABSENT: chills, fever(s), headache(s), weight gain, weight loss] Eyes: [ABSENT: visual disturbances] Ears: [ABSENT: hearing changes] Cardiovascular: [ABSENT: chest pain, dyspnea on exertion, edema, orthropnea, palpitations] Respiratory: [ABSENT: cough, hemoptysis] Gastrointestinal: [ABSENT: abdominal pain, constipation, diarrhea, hematemesis, hematochezia, nausea, vomiting] Genitourinary: [ABSENT: dysuria, hematuria] Musculoskeletal: As per HPI Integumentary: [ABSENT: rash, wounds] Neurological: [ABSENT: abnormal gait, abnormal speech, confusion, dizziness, focal weakness, syncope] Psychiatric: [ABSENT: anxiety, depression, homicidal ideation, suicidal ideation] Endocrine: [ABSENT: cold intolerance, heat intolerance, menstrual abnormalities, polydipsia, polyuria] Hematologic/Lymphatic: [ABSENT: easy bleeding, easy bruising, lymphadenopathy] Physical Exam Vital Signs: Temp Pulse Resp BP Pulse Ox 36.3 C 65 16 98/45 L 97 12/14/18 11:53 12/14/18 11:53 12/14/18 11:53 12/14/18 11:53 12/14/18 11:53 Intake & Output 12/13/18 12/14/18 12/15/18 06:59 06:59 06:59 Intake Total 1600 2205 567 Output Total 725 1175 Balance 875 1030 567 Weight 89.4 kg 99.7 kg General appearance: PRESENT: no acute distress Head exam: PRESENT: atraumatic, normocephalic Eye exam: PRESENT: EOMI, other - Symmetric pupils and white sclera. ABSENT: nystagmus Ear exam: PRESENT: normal external ear exam Mouth exam: PRESENT: neck supple Neck exam: ABSENT: lymphadenopathy, thyromegaly Respiratory exam: PRESENT: symmetrical, unlabored. ABSENT: tachypnea Cardiovascular exam: PRESENT: RRR Pulses: PRESENT: normal radial pulses, normal dorsalis pedis pul Vascular exam: PRESENT: normal capillary refill Neurological exam: PRESENT: awake, oriented to person, oriented to place, oriented to time Psychiatric exam: PRESENT: appropriate affect, normal mood Adult Front & Back Image: 1 - Patient has generalized swelling with no obvious effusion. Significant crepitus with less than 10 degrees of extension to about 60 degrees of flexion before significant pain. Stable to varus and valgus. Neurovascular intact distally with soft calf and negative Homans sign. Results Laboratory Results: 12/14/18 08:00 12/14/18 08:00 12/14/18 12/14/18 08:00 08:00 WBC 8.9 RBC 3.69 L Hgb 10.1 L Hct 29.7 L MCV 81 MCH 27.3 MCHC 33.8 RDW 15.9 H Plt Count 214 Seg Neutrophils % 84.4 H Lymphocytes % 5.9 L Monocytes % 7.3 Eosinophils % 2.1 Basophils % 0.3 Absolute Neutrophils 7.5 Absolute Lymphocytes 0.5 Absolute Monocytes 0.6 Absolute Eosinophils 0.2 Absolute Basophils 0.0 Sodium 133.3 L Potassium 4.0 Chloride 107 Carbon Dioxide 18 L Anion Gap 8 BUN 39 H Creatinine 1.40 H Est GFR ( Amer) 44 L Est GFR (Non-Af Amer) 37 L Glucose 81 Calcium 8.3 L 12/12/18 13:30 Catheterized Urine Urine Culture - Final Lactobacillus (Vaginal Lety) 12/12/18 13:05 Troponin I 0.014 Impressions: Chest X-Ray 12/12/18 12:37 IMPRESSION: Rotated AP examination without acute abnormality of the lungs. Head CT 12/12/18 12:37 IMPRESSION: No acute findings. 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 EVIDENCE OF ACUTE STROKE: NO. Head CTA 12/12/18 12:46 IMPRESSION: No intracranial CTA evidence of focal large vessel occlusion, high- grade stenosis or aneurysm. Neck CTA 12/12/18 12:46 IMPRESSION: The internal carotid arteries are tortuous. There is no significant stenosis. Femur X-Ray 12/12/18 13:29 IMPRESSION: 1. No displaced fracture or dislocation of the right hip or right femur. Please note that plain radiographs may be insensitive for hip or pelvic fracture, particular in the setting of osteopenia. Consider CT or MRI to more sensitively evaluate for fracture if suspected. 2. Severe arthrosis of the right hip with medial joint space loss, markedly asymmetric to the left. 3. Very severe tricompartmental arthrosis of the right knee, evaluation limited by flexion on these non dedicated radiographs. Hip/Pelvis X-Ray 12/12/18 13:29 IMPRESSION: 1. No displaced fracture or dislocation of the right hip or right femur. Please note that plain radiographs may be insensitive for hip or pelvic fracture, particular in the setting of osteopenia. Consider CT or MRI to more sensitively evaluate for fracture if suspected. 2. Severe arthrosis of the right hip with medial joint space loss, markedly asymmetric to the left. 3. Very severe tricompartmental arthrosis of the right knee, evaluation limited by flexion on these non dedicated radiographs. Lower Extremity CT 12/12/18 14:56 IMPRESSION: Degenerative joint disease in the right hip. Abdomen/Pelvis CT 12/12/18 16:55 IMPRESSION: 1. Mild sigmoid diverticulitis. 2. Mild aneurysmal dilatation of the distal abdominal aorta. Extremity Ultrasound 12/13/18 15:05 IMPRESSION: 6.2 x 0.8 x 3.4 cm mildly complex collection along the medial left knee most compatible with knee joint effusion. Limited contralateral views of the right knee demonstrates more simple effusion measuring approximately 5.4 x 0.4 x 3.6 cm. Knee X-Ray 12/14/18 00:00 IMPRESSION: 1. Severe 3 compartment osteoarthritic change, greatest within the medial compartment. There is associated bone on bone contact. 2. No acute bony abnormality. 3. Moderate joint effusion. Status: Image reviewed by me Assessment & Plan - Diagnosis (1) Osteoarthritis of right knee Qualifiers: Osteoarthritis type: primary Qualified Code(s): M17.11 - Unilateral primary osteoarthritis, right knee Is this a current diagnosis for this admission?: Yes Plan: 78-year-old female with acute flareup of her right knee osteoarthritis. Commended conservative treatment with NSAIDs and medication and physical therapy. Patient when discharged can see us as an outpatient so we can address her arthritis. Told her she has severe arthritis and I think to addressed her issue is to proceed with a knee replacement.
[2018-12-14] MEDS: VANCOMYCIN HCL 1,000 MG in DEXTROSE 5%-WATER 250 ML IV SCH (19:23)
[2018-12-14] MEDS: PHARMACY COMMUNICATION ORDER MC SCH (21:26)
[2018-12-14] MEDS: ATORVASTATIN CALCIUM 40 MG TABLET PO SCH (21:27)
[2018-12-15] MEDS: ACETAMINOPHEN 325 MG TABLET PO PRN ×4 (03:03→23:42)
[2018-12-15] MEDS: NORMAL SALINE 1000 ML 1,000 ML IV PRN ×2 (05:27→21:07)
[2018-12-15] MEDS: LEVOTHYROXINE SODIUM 0.025 MG TABLET PO SCH (07:54)
[2018-12-15] MEDS: ISOSORBIDE MONONITRATE 30 MG TAB.ER.24H PO SCH (10:00)
[2018-12-15] MEDS: APIXABAN 5 MG TABLET PO SCH ×2 (10:01→21:11)
[2018-12-15] MEDS: CLOPIDOGREL BISULFATE 75 MG TABLET PO SCH (10:01)
[2018-12-15] MEDS: LIDOCAINE 5% (700 MG) TRANSDERMAL ADH..PATCH TP SCH (10:01)
[2018-12-15] MEDS: FERROUS SULFATE 325 MG TABLET PO SCH (10:01)
--- NOTE | 2018-12-15 13:49 | PDOC PROGRESS REPORT ---
Subjective Progress Note for:: 12/15/18 Subjective:: ALTAGRACIA OLIVIA is a 78 year old female with a PMH of atrial fibrillation on Eliquis, history of prior CVAs (patient and DPOA denies prior hx of CVA, CT does show old CVAs, CHF (last known Ef of 45%), severe multiple joint arthritis and debility who was brought in from [facility] due to altered mental status. She had transient slurred speech and was initially hypotensive at 70/50. She was admitted for hypotension and possible TIA. In the ER, she was back to her baseline and was AO x 4. 12/13: She had BP in the 80s systolic overnight but this gradually improved to t he 100s systolic. She appears more comfortable today. She still complains of joint pains. She does have notable left knee effusion and appears to have pain on that area. Left abdominal pain has also improved. She is able to tell me her name today but thinks she is a mcc. 12/14: Blood pressures have improved. She is oriented to person, place and time this morning. She still complains of severe left knee swelling. She has known arthritis but says the swelling only developed a few days before admission. Her blood culture is initially growing gram positive cocci 10/31. Pain has slightly improved today and she has allowed me to flex the left knee now to some extent with no noticeable warmth. Ortho has been consulted for further evaluation. She is able to move her feet today with no apparent weakness. 12/15: No acute event overnight. Her joint pains have improved. She was evaluated by ortho. Her knee effusion is likely from severe arthritis. She was recommended outpatient evaluation for possible knee replacement later. Code status readdressed as she previously expressed she did not want resuscitation. Patient is AO x 4 and she says she is a Full Code and prefers to get chest compressions or intubation if needed in the future. Reason For Visit: HYPOTENSION, POSSIBLE SEPSIS, TIA Physical Exam Vital Signs: Temp Pulse Resp BP Pulse Ox 98.0 F 64 16 98/46 L 98 12/15/18 11:54 12/15/18 11:54 12/15/18 11:54 12/15/18 11:54 12/15/18 11:54 Intake & Output 12/14/18 12/15/18 12/16/18 06:59 06:59 06:59 Intake Total 2205 3654 693 Output Total 1178 5735 1175 Balance 1030 729 -482 Weight 219 lb 12.814 oz 203 lb 11.314 oz General appearance: PRESENT: no acute distress, well-developed, well-nourished Head exam: PRESENT: atraumatic, normocephalic Eye exam: PRESENT: conjunctiva pink, EOMI, PERRLA. ABSENT: scleral icterus Ear exam: PRESENT: normal external ear exam Mouth exam: PRESENT: moist, tongue midline Neck exam: ABSENT: carotid bruit, JVD, lymphadenopathy, thyromegaly Respiratory exam: PRESENT: clear to auscultation jayro. ABSENT: rales, rhonchi, wheezes Cardiovascular exam: PRESENT: RRR. ABSENT: diastolic murmur, rubs, systolic murmur Pulses: PRESENT: normal dorsalis pedis pul GI/Abdominal exam: PRESENT: normal bowel sounds, soft. ABSENT: distended, guarding, mass, organolmegaly, rebound, tenderness Rectal exam: PRESENT: deferred Musculoskeletal exam: PRESENT: other - left knee effusion Neurological exam: PRESENT: alert, awake, oriented to person, oriented to place, oriented to time, oriented to situation, CN II-XII grossly intact. ABSENT: motor sensory deficit Results Laboratory Results: 12/14/18 08:00 12/14/18 08:00 12/12/18 13:05 Troponin I 0.014 Impressions: Chest X-Ray 12/12/18 12:37 IMPRESSION: Rotated AP examination without acute abnormality of the lungs. Head CT 12/12/18 12:37 IMPRESSION: No acute findings. 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 EVIDENCE OF ACUTE STROKE: NO. Head CTA 12/12/18 12:46 IMPRESSION: No intracranial CTA evidence of focal large vessel occlusion, high- grade stenosis or aneurysm. Neck CTA 12/12/18 12:46 IMPRESSION: The internal carotid arteries are tortuous. There is no significant stenosis. Femur X-Ray 12/12/18 13:29 IMPRESSION: 1. No displaced fracture or dislocation of the right hip or right femur. Please note that plain radiographs may be insensitive for hip or pelvic fracture, particular in the setting of osteopenia. Consider CT or MRI to more sensitively evaluate for fracture if suspected. 2. Severe arthrosis of the right hip with medial joint space loss, markedly asymmetric to the left. 3. Very severe tricompartmental arthrosis of the right knee, evaluation limited by flexion on these non dedicated radiographs. Hip/Pelvis X-Ray 12/12/18 13:29 IMPRESSION: 1. No displaced fracture or dislocation of the right hip or right femur. Please note that plain radiographs may be insensitive for hip or pelvic fracture, particular in the setting of osteopenia. Consider CT or MRI to more sensitively evaluate for fracture if suspected. 2. Severe arthrosis of the right hip with medial joint space loss, markedly asymmetric to the left. 3. Very severe tricompartmental arthrosis of the right knee, evaluation limited by flexion on these non dedicated radiographs. Lower Extremity CT 12/12/18 14:56 IMPRESSION: Degenerative joint disease in the right hip. Abdomen/Pelvis CT 12/12/18 16:55 IMPRESSION: 1. Mild sigmoid diverticulitis. 2. Mild aneurysmal dilatation of the distal abdominal aorta. Extremity Ultrasound 12/13/18 15:05 IMPRESSION: 6.2 x 0.8 x 3.4 cm mildly complex collection along the medial left knee most compatible with knee joint effusion. Limited contralateral views of the right knee demonstrates more simple effusion measuring approximately 5.4 x 0.4 x 3.6 cm. Knee X-Ray 12/14/18 00:00 IMPRESSION: 1. Severe 3 compartment osteoarthritic change, greatest within the medial compartment. There is associated bone on bone contact. 2. No acute bony abnormality. 3. Moderate joint effusion. Assessment & Plan - Diagnosis (1) Hypotension Qualifiers: Hypotension type: unspecified hypotension type Qualified Code(s): I95.9 - Hypotension, unspecified Is this a current diagnosis for this admission?: Yes Plan: Possible secondary to a combination of volume depletion from poor oral intake vs possible sepsis. Resolved with 2L of fluid bolus in the ER. 12/13: Will switch Rocephin to vancomycin for now pending final report. She had 80 systolic BP readings overnight per staff. This has improved to 100 systolic. Will increase IV fluids to 125 cc/hr today. She has CHF but does appear clinically dry at this time. 12/14: Blood pressures have improved. Decrease IV fluids to 75 cc/hr today. 12/15: Blood pressures have remain stable. Blood culture is growing GPC 10/31. Final blood culture still pending. (2) Acute encephalopathy Is this a current diagnosis for this admission?: Yes Plan: Transient confusion possible from acute hypotension vs possible TIA. This resolved in the ER. 12/13: This morning, she is oriented to person. She is able to recognize me from last night but thinks she is in a [facility]. 12/14: Resolved. She is AO x 4 today. (3) TIA (transient ischemic attack) Is this a current diagnosis for this admission?: Yes Plan: TIA work up including CT head, CTA head and neck in the ER was negative so far. Added Plavix. Continue atorvastatin. (4) Paroxysmal atrial fibrillation Is this a current diagnosis for this admission?: Yes Plan: Continue Eliquis. Hold lopressor for now due to low blood pressures. (5) Effusion, left knee Is this a current diagnosis for this admission?: Yes Plan: 12/13: She does have history of multiple joint arthritis. Concern for ?septic arthritis. Unable to do further assessment of joint as patient refused to have the knee moved. Will consult orthopedics. Will order a left knee US as well. 12/14: She still complains of severe left knee swelling. She has known arthritis but says the swelling only developed a few days before admission. Her blood culture is initially growing gram positive cocci 10/31. Pain has slightly improved today and she has allowed me to flex the left knee now to some extent with no noticeable warmth. Ortho has been consulted for further evaluation. She is able to move her feet today with no apparent weakness. Knee x-ray shows severe arthritic changes. Knee US done with pending report. Await further ortho eval. 12/15: (6) Acute kidney injury Is this a current diagnosis for this admission?: Yes Plan: Creatinine has trended up to 1.7. Will increase IV fluids today to 125 cc/hr. 12/14: Improving. Creatinine trending down to 1.4. Reduce IV rate to 75 cc/hr. 12/15: - Time Time Spent with patient: 25-34 minutes
[2018-12-15 15:30] LABS: ANION GAP 9 (5-19); BLOOD UREA NITROGEN 31 mg/dL (7-20); CALCIUM 8.2 mg/dL (8.4-10.2); CARBON DIOXIDE 18 mmol/L (22-30); CHLORIDE 109 mmol/L (98-107); GLUCOSE 123 mg/dL (75-110); POTASSIUM 4.2 mmol/L (3.6-5.0); SODIUM 135.8 mmol/L (137-145)
[2018-12-15] MEDS: VANCOMYCIN HCL 1,000 MG in DEXTROSE 5%-WATER 250 ML IV SCH (17:35)
[2018-12-15] MEDS: ATORVASTATIN CALCIUM 40 MG TABLET PO SCH (21:11)
[2018-12-15] MEDS: PHARMACY COMMUNICATION ORDER MC SCH (21:34)
[2018-12-16] MEDS: ACETAMINOPHEN 325 MG TABLET PO PRN (05:37)
[2018-12-16] MEDS: LEVOTHYROXINE SODIUM 0.025 MG TABLET PO SCH (07:42)
[2018-12-16] MEDS: CLOPIDOGREL BISULFATE 75 MG TABLET PO SCH (09:43)
[2018-12-16] MEDS: FERROUS SULFATE 325 MG TABLET PO SCH (09:43)
[2018-12-16] MEDS: ISOSORBIDE MONONITRATE 30 MG TAB.ER.24H PO SCH (09:43)
[2018-12-16] MEDS: LIDOCAINE 5% (700 MG) TRANSDERMAL ADH..PATCH TP SCH (09:43)
[2018-12-16] MEDS: APIXABAN 5 MG TABLET PO SCH (09:43)
--- NOTE | 2018-12-16 13:12 | PDOC TRANSFER SUMMARY ---
General - Admit/Disc Date/PCP Admission Date/Primary Care Provider: 12/12/18 15:25 FLORECITA ARGUELLO MD Discharge Date: 12/16/18 - Discharge Diagnosis (1) Hypotension Is this a current diagnosis for this admission?: Yes (2) Acute encephalopathy Is this a current diagnosis for this admission?: Yes (3) TIA (transient ischemic attack) Is this a current diagnosis for this admission?: Yes (4) Paroxysmal atrial fibrillation Is this a current diagnosis for this admission?: Yes (5) Effusion, left knee Is this a current diagnosis for this admission?: Yes (6) Acute kidney injury Is this a current diagnosis for this admission?: Yes - Additional Information Resuscitation Status: Do Not Resuscitate Prescriptions: Clopidogrel Bisulfate [Plavix 75 mg Tablet] 75 mg PO DAILY #30 tablet Lidocaine [Lidoderm 5% (700 mg) Transdermal Patch] 1 patch TP DAILY #20 adh..patch Metoprolol Succinate [Toprol Xl 25 mg Tab.sr] 25 mg PO DAILY #30 tab.sr.24h Home Medications: Apixaban [Eliquis] 5 mg PO Q12 05/21/18 Cholecalciferol (Vitamin D3) [Vitamin D3 1000 Unit Tablet] 2,000 unit PO DAILY #30 tablet 05/29/18 Isosorbide Mononitrate [Imdur 30 mg Tablet.er] 30 mg PO DAILY #30 tab.er.24h 05/29/18 Ranolazine [Ranexa 500 mg Tab.sr] 500 mg PO Q12 #60 tab.sr.12h 05/29/18 Ascorbic Acid [Vitamin C] 500 mg PO DAILY 12/12/18 Atorvastatin Calcium [Lipitor 40 mg Tablet] 40 mg PO DAILY 12/12/18 Calcium Carbonate/Vitamin D3 [Calcium 600-Vit D3 400 Tablet] 1 tab PO DAILY 12/12/18 Ferrous Sulfate [Feosol] 325 mg PO DAILY 12/12/18 Furosemide [Lasix 20 mg Tablet] 20 mg PO DAILY 12/12/18 Levothyroxine Sodium 25 mcg PO DAILY 12/12/18 Multivitamin/Iron/Folic Acid [Centrum Adults Tablet] 1 tab PO DAILY 12/12/18 Potassium Chloride 20 meq PO DAILY 12/12/18 Acetaminophen [Tylenol 325 mg Tablet] 650 mg PO Q6HP PRN tablet 12/16/18 Clopidogrel Bisulfate [Plavix 75 mg Tablet] 75 mg PO DAILY #30 tablet 12/16/18 Lidocaine [Lidoderm 5% (700 mg) Transdermal Patch] 1 patch TP DAILY #20 adh..patch 12/16/18 Metoprolol Succinate [Toprol Xl 25 mg Tab.sr] 25 mg PO DAILY #30 tab.sr.24h 12/16/18 History of Present Illness Admission Date/PCP: 12/12/18 15:25 FLORECITA ARGUELLO MD History of Present Illness: ALTAGRACIA OLIVIA is a 78 year old female with a PMH of atrial fibrillation on Eliquis, history of prior CVAs (patient and DPOA denies prior hx of CVA, CT does show old CVAs, CHF (last known Ef of 45%), severe multiple joint arthritis and debility who was brought in from [facility] due to altered mental status. DPOA is on bedside. Patient reportedly had mild episodes of confusion starting the other day when DPOA was called by patient. Patient reportedly was confused and did not think she is staying at [facility] and was living somewhere else. Patient that time also reported of having some chills with no reported fever. She denies dysuria but says she has urinary frequency. No documented fever. She also has been having poor oral intake at the SNF. This morning, around 11 AM, patient was seen by her PCP and was not responsive. She finally woke up and was noted to have slurred speech and reportedly had left sided weakness. She had a reported BP initially of 70/50 by EMS. In the ER, BP was 79/41. She was given 2L of fluid bolus which resolved the hypotension. Patient also had resolution of symptoms in the ER and was back to being AO x 4 after a few minutes when she got back form the CT scan. She was not a TPA candidate due to rapid resolution of neurologic symptoms and the fact that she is on Eliquis. Hospital Course Hospital Course: ALTAGRACIA OLIVIA is a 78 year old female with a PMH of atrial fibrillation on Eliquis, history of prior CVAs (patient and DPOA denies prior hx of CVA, CT does show old CVAs, combined CHF (last known Ef of 45-50%, G2DD), severe multiple fransico nt arthritis and debility who was brought in from [facility] due to altered mental status. She had transient slurred speech and was initially hypotensive at 70/50. She was found to have KEVIN. She was admitted for hypotension and possible TIA. In the ER, she was back to her baseline and was AO x 4. 12/13: She had BP in the 80s systolic overnight but this gradually improved to the 100s systolic. She appears more comfortable today. She still complains of joint pains. She does have notable left knee effusion and appears to have pain on that area. She had mild LLQ pain and CT showed mild sigmoid diverticulitis. She is able to tell me her name today but thinks she is a [facility]. 12/14: Blood pressures have improved. She is oriented to person, place and time this morning. Her abdominal pain has completely resolved. 12/15: Her joint pains have significantly improved with lidocaine patch. She was evaluated by ortho. Her knee effusion is likely from severe arthritis. Knee x- rays showed severe arthritic changes. She was recommended outpatient evaluation for possible knee replacement later. Code status readdressed as she previously expressed she did not want resuscitation. Patient is AO x 4 and she says she is a Full Code and prefers to get chest compressions or intubation if needed. She was initially on vancomycin as initial blood culture grew GPC /2 bottles. However, final report came back as contaminant, as S. cohnii which is a normal skin kyra. As mentioned, her hypotension was likely more from severe dehydration related to her poor intake from her LLQ pain related to her sigmoid diverticulitis. Her abdominal pain resolved the next day from admission. She tolerated diet well and had good, regular BM. Plavix was added to her regimen for her possible TIA. She is on amiodarone for her AFib. She did not get amiodarone here and she had good HR control. Her metoprolol was increased to 25 mg daily instead. Lisinopril 2.5 mg daily was also d/amanda. Physical Exam Vital Signs: Temp Pulse Resp BP Pulse Ox 98.3 F 63 16 112/51 L 99 12/16/18 12:05 12/16/18 12:05 12/16/18 12:05 12/16/18 12:05 12/16/18 12:05 Intake & Output 12/15/18 12/16/18 12/17/18 06:59 06:59 06:59 Intake Total 0544 5829 049 Output Total 4152 8496 Balance 729 -377 669 Weight 203 lb 11.314 oz 215 lb 13.321 oz General appearance: PRESENT: no acute distress, well-developed, well-nourished Head exam: PRESENT: atraumatic, normocephalic Eye exam: PRESENT: conjunctiva pink, EOMI, PERRLA. ABSENT: scleral icterus Ear exam: PRESENT: normal external ear exam Mouth exam: PRESENT: moist, tongue midline Neck exam: ABSENT: carotid bruit, JVD, lymphadenopathy, thyromegaly Respiratory exam: PRESENT: clear to auscultation jayro. ABSENT: rales, rhonchi, wheezes Cardiovascular exam: PRESENT: RRR. ABSENT: diastolic murmur, rubs, systolic murmur Pulses: PRESENT: normal dorsalis pedis pul GI/Abdominal exam: PRESENT: normal bowel sounds, soft. ABSENT: distended, guarding, mass, organolmegaly, rebound, tenderness Rectal exam: PRESENT: deferred Extremities exam: PRESENT: other - left nee swelling significantly improved, no tenderness or warmth Neurological exam: PRESENT: alert, awake, oriented to person, oriented to place, oriented to time, oriented to situation, CN II-XII grossly intact. ABSENT: motor sensory deficit Results Laboratory Results: 12/14/18 08:00 12/15/18 14:36 12/15/18 14:36 Sodium 135.8 L Potassium 4.2 Chloride 109 H Carbon Dioxide 18 L Anion Gap 9 BUN 31 H Creatinine 1.09 Est GFR ( Amer) 59 L Est GFR (Non-Af Amer) 49 L Glucose 123 H Calcium 8.2 L 12/12/18 13:05 Troponin I 0.014 Impressions: Chest X-Ray 12/12/18 12:37 IMPRESSION: Rotated AP examination without acute abnormality of the lungs. Head CT 12/12/18 12:37 IMPRESSION: No acute findings. 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 EVIDENCE OF ACUTE STROKE: NO. Head CTA 12/12/18 12:46 IMPRESSION: No intracranial CTA evidence of focal large vessel occlusion, high- grade stenosis or aneurysm. Neck CTA 12/12/18 12:46 IMPRESSION: The internal carotid arteries are tortuous. There is no significant stenosis. Femur X-Ray 12/12/18 13:29 IMPRESSION: 1. No displaced fracture or dislocation of the right hip or right femur. Please note that plain radiographs may be insensitive for hip or pelvic fracture, particular in the setting of osteopenia. Consider CT or MRI to more s ensitively evaluate for fracture if suspected. 2. Severe arthrosis of the right hip with medial joint space loss, markedly asymmetric to the left. 3. Very severe tricompartmental arthrosis of the right knee, evaluation limited by flexion on these non dedicated radiographs. Hip/Pelvis X-Ray 12/12/18 13:29 IMPRESSION: 1. No displaced fracture or dislocation of the right hip or right femur. Please note that plain radiographs may be insensitive for hip or pelvic fracture, particular in the setting of osteopenia. Consider CT or MRI to more sensitively evaluate for fracture if suspected. 2. Severe arthrosis of the right hip with medial joint space loss, markedly asymmetric to the left. 3. Very severe tricompartmental arthrosis of the right knee, evaluation limited by flexion on these non dedicated radiographs. Lower Extremity CT 12/12/18 14:56 IMPRESSION: Degenerative joint disease in the right hip. Abdomen/Pelvis CT 12/12/18 16:55 IMPRESSION: 1. Mild sigmoid diverticulitis. 2. Mild aneurysmal dilatation of the distal abdominal aorta. Extremity Ultrasound 12/13/18 15:05 IMPRESSION: 6.2 x 0.8 x 3.4 cm mildly complex collection along the medial left knee most compatible with knee joint effusion. Limited contralateral views of the right knee demonstrates more simple effusion measuring approximately 5.4 x 0.4 x 3.6 cm. Knee X-Ray 12/14/18 00:00 IMPRESSION: 1. Severe 3 compartment osteoarthritic change, greatest within the medial compartment. There is associated bone on bone contact. 2. No acute bony abnormality. 3. Moderate joint effusion. Transfer Plan - Time Spent with Patient Time spent with patient: Greater than 30 Minutes Qualifiers - * PATIENT BEING DISCHARGED WITH ANY OF THE FOLLOWING DIAGNOSIS: No
[2018-12-16 16:27] VITALS: BP 122/53
[2018-12-16] MEDS: VANCOMYCIN HCL 1,000 MG in DEXTROSE 5%-WATER 250 ML IV SCH (18:24)
== END 2018-12-16 18:29 | DRG 315 ==
LOC: ER 12:35 → EH 15:25 → 3N 18:26
PROVIDERS: ADMIT Internal Medicine; ATTEND Internal Medicine
DX: I95.9 Hypotension, unspecified (principal); G45.9 Transient cerebral ischemic attack, unspecified; G93.40 Encephalopathy, unspecified; N17.9 Acute kidney failure, unspecified; K57.32 Diverticulitis of large intestine without perforation or abscess without bleeding; E86.0 Dehydration; I48.0 Paroxysmal atrial fibrillation; I11.0 Hypertensive heart disease with heart failure; I50.9 Heart failure, unspecified; M25.462 Effusion, left knee; M17.11 Unilateral primary osteoarthritis, right knee; Z66 Do not resuscitate; E03.9 Hypothyroidism, unspecified; M19.90 Unspecified osteoarthritis, unspecified site; F32.9 Major depressive disorder, single episode, unspecified; Z79.899 Other long term (current) drug therapy; Z79.02 Long term (current) use of antithrombotics/antiplatelets; Z86.73 Personal history of transient ischemic attack (TIA), and cerebral infarction without residual deficits; Z90.49 Acquired absence of other specified parts of digestive tract; Z88.2 Allergy status to sulfonamides
CPT/HCPCS: 36415; 70450; 70496; 70498; 71045; 74176; 76882; 80048; 80053; 81001; 82550; 82962; 83605; 83735; 84484; 85025; 85610; 85730; 87040; 87077; 87086; 87186; 93005; 93010; 96361; 96365; 96375; 99291; J0696; J3010; J3370; J7030; J7060

== ENCOUNTER 2019-01-04 02:25 | Emergency (ER) | payer MEDICARE, OTHER ==
--- NOTE | 2019-01-04 02:41 | ER Document Report ---
ED General - General Chief Complaint: Fall Stated Complaint: FALL Time Seen by Provider: 01/04/19 02:33 Notes: Patient is a 78-year-old female who is comes from from her skilled nursing. She fell and hit her head. She has a small abrasion over the top of her head. She denies loss conscious. She denies any neck or back pain. No hip or leg pain. No upper extremity pain. No chest or abdominal pain. No vomiting. She is on blood thinning medications. She has no other complaints at this time. TRAVEL OUTSIDE OF THE [place] IN LAST 30 DAYS: No - Related Data Allergies/Adverse Reactions: Sulfa (Sulfonamide Antibiotics) Adverse Reaction (Mild, Verified 08/18/17 12:14) Hives Past Medical History - Social History Smoking Status: Never Smoker Frequency of alcohol use: None Drug Abuse: None Family History: Hypertension, Malignancy - Past Medical History Cardiac Medical History: Reports: Hx Atrial Fibrillation - Chronic on Eliquis, Hx Congestive Heart Failure - Possible CHF as she is on Lasix, Hx Hypertension Pulmonary Medical History: Reports: Hx Bronchitis Endocrine Medical History: Reports: Hx Hypothyroidism - Patient had her thyroid ablated is now hypothyroid. Renal/ Medical History: Denies: Hx Peritoneal Dialysis Musculoskeletal Medical History: Reports Hx Arthritis Psychiatric Medical History: Reports: Hx Depression Past Surgical History: Reports: Hx Cholecystectomy, Hx Orthopedic Surgery - right finger repair, Hx Thyroid Surgery, Other - Irradiation of the thyroid. Review of Systems - Review of Systems Notes: My Normal Review Basic REVIEW OF SYSTEMS: CONSTITUTIONAL : Denies fever, chills, or sweats. Denies recent illness. RESPIRATORY: Denies cough, cold, or chest congestion. Denies shortness of breath, difficulty breathing, or wheezing. GASTROINTESTINAL: Denies abdominal pain. Denies nausea, vomiting, or diarrhea. GENITOURINARY: Denies difficulty urinating, painful urination, burning, frequency, or blood in urine. MUSCULOSKELETAL: Denies neck or back pain or joint pain or swelling. SKIN: Denies rash or skin lesions. NEUROLOGICAL: Denies altered mental status or loss of consciousness. Denies headache. Denies weakness or paralysis or loss of use of either side. Denies problems with gait or speech. Denies sensory or motor loss. ALL OTHER SYSTEMS REVIEWED AND NEGATIVE. Physical Exam - Vital signs Vitals: Temp Pulse Resp BP Pulse Ox 97.3 F 65 18 137/70 H 98 03/08/19 02:30 01/04/19 02:30 01/04/19 02:30 01/04/19 02:30 01/04/19 02:30 - Notes Notes: General Appearance: Well nourished, alert, cooperative, no acute distress, no obvious discomfort. Well-appearing. Vitals: reviewed, See vital signs table. Head: No hematoma to the top of the head. Small abrasion which is not actively bleeding at this time. Eyes: PERRL, EOMI, Conjuctiva clear Mouth: No decreasd moisture Throat: No tonsillar inflammation, No airway obstruction, No lymphadenopathy Neck: Supple, no neck tenderness, Back: No pain to palpation of thoracic or lumbar spine. No step-offs or deformities. Bruising or swelling to the back. Lungs: No wheezing, No rales, No rhonci, No accessory muscle use, good air exchange bilaterally. Heart: Normal rate, Regular rythm, No murmur, no rub Abdomen: Normal BS, soft, No rigidity, No abdominal tenderness, No guarding, no rebound, no abdominal masses, no organomegaly Extremities: Full range of motion of all extremities without pain., good pulses in all extremities, no swelling or tenderness in the extremities, no edema. Nervous stable. Skin: warm, dry, appropriate color, no rash Neuro: speech clear, oriented x 3, normal affect, responds appropriately to questions. Cranial nerves II through XII are intact. Course - Re-evaluation Re-evalutation: 01/04/19 05:[address] scan of her head is negative. The remainder of her exam is non- concerning. She looks well. Feel she is safe to be discharged home. Patient says she has no pain and has no further concerns at this time. Patient to return to ER immediately if she has severe headache, vomiting, or feels unwell. Patient agrees with plan and will be discharged home. Dictation of this chart was performed using voice recognition software; therefore, there may be some unintended grammatical errors. - Vital Signs Vital signs: Temp Pulse Resp BP Pulse Ox 98.1 F 65 18 100/41 L 100 01/04/19 04:26 01/04/19 02:30 01/04/19 02:30 01/04/19 04:25 01/04/19 04:25 Procedures - Laceration/Wound Repair scalp Wound length (cm): 1 Wound's Depth, Shape: Superficial Laceration pre-procedure: Other - hydrogen peroxide Wound explored: Clean Wound Repaired With: Dermabond Complications: No Discharge - Discharge Clinical Impression: Scalp laceration Qualifiers: Encounter type: initial encounter Qualified Code(s): S01.01XA - Laceration without foreign body of scalp, initial encounter Minor head injury without loss of consciousness Qualifiers: Encounter type: initial encounter Qualified Code(s): S09.90XA - Unspecified injury of head, initial encounter Condition: Good Disposition: HOME, SELF-CARE Additional Instructions: Please return to the ER immediately if you develop severe headaches, vomiting, or feel unwell. We have placed glue over the small cut on your head. This will heal on its own and the glue will eventually come off. Return to the ER if there is any spreading redness, abnormal drainage or concerns for infection.
--- NOTE | 2019-01-04 03:41 | RADIOLOGY REPORT (SQ) ---
EXAM DESCRIPTION: CT HEAD WITHOUT IV CONTRAST COMPLETED DATE/TME: 01/04/2019 02:38 CLINICAL HISTORY: 78 years, Female, trauma COMPARISON: Prior CT brain 12/12/2018 TECHNIQUE: 190 Images stored on PACS. All CT scanners at this facility use dose modulation, iterative reconstruction, and/or weight based dosing when appropriate to reduce radiation dose to as low as reasonably achievable (ALARA). [facility]: Dose Right [facility]: CareDose [facility]: Dose Right [facility]: Teradose 4D [facility]: [employer] LIMITATIONS: None. FINDINGS: The globes are intact. The paranasal sinuses and mastoid air cells are unremarkable. No displaced or depressed skull fracture. Small frontal scalp hematoma. Negative for acute intracranial hemorrhage. CT is limited for evaluation of acute infarct. No CT evidence for large or territorial acute infarct. Mild diffuse atrophy with minor small vessel ischemic change. IMPRESSION: Small frontal scalp hematoma. Mild atrophy and small vessel ischemic change. TECHNICAL DOCUMENTATION: Quality ID # 436: Final reports with documentation of one or more dose reduction techniques (e.g., Automated exposure control, adjustment of the mA and/or kV according to patient size, use of iterative reconstruction technique) copyright 2010 [employer]- All Rights Reserved
[2019-01-04 05:21] VITALS: BP 138/57
== END 2019-01-04 05:28 | disposition home or self-care (01) ==
LOC: ER 02:25
DX: S01.01XA Laceration without foreign body of scalp, initial encounter (principal); S09.90XA Unspecified injury of head, initial encounter; W19.XXXA Unspecified fall, initial encounter; I48.91 Unspecified atrial fibrillation; I50.9 Heart failure, unspecified; I11.0 Hypertensive heart disease with heart failure; E03.9 Hypothyroidism, unspecified; Z79.02 Long term (current) use of antithrombotics/antiplatelets; Z90.49 Acquired absence of other specified parts of digestive tract; Z88.2 Allergy status to sulfonamides
CPT/HCPCS: 70450; 99284

== ENCOUNTER 2019-09-06 10:59 | Emergency (ER) | payer MEDICARE, OTHER ==
--- NOTE | 2019-09-06 13:10 | RADIOLOGY REPORT (SQ) ---
EXAM DESCRIPTION: CT CERVICAL SPINE WITHOUT COMPLETED DATE/TIME: 09/06/2019 1:00 pm REASON FOR STUDY: fall, right eye ecchymosis COMPARISON: 06/15/2018 TECHNIQUE: Axial images acquired through the cervical spine without intravenous contrast. Images re viewed with lung, soft tissue and bone windows. Reconstructed coronal and sagittal MPR images review ed. Images stored on PACS. All CT scanners at this facility use dose modulation, iterative reconstruction, and/or weight based d osing when appropriate to reduce radiation dose to as low as reasonably achievable (ALARA). [facility]: Dose Right [facility]: CareDose [facility]: Dose Right [facility]: Teradose 4D [facility]: [employer] RADIATION DOSE: CT Rad equipment meets quality standard of care and radiation dose reduction techniq ues were employed. CTDIvol: 22.4 mGy. DLP: 388 mGy-cm. mGy. LIMITATIONS: None. FINDINGS: ALIGNMENT: Minimal degenerative anterolisthesis of C4 on C5 unchanged from prior. MINERALIZATION: Normal. VERTEBRAL BODIES: No fractures or dislocation. DISCS: Generally mild multilevel disc space height loss. FACETS, LATERAL MASSES, POSTERIOR ELEMENTS: Moderate to severe multilevel facet arthrosis. No fractu res. No dislocation. No acute findings. HARDWARE: None in the spine. VISUALIZED RIBS: No fractures. LUNG APICES AND SOFT TISSUES: No significant or acute findings. OTHER: No other significant finding. IMPRESSION: No fracture or static subluxation of the cervical spine. TECHNICAL DOCUMENTATION: JOB ID: [id number] Quality ID # [id number]: Final reports with documentation of one or more dose reduction techniques (e.g., Au tomated exposure control, adjustment of the mA and/or kV according to patient size, use of iterative reconstruction technique) 2010 [employer]- All Rights Reserved Reading location - IP/workstation name: [email or web address]
--- NOTE | 2019-09-06 13:14 | RADIOLOGY REPORT (SQ) ---
EXAM DESCRIPTION: CT HEAD WITHOUT COMPLETED DATE/TIME: 09/06/2019 1:00 pm REASON FOR STUDY: fall, right eye ecchymosis COMPARISON: 01/04/2019 TECHNIQUE: Axial images acquired through the brain without intravenous contrast. Images reviewed wi th bone, brain and subdural windows. Additional sagittal and coronal reconstructions were generated. Images stored on PACS. All CT scanners at this facility use dose modulation, iterative reconstruction, and/or weight based d osing when appropriate to reduce radiation dose to as low as reasonably achievable (ALARA). [facility]: Dose Right [facility]: CareDose [facility]: Dose Right [facility]: Teradose 4D [facility]: [employer] RADIATION DOSE: CT Rad equipment meets quality standard of care and radiation dose reduction techniq ues were employed. CTDIvol: 53.2 mGy. DLP: 1097 mGy-cm. mGy. LIMITATIONS: None. FINDINGS: VENTRICLES: Normal size and contour. CEREBRUM: No masses. No hemorrhage. No midline shift. No evidence for acute infarction. Few scatte red areas of low density in the white matter most likely chronic small vessel ischemic changes. CEREBELLUM: No masses. No hemorrhage. No alteration of density. No evidence for acute infarction. EXTRAAXIAL SPACES: No fluid collections. No masses. ORBITS AND GLOBE: No intra- or extraconal masses. Normal contour of globe without masses. CALVARIUM: No fracture. PARANASAL SINUSES: No fluid or mucosal thickening. SOFT TISSUES: No mass or hematoma. OTHER: No other significant finding. IMPRESSION: No acute intracranial pathology. EVIDENCE OF ACUTE STROKE: NO. COMMENT: Quality ID # 436: Final reports with documentation of one or more dose reduction techniques (e.g., Automated exposure control, adjustment of the mA and/or kV according to patient size, use of iterative reconstruction technique) TECHNICAL DOCUMENTATION: JOB ID: [id number] [employer]- All Rights Reserved Reading location - IP/workstation name: [email or web address]
--- NOTE | 2019-09-06 14:04 | RADIOLOGY REPORT (SQ) ---
EXAM DESCRIPTION: KNEE LEFT 3 VIEWS COMPLETED DATE/TIME: 09/06/2019 1:36 pm REASON FOR STUDY: fall, Left knee pain/swelling COMPARISON: None. NUMBER OF VIEWS: Three views. TECHNIQUE: AP, lateral, and sunrise patella radiographic images acquired of the left knee. LIMITATIONS: None. FINDINGS: MINERALIZATION: Normal. BONES: No acute fracture or dislocation. No worrisome bone lesions. No significant osteophytes. JOINT: There is loss of joint space in all 3 compartments. Prominent exostosis off the lateral femor al condyle. OTHER: No other significant finding. IMPRESSION: Complete loss of joint space in all compartments. Prominent lateral exostosis off the l ateral femoral condyle. TECHNICAL DOCUMENTATION: JOB ID: [id number] [employer]- All Rights Reserved Reading location - IP/workstation name: [email or web address]
--- NOTE | 2019-09-06 14:39 | ER Document Report ---
ED Fall - General Chief Complaint: Fall Stated Complaint: FALL,WEAKNESS Time Seen by Provider: 09/06/19 12:14 Primary Care Provider: FLORECITA ARGUELLO MD [Primary Care Provider] - Follow up as needed Notes: Patient is a 78-year-old female presenting to the emergency department from local senior care after falling yesterday. Patient is completely alert, oriented and states that yesterday while she was trying to transition from her wheelchair to her bed she fell approximately 3 feet hitting the right side of her face onto the ground. She is complaining of some pain near the right eye and left knee. She denies any loss of consciousness, states that she was wearing a long dress because it was cold and the dress got caught up when she was moving positions. She denies the need for any pain medications at this t jhonny. TRAVEL OUTSIDE OF THE [place] IN LAST 30 DAYS: No - Related data Allergies/Adverse Reactions: Sulfa (Sulfonamide Antibiotics) Adverse Reaction (Mild, Verified 09/06/19 11:37) Hives Past Medical History - General Information source: Patient - Social History Smoking Status: Former Smoker Family History: Hypertension, Malignancy Patient has suicidal ideation: No Patient has homicidal ideation: No - Past Medical History Cardiac Medical History: Reports: Hx Atrial Fibrillation - Chronic on Eliquis, Hx Congestive Heart Failure, Hx Hypertension Pulmonary Medical History: Reports: Hx Bronchitis Endocrine Medical History: Reports: Hx Hypothyroidism - Patient had her thyroid ablated is now hypothyroid. Renal/ Medical History: Denies: Hx Peritoneal Dialysis Musculoskeletal Medical History: Reports Hx Arthritis Psychiatric Medical History: Reports: Hx Depression Past Surgical History: Reports: Hx Cholecystectomy, Hx Orthopedic Surgery - right finger repair, Hx Thyroid Surgery, Other - Irradiation of the thyroid. - Immunizations Immunizations up to date: Yes Review of Systems - Review of Systems Constitutional: No symptoms reported EENT: No symptoms reported Cardiovascular: No symptoms reported Respiratory: No symptoms reported Gastrointestinal: No symptoms reported Genitourinary: No symptoms reported Female Genitourinary: No symptoms reported Musculoskeletal: See HPI Skin: See HPI - Skin tear Right elbow Hematologic/Lymphatic: No symptoms reported Neurological/Psychological: No symptoms reported Physical Exam - Vital signs Vitals: Pulse Resp BP Pulse Ox 57 L 18 120/72 98 09/06/19 11:08 09/06/19 11:08 09/06/19 11:08 09/06/19 11:08 - Notes Notes: PHYSICAL EXAMINATION: GENERAL: Well-appearing, well-nourished and in no acute distress. HEAD: Atraumatic, normocephalic. See below. EYES: Pupils equal round and reactive to light, extraocular movements intact, conjunctiva are normal. Ecchymosis noted around right orbit. ENT: Nares patent, oropharynx clear without exudates. Moist mucous membranes. NECK: Normal range of motion, supple without lymphadenopathy LUNGS: Breath sounds clear to auscultation bilaterally and equal. No wheezes rales or rhonchi. HEART: Regular rate and rhythm without murmurs ABDOMEN: Soft, nontender, nondistended abdomen. No guarding, no rebound. No masses appreciated. Female : deferred Musculoskeletal: Normal range of motion, swelling noted to left knee with ecchymosis. NEUROLOGICAL: Cranial nerves grossly intact. Normal speech. Normal sensory, motor exams PSYCH: Normal mood, normal affect. SKIN: Skin tear noted to right elbow. Course - Re-evaluation Re-evalutation: Cervical Spine CT 09/06/19 12:37 IMPRESSION: No fracture or static subluxation of the cervical spine. Head CT 09/06/19 12:38 IMPRESSION: No acute intracranial pathology. EVIDENCE OF ACUTE STROKE: NO. Knee X-Ray 09/06/19 12:41 IMPRESSION: Complete loss of joint space in all compartments. Prominent lateral exostosis off the lateral femoral condyle. Patient appears well, nontoxic, imaging as outlined above. No acute findings on the head CT or cervical spine CT. She does have some chronic changes on the knee x-ray which is expected for her age and physical condition. Patient stable for discharge back home to the nursing facility. The patient's emergency department workup and current diagnosis were explained to the patient and or family. Follow-up instructions were provided. Medications if prescribed were discussed. Instructions for when to return to the emergency department including specific worrisome symptoms were discussed with the patient and/or family. - Vital Signs Vital signs: Temp Pulse Resp BP Pulse Ox 97.8 F 65 18 124/72 99 09/06/19 11:18 09/06/19 14:00 09/06/19 14:00 09/06/19 14:00 09/06/19 14:00 Procedures - Immobilization Left knee Pre-Proc Neuro Vasc Exam: Normal Immobilizer type: Zoran wrap Performed by: PCT Post-Proc Neuro Vasc Exam: Normal Discharge - Discharge Clinical Impression: Fall with injury Qualifiers: Encounter type: initial encounter Qualified Code(s): W19.XXXA - Unspecified fall, initial encounter Contusion of left knee Qualifiers: Encounter type: initial encounter Qualified Code(s): S80.02XA - Contusion of left knee, initial encounter Facial trauma Qualifiers: Encounter type: initial encounter Qualified Code(s): S09.93XA - Unspecified injury of face, initial encounter Facial contusion Qualifiers: Encounter type: initial encounter Qualified Code(s): S00.83XA - Contusion of other part of head, initial encounter Condition: Stable Disposition: HOME, SELF-CARE Additional Instructions: Contusion Your injury has resulted in a contusion -- a crushing of the deep tissues to your face as well as your left knee. No injury to important structures was detected during the physician's exam. Contusions vary in the amount of pain they cause, and in the length of time required for healing. Typically, the area will become bruised, and will remain painful to touch for two or three weeks. However, most patients are back to working and playing within a few days. After the initial period of rest and cold-packs, your symptoms (together with the doctor's recommendations) will determine how rapidly you can get back to full activity. Usually this means "do what feels okay, but don't do things that hurt." If re-examination was recommended, it's important to follow up as instructed. Call the doctor or return any time if pain increases, if swelling becomes severe, if you develop numbness or weakness in an injured extremity, or if any other alarming symptoms occur. Ice & Elevation Apply ice packs frequently against the painful area. Many different schedules are recommended, such as "20 minutes on, 20 minutes off" or "one hour ice, two hours rest." If you need to work, you may need to go longer between ice treatments. You should plan to have the area ice packed AT LEAST one-fourth of the time. The ice should be applied over the wrap, tape, or splint, or over a layer of cloth -- not directly against the skin. Some ice bags have a built-in cloth and can be put directly on the skin. Your injured part should be elevated as much as possible over the next 48 hours. Try to keep the injury above the level of the heart. Avoid use of the injured area. Elevation and rest will decrease the swelling. Ibuprofen Ibuprofen is an excellent, safe drug for pain control. In addition, it has potent antiinflammatory effects which are beneficial, especially in the treatment of injuries, arthritis, or tendonitis. It's best to take ibuprofen with food. Persons with ulcer disease or allergy to aspirin should notify their physician of this before taking ibuprofen. Take the medication exactly as prescribed. Don't take additional doses unless instructed to do so by your doctor. If you develop wheezing, shortness of breath, hives, faintness, stomach pain, vomiting, or dark black stools, return for re-evaluation at once. The x-rays were negative for any fracture or dislocation. Please take ibuprofen or acetaminophen [id number] as directed to help with pain and inflammation. Referrals: FLORECITA ARGUELLO MD [Primary Care Provider] - Follow up as needed
[2019-09-06 17:00] VITALS: BP 113/66
== END 2019-09-06 16:56 | disposition home or self-care (01) ==
LOC: ER 10:59
DX: S80.02XA Contusion of left knee, initial encounter (principal); S09.93XA Unspecified injury of face, initial encounter; S00.83XA Contusion of other part of head, initial encounter; R53.1 Weakness; W05.0XXA Fall from non-moving wheelchair, initial encounter; Y92.129 Unspecified place in nursing home as the place of occurrence of the external cause; Z87.891 Personal history of nicotine dependence; I48.91 Unspecified atrial fibrillation; I50.9 Heart failure, unspecified; I11.0 Hypertensive heart disease with heart failure; Z79.01 Long term (current) use of anticoagulants
CPT/HCPCS: 70450; 72125; 99284

== ENCOUNTER 2020-06-10 17:52 | Emergency (ER) | payer MEDICARE, OTHER, MEDICAID ==
--- NOTE | 2020-06-10 18:00 | ER Document Report ---
ED General - General Stated Complaint: ABNORMAL LABS Time Seen by Provider: 06/10/20 17:53 Primary Care Provider: FLORECITA ARGUELLO MD [Primary Care Provider] - Follow up as needed TRAVEL OUTSIDE OF THE [place] IN LAST 30 DAYS: No - HPI Patient complains to provider of: ABNormal labs Notes: Demented female presents from [facility] for low blood count. Patient has no complaints. Poor historian - Related Data Allergies/Adverse Reactions: Sulfa (Sulfonamide Antibiotics) Adverse Reaction (Mild, Verified 09/06/19 11:37) Hives Past Medical History - Social History Smoking Status: Unknown if Ever Smoked Family History: Hypertension, Malignancy - Past Medical History Cardiac Medical History: Reports: Hx Atrial Fibrillation - Chronic on Eliquis, Hx Congestive Heart Failure, Hx Hypertension Pulmonary Medical History: Reports: Hx Bronchitis Endocrine Medical History: Reports: Hx Hypothyroidism - Patient had her thyroid ablated is now hypothyroid. Renal/ Medical History: Denies: Hx Peritoneal Dialysis Musculoskeletal Medical History: Reports Hx Arthritis Psychiatric Medical History: Reports: Hx Depression Past Surgical History: Reports: Hx Cholecystectomy, Hx Orthopedic Surgery - right finger repair, Hx Thyroid Surgery, Other - Irradiation of the thyroid. - Immunizations Immunizations up to date: Yes Review of Systems - Review of Systems Notes: REVIEW OF SYSTEMS: CONSTITUTIONAL: -fevers, -chills EENT: -eye pain, -difficulty swallowing, -nasal congestion CARDIOVASCULAR: -chest pain, -syncope. RESPIRATORY: -cough, -SOB GASTROINTESTINAL: -abdominal pain, -nausea, -vomiting, -diarrhea GENITOURINARY: -dysuria, -hematuria MUSCULOSKELETAL: -back pain, -neck pain SKIN: -rash or skin lesions. HEMATOLOGIC: -easy bruising or bleeding. LYMPHATIC: -swollen, enlarged glands. NEUROLOGICAL: -altered mental status or loss of consciousness, -headache, - neurologic symptoms PSYCHIATRIC: -anxiety, -depression. ALL OTHER SYSTEMS REVIEWED AND NEGATIVE. Physical Exam - Vital signs Vitals: Temp Pulse BP Pulse Ox 98.0 F 58 L 98/54 L 99 06/10/20 18:02 06/10/20 18:02 06/10/20 18:02 06/10/20 18:02 - Notes Notes: PHYSICAL EXAMINATION: GENERAL: Well-appearing, well-nourished and in severe acute distress. HEAD: Atraumatic, normocephalic. EYES: Pupils equal round, sclera anicteric, conjunctiva pale ENT: Surgical mask in place. NECK: Normal range of motion, LUNGS: No respiratory Distress, normal chest rise EXTREMITIES: Normal range of motion, No cyanosis. NEUROLOGICAL: Cranial nerves grossly intact. Normal speech, PSYCH: Normal mood, normal affect. SKIN: Warm, Dry, Course - Re-evaluation Re-evalutation: 06/10/20 17:59 Ill appearing elderly demented patient presents in acute distress for possible abnormal labs 06/10/20 19:27 Patient's daughter blood pressure borderline low at 98 Patient has emergent IV established given aggressive fluid resuscitation. Patient's labs returned severe anemia hemoglobin 4.8. Emergent blood transfusion ordered in the emergency department. Hemoccult negative on patient Patient does have extremely low MCV, no obvious source of bleeding the patient can identify although she is a now reliable historian Patient will be admitted to the hospital for further management 06/10/20 19:28 06/10/20 19:42 Previous hemoglobin from over a year ago near normal as was her MCV. - Vital Signs Vital signs: Temp Pulse Resp BP Pulse Ox 98.0 F 58 L 9 L 126/58 H 100 06/10/20 18:02 06/10/20 18:02 06/10/20 19:01 06/10/20 19:01 06/10/20 19:01 - Laboratory Result Diagrams: 06/10/20 18:10 06/10/20 18:10 Laboratory results interpreted by me: 06/10/20 06/10/20 06/10/20 18:10 18:10 18:10 RBC 2.81 L Hgb 4.8 L* Hct 16.0 L MCV 57 L MCH 17.1 L MCHC 29.9 L RDW 20.6 H Plt Count 502 H Eos % (Auto) 6.6 H Baso % (Auto) 2.1 H Sodium 134.9 L BUN 33 H Creatinine 1.52 H Est GFR ( Amer) 40 L Est GFR (MDRD) Non-Af 33 L Crossmatch See Detail Critical Care Note - Critical Care Note Total time excluding time spent on procedures (mins): 32 Discharge - Discharge Clinical Impression: Anemia Qualifiers: Anemia type: unspecified type Qualified Code(s): D64.9 - Anemia, unspecified Condition: Stable Disposition: ADMITTED INPATIENT Admitting Provider: Jona (Hospitalist) Unit Admitted: [facility] Referrals: FLORECITA ARGUELLO MD [Primary Care Provider] - Follow up as needed
[2020-06-10 18:39] LABS: ABSOLUTE BASOPHILS # (AUTO) 0.1 10^3/uL (0.0-0.2); ABSOLUTE EOSINOPHILS # (AUTO) 0.4 10^3/uL (0.0-0.6); ABSOLUTE LYMPHOCYTES (AUTO) 0.9 10^3/uL (0.5-4.7); ABSOLUTE MONOCYTES (AUTO) 0.6 10^3/uL (0.1-1.4); ABSOLUTE NEUT (AUTO) 4.1 10^3/uL (1.7-8.2); BASOPHILS % (AUTO) 2.1 % (0-2); EOSINOPHILS % (AUTO) 6.6 % (0-6); LYMPHOCYTES % (AUTO) 14.7 % (13-45); MEAN CORPUSCULAR HEMOGLOBIN 17.1 pg (27.0-33.4); MEAN CORPUSCULAR HGB CONC 29.9 g/dL (32.0-36.0); MEAN CORPUSCULAR VOLUME 57 fl (80-97); MONOCYTES % (AUTO) 9.7 % (3-13); PLATELET COUNT 502 10^3/uL (150-450); RED BLOOD COUNT 2.81 10^6/uL (3.72-5.28); RED CELL DISTRIBUTION WIDTH 20.6 % (11.5-14.0); SEGMENTED NEUTROPHILS % (AUTO) 66.9 % (42-78); TOTAL CELLS COUNTED % (AUTO) 100 %; WHITE BLOOD COUNT 6.1 10^3/uL (4.0-10.5)
[2020-06-10 18:50] LABS: ANION GAP 9 (5-19); BLOOD UREA NITROGEN 33 mg/dL (7-20); CALCIUM 8.6 mg/dL (8.4-10.2); CARBON DIOXIDE 25 mmol/L (22-30); CHLORIDE 101 mmol/L (98-107); GLUCOSE 109 mg/dL (75-110); POTASSIUM 4.8 mmol/L (3.6-5.0)
[2020-06-10 19:16] LABS: ANISOCYTOSIS 2+; HEMOGLOBIN 4.8 g/dL (12.0-15.5); HYPOCHROMASIA 3+; OVALOCYTES 1+
[2020-06-10 19:17] LABS: PLATELET CLUMPS PRESENT; PLATELET COMMENT ADEQUATE; PLATELET LARGE PRESENT; TARGET CELLS SLIGHT; TEAR DROP CELLS SLIGHT
[2020-06-10] MEDS ORDERED: NORMAL SALINE 250 ML IV PRN ×2 (19:24)
[2020-06-10 19:34] LABS: ABSOLUTE RETICS # 0.064 10^6/uL (0.028-0.122); RETICULOCYTE COUNT (AUTO) 2.28 % (0.66-2.85)
[2020-06-10 19:52] LABS: IRON(TIBC) 18.8 ug/dL (37-170)
[2020-06-10 20:25] LABS: FERRITIN 7.68 ng/mL (11.1-264.0)
--- NOTE | 2020-06-10 20:39 | PDOC CONSULTATION ---
Consultation Consult Date: 06/10/20 Provider Consulted: RENNY SLAUGHTER History of Present Illness Admission Date/PCP: 06/10/20 20:04 FLORECITA ARGUELLO MD History of Present Illness: ALTAGRACIA OLIVIA is a 79 year old female who is a resident at [place] and was sent here for abnormal labs. Her hemoglobin was low. Her MCV is very low. She has had a chronic anemia with a low MCV for quite some time and has been previously diagnosed with an iron deficiency anemia. She has taken an iron supplement in the past. She is not had any evidence of bleeding and her Hemoccult was negative. Her vital signs are all stable. Past Medical History Cardiac Medical History: Reports: Atrial Fibrillation - Chronic on Eliquis, Congestive Heart Failure, Hypertension Pulmonary Medical History: Reports: Bronchitis Endocrine Medical History: Reports: Hypothyroidism - Patient had her thyroid ablated is now hypothyroid. Musculoskeltal Medical History: Reports: Arthritis Psychiatric Medical History: Reports: Depression Hematology: Reports: Anemia Past Surgical History Past Surgical History: Reports: Cholecystectomy, Orthopedic Surgery - right finger repair, Other - Irradiation of the thyroid. Social History Smoking Status: Unknown if Ever Smoked Frequency of Alcohol Use: Rare Hx Recreational Drug Use: No Drugs: None Hx Prescription Drug Abuse: No Family History Family History: Hypertension, Malignancy Parental Family History Reviewed: Yes Children Family History Reviewed: Yes Sibling(s) Family History Reviewed.: Yes Medication/Allergy Home Medications: Apixaban [Eliquis] 5 mg PO Q12 05/21/18 Ranolazine [Ranexa 500 mg Tab.sr] 500 mg PO Q12 #60 tab.sr.12h 05/29/18 Atorvastatin Calcium [Lipitor 40 mg Tablet] 40 mg PO DAILY 12/12/18 Furosemide [Lasix 20 mg Tablet] 20 mg PO DAILY 12/12/18 Lidocaine [Lidoderm 5% (700 mg) Transdermal Patch] 1 patch TP DAILY #20 adh..patch 12/16/18 Metoprolol Succinate [Toprol Xl 25 mg Tab.sr] 25 mg PO DAILY #30 tab.sr.24h 12/16/18 Acetaminophen [Tylenol 325 mg Tablet] 650 mg PO Q6HP PRN 06/10/20 Aspirin [Ecotrin] 81 mg PO DAILY 06/10/20 Gabapentin [Neurontin 100 mg Capsule] 100 mg PO Q8 06/10/20 Ipratropium/Albuterol Sulfate [Duoneb 3 ml Ampul] 1 vial NEB Q4HP PRN 06/10/20 Levothyroxine Sodium [Synthroid] 175 mcg PO Q6AM 06/10/20 Loratadine [Claritin 10 mg Tablet] 10 mg PO DAILYP PRN 06/10/20 Menthol/Zinc Oxide [Calmoseptine Ointment] 1 applic TOP TID 06/10/20 Omeprazole 20 mg PO DAILY 06/10/20 Potassium Chloride [Klor-Con 10 Meq Tablet ER] 10 meq PO DAILY 06/10/20 Sertraline HCl [Zoloft 50 mg Tablet] 50 mg PO DAILY 06/10/20 Tramadol HCl [Ultram 50 mg Tablet] 50 mg PO Q8HP PRN 06/10/20 Trazodone HCl [Desyrel 50 mg Tablet] 75 mg PO QHS 06/10/20 Allergies/Adverse Reactions: Sulfa (Sulfonamide Antibiotics) Adverse Reaction (Mild, Verified 09/06/19 11:37) Hives Review of Systems All systems: reviewed and no additional remarkable complaints except as stated - All systems were reviewed and were negative except as noted in the HPI Physical Exam Vital Signs: Temp Pulse Resp BP Pulse Ox 98.0 F 58 L 9 L 126/58 H 100 06/10/20 18:02 06/10/20 18:02 06/10/20 19:01 06/10/20 19:01 06/10/20 19:01 Intake & Output 06/09/20 06/10/20 06/11/20 06:59 06:59 06:59 Weight 95 kg General appearance: PRESENT: no acute distress, cooperative, disheveled, obese Head exam: PRESENT: atraumatic, normocephalic Eye exam: PRESENT: conjunctiva pale, EOMI, PERRLA. ABSENT: conjunctival injection, nystagmus, scleral icterus Ear exam: PRESENT: normal external ear exam Mouth exam: PRESENT: moist, neck supple Throat exam: ABSENT: post pharyngeal erythema Neck exam: PRESENT: full ROM. ABSENT: carotid bruit, JVD, lymphadenopathy, men ingismus, tenderness, thyromegaly Respiratory exam: PRESENT: clear to auscultation jayro, symmetrical, unlabored. ABSENT: accessory muscle use, chest wall tenderness, crackles, prolonged expiratory phas, rhonchi, tachypnea, wheezes Cardiovascular exam: PRESENT: RRR, +S1, +S2 Pulses: PRESENT: normal carotid pulses Vascular exam: PRESENT: normal capillary refill GI/Abdominal exam: PRESENT: normal bowel sounds, soft. ABSENT: distended, guarding, rebound, tenderness Extremities exam: ABSENT: clubbing, pedal edema Musculoskeletal exam: PRESENT: normal inspection. ABSENT: deformity Neurological exam: PRESENT: awake, oriented to person, oriented to place, oriented to situation, CN II-XII grossly intact. ABSENT: motor sensory deficit Psychiatric exam: PRESENT: appropriate affect, normal mood Skin exam: PRESENT: dry, pallor, warm Results Laboratory Results: 06/10/20 18:10 06/10/20 18:10 06/10/20 06/10/20 06/10/20 18:10 18:10 18:10 WBC 6.1 RBC 2.81 L Hgb 4.8 L* Hct 16.0 L MCV 57 L MCH 17.1 L MCHC 29.9 L RDW 20.6 H Plt Count 502 H Seg Neutrophils % 66.9 Retic Count (auto) 2.28 Sodium 134.9 L Potassium 4.8 Chloride 101 Carbon Dioxide 25 Anion Gap 9 BUN 33 H Creatinine 1.52 H Est GFR ( Amer) 40 L Glucose 109 Calcium 8.6 Blood Type Antibody Screen 06/10/20 18:10 WBC RBC Hgb Hct MCV MCH MCHC RDW Plt Count Seg Neutrophils % Retic Count (auto) Sodium Potassium Chloride Carbon Dioxide Anion Gap BUN Creatinine Est GFR ( Amer) Glucose Calcium Blood Type B POSITIVE Antibody Screen NEGATIVE Assessment and Plan - Diagnosis (1) Iron deficiency anemia secondary to inadequate dietary iron intake Is this a current diagnosis for this admission?: Yes Plan: Her MCV was 57 with a hemoglobin of 4.8. Anemia work-up initiated in the ER. No evidence of blood loss with a negative Hemoccult. With her stable vital signs, this is obviously been slowly progressive. The patient was asymptomatic and was only sent over because some routine blood work was checked and found that her hemoglobin was low. She is going to get a couple units of packed red blood cells in the ER and [facility] follow-up on the work-up to determine if she needs not just an iron supplement but also vitamin B12 and folate. - Time Time Spent with patient: 35 or more minutes Anticipated Discharge Disposition: Care Home Facility Anticipated Discharge Timeframe: within 24 hours
[2020-06-10 23:46] VITALS: BP 111/83
== END 2020-06-11 00:34 | disposition home or self-care (01) ==
LOC: ER 17:52 → EH 20:04 → UNDOADMIN 20:04 → ER 06-11 00:34
DX: D64.9 Anemia, unspecified (principal); Z88.2 Allergy status to sulfonamides; I48.91 Unspecified atrial fibrillation; Z79.01 Long term (current) use of anticoagulants; I11.0 Hypertensive heart disease with heart failure; I50.9 Heart failure, unspecified
CPT/HCPCS: 99285; 86900; 86901; 36415; 36430; 86850; 82607; 82728; 82746; 83540; 83550; 82270; 85045; 86920; P9016; 80053; 82140; 84443; 85025